=== PATIENT | female | born 1940 | race Caucasian/White ===

== ENCOUNTER 2020-05-30 08:31 | Day surgery (SDC) | payer MEDICARE, SELFPAY ==
[2020-05-23 13:45] VITALS: BMI 24.2
--- NOTE | 2020-05-28 09:57 | HO.ANESPROP2 ---
Documented by User: Merle Worley 05/28/20 10:04 HPI - Anesthesia Eval Consult details Narrative: 79yo F for EGD and Colonoscopy PMFSH Past Medical History Medical History Anemia Anxiety Asthma COPD (chronic obstructive pulmonary disease) Depression Elevated cholesterol GERD (gastroesophageal reflux disease) GI bleed Lab test negative for COVID-19 virus Osteopenia Peripheral neuropathy Surgical History Surgical History (Updated 05/23/20 @ 13:53 by Pilar Lucas) History of axillary surgery Hx of appendectomy Hx of cholecystectomy Hx of colonoscopy Hx of esophagogastroduodenoscopy Hx of foot surgery Hx of oophorectomy Hx of tonsillectomy Social History Social History Smoking Status: Current every day smoker Packs Per Day: 0.25 Cigarettes Per Day: 5.0 Years Smoked: 50 Smoked in Last 30 Days: Yes Use of substances other than those prescribed or required for medical reasons: No Advance Directives Information Provided: No Recently lost weight without trying: No Meds Allergies Allergy/AdvReac Type Severity Reaction Status Date / Time No Known Allergies Allergy Verified 05/23/20 13:53 Home Medications Medication Instructions Recorded Confirmed Type ascorbic acid (vitamin C) [Vitamin 500 mg PO DAILY 05/23/20 05/23/20 History C] atorvastatin 40 mg PO BEDTIME 05/23/20 05/23/20 History cholecalciferol (vitamin D3) 25 mcg PO DAILY 05/23/20 05/23/20 History [Vitamin D3] citalopram [Celexa] 20 mg PO DAILY 05/23/20 05/23/20 History fluticasone propion-salmeterol 1 inh INHALATION BID 05/23/20 05/30/20 History [Advair Diskus] omeprazole 20 mg PO DAILY 05/23/20 05/23/20 History tiotropium bromide [Spiriva with 1 cap INHALATION DAILY 05/23/20 05/30/20 History HandiHaler] Exam Exam Date and Time: May 28, 2020 0957 Height,Weight and Vital Signs: Height 5 ft 4 in Weight 63.957 kg Assessment and Plan Assessment Anesthesia Assessment: Chart Reviewed Documented by User: Kaiser Jacobsen 05/30/20 09:02 [facility] Past Medical History Medical History Anemia Anxiety Asthma COPD (chronic obstructive pulmonary disease) Depression Elevated cholesterol GERD (gastroesophageal reflux disease) GI bleed Lab test negative for COVID-19 virus Osteopenia Peripheral neuropathy Surgical History Surgical History (Updated 05/23/20 @ 13:53 by Pilar Lucas) History of axillary surgery Hx of appendectomy Hx of cholecystectomy Hx of colonoscopy Hx of esophagogastroduodenoscopy Hx of foot surgery Hx of oophorectomy Hx of tonsillectomy Social History Social History Smoking Status: Current every day smoker Packs Per Day: 0.25 Cigarettes Per Day: 5.0 Years Smoked: 50 Smoked in Last 30 Days: Yes Use of substances other than those prescribed or required for medical reasons: No Advance Directives Information Provided: No Recently lost weight without trying: No Meds Allergies Allergy/AdvReac Type Severity Reaction Status Date / Time No Known Allergies Allergy Verified 05/23/20 13:53 Home Medications Medication Instructions Recorded Confirmed Type ascorbic acid (vitamin C) [Vitamin 500 mg PO DAILY 05/23/20 05/23/20 History C] atorvastatin 40 mg PO BEDTIME 05/23/20 05/23/20 History cholecalciferol (vitamin D3) 25 mcg PO DAILY 05/23/20 05/23/20 History [Vitamin D3] citalopram [Celexa] 20 mg PO DAILY 05/23/20 05/23/20 History fluticasone propion-salmeterol 1 inh INHALATION BID 05/23/20 05/30/20 History [Advair Diskus] omeprazole 20 mg PO DAILY 05/23/20 05/23/20 History tiotropium bromide [Spiriva with 1 cap INHALATION DAILY 05/23/20 05/30/20 History HandiHaler] Exam Airway Mallampati Class: I TM Dist: >3cm Neck ROM: Full Partial: Upper and Lower Heart: RRR occ PVCs Assessment and Plan Assessment Anesthesia Assessment: Anesthesia Plan Discussed Final Anesthetic Review NPO: Yes ASA Class: III Anesthetic Plan Anesthetic Plan: MAC:
[2020-05-30 08:53] VITALS: BP 140/58; PULSE 80; RESP 16; TEMP 36.6; O2SAT 97
[2020-05-30] MEDS: Albuterol Sulfate (0.083%) 2.5 MG/3 ML VIAL.NEB INHALE (09:15)
--- NOTE | 2020-05-30 09:34 | MHC.SHP ---
Pre-Procedural Eval Section B Chief Complaint: Gerd, Screening Relevant Social History: Tobacco Use Present Medications: see Short Stay Collaborative assessment Medical History: Significant History (HTN, HLP, smoker,depression) History of Previous Operations: Relevant previous surgery/procedure and date(s) (appendectomy, cholecystectomy, oophorectomy) Allergies: Allergies Allergy/AdvReac Type Severity Reaction Status Date / Time No Known Allergies Allergy Verified 05/23/20 13:53 Review of Systems Sugical H&P ROS: Negative: Constitution, Cardiovascular, Respiratory, Neurological, Psychiatric, Hem-Onc, Allergic/Immunologic, Gastrointestinal, Genitourinary, Musculoskeletal, Integumentary, Endocrine and Eyes/Ears/Nose/Throat Exam Surgical H&P Exam: Normal: HEENT, Normal: Heart, Normal: Lungs, Normal: Extremities, Normal: Abdomen, Normal: Skin and Normal: Neurological Plan Diagnosis/Plan: Unchanged Patient has been examined and remains a candidate for the planned procedure
--- NOTE | 2020-05-30 09:36 | PM.OP ---
Brief Operative Note Date of procedure: 05/30/20 Pre-op diagnosis: GERD, screening Post-op diagnosis: same Procedure: Operative Information Procedure Description: EGD, Colonoscopy FLEXIBLE TRANSORAL UPPER GASTROINTESTINAL ENDOSCOPY AND COLONOSCOPY PROCEDURE NOTE UPPER ENDOSCOPY Consent: Indications for the procedure and potential complications of bleeding, perforation, reaction to medications and missed diagnosis were discussed with the patient and informed consent was obtained. Instrument: Olympus GIF H 190 J mid size upper endoscope Monitoring: Vital signs and clinical assessment, continuous EKG monitoring, Pulse oximetry, Carbon Dioxide monitoring and blood pressure monitoring were done throughout the procedure. Procedure: The patient was placed in the left lateral decubitis position and pre-procedure medications were administered and a bite block was placed. The endoscope was inserted into the mouth and advanced under direct vision to the third part of duodenum. A careful inspection was made as the upper endoscope was withdrawn including a retroflexed examination of the proximal stomach; Findings and interventions are described below. Findings: Larynx:normal Esophagus: GE junction at 37 cm, diaphragm hiatus at 37 cm, mild esophagitis noted Stomach: Normal mucosa. Biopsies were obtained. Grade 2 flap valve on retroflexed examination of the cardia. 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 Colon withdrawal time was 12 minutes. Procedure: The patient was placed in the left lateral decubitis position and pre-procedure medications were administered. After a digital rectal examination of the ano-rectum, the video colonoscope was inserted into the rectum and advanced through the colon to the cecum. The colonoscope was slowly withdrawn in a retrograde panoramic fashion and the colon mucosa was carefully examined including a retroflexed view of the rectum. Findings and interventions are described below. Procedure Difficulty: Findings: Terminal Ileum-not intubate due to looping Cecum:normal, several AVM seen, non bleeding, 8-10 mm in diameter Ascending Colon: normal Transverse Colon -normal Descending Colon:normal, 6-8 mm sessile polyp biopsy excised Sigmoid Colon: severe diverticulosis, with wide mouthed and small tics Rectum: Retroflexion with moderate sized internal hemorrhoids, grade I, 8-9 mm polyp removed with forceps, one clip applied due to persistent oozing Anorectum - normal Colon preparation: [place] Bowel Preparation Scale Right colon; 3 Transverse colon: 3 Left colon; 3 (0 = Unprepared colon segment with mucosa not seen due to solid stool that cannot be cleared. 1 = Portion of mucosa of the colon segment seen, but other areas of the colon segment not well seen due to staining, residual stool and/or opaque liquid. 2 = Minor amount of residual staining, small fragments of stool and/or opaque liquid, but mucosa of colon segment seen well. 3 = Entire mucosa of colon segment seen well with no residual staining, small fragments of stool or opaque liquid) Impression and Post Procedure Diagnosis: Endoscopy Findings: esophagitis, mild AVM Colonoscopy Findings: diverticulosis AVM polyps Plan: Await Pathology results Do not recommend further screening colonoscopy given age and co-morbidities, but if clinically indicated for other reasons then can be considered High fiber diet leaflet avoid straining at stool, epsom salts and sitz bath as needed, anusol supps or cream prn Above findings were reviewed with the patient and relevant handouts were provided if indicated. Surgeon: Ayan Liang MD Anesthesia: MAC Condition: stable Disposition: PACU
[2020-05-30 10:51] VITALS: BP 99/50; PULSE 76; RESP 12; TEMP 36.1; O2SAT 97
[2020-05-30 11:11] VITALS: BP 111/53; PULSE 69; RESP 18; O2SAT 96
--- NOTE | 2020-05-30 11:28 | HO.POSTANES ---
Post Anesthesia Evaluation Post Anesthesia Evaluation Vital Signs: Vital Signs Temp Pulse Resp BP Pulse Ox 05/30/20 11:11 69 18 111/53 L 96 05/30/20 10:51 97 F 76 12 99/50 L 97 05/30/20 08:53 98 F 80 16 140/58 H 97 Anesthesia: Monitored Mental Status: Awake Pain Control: Satisfactory Nausea/Vomiting: None Hydration: Adequate Anesthesia-Related Issues: No Anes. Related Issues
== END 2020-05-30 11:39 | disposition home or self-care (01) ==
PROVIDERS: PCP Internal Medicine Geriatric Medicine; Visit Provider Internal Medicine Gastroenterology
PROC: (CPT 45380; principal; 2020-05-30 09:50)
DX: Z12.11 Encounter for screening for malignant neoplasm of colon (principal); K63.5 Polyp of colon; K62.1 Rectal polyp; K57.30 Diverticulosis of large intestine without perforation or abscess without bleeding; K64.0 First degree hemorrhoids; K55.20 Angiodysplasia of colon without hemorrhage; K21.00 Gastro-esophageal reflux disease with esophagitis, without bleeding; K31.819 Angiodysplasia of stomach and duodenum without bleeding; K44.9 Diaphragmatic hernia without obstruction or gangrene; I10 Essential (primary) hypertension; E78.5 Hyperlipidemia, unspecified; G62.9 Polyneuropathy, unspecified; M85.80 Other specified disorders of bone density and structure, unspecified site; Z90.49 Acquired absence of other specified parts of digestive tract; F17.210 Nicotine dependence, cigarettes, uncomplicated; Z79.51 Long term (current) use of inhaled steroids; Z79.899 Other long term (current) drug therapy
CPT/HCPCS: 45380; 43239; 88305; 88342; 94640; J3010

== ENCOUNTER 2020-06-28 15:15 | Emergency (ER) | payer MEDICARE, SELFPAY ==
[2020-06-28 15:31] VITALS: BP 131/50; PULSE 69; PULSE 74; RESP 15; TEMP 36.6; O2SAT 95; O2SAT 98; BMI 24.0
--- NOTE | 2020-06-28 17:02 | ED_ITS ---
HPI - Back Pain/Injury General Chief Complaint: Back Pain/Injury Stated Complaint: L LEG PAIN, ?DVT Time Seen by Provider: 06/28/20 16:42 Source: patient Mode of arrival: ambulatory Limitations: no limitations History of Present Illness HPI Narrative: Patient comes to emergency room complaining of left-sided hip pain and back pain. Patient states it started 3 days ago, denies any trauma 3 days ago. Patient states she did have a fall approximately 1 month ago, however she was able to walk with a significant pain, this is new for her. Patient denies any dysuria, no fecal or urinary incontinence or retention. Patient states she has tried Tylenol with no relief. patient states that she is able to walk. Patient was seen by her primary care physician or in a clinic prior to arrival, she had an order for a venous ultrasound but instead she was sent to emergency room, patient has history of DVTs, patient complaining of chronic bilateral leg pain as well. Related Data Home Medications Medication Instructions Recorded Confirmed ascorbic acid (vitamin C) [Vitamin 500 mg PO DAILY 05/23/20 05/23/20 C] atorvastatin 40 mg PO BEDTIME 05/23/20 05/23/20 cholecalciferol (vitamin D3) 25 mcg PO DAILY 05/23/20 05/23/20 [Vitamin D3] citalopram [Celexa] 20 mg PO DAILY 05/23/20 05/23/20 fluticasone propion-salmeterol 1 inh INHALATION BID 05/23/20 05/30/20 [Advair Diskus] omeprazole 20 mg PO DAILY 05/23/20 05/23/20 tiotropium bromide [Spiriva with 1 cap INHALATION DAILY 05/23/20 05/30/20 HandiHaler] Previous Rx's Medication Instructions Recorded baclofen 10 mg PO BEDTIME #7 tab 06/28/20 oxycodone 5 mg PO BID PRN #10 tab 06/28/20 Allergies Allergy/AdvReac Type Severity Reaction Status Date / Time No Known Allergies Allergy Verified 05/23/20 13:53 [facility] Past Medical History Medical History Anemia Anxiety Asthma COPD (chronic obstructive pulmonary disease) Depression Elevated cholesterol GERD (gastroesophageal reflux disease) GI bleed Lab test negative for COVID-19 virus Osteopenia Peripheral neuropathy Surgical History History of axillary surgery Hx of appendectomy Hx of cholecystectomy Hx of colonoscopy Hx of esophagogastroduodenoscopy Hx of foot surgery Hx of oophorectomy Hx of tonsillectomy Social History Social History Smoking Status: Never smoker Packs Per Day: 0.25 Cigarettes Per Day: 5.0 Years Smoked: 50 Use of substances other than those prescribed or required for medical reasons: No Advance Directives: No Advance Directives Information Provided: Yes Physical Exam Vital Signs: Vital Signs: Last Vital Signs Temp 98 F 06/28/20 18:00 Pulse 69 06/28/20 18:00 Resp 15 06/28/20 18:00 BP 134/84 06/28/20 18:00 Pulse Ox 98 06/28/20 18:00 Body Mass Index 24.0 Appearance: Alert. Oriented X3. No acute distress. Eyes: Pupils equal, round and reactive to light. ENT: Pharynx normal. Neck: Normal inspection. Neck supple. No lymph nodes noted. No crepitus CVS: Normal heart rate and rhythm. Pulses normal. Normal S1 and S2 Respiratory: No respiratory distress. Breath sounds normal. No Wheezing. No rales Abdomen: Soft and nontender. No rigidity. No distention. good BS x4 Back: Negative straight leg raise test, pain to palpation in the lower back over the paraspinal muscles, pain triggered by movement, and hip. Skin: Skin warm and dry. Normal skin color. Normal skin turgor. Extremities: No lower extremity edema. No lower extremity edema. No Lacerations. No Rash Neuro: Oriented X 3. No motor deficit. No sensory deficit. Moving all extermities. No slurred speech. MDM - Back Pain/Injury MDM Narrative Medical decision making narrative: Patient's pain is likely musculoskeletal, patient does not have a physical exam that is consistent with sciatica or herniated discs, patient instructed to follow-up with her primary care physician. Imaging Data Venous duplex ultrasound bilateral: Radiologist's impression: RIGHT: There is normal venous compression and respiratory variation and augmented flow. The visualized common femoral vein, superficial femoral vein, profunda femoral vein, popliteal vein, and the trifurcation region shows no evidence of deep venous thrombosis. There is no significant popliteal fossa cyst. LEFT: There is normal venous compression and respiratory variation and augmented flow. The visualized common femoral vein, superficial femoral vein, profunda femoral vein, popliteal vein, and the trifurcation region shows no evidence of deep venous thrombosis. There is no significant popliteal fossa cyst. If the patient's symptoms persist, followup ultrasound in 5 days 7 days might be of value to exclude proximal propagation from a non-visualized calf vein. US/US venous duplex LE BI IMPRESSION: No DVT demonstrated in the either the right or left lower extremity. Hip x-ray: Radiologist's impression: There is no fracture or dislocation. No focal bone lesion or bone destruction. There is moderate degenerative joint disease of the hips bilateral. There is joint narrowing and marginal bone spurs of the acetabula and the superior lateral femoral heads of both hips. No bone erosions. No periarticular soft tissue calcification. Sacroiliac joints are normal. There is degenerative spondylosis of lower lumbar spine of disc height narrowing and vertebral endplate spurring at L4-L5 and L5-S1 XR/XR hip LT w PEL1V IMPRESSION: 1. No acute osseous abnormality. 2. 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 Discharge Plan Discharge Clinical Impression: Strain of lumbar region Qualifiers: Encounter type: initial encounter Qualified Code(s): S39.012A - Strain of muscle, fascia and tendon of lower back, initial encounter Patient Disposition: Home, Self-Care Instructions: Acute Low Back Pain (ED) Additional Instructions: Please follow-up with your primary care physician tomorrow. If you have any worsening or new symptoms, please return to the emergency room or call 911 Prescriptions: New baclofen 10 mg tablet 10 mg PO BEDTIME Qty: 7 RF: 0 oxycodone 5 mg tablet 5 mg PO BID PRN (Reason: pain) Qty: 10 RF: 0 No Action atorvastatin 40 mg Tablet 40 mg PO BEDTIME RF: 0 fluticasone propion-salmeterol [Advair Diskus] 250-50 mcg/dose Blister With Device 1 inh INHALATION BID RF: 0 citalopram [Celexa] 20 mg Tablet 20 mg PO DAILY RF: 0 ascorbic acid (vitamin C) [Vitamin C] 500 mg Tablet 500 mg PO DAILY RF: 0 Spiriva with HandiHaler 18 mcg Capsule, W/Inhalation Device 1 cap INHALATION DAILY RF: 0 cholecalciferol (vitamin D3) [Vitamin D3] 25 mcg (1,000 unit) Tablet 25 mcg PO DAILY RF: 0 omeprazole 20 mg Tablet,Delayed Release (Dr/Ec) 20 mg PO DAILY RF: 0
--- NOTE | 2020-06-28 17:15 | PC.NURSE ---
Patient currently at xray
--- NOTE | 2020-06-28 17:17 | XR_ITS ---
EXAMINATION: XR HIP, LEFT CLINICAL INFORMATION: Left hip and back pain. COMPARISON: Left hip 03/19/2017. CT abdomen pelvis 10/25/2018 TECHNIQUE: Frontal view of pelvis. Two views of the left hip. FINDINGS: There is no fracture or dislocation. No focal bone lesion or bone destruction. There is moderate degenerative joint disease of the hips bilateral. There is joint narrowing and marginal bone spurs of the acetabula and the superior lateral femoral heads of both hips. No bone erosions. No periarticular soft tissue calcification. Sacroiliac joints are normal. There is degenerative spondylosis of lower lumbar spine of disc height narrowing and vertebral endplate spurring at L4-L5 and L5-S1 XR/XR hip LT w PEL1V IMPRESSION: 1. No acute osseous abnormality. 2. 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
[2020-06-28] MEDS: oxyCODONE HCl Immed Release 5 MG TABLET PO (17:19)
--- NOTE | 2020-06-28 17:29 | US_ITS ---
EXAMINATION: US VENOUS ULTRASOUND WITH DOPPLER LOWER EXTREMITY, BILATERAL CLINICAL INFORMATION: Bilateral lower extremity edema COMPARISON: None TECHNIQUE: Ultrasound of the deep veins is performed from the hip to the calf with compression sonography and color and pulse Doppler assessment. Spectral analysis with color-flow imaging is performed. FINDINGS: RIGHT: There is normal venous compression and respiratory variation and augmented flow. The visualized common femoral vein, superficial femoral vein, profunda femoral vein, popliteal vein, and the trifurcation region shows no evidence of deep venous thrombosis. There is no significant popliteal fossa cyst. LEFT: There is normal venous compression and respiratory variation and augmented flow. The visualized common femoral vein, superficial femoral vein, profunda femoral vein, popliteal vein, and the trifurcation region shows no evidence of deep venous thrombosis. There is no significant popliteal fossa cyst. If the patient's symptoms persist, followup ultrasound in 5 days 7 days might be of value to exclude proximal propagation from a non-visualized calf vein. US/US venous duplex LE BI IMPRESSION: No DVT demonstrated in the either the right or left lower extremity.
[2020-06-28 18:00] VITALS: BP 134/84; PULSE 69; RESP 15; TEMP 36.6; O2SAT 98
[2020-06-28] MEDS: Baclofen 10 MG TABLET PO (19:48)
== END 2020-06-28 20:00 | disposition home or self-care (01) ==
PROVIDERS: Emergency Provider Emergency Medicine; PCP Internal Medicine Geriatric Medicine
DX: S39.012A Strain of muscle, fascia and tendon of lower back, initial encounter (principal); M79.605 Pain in left leg; M25.552 Pain in left hip; R60.0 Localized edema; X58.XXXA Exposure to other specified factors, initial encounter; Y93.9 Activity, unspecified; Y92.9 Unspecified place or not applicable; Y99.9 Unspecified external cause status; Z79.899 Other long term (current) drug therapy
CPT/HCPCS: 73502; 93970; 99284

== ENCOUNTER 2020-07-04 12:21 | Emergency (ER) | payer MEDICARE, SELFPAY ==
[2020-07-04 12:46] VITALS: BP 111/57; PULSE 73; RESP 20; TEMP 36.9; O2SAT 96; BMI 24.0
--- NOTE | 2020-07-04 12:49 | XR_ITS ---
EXAMINATION: XR CHEST CLINICAL INFORMATION: Covid like symptoms COMPARISON: 12/26/2019 TECHNIQUE: Frontal view of the chest was obtained. FINDINGS: The lungs are well expanded. There is no focal consolidation, edema, or effusion. No pneumothorax. The cardiomediastinal silhouette is within normal limits. No acute osseous abnormality. Right axillary surgical clips. XR/XR chest 1V IMPRESSION: Clear lungs.
--- NOTE | 2020-07-04 13:15 | ED_ITS ---
HPI - Fever General Chief Complaint: Fever Stated Complaint: covid symptoms Time Seen by Provider: 07/04/20 12:27 Source: patient Mode of arrival: ambulatory Limitations: no limitations History of Present Illness HPI Narrative: 79-year-old female with a past medical history of anemia, asthma, COPD, GERD, GI bleed, peripheral neuropathy, osteopenia, hyperlipidemia and anxiety presenting to the ED with complaints of fevers up to 101.0 that started last night, chills, intermittent headaches and intermittent productive cough. reports her son is here also in the ED with similar symptoms. Denies recent travel or any other known sick contacts. Denies any other symptoms complaints or concerns at this time. Related Data Home Medications Medication Instructions Recorded Confirmed ascorbic acid (vitamin C) [Vitamin 500 mg PO DAILY 05/23/20 05/23/20 C] atorvastatin 40 mg PO BEDTIME 05/23/20 05/23/20 cholecalciferol (vitamin D3) 25 mcg PO DAILY 05/23/20 05/23/20 [Vitamin D3] citalopram [Celexa] 20 mg PO DAILY 05/23/20 05/23/20 fluticasone propion-salmeterol 1 inh INHALATION BID 05/23/20 05/30/20 [Advair Diskus] omeprazole 20 mg PO DAILY 05/23/20 05/23/20 tiotropium bromide [Spiriva with 1 cap INHALATION DAILY 05/23/20 05/30/20 HandiHaler] Previous Rx's Medication Instructions Recorded baclofen 10 mg PO BEDTIME #7 tab 06/28/20 oxycodone 5 mg PO BID PRN #10 tab 06/28/20 Allergies Allergy/AdvReac Type Severity Reaction Status Date / Time No Known Allergies Allergy Verified 07/04/20 12:45 Review of Systems Review of Systems: Constitutional : + Fever, + Chills, No fatigue, No Malaise ENT/Mouth : No sore throat, No runny nose Eyes: No Discharge Cardiovascular : No Chest Pain, No SOB Respiratory : + Cough, + Sputum, No Wheezing, No Smoke Exposure, No Dyspnea Gastrointestinal : No Nausea, No Vomiting, No Diarrhea Genitourinary : No irregular bleeding, No Dysuria, No Urinary Frequency, No Hematuria, No Urinary Incontinence, No Urgency, No Flank Pain, Musculoskeletal : No Myalgia Skin : No rash Neuro : + Headache Yes all other systems are reviewed and are negative FOR[facility], [facility] Past Medical History Attestation statement: The following information was validated with the patient. Medical History Anemia Anxiety Asthma COPD (chronic obstructive pulmonary disease) Depression Elevated cholesterol GERD (gastroesophageal reflux disease) GI bleed Lab test negative for COVID-19 virus Osteopenia Peripheral neuropathy Surgical History History of axillary surgery Hx of appendectomy Hx of cholecystectomy Hx of colonoscopy Hx of esophagogastroduodenoscopy Hx of foot surgery Hx of oophorectomy Hx of tonsillectomy Social History Social History Smoking Status: Never smoker Packs Per Day: 0.25 Cigarettes Per Day: 5.0 Years Smoked: 50 Advance Directives: No Advance Directives Information Provided: Yes Physical Exam Vital Signs: Vital Signs: Last Vital Signs Temp 98.5 F 07/04/20 12:46 Pulse 73 07/04/20 12:46 Resp 20 07/04/20 12:46 BP 111/57 L 07/04/20 12:46 Pulse Ox 96 07/04/20 12:46 Body Mass Index 24.0 vital signs have been reviewed as normal and appeared to be correct. Blood pressure normal. Heart rate normal. Respiration rate normal. Temperature normal. Oxygen saturation normal. Appearance: Alert. Oriented X3. No acute distress. Head: Normal external exam. Eyes: PERRLA. EOMI. Conjunctiva and sclera normal. Eyelids normal. ENT: EAC normal. TM's Normal. Pharynx normal. Uvula midline. Moist mucous membranes. Neck: Normal inspection. Neck supple. FROM. No adenopathy. No meningeal signs. CVS: Normal heart rate and rhythm. Heart sound normal. No murmurs noted. Pulses normal throughout. Respiratory: No respiratory distress. Painless inspiration. Breath sounds normal. No wheezes/rales/rhonchi noted. Chest nontender. No accessory muscle usage noted or decreased air movement noted. Back: Full range of motion noted. Skin: Skin warm and dry. Normal skin color. Normal skin turgor. No rashes/lesions/lacerations noted. Extremities: No lower extremity edema. Extremities exhibit normal range of motion. Extremities nontender. Neuro: Oriented X 3. No motor deficit. No sensory deficit. Reflexes normal. Course Course Course Narrative: - 79-year-old female with a past medical history of anemia, asthma, COPD, GERD, GI bleed, peripheral neuropathy, osteopenia, hyperlipidemia and anxiety presenting to the ED with complaints of fevers up to 101.0 that started last night, chills, intermittent headaches and intermittent productive cough. reports her son is here also in the ED with similar symptoms. Denies recent travel or any other known sick contacts. Denies any other symptoms complaints or concerns at this time. - X-ray obtained of chest negative for any acute processes such as of pneumonia or any other acute processes. Patient is swabbed for COVID/RSV and flu at this time. Will DC home with antibiotics and symptomatic treatment along with instructions return if any new or worsening symptoms to follow-up with primary care provider and to self isolate for at least 10-14 days. Patient understands agrees with this plan. MDM - Fever Medical Records Attestation: I reviewed the patient's medical records. Imaging Data Chest x-ray: Attestation: I personally reviewed and interpreted this imaging study as follows: Radiologist's impression: FINDINGS: The lungs are well expanded. There is no focal consolidation, edema, or effusion. No pneumothorax. The cardiomediastinal silhouette is within normal limits. No acute osseous abnormality. Right axillary surgical clips. XR/XR chest 1V IMPRESSION: Clear lungs. Discharge Plan Discharge Clinical Impression: Acute viral syndrome Prescriptions: No Action atorvastatin 40 mg Tablet 40 mg PO BEDTIME RF: 0 fluticasone propion-salmeterol [Advair Diskus] 250-50 mcg/dose Blister With Device 1 inh INHALATION BID RF: 0 citalopram [Celexa] 20 mg Tablet 20 mg PO DAILY RF: 0 ascorbic acid (vitamin C) [Vitamin C] 500 mg Tablet 500 mg PO DAILY RF: 0 Spiriva with HandiHaler 18 mcg Capsule, W/Inhalation Device 1 cap INHALATION DAILY RF: 0 cholecalciferol (vitamin D3) [Vitamin D3] 25 mcg (1,000 unit) Tablet 25 mcg PO DAILY RF: 0 omeprazole 20 mg Tablet,Delayed Release (Dr/Ec) 20 mg PO DAILY RF: 0 baclofen 10 mg tablet 10 mg PO BEDTIME Qty: 7 RF: 0 oxycodone 5 mg tablet 5 mg PO BID PRN (Reason: pain) Qty: 10 RF: 0
[2020-07-04 13:57] LABS: Influenza A PCR NEGATIVE (Negative); Influenza B PCR NEGATIVE (Negative); Resp Syncy Virus RNA Qual PCR NEGATIVE (Negative); SARS COV2 PCR INHOUSE NEGATIVE (Negative)
== END 2020-07-04 13:38 | disposition home or self-care (01) ==
PROVIDERS: Physician Assistant Medical; Emergency Provider Emergency Medicine
DX: B34.9 Viral infection, unspecified (principal); R50.9 Fever, unspecified; R05 Cough; Z79.899 Other long term (current) drug therapy; Z20.828 Contact with and (suspected) exposure to other viral communicable diseases
CPT/HCPCS: 0241U; 71045; 99283

== ENCOUNTER → 2020-07-15 09:59 | Outpatient (BNVA) | payer MEDICARE, SELFPAY | PROVIDERS: PCP Internal Medicine Geriatric Medicine; Referring Provider Internal Medicine Geriatric Medicine; Visit Provider Nurse Practitioner | DX: Z12.11 Encounter for screening for malignant neoplasm of colon (principal); K21.9 Gastro-esophageal reflux disease without esophagitis; R10.13 Epigastric pain; K31.819 Angiodysplasia of stomach and duodenum without bleeding | CPT/HCPCS: Q3014 ==

== ENCOUNTER 2020-07-16 11:24 | Emergency (ER) | payer MEDICARE, SELFPAY ==
--- NOTE | 2020-07-16 11:45 | XR_ITS ---
EXAMINATION: XR CHEST CLINICAL INFORMATION: Cough COMPARISON: Chest radiographs 07/04/2020, 12/26/2019, 12/28/2018 TECHNIQUE: Portable upright AP view of the chest was obtained. FINDINGS: There is coarsening of the bronchovascular markings similar to prior studies. There is questionable groundglass opacity right lower zone. No confluent lobar segmental airspace consolidation and no effusion. The vascularity is normal. The heart is within normal size. The hilar and mediastinal contours are normal. No visible acute bony abnormality. XR/XR chest 1V IMPRESSION: 1. Chronic coarsening bronchovascular markings. Questionable groundglass opacities right lower zone. This could be associated with early atypical pneumonia or viral process. 2. No lobar or segmental airspace consolidation, vascular congestion, or effusion.
[2020-07-16 11:46] VITALS: BP 116/57; PULSE 81; RESP 18; TEMP 37.3; O2SAT 98; BMI 26.5
--- NOTE | 2020-07-16 11:48 | ED.URI ---
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 Mode of arrival: ambulatory Limitations: no limitations History of Present Illness HPI Narrative: 79 yo female reports 2 weeks of URI symptoms and cough, fever to 101 last night - her daughter and son are both hospitalized with severe COVID, just seen here on 07/04 as well for same presentation states she still doesnt feel well MD elicited complaint: fever, cough and nasal congestion Pertinent past history: COPD and asthma Onset (ago): week(s) (2) Consistency: constant Severity: moderate Description of mucous: clear Able to tolerate fluids by mouth: Yes Exacerbating factors: exertion Relieving factors: nothing Context: sick contacts Associated symptoms: fever, chills, myalgias, headache, cough and shortness of breath Treatments prior to arrival: acetaminophen (last night) and other (taking her albuterol ) Related Data Home Medications Medication Instructions Recorded Confirmed ascorbic acid (vitamin C) [Vitamin 500 mg PO DAILY 05/23/20 05/23/20 C] atorvastatin 40 mg PO BEDTIME 05/23/20 05/23/20 cholecalciferol (vitamin D3) 25 mcg PO DAILY 05/23/20 05/23/20 [Vitamin D3] citalopram [Celexa] 20 mg PO DAILY 05/23/20 05/23/20 fluticasone propion-salmeterol 1 inh INHALATION BID 05/23/20 05/30/20 [Advair Diskus] omeprazole 20 mg PO DAILY 05/23/20 05/23/20 tiotropium bromide [Spiriva with 1 cap INHALATION DAILY 05/23/20 05/30/20 HandiHaler] Previous Rx's Medication Instructions Recorded baclofen 10 mg PO BEDTIME #7 tab 06/28/20 oxycodone 5 mg PO BID PRN #10 tab 06/28/20 acetaminophen [Tylenol] 650 mg PO Q6H PRN #10 tab 07/04/20 albuterol sulfate 0.63 mg INHALATION QID PRN #75 ml 07/04/20 albuterol sulfate 1 inh INHALATION QID PRN #8.5 g 07/04/20 azithromycin See Rx Instructions .ROUTE 07/04/20 .COMPLEX #3 tab prednisone 40 mg PO DAILY 5 Days #10 tab 07/04/20 doxycycline hyclate 100 mg PO BID 7 Days #14 cap 07/16/20 hydrocodone-homatropine 5 ml PO Q6H PRN #60 ml 07/16/20 ondansetron 4 mg PO Q8H PRN #20 tab 07/16/20 prednisone 40 mg PO DAILY 5 Days #10 tab 07/16/20 Allergies Allergy/AdvReac Type Severity Reaction Status Date / Time No Known Allergies Allergy Verified 07/16/20 11:45 Review of Systems Review of Systems: Constitutional : pos Fever, pos Chills ENT/Mouth : No sore throat, No Rhinorrhea, No Swallowing Difficulty Eyes: No Eye Pain, No Swelling, No Redness Cardiovascular : No Chest Pain, positive SOB, No Orthopnea, positive Edema Respiratory : pos Cough, No Sputum, pos Wheezing, positive dyspnea Gastrointestinal : No Nausea, No Vomiting, No Diarrhea, No abdominal Pain, No Hematochezia, No Melena Genitourinary : No Dysuria, No Urinary Frequency, No Hematuria Musculoskeletal : No joint pain, pos Myalgias Skin : No Skin Lesions, No rash Neuro : No Weakness, No Numbness, No Dizziness, No Headache Psych : No Anxiety/Panic, No Depression Heme/Lymph: No Bruising, No Lymphadenopathy Endocrine : No Polyuria, No Polydipsia All other systems reviewed and are negative PMFSH Past Medical History Attestation statement: The following information was validated with the patient. Medical History Anemia Anxiety Asthma COPD (chronic obstructive pulmonary disease) COVID-19 Depression Elevated cholesterol GERD (gastroesophageal reflux disease) GI bleed Lab test negative for COVID-19 virus Osteopenia Peripheral neuropathy Surgical History History of axillary surgery Hx of appendectomy Hx of cholecystectomy Hx of colonoscopy Hx of esophagogastroduodenoscopy Hx of foot surgery Hx of oophorectomy Hx of tonsillectomy Social History Social History (Updated 07/15/20 @ 10:11 by BECKI Thurston) Household Members: Children Alcohol intake: current Alcohol intake frequency: does not drink Smoking Status: Light tobacco smoker Packs Per Day: 0.25 Cigarettes Per Day: 5.0 Years Smoked: 50 Advance Directives: No Advance Directives Information Provided: No Current occupational status: retired Physical Exam Vital Signs: Vital Signs: Last Vital Signs Temp 99.2 F 07/16/20 11:46 Pulse 85 07/16/20 12:10 Resp 16 07/16/20 12:10 BP 128/59 L 07/16/20 12:10 Pulse Ox 96 07/16/20 12:10 Body Mass Index 26.5 Appearance: Alert. Oriented X3. No acute distress. Eyes: Pupils equal, round and reactive to light. ENT: Pharynx normal. Neck: Normal inspection. Neck supple. CVS: Normal heart rate and rhythm. Pulses normal. Respiratory: No respiratory distress. Breath sounds rhonchi, dry persistent cough Abdomen: Soft and nontender. Skin: Skin warm and dry. Normal skin color. Normal skin turgor. Extremities: No lower extremity edema. No calf ttp Neuro: Oriented X 3. No motor deficit. No sensory deficit. Course Course Course Narrative: no hypoxia stable for DC with supportive medications walking O2 sat on arrival was 98% MDM - URI/Sore Throat MDM Narrative Medical decision making narrative: 79 yo female with multiple complaints including cough, dyspnea, fevers, 2 of her children are sick and hospitalized with severe COVID states she tested positive last week she will need steroids, CXR for pneumonia, her walking O2 sat was 98% will provide supportive medications for cough as well. Discharge Plan Discharge Clinical Impression: COVID-19 Patient Disposition: Home, Self-Care Instructions: COVID-19 (Coronavirus Disease 2019) (ED) Additional Instructions: return to ED for any worsening symptoms or concerns Prescriptions: New hydrocodone-homatropine 5-1.5 mg/5 mL (5 mL) syrup 5 ml PO Q6H PRN (Reason: cough) Qty: 60 RF: 0 prednisone 20 mg tablet 40 mg PO DAILY 5 Days Qty: 10 RF: 0 ondansetron 4 mg tablet,disintegrating 4 mg PO Q8H PRN (Reason: nausea and vomiting) Qty: 20 RF: 0 doxycycline hyclate 100 mg capsule 100 mg PO BID 7 Days Qty: 14 RF: 0 No Action atorvastatin 40 mg Tablet 40 mg PO BEDTIME RF: 0 fluticasone propion-salmeterol [Advair Diskus] 250-50 mcg/dose Blister With Device 1 inh INHALATION BID RF: 0 citalopram [Celexa] 20 mg Tablet 20 mg PO DAILY RF: 0 ascorbic acid (vitamin C) [Vitamin C] 500 mg Tablet 500 mg PO DAILY RF: 0 Spiriva with HandiHaler 18 mcg Capsule, W/Inhalation Device 1 cap INHALATION DAILY RF: 0 cholecalciferol (vitamin D3) [Vitamin D3] 25 mcg (1,000 unit) Tablet 25 mcg PO DAILY RF: 0 omeprazole 20 mg Tablet,Delayed Release (Dr/Ec) 20 mg PO DAILY RF: 0 baclofen 10 mg tablet 10 mg PO BEDTIME Qty: 7 RF: 0 oxycodone 5 mg tablet 5 mg PO BID PRN (Reason: pain) Qty: 10 RF: 0 azithromycin 500 mg tablet See Rx Instructions .ROUTE .COMPLEX Qty: 3 RF: 0 prednisone 20 mg tablet 40 mg PO DAILY 5 Days Qty: 10 RF: 0 acetaminophen [Tylenol] 325 mg tablet 650 mg PO Q6H PRN (Reason: fever or pain) Qty: 10 RF: 0 albuterol sulfate 90 mcg/actuation HFA aerosol inhaler 1 inh inhalation QID PRN (Reason: shortness of breath or wheezing) Qty: 8.5 RF: 0 albuterol sulfate 0.63 mg/3 mL solution for nebulization 0.63 mg inhalation QID PRN (Reason: shortness of breath or wheezing) Qty: 75 RF: 0 Referrals: Name,MD Thaddeus [Primary Care Provider] - 2 days (if not better) Print Language: Czech
[2020-07-16] MEDS: Albuterol Sulfate 90 MCG 8 GM INHALER 4 PUFF INHALE (11:59)
[2020-07-16 12:00] VITALS: PULSE 81; O2SAT 98
[2020-07-16] MEDS: predniSONE 20 MG TABLET 40 MG PO (12:08)
[2020-07-16] MEDS: Acetaminophen 325 MG TABLET 650 MG PO (12:08)
[2020-07-16] MEDS: HYDROcodone/Homat 5/1.5/5 ML 5 ML SYRUP PO (12:09)
[2020-07-16 12:10] VITALS: BP 128/59; PULSE 85; RESP 16; O2SAT 96
[2020-07-16 13:02] VITALS: BP 124/57; PULSE 75; RESP 16; TEMP 37.3; O2SAT 97
== END 2020-07-16 13:30 | disposition home or self-care (01) ==
PROVIDERS: Emergency Provider Emergency Medicine; PCP Internal Medicine Geriatric Medicine
DX: U07.1 COVID-19 (principal); J45.909 Unspecified asthma, uncomplicated
CPT/HCPCS: 71045; 94640; 99283; 99284

== ENCOUNTER 2020-07-29 04:39 | Emergency (ER) | payer MEDICARE, SELFPAY ==
[2020-07-29 04:48] VITALS: BP 130/50; BP 130/60; PULSE 77; PULSE 80; RESP 16; TEMP 36.9; O2SAT 99; BMI 25.9
[2020-07-29 05:41] LABS: Basophils Percent Auto 0.3 % (0-2); Eosinophils Absolute Auto 0.2 X10*3/uL (0.0-0.4); Eosinophils Percent Auto 1.6 % (0-4); Hematocrit 29.5 % (37-47); Hemoglobin 9.2 g/dl (12.0-16.0); Imm Gran Abs Auto 0.07 X10*3/uL (0.00-0.03); Imm Gran Pct Auto 0.7 % (0.0-0.4); Lymphocytes Absolute Auto 0.9 X10*3/uL (1.2-4.9); Lymphocytes Percent Auto 9.4 % (20-40); Mean Corpuscular HGB Conc 31.2 g/dl (31.0-35.0); Mean Corpuscular Hemoglobin 26.7 pg (27.0-33.0); Mean Corpuscular Volume 85.8 fL (80-98); Mean Platelet Volume 10.3 fL (9.4-12.3); Monocytes Absolute Auto 0.9 X10*3/uL (0.1-1.2); Monocytes Percent Auto 8.9 % (2-11); Neutrophils Absolute Auto 7.7 X10*3/uL (2.0-8.3); Neutrophils Percent Auto 79.1 % (45-73); Platelet Count 253 X10*3/uL (160-400); Red Blood Count 3.44 X10*6/uL (4.20-5.50); Red Cell Distribution Width 14.6 % (11.0-16.0); White Blood Count 9.7 X10*3/uL (4.8-10.8)
[2020-07-29 05:42] LABS: MANUAL DIFF FLAG NO
--- NOTE | 2020-07-29 05:46 | ED.ABDPAIN ---
HPI - Abdominal Pain General Chief Complaint: Abdominal Pain Stated Complaint: flank pain Time Seen by Provider: 07/29/20 05:13 Source: patient Mode of arrival: EMS Limitations: no limitations History of Present Illness HPI narrative: This is a 79-year-old female who states that she had right flank pain that is sharp, constant and radiates into the groin area and this started last night and has been associated with chills. She denies any associated nausea, vomiting, diarrhea, urinary pain/burning/frequency, but does state that she has had a headache. She does endorse that both her gallbladder and appendix have been removed and that she was diagnosed with COVID-19 on 07/10. Related Data Home Medications Medication Instructions Recorded Confirmed ascorbic acid (vitamin C) [Vitamin 500 mg PO DAILY 05/23/20 05/23/20 C] atorvastatin 40 mg PO BEDTIME 05/23/20 05/23/20 cholecalciferol (vitamin D3) 25 mcg PO DAILY 05/23/20 05/23/20 [Vitamin D3] citalopram [Celexa] 20 mg PO DAILY 05/23/20 05/23/20 fluticasone propion-salmeterol 1 inh INHALATION BID 05/23/20 05/30/20 [Advair Diskus] omeprazole 20 mg PO DAILY 05/23/20 05/23/20 tiotropium bromide [Spiriva with 1 cap INHALATION DAILY 05/23/20 05/30/20 HandiHaler] Previous Rx's Medication Instructions Recorded baclofen 10 mg PO BEDTIME #7 tab 06/28/20 oxycodone 5 mg PO BID PRN #10 tab 06/28/20 acetaminophen [Tylenol] 650 mg PO Q6H PRN #10 tab 07/04/20 albuterol sulfate 0.63 mg INHALATION QID PRN #75 ml 07/04/20 albuterol sulfate 1 inh INHALATION QID PRN #8.5 g 07/04/20 azithromycin See Rx Instructions .ROUTE 07/04/20 .COMPLEX #3 tab prednisone 40 mg PO DAILY 5 Days #10 tab 07/04/20 doxycycline hyclate 100 mg PO BID 7 Days #14 cap 07/16/20 hydrocodone-homatropine 5 ml PO Q6H PRN #60 ml 07/16/20 ondansetron 4 mg PO Q8H PRN #20 tab 07/16/20 prednisone 40 mg PO DAILY 5 Days #10 tab 07/16/20 Allergies Allergy/AdvReac Type Severity Reaction Status Date / Time No Known Allergies Allergy Verified 07/16/20 11:45 Review of Systems Review of Systems Pertinent positives and negatives as stated in HPI and 10 point review of systems otherwise negative. Physical Exam Vital Signs: Vital Signs: Last Vital Signs Temp 98.5 F 07/29/20 04:48 Pulse 8 L 07/29/20 07:38 Resp 16 07/29/20 04:48 BP 136/69 07/29/20 07:38 Pulse Ox 97 07/29/20 07:38 Body Mass Index 25.9 VITAL SIGNS: Reviewed. GENERAL: Well developed, well nourished, in no acute distress. HEAD: Normocephalic/atraumatic, EYES: PERRLA, EOMI intact without pain, no nystagmus/pallor/icterus noted EARS: Ext canals without abnormality, TMs non-bulging and non-erythematous NOSE: Nares patent bilateral OROPHARYNX: no oral lesions noted, posterior pharynx clear and non-erythematous without noted tonsillar enlargement/erythema/exudates NECK: Supple, no adenopathy LUNGS: Normal breath sounds. No adventitious sounds or accessory muscle use. SpO2<99> CARDIOVASCULAR: Regular rate and rhythm without noted murmurs, no JVD or lower extremity edema. ABDOMEN: Soft, mild tenderness to palpation along the right flank without rebound, non-distended with bowel sounds. No rigidity. No guarding. No palpable masses or hernias noted MUSCULOSKELETAL: No tenderness, deformities, or effusions noted on gross inspection. EXTREMITIES: No cyanosis, clubbing or edema. SKIN: Inspection of the skin reveals no rashes, ulcerations, jaundice, pallor, or petechiae. NEUROLOGIC: Alert and oriented x 4. Strength and sensation to light touch were grossly intact x 4. Course Course Course Narrative: A 79-year-old female with history and clinical presentation suggestive of possible renal colic, diverticulitis but doubt SBO, UTI, or pyelonephritis. On review of all investigations there are no acute findings significantly changed from comparison. CT scan was negative for any acute findings. Patient received combination analgesics for presumptive muscle strain/musculoskeletal pain and will be re-evaluated afterwards for symptom relief. Signed out to Dr Pineda. MDM - Abdominal Pain Lab Data Result diagrams: 07/29/20 05:35 07/29/20 05:35 Labs: Lab Results 07/29/20 07/29/20 Range/Units 05:35 05:35 WBC 9.7 (4.8-10.8) X10*3/uL RBC 3.44 L (4.20-5.50) X10*6/uL Hgb 9.2 L (12.0-16.0) g/dl Hct 29.5 L (37-47) % MCV 85.8 (80-98) fL MCH 26.7 L (27.0-33.0) pg MCHC 31.2 (31.0-35.0) g/dl RDW 14.6 (11.0-16.0) % Plt Count 253 (160-400) X10*3/uL MPV 10.3 (9.4-12.3) fL Immature Gran % (Auto) 0.7 H (0.0-0.4) % Neut % (Auto) 79.1 H (45-73) % Lymph % (Auto) 9.4 L (20-40) % [place] % (Auto) 8.9 (2-11) % Eos % (Auto) 1.6 (0-4) % Baso % (Auto) 0.3 (0-2) % Lymph # (Auto) 0.9 L (1.2-4.9) X10*3/uL [place] # (Auto) 0.9 (0.1-1.2) X10*3/uL Eos # (Auto) 0.2 (0.0-0.4) X10*3/uL Baso # (Auto) 0.0 (0.0-0.2) X10*3/uL Abs Immat Gran (auto) 0.07 H (0.00-0.03) X10*3/uL Absolute Neuts (auto) 7.7 (2.0-8.3) X10*3/uL Absolute Nucleated RBC 0.000 (0.0-0.012) X10*3/uL Nucleated RBC % (auto) 0.0 (0.0-0.2) /100WBC Sodium 140 (135-145) mmol/L Potassium 4.9 (3.3-5.1) mmol/l Chloride 104 (96-108) mmol/L Carbon Dioxide 27 (22-29) mmol/L Anion Gap 14 (12-20) BUN 16 (9-16) mg/dL Creatinine 0.84 (0.5-1.4) mg/dL Estim Creat Clear Calc 47.9 Estimated GFR > 60 Random Glucose 135 H (60-115) mg/dL Calcium 8.6 (8.4-10.2) mg/dL Total Bilirubin 0.3 (0.0-1.0) mg/dL AST 12 (5-31) U/L ALT 13 (0-31) U/L Alkaline Phosphatase 71 (39-117) U/L Total Protein 6.7 (6.5-8.0) g/dL Albumin 3.7 (3.5-5.0) g/dL Discharge Plan Discharge Clinical Impression: Muscle strain Patient Disposition: Home, Self-Care Instructions: Muscle Strain (ED), Musculoskeletal Pain (ED) Additional Instructions: 1. Tylenol 1000 mg, por v?a oral, cada 6 horas seg?n sea necesario para controlar el dolor. No exceda los 4000 mg en 24 horas. 2. Ibuprofeno 400 mg, por v?a oral con leche o alimentos, cada 6 horas seg?n sea necesario para controlar el dolor. 3. Parche de lidoca?na, est? disponible en todos los [facility] / [facility] / [facility] y debe aplicarse en el ?jp de m?ximo dolor kavitha se indica en el empaque exterior. 4. Kathleen un seguimiento con plascencia proveedor de atenci?n primaria para ai evaluaci?n y manejo adicionales llamando al consultorio esta ma?nisreen para programar ai yogesh. No dude en volver al servicio de urgencias por cualquier empeoramiento o cambio rosi de george s?ntomas. Prescriptions: No Action atorvastatin 40 mg Tablet 40 mg PO BEDTIME RF: 0 fluticasone propion-salmeterol [Advair Diskus] 250-50 mcg/dose Blister With Device 1 inh INHALATION BID RF: 0 citalopram [Celexa] 20 mg Tablet 20 mg PO DAILY RF: 0 ascorbic acid (vitamin C) [Vitamin C] 500 mg Tablet 500 mg PO DAILY RF: 0 Spiriva with HandiHaler 18 mcg Capsule, W/Inhalation Device 1 cap INHALATION DAILY RF: 0 cholecalciferol (vitamin D3) [Vitamin D3] 25 mcg (1,000 unit) Tablet 25 mcg PO DAILY RF: 0 omeprazole 20 mg Tablet,Delayed Release (Dr/Ec) 20 mg PO DAILY RF: 0 hydrocodone-homatropine 5-1.5 mg/5 mL (5 mL) syrup 5 ml PO Q6H PRN (Reason: cough) Qty: 60 RF: 0 prednisone 20 mg tablet 40 mg PO DAILY 5 Days Qty: 10 RF: 0 ondansetron 4 mg tablet,disintegrating 4 mg PO Q8H PRN (Reason: nausea and vomiting) Qty: 20 RF: 0 doxycycline hyclate 100 mg capsule 100 mg PO BID 7 Days Qty: 14 RF: 0 baclofen 10 mg tablet 10 mg PO BEDTIME Qty: 7 RF: 0 oxycodone 5 mg tablet 5 mg PO BID PRN (Reason: pain) Qty: 10 RF: 0 azithromycin 500 mg tablet See Rx Instructions .ROUTE .COMPLEX Qty: 3 RF: 0 prednisone 20 mg tablet 40 mg PO DAILY 5 Days Qty: 10 RF: 0 acetaminophen [Tylenol] 325 mg tablet 650 mg PO Q6H PRN (Reason: fever or pain) Qty: 10 RF: 0 albuterol sulfate 90 mcg/actuation HFA aerosol inhaler 1 inh inhalation QID PRN (Reason: shortness of breath or wheezing) Qty: 8.5 RF: 0 albuterol sulfate 0.63 mg/3 mL solution for nebulization 0.63 mg inhalation QID PRN (Reason: shortness of breath or wheezing) Qty: 75 RF: 0 Referrals: Rosalina,MD Thaddeus [Primary Care Provider] - 2 days (Re-evaluation and management right flank muscle strain/musculoskeletal pain.) Print Language: Lithuanian REPLACED BY [facility] Past Medical History Medical History Anemia Anxiety Asthma COPD (chronic obstructive pulmonary disease) COVID-19 Depression Elevated cholesterol GERD (gastroesophageal reflux disease) GI bleed Lab test negative for COVID-19 virus Osteopenia Peripheral neuropathy Surgical History History of axillary surgery Hx of appendectomy Hx of cholecystectomy Hx of colonoscopy Hx of esophagogastroduodenoscopy Hx of foot surgery Hx of oophorectomy Hx of tonsillectomy Social History Social History (Updated 07/15/20 @ 10:11 by BECKI Thurston) Household Members: Children Alcohol intake: current Alcohol intake frequency: does not drink Smoking Status: Light tobacco smoker Packs Per Day: 0.25 Cigarettes Per Day: 5.0 Years Smoked: 50 Advance Directives: No Current occupational status: retired
[2020-07-29 06:04] LABS: Alanine Aminotransferase 13 U/L (0-31); Albumin Level 3.7 g/dL (3.5-5.0); Alkaline Phosphatase 71 U/L (39-117); Anion Gap 14 (12-20); Aspartate Amino Transferase 12 U/L (5-31); Bilirubin Total 0.3 mg/dL (0.0-1.0); Blood Urea Nitrogen 16 mg/dL (9-16); Calcium 8.6 mg/dL (8.4-10.2); Carbon Dioxide 27 mmol/L (22-29); Chloride 104 mmol/L (96-108); Creatinine Clr Calc Pharmacy 47.9; Estimated Glomerular Filt Rate > 60; Glucose Random 135 mg/dL (60-115); Potassium 4.9 mmol/l (3.3-5.1); Sodium 140 mmol/L (135-145); Total Protein 6.7 g/dL (6.5-8.0)
--- NOTE | 2020-07-29 06:14 | CT_ITS ---
EXAMINATION: CT ABDOMEN AND PELVIS WITH CONTRAST CLINICAL INFORMATION: Right flank pain COMPARISON: 10/25/2018 TECHNIQUE: Multidetector volumetric images were obtained from the superior aspect of the liver through the pubic symphysis following administration 85 mL of Omnipaque 350 intravenous contrast. Sagittal and coronal reformatted images were obtained on the technologist's workstation. Oral contrast: No This CT examination was performed using dose optimization techniques as appropriate, variously including the following: *Automated exposure control *Adjustment of mA and/or kV according to patient size (this includes techniques or standardized protocols for targeted exams where dose is matched to indication/reason for exam; i.e. extremities or head) *Use of iterative reconstruction technique DLP: 430 mGy-cm FINDINGS: LUNG BASES: Emphysema. Bibasilar subsegmental atelectasis. LIVER, GALLBLADDER, AND BILIARY TREE: The liver is normal in size, shape, and attenuation. No focal hepatic lesion or biliary ductal dilatation is present. Cholecystectomy. PANCREAS: Unremarkable. SPLEEN: Unremarkable. ADRENAL GLANDS: Unremarkable. KIDNEYS AND URETERS: The kidneys are normal in size, shape, and attenuation. Stable bilateral renal cortical cysts, and left parapelvic cysts. No hydronephrosis, hydroureter, or calculi seen. No perinephric stranding. BLADDER: Unremarkable. GASTROINTESTINAL TRACT: Appendix not seen. There are a few scattered colonic diverticula. No evidence of diverticulitis. Otherwise, no bowel related abnormalities.. ABDOMINAL WALL: No significant hernia is appreciated. LYMPH NODES: Normal. VASCULAR: Aorta is atherosclerotic but normal caliber. Patent vascular structures. PELVIC VISCERA: Uterus and adnexa unremarkable. OSSEOUS STRUCTURES: No acute or suspicious osseous abnormalities. Degenerative changes of the lower lumbar spine and bilateral hips. CT/CT abdomen pelvis w con IMPRESSION: * No acute findings within the abdomen or pelvis to explain the patient's symptomatology. * Status post cholecystectomy. * There are a few scattered colonic diverticula without evidence of diverticulitis.
[2020-07-29] MEDS: iohexoL 350 MG/ML 100 ML INFUS..BTL 85 ML IV (06:37)
--- NOTE | 2020-07-29 07:37 | PC.NURSE ---
REPORT FROM [facility]. PT C/O ABD PAIN. AWAITING DISPO. MEDICATED PER ORDERS. VITALS UPDATED
[2020-07-29 07:38] VITALS: BP 136/69; PULSE 8; O2SAT 97
[2020-07-29] MEDS: Acetaminophen 325 MG TABLET 975 MG PO (07:39)
[2020-07-29] MEDS: Ketorolac Tromethamine 15 MG/ML VIAL IVPUSH (07:40)
[2020-07-29] MEDS: Lidocaine 4 % Patch ADH..PATCH 1 PATCH TRANSDERMA (07:40)
== END 2020-07-29 09:00 | disposition home or self-care (01) ==
PROVIDERS: Emergency Provider Student in an Organized Health Care Education/Training Program; PCP Internal Medicine Geriatric Medicine
DX: S39.011A Strain of muscle, fascia and tendon of abdomen, initial encounter (principal); X58.XXXA Exposure to other specified factors, initial encounter; Z86.19 Personal history of other infectious and parasitic diseases; Y93.9 Activity, unspecified; Y92.9 Unspecified place or not applicable; Y99.9 Unspecified external cause status
CPT/HCPCS: 36415; 74177; 80053; 85025; 96374; 99283; 99284; J1885; Q9967

== ENCOUNTER 2020-12-03 10:39 | Emergency (ER) | payer MEDICARE, SELFPAY ==
--- NOTE | ~2020-12-03 | US_ITS ---
EXAMINATION: US VENOUS ULTRASOUND WITH DOPPLER LOWER EXTREMITY, LEFT CLINICAL INFORMATION: Left calf pain COMPARISON: None TECHNIQUE: Ultrasound of the deep veins is performed from the hip to the calf with compression sonography and color and pulse Doppler assessment. Spectral analysis with color-flow imaging is performed. FINDINGS: There is normal venous compression and respiratory variation and augmented flow. The visualized common femoral vein, superficial femoral vein, profunda femoral vein, popliteal vein, and the trifurcation region shows no evidence of deep venous thrombosis. There is no significant popliteal fossa cyst. If the patient's symptoms persist, followup ultrasound in 5 days 7 days might be of value to exclude proximal propagation from a non-visualized calf vein. US/US venous duplex LE LT IMPRESSION: No DVT demonstrated in the left lower extremity.
[2020-12-03 11:07] VITALS: BP 129/57; PULSE 86; RESP 20; TEMP 36.8; O2SAT 97; BMI 24.0
--- NOTE | 2020-12-03 12:20 | ED_ITS ---
HPI - General Adult General Chief complaint: Extremity Problem <MARY Bolivar - Last Filed: 12/03/20 18:06> Stated complaint: L LEG PAIN <MARY Bolivar - Last Filed: 12/03/20 18:06> Time Seen by Provider: 12/03/20 13:33 <MARY Bolivar - Last Filed: 12/03/20 18:06> Source: patient <MARY Bolivar Last Filed: 12/03/20 18:06> Mode of arrival: ambulatory <MARY Bolivar Last Filed: 12/03/20 18:06> Limitations: no limitations <MARY Bolivar Last Filed: 12/03/20 18:06> History of Present Illness HPI narrative: Patient presents to ED for left-sided back pain radiating down left leg. Patient has known history of sciatica/arthritis. Patient denies any recent trauma to the back. Patient states no abdominal pain, fever, chills, chest pain, shortness of breath, dysuria,or hematuria. Patient also states left calf pain and history of blood clot in the leg and wanted to be evaluated for blood clot. Patient denies any urinary/bowel incontinence. Patient denies any dragging of foot on ambulation. <MARY Bolivar Last Filed: 12/03/20 18:06> Related Data Home medications: Home Medications Medication Instructions Recorded Confirmed ascorbic acid (vitamin C) [Vitamin 500 mg PO DAILY 05/23/20 05/23/20 C] atorvastatin 40 mg PO BEDTIME 05/23/20 05/23/20 cholecalciferol (vitamin D3) 25 mcg PO DAILY 05/23/20 05/23/20 [Vitamin D3] citalopram [Celexa] 20 mg PO DAILY 05/23/20 05/23/20 fluticasone propion-salmeterol 1 inh INHALATION BID 05/23/20 05/30/20 [Advair Diskus] tiotropium bromide [Spiriva with 1 cap INHALATION DAILY 05/23/20 05/30/20 HandiHaler] Previous Rx's Medication Instructions Recorded baclofen 10 mg PO BEDTIME #7 tab 06/28/20 oxycodone 5 mg PO BID PRN #10 tab 06/28/20 acetaminophen [Tylenol] 650 mg PO Q6H PRN #10 tab 07/04/20 albuterol sulfate 0.63 mg INHALATION QID PRN #75 ml 07/04/20 albuterol sulfate 1 inh INHALATION QID PRN #8.5 g 07/04/20 azithromycin See Rx Instructions .ROUTE 07/04/20 .COMPLEX #3 tab prednisone 40 mg PO DAILY 5 Days #10 tab 07/04/20 doxycycline hyclate 100 mg PO BID 7 Days #14 cap 07/16/20 hydrocodone-homatropine 5 ml PO Q6H PRN #60 ml 07/16/20 ondansetron 4 mg PO Q8H PRN #20 tab 07/16/20 prednisone 40 mg PO DAILY 5 Days #10 tab 07/16/20 omeprazole 20 mg capsule,delayed 20 mg PO DAILY #90 cap 09/20/20 release acetaminophen [Tylenol] 650 mg PO Q6H PRN 7 Days #48 cap 12/03/20 <MARY Bolivar Last Filed: 12/03/20 18:06> Allergies/adverse reactions: Allergies Allergy/AdvReac Type Severity Reaction Status Date / Time No Known Allergies Allergy Verified 07/16/20 11:45 <MARY Bolivar Last Filed: 12/03/20 18:06> Review of Systems Review of Systems: Yes all other systems are reviewed and are negative <MARY Bolivar Last Filed: 12/03/20 18:06> Constitutional: Constitutional: Reports as per HPI and Reports no additional constitutional complaints <MARY Bolivar Last Filed: 12/03/20 18:06> Eyes: Eyes: Reports as per HPI and Reports no additional eye complaints <MARY Bolivar Last Filed: 12/03/20 18:06> ENT: Reports system reviewed and no additional complaints, except as documented and Reports as per HPI <MARY Bolivar Last Filed: 12/03/20 18:06> Cardiovascular: Cardiovascular: Reports as per HPI and Reports no additional cardiovascular complaints <MARY Bolivar Last Filed: 12/03/20 18:06> Respiratory: Respiratory: Reports as per HPI and Reports no additional re spiratory complaints <MARY Bolivar Last Filed: 12/03/20 18:06> Gastrointestinal: Gastrointestinal: Reports as per HPI and Reports no additional gastrointestinal complaints <MARY Bolivar Last Filed: 12/03/20 18:06> Genitourinary: Genitourinary: Reports no additional female genitourinary complaints and Reports as per HPI <MARY Bolivar - Last Filed: 12/03/20 18:06> Musculoskeletal: Musculoskeletal: Reports no additional musculoskeletal complaints, Reports as per HPI and Reports back pain <MARY Bolivar Last Filed: 12/03/20 18:06> Comments: Back pain. Left calf pain <MARY Bolivar Last Filed: 12/03/20 18:06> Neurologic: Reports system reviewed and no additional complaints, except as documented and Reports as per HPI <MARY Bolivar Last Filed: 12/03/20 18:06> Psychiatric: Psychiatric: Reports no additional psychiatric complaints and Reports as per HPI <MARY Bolivar Last Filed: 12/03/20 18:06> [facility] Past Medical History Medical History: Medical History Anemia Anxiety Asthma COPD (chronic obstructive pulmonary disease) COVID-19 Depression Elevated cholesterol GERD (gastroesophageal reflux disease) GI bleed Lab test negative for COVID-19 virus Osteopenia Peripheral neuropathy <MARY Bolivar Last Filed: 12/03/20 18:06> Surgical History: Surgical History History of axillary surgery Hx of appendectomy Hx of cholecystectomy Hx of colonoscopy Hx of esophagogastroduodenoscopy Hx of foot surgery Hx of oophorectomy Hx of tonsillectomy <MARY Bolivar Last Filed: 12/03/20 18:06> Social History Social History: Social History (Updated 07/15/20 @ 10:11 by BECKI Thurston) Household Members: Children Alcohol intake: never Smoking Status: Light tobacco smoker Packs Per Day: 0.25 Cigarettes Per Day: 5.0 Years Smoked: 50 Smoked in Last 30 Days: No Use of substances other than those prescribed or required for medical reasons: No Advance Directives: No Advance Directives Information Provided: No Current occupational status: retired <MARY Bolivar - Last Filed: 12/03/20 18:06> Physical Exam Vital Signs: Vital Signs: Last Vital Signs Temp 98.2 F 12/03/20 11:07 Pulse 86 12/03/20 11:07 Resp 20 12/03/20 11:07 BP 129/57 L 12/03/20 11:07 Pulse Ox 97 12/03/20 11:07 Body Mass Index 24.0 <MARY Bolivar - Last Filed: 12/03/20 18:06> Vital Signs: Last Vital Signs Temp 98.2 F 12/03/20 11:07 Pulse 86 12/03/20 11:07 Resp 20 12/03/20 11:07 BP 129/57 L 12/03/20 11:07 Pulse Ox 97 12/03/20 11:07 Body Mass Index 24.0 <Dennys Lafleur MD - Last Filed: 12/11/20 17:03> Const: General: cooperative, healthy appearing, comfortable, no acute distress, well developed, alert, awake and Physically active <MARY Bolivar Last Filed: 12/03/20 18:06> Orientation/consciousness: patient oriented x3 <MARY Bolivar Last Filed: 12/03/20 18:06> HENMT: Head: Yes normal to inspection, Yes No palpable skull fracture present, Yes normocephalic, Yes atraumatic, No abrasion, No Martin's sign, No contusion, No cranial bruits, No hematoma, No laceration, No occipital foramen tenderness, No palpable skull fracture, No raccoon eyes, No scalp lesion, No scalp tenderness, No Temporal artery tenderness present and No periorbital ecchymosis <MARY Bolivar - Last Filed: 12/03/20 18:06> Eyes: General: appearance normal, both eyes and all related structures <MARY Bolivar Last Filed: 12/03/20 18:06> Neck: Neck: Yes normal visual inspection, Yes full ROM, Yes no lymphadenopathy, Yes no meningeal signs, Yes trachea midline, Yes supple and No tender <MARY oBlivar Last Filed: 12/03/20 18:06> Chest: Chest palpation & inspection: normal inspection of the chest and normal palpation of entire chest wall <Yovany Uribe PA Andrea Last Filed: 12/03/20 18:06> Resp: Effort & Inspection: normal respiratory effort and able to speak in complete sentences <Yovany Rony, PA Andrea Last Filed: 12/03/20 18:06> Auscultation: clear to auscultation bilaterally <MARY Bolivar Andrea Last Filed: 12/03/20 18:06> Cardio: Jugular venous distension: no JVD <Yovany Rony, PA Andrea Last Filed: 12/03/20 18:06> Heart sounds: S1 normal heart sound present and S2 normal heart sound present <MARY Bolivar Andrea Last Filed: 12/03/20 18:06> GI: Inspection: Yes normal to inspection and No abdominal wall ecchymosis <MARY Bolivar nAdrea Last Filed: 12/03/20 18:06> Palpation (GI): Soft to palpation, not firm, nontender, no guarding and not rigid <MARY Bolivar Last Filed: 12/03/20 18:06> : General: No CVA tenderness and Yes no CVA tenderness <Yovany Rony, PA Last Filed: 12/03/20 18:06> Back/Spine/Pelvis: Back: no CVA tenderness, No CVA tenderness and back tenderness (Left lumbar tenderness on palpation.) <MARY Bolivar Andrea Last Filed: 12/03/20 18:06> Skin: General skin exam: no rashes or lesions noted and elasticity normal <Yovany Rony, PA Last Filed: 12/03/20 18:06> Neuro: General: patient oriented x3, gait normal, no meningeal signs and CN's II-XI intact bilaterally <Yovany Rony, PA Andrea Last Filed: 12/03/20 18:06> Cranial nerves: Yes CN's II-XII intact bilaterally <Yovany Rony, PA Last Filed: 12/03/20 18:06> Extrem: Other: Left lower extremity: Negative for swelling, redness, deformity, ecchymosis, clonus. Mild left calf tenderness. Vascular/motor/neuro exam intact Right lower extremity: Normal. Motor/neuro/vascular exam intact. <MARY Bolivar Andrea Last Filed: 12/03/20 18:06> General: Yes normal to inspection and Yes full ROM <MARY Bolivar - Last Filed: 12/03/20 18:06> Psych: Appearance: grossly normal, well kempt and not disheveled <MARY Bolivar - Last Filed: 12/03/20 18:06> Course Course Course Narrative: No need for repeat back imaging. Patient has chronic back pain and did not have any recent trauma. Not suspecting cord compression. Will send patient for ultrasound of leg due to history of blood clot in leg. Patient does not have any history of IV drug use. Not suspecting epidural abscess. <MARY Cancino - Last Filed: 12/03/20 18:06> I have reviewed the chart <Dennys Lafleur MD - Last Filed: 12/11/20 17:03> Reevaluation(s) Reevaluation #1: Ultrasound negative for blood clot. Patient is safe for discharge. Diagnosis sciatica <MARY Bolivar - Last Filed: 12/03/20 18:06> Discharge Plan Discharge Clinical Impression: Chronic lumbar radiculopathy, Sciatica <MARY Bolivar - Last Filed: 12/03/20 18:06> Patient Disposition: Home, Self-Care <MARY Bolivar Last Filed: 12/03/20 18:06> Instructions: Sciatica (ED), Lumbar Radiculopathy (ED) <MARY Bolivar - Last Filed: 12/03/20 18:06> Additional Instructions: Regrese al servicio de urgencias inmediatamente si empeora el dolor de espalda, incontinencia urinaria / intestinal, incapacidad para caminar, hormigueo / entumecimiento / par?lisis de las extremidades inferiores, hinchaz?n de las extremidades inferiores, dolor en la pantorrilla, dolor en el pecho, dificultad para respirar, enrojecimiento, fiebre, escalofr?os o cualquier otro s?ntoma relacionado. <MARY Bolivar - Last Filed: 12/03/20 18:06> Prescriptions: New acetaminophen [Tylenol] 325 mg capsule 650 mg PO Q6H PRN (Reason: pain) 7 Days Qty: 48 RF: 0 No Action omeprazole 20 mg capsule,delayed release(DR/EC) 20 mg PO DAILY Qty: 90 RF: 1 atorvastatin 40 mg Tablet 40 mg PO BEDTIME RF: 0 fluticasone propion-salmeterol [Advair Diskus] 250-50 mcg/dose Blister With Device 1 inh INHALATION BID RF: 0 citalopram [Celexa] 20 mg Tablet 20 mg PO DAILY RF: 0 ascorbic acid (vitamin C) [Vitamin C] 500 mg Tablet 500 mg PO DAILY RF: 0 Spiriva with HandiHaler 18 mcg Capsule, W/Inhalation Device 1 cap INHALATION DAILY RF: 0 cholecalciferol (vitamin D3) [Vitamin D3] 25 mcg (1,000 unit) Tablet 25 mcg PO DAILY RF: 0 hydrocodone-homatropine 5-1.5 mg/5 mL (5 mL) syrup 5 ml PO Q6H PRN (Reason: cough) Qty: 60 RF: 0 prednisone 20 mg tablet 40 mg PO DAILY 5 Days Qty: 10 RF: 0 ondansetron 4 mg tablet,disintegrating 4 mg PO Q8H PRN (Reason: nausea and vomiting) Qty: 20 RF: 0 doxycycline hyclate 100 mg capsule 100 mg PO BID 7 Days Qty: 14 RF: 0 baclofen 10 mg tablet 10 mg PO BEDTIME Qty: 7 RF: 0 oxycodone 5 mg tablet 5 mg PO BID PRN (Reason: pain) Qty: 10 RF: 0 azithromycin 500 mg tablet See Rx Instructions .ROUTE .COMPLEX Qty: 3 RF: 0 prednisone 20 mg tablet 40 mg PO DAILY 5 Days Qty: 10 RF: 0 acetaminophen [Tylenol] 325 mg tablet 650 mg PO Q6H PRN (Reason: fever or pain) Qty: 10 RF: 0 albuterol sulfate 90 mcg/actuation HFA aerosol inhaler 1 inh inhalation QID PRN (Reason: shortness of breath or wheezing) Qty: 8.5 RF: 0 albuterol sulfate 0.63 mg/3 mL solution for nebulization 0.63 mg inhalation QID PRN (Reason: shortness of breath or wheezing) Qty: 75 RF: 0 <MARY Bolivar - Last Filed: 12/03/20 18:06> Referrals: Name,MD Thaddeus [Primary Care Provider] - 2 days (Sciatica. Lumbar radiculopathy. Negative for blood clot of lower extremity) <MARY Bolivar - Last Filed: 12/03/20 18:06> Interventions: ED Discharge Assessment Last Done: 12/03/20 14:18 <MARY Bolivar - Last Filed: 12/03/20 18:06> Discharge Date/Time: 12/03/20 14:19 <MARY Bolivar - Last Filed: 12/03/20 18:06> Print Language: Romanian <MARY Bolivar - Last Filed: 12/03/20 18:06>
[2020-12-03] MEDS: Ketorolac Tromethamine 30 MG/ML VIAL IM (14:06)
== END 2020-12-03 14:19 | disposition home or self-care (01) ==
PROVIDERS: Emergency Provider Emergency Medicine; PCP Internal Medicine Geriatric Medicine
DX: M54.16 Radiculopathy, lumbar region (principal); M54.42 Lumbago with sciatica, left side; M79.662 Pain in left lower leg; D64.9 Anemia, unspecified; J44.9 Chronic obstructive pulmonary disease, unspecified; K21.9 Gastro-esophageal reflux disease without esophagitis; E78.5 Hyperlipidemia, unspecified; F17.210 Nicotine dependence, cigarettes, uncomplicated; Z86.16 Personal history of COVID-19; Z79.02 Long term (current) use of antithrombotics/antiplatelets; Z79.899 Other long term (current) drug therapy; Z86.718 Personal history of other venous thrombosis and embolism
CPT/HCPCS: 93971; 96372; 99284; J1885

== ENCOUNTER 2020-12-24 14:53 | Outpatient (REF) | payer MEDICARE, SELFPAY ==
--- NOTE | ~2020-12-24 | XR_ITS ---
EXAMINATION: XR CHEST CLINICAL INFORMATION: Low back pain. Malaise. COMPARISON: Previous chest x-ray July 2020 TECHNIQUE: 2 views of the chest were obtained. FINDINGS: The cardiac and mediastinal contours are normal. The lungs are clear. There is no pleural effusion or pneumothorax. There are degenerative changes of the spine. There are surgical clips in the right axilla XR/XR chest 2V IMPRESSION: No evidence for acute disease in the chest.
== END 2020-12-24 14:54 | disposition home or self-care (01) ==
LOC: HO.XRAY 14:53
PROVIDERS: PCP Internal Medicine Geriatric Medicine; Visit Provider Internal Medicine Geriatric Medicine
DX: M54.5 Low back pain (principal); R53.81 Other malaise; R53.83 Other fatigue; F17.210 Nicotine dependence, cigarettes, uncomplicated
CPT/HCPCS: 71046

== ENCOUNTER 2021-01-15 12:35 | Outpatient (REF) | payer MEDICARE, SELFPAY ==
--- NOTE | ~2021-01-15 | CT_ITS ---
EXAMINATION: CT CHEST SCREENING CLINICAL INFORMATION: Lung cancer screening COMPARISON: Previous exam most recent October 2020 TECHNIQUE: Multidetector volumetric CT imaging of the chest is performed without contrast using low dose technique. Additional 2D coronal and sagittal reformatted images and axial 3D maximum intensity projection (MIP) images are generated on the CT workstation. This CT examination was performed using dose optimization techniques as appropriate, variously including the following: *Automated exposure control *Adjustment of mA and/or kV according to patient size (this includes techniques or standardized protocols for targeted exams where dose is matched to indication/reason for exam; i.e. extremities or head) *Use of iterative reconstruction technique DLP: 41 mGy-cm FINDINGS: LUNGS: There is mild biapical pleural parenchymal scarring. There are multiple small bilateral pulmonary nodules that are stable. Largest pulmonary nodule measures 4 mm in the left lower lobe axial image 333 series 6. No new pulmonary nodule is seen. MEDIASTINUM: The mediastinum is normal. PLEURA: There is no pleural effusion. No pleural mass or thickening. AXILLA: No lymphadenopathy. UPPER ABDOMEN: The gallbladder has been removed. OSSEOUS STRUCTURES: There are degenerative changes of the spine. CT/CT lung screening IMPRESSION: Stable small pulmonary nodules. ASSESSMENT: Lung-RADS category 2: Benign RECOMMENDATION: Annual low-dose chest CT follow-up recommended.
== END 2021-01-15 12:36 | disposition home or self-care (01) ==
LOC: HO.CT 12:35
PROVIDERS: PCP Internal Medicine Geriatric Medicine; Visit Provider Physician Assistant Medical
DX: Z12.2 Encounter for screening for malignant neoplasm of respiratory organs (principal); F17.210 Nicotine dependence, cigarettes, uncomplicated
CPT/HCPCS: 71271

== ENCOUNTER 2021-01-16 11:21 | Inpatient (IN) | payer MEDICARE, SELFPAY ==
[2021-01-16] VITALS (8 sets, daily range): BP systolic 117–131; BP diastolic 42–57; PULSE 66–75; RESP 16–18; TEMP 36.3–37.1; O2SAT 18–99; BMI 25.2
--- NOTE | ~2021-01-16 | XR_ITS ---
EXAMINATION: XR CHEST CLINICAL INFORMATION: Chest pain, dizziness. COMPARISON: 12/24/2020 chest radiographs. TECHNIQUE: 2 views of the chest were obtained. FINDINGS: The lungs are clear. The heart and mediastinal structures are unremarkable. Surgical clips overlie the right axilla. XR/XR chest 2V IMPRESSION: No acute cardiopulmonary process.
--- NOTE | 2021-01-16 11:47 | ECG_ITS ---
Test Reason : CHEST PAIN Blood Pressure : / mmHG Vent. Rate : 067 BPM Atrial Rate : 067 BPM P-R Int : 170 ms QRS Dur : 080 ms QT Int : 370 ms P-R-T Axes : 041 053 035 degrees QTc Int : 390 ms Normal sinus rhythm Normal ECG When compared to the previous EKG of No significant changes seen Referred By: Herlinda Jang Electronically Signed By:Sabino Marie
[2021-01-16 12:18] LABS: Basophils Absolute Auto 0.1 X10*3/uL (0.0-0.2); Eosinophils Absolute Auto 0.2 X10*3/uL (0.0-0.4); Eosinophils Percent Auto 2.2 % (0-4); Hematocrit 27.1 % (37-47); Hemoglobin 7.5 g/dl (12.0-16.0); Imm Gran Abs Auto 0.09 X10*3/uL (0.00-0.03); Imm Gran Pct Auto 1.2 % (0.0-0.4); Lymphocytes Absolute Auto 0.6 X10*3/uL (1.2-4.9); Lymphocytes Percent Auto 7.9 % (20-40); MANUAL DIFF FLAG SCAN; Mean Corpuscular HGB Conc 27.7 g/dl (31.0-35.0); Mean Corpuscular Hemoglobin 19.5 pg (27.0-33.0); Mean Corpuscular Volume 70.6 fL (80-98); Monocytes Absolute Auto 0.3 X10*3/uL (0.1-1.2); Monocytes Percent Auto 4.4 % (2-11); Neutrophils Absolute Auto 6.5 X10*3/uL (2.0-8.3); Neutrophils Percent Auto 83.3 % (45-73); Platelet Count 285 X10*3/uL (160-400); Red Blood Count 3.84 X10*6/uL (4.20-5.50); Red Cell Distribution Width 22.9 % (11.0-16.0); SCAN SMEAR FLAG 1; White Blood Count 7.8 X10*3/uL (4.8-10.8)
[2021-01-16 12:24] LABS: INTERNATIONAL NORM RATIO 1.1 (0.9-1.1); Prothrombin Time 12.8 SEC (10.8-13.0)
[2021-01-16 12:51] LABS: Alanine Aminotransferase 18 U/L (0-31); Albumin Level 3.9 g/dL (3.5-5.0); Alkaline Phosphatase 51 U/L (39-117); Anion Gap 11 (12-20); Aspartate Amino Transferase 15 U/L (5-31); Bilirubin Total 0.3 mg/dL (0.0-1.0); Blood Urea Nitrogen 23 mg/dL (9-16); Calcium 9.2 mg/dL (8.4-10.2); Carbon Dioxide 26 mmol/L (22-29); Chloride 106 mmol/L (96-108); Creatinine Clr Calc Pharmacy 48.3; Estimated Glomerular Filt Rate > 60; Glucose Random 124 mg/dL (60-115); Magnesium 2.1 mg/dL (1.6-2.6); Potassium 4.3 mmol/L (3.3-5.1); Sodium 139 mmol/L (135-145); Total Protein 6.4 g/dL (6.5-8.0)
[2021-01-16 13:06] LABS: SLIDE REVIEW VERIFIED
[2021-01-16 13:12] LABS: B Type Natriuretic Peptide 18 pg/mL (<100)
--- NOTE | 2021-01-16 13:48 | ED_ITS ---
HPI - Chest Pain General Chief Complaint: Chest Pain Stated Complaint: cp Time Seen by Provider: 01/16/21 11:25 Source: patient and family Mode of arrival: ambulatory Limitations: no limitations History of Present Illness HPI narrative: 79-year-old female with a past medical history of anemia currently on Ferrous Sulfate, asthma, COPD, GERD, GI bleed, peripheral neuropathy, osteopenia, hyperlipidemia and anxiety presenting to the ED with complaints of chest pain and shortness of breath with associated dizziness after she got out of the shower this morning prior to arrival. Reports her symptoms have completely resolved at this time. Denies recent head injury, headache, changes in vision, nausea/vomiting, dyspnea on exertion, orthopnea, palpitations, nausea/vomiting/diarrhea/constipation, black or bloody stools, abdominal pain, back pain, lower extremity edema or any other symptoms complaints or concerns at this time. MD complaint: chest pain Pertinent past history: asthma Onset (ago): minute(s) (Prior to arrival) Timing of current episode: now resolved Prior episodes: No Onset: during exertion (After taking a shower) Pain location: substernal Pain radiation: none Severity: mild Relieving factors: nothing Exacerbating factors: nothing Treatment prior to arrival: none Risk Factors Coronary artery disease risk factors: hyperlipidemia and hypertension Thoracic aortic dissection risk factors: none Related Data On Oral Contraceptives: No Home Medications Medication Instructions Recorded Confirmed ascorbic acid (vitamin C) [Vitamin 500 mg PO DAILY 05/23/20 05/23/20 C] atorvastatin 40 mg PO BEDTIME 05/23/20 05/23/20 cholecalciferol (vitamin D3) 25 mcg PO DAILY 05/23/20 05/23/20 [Vitamin D3] fluticasone propion-salmeterol 1 inh INHALATION BID 05/23/20 05/30/20 [Advair Diskus] citalopram 1 tab PO DAILY 01/16/21 ferrous sulfate 1 tab PO BID 01/16/21 simvastatin 40 mg PO BEDTIME 01/16/21 Previous Rx's Medication Instructions Recorded acetaminophen [Tylenol] 650 mg PO Q6H PRN #10 tab 07/04/20 albuterol sulfate 0.63 mg INHALATION QID PRN #75 ml 07/04/20 albuterol sulfate 1 inh INHALATION QID PRN #8.5 g 07/04/20 prednisone 40 mg PO DAILY 5 Days #10 tab 07/16/20 omeprazole 20 mg capsule,delayed 20 mg PO DAILY #90 cap 09/20/20 release Allergies Allergy/AdvReac Type Severity Reaction Status Date / Time No Known Allergies Allergy Verified 01/16/21 11:38 Review of Systems Review of Systems: Constitutional : No Weight loss, No Fever, No Chills, No Night Sweats, No Fatigue, No Malaise ENT/Mouth : No Hearing loss, No Ear Pain, No Nasal Congestion, No Sinus Pain, No Hoarseness, No sore throat, No Rhinorrhea, No Swallowing Difficulty Eyes: No Eye Pain, No Swelling, No Redness, No Foreign Body, No Discharge, No Vision Changes Cardiovascular : Positive resolved chest pain/shortness of breath, no Dyspnea on Exertion, No Orthopnea, No Edema, No extremity swelling, No Palpitations Respiratory : No Cough, No Sputum, No Wheezing, No Dyspnea Gastrointestinal : No Nausea, No Vomiting, No Diarrhea, No abdominal Pain, No Hematochezia, No Melena Genitourinary : No irregular bleeding, No Dysuria, No Urinary Frequency, No Hematuria, No Urinary Incontinence, No Urgency, No Flank Pain, No Urinary Flow Changes, No Hesitancy Musculoskeletal : No joint pain, No Myalgias, No Joint Swelling Skin : No Skin Lesions, No rash Neuro : Positive resolved dizziness, No Weakness, No Numbness, No Paresthesias, No Loss of Consciousness, No Headache Psych : No Anxiety/Panic, No Depression, No SI/HI/AH/VH Heme/Lymph: No Bruising, No Bleeding,No Lymphadenopathy Endocrine : No Polyuria, No Polydipsia, No Temperature Intolerance Yes all other systems are reviewed and are negative [facility] Past Medical History Attestation statement: The following information was validated with the patient. Medical History Anemia Anxiety Asthma COPD (chronic obstructive pulmonary disease) COVID-19 Depression Elevated cholesterol GERD (gastroesophageal reflux disease) GI bleed Lab test negative for COVID-19 virus Osteopenia Peripheral neuropathy Surgical History History of axillary surgery Hx of appendectomy Hx of cholecystectomy Hx of colonoscopy Hx of esophagogastroduodenoscopy Hx of foot surgery Hx of oophorectomy Hx of tonsillectomy Social History Social History Household Members: Children Alcohol intake: never Cigarette Packs Per Day: 0.25 Cigarettes Per Day: 5.0 Years Smoked: 50 Advance Directives: Yes Advance Directives Information Provided: Yes Advance Directives on File: No Current occupational status: retired Physical Exam Vital Signs: Vital Signs: Last Vital Signs Temp 98.2 F 01/16/21 12:15 Pulse 66 01/16/21 12:15 Resp 17 01/16/21 12:15 BP 127/55 L 01/16/21 12:15 Pulse Ox 97 01/16/21 12:15 Body Mass Index 25.2 vital signs have been reviewed as normal and appeared to be correct. Blood pressure hypotensive at 131/53. Heart rate normal. Respiration rate normal. Temperature normal. Oxygen saturation normal. Appearance: Alert. Oriented X3. No acute distress. Head: Normal external exam. Normocephalic. Eyes: PERRLA. EOMI. Conjunctiva and sclera normal. Eyelids normal. ENT: Pharynx normal. Uvula midline. Moist mucous membranes. No trismus noted. No drooling noted. No muffled voice noted. Neck: Normal inspection. Neck supple. FROM. No adenopathy. No meningeal signs. CVS: Normal heart rate and rhythm. Heart sound normal. No murmurs noted. Pulses normal throughout. Respiratory: No respiratory distress. Painless inspiration. Breath sounds normal. No wheezes/rales/rhonchi noted. Chest nontender. No accessory muscle usage noted or decreased air movement noted. Abdomen: Soft and nontender. Nondistended. No guarding. No rigidity. Bowel sounds normal in all 4 quadrants. No distention noted. No organomegaly noted. No visible injury noted. No rebound tenderness. Negative Rovsing sign. Negative obturator's sign. Negative psoas sign. Negative Sanchez sign. Back: No CVA tenderness. Full range of motion noted. Skin: Skin warm and dry. Normal skin color. Normal skin turgor. No rashes/lesions/lacerations noted. Extremities: Extremities exhibit normal range of motion. Extremities nontender. Neuro: Oriented X 3. No motor deficit. No sensory deficit. Reflexes normal. Normal steady gait. Course Course Course Narrative: 15:30pm - labs reviewed and patient noted to have worsening anemia last comparison is on 07/29/2020 patient reports she had blood work drawn on Wednesday and is unsure about the results today her H&H is 7.5/27.1 - BUN 23. - UA within normal limits no evidence of UTI. - stool occult positive - still awaiting troponin - EKG was normal sinus rhythm no acute ischemic changes were noted. - chest x-ray negative for any acute processes. - I tried to get the records from [facility] and they only sent me the patient's medications it was faxed twice we were requesting the labs and they have yet descended - therefore at this time patient will be given 1 pack of red blood cells she signed the consent form for the blood transfusion and patient will need to be admitted for symptomatic anemia - patient and family at bedside understand and agree with this plan Reevaluation(s) Reevaluation #1: - Dr. Beasley accepted admission at this time. Time: 16:17 MDM - Chest Pain MDM Narrative Medical decision making narrative: 11:50am - 79-year-old female with a past medical history of anemia currently on Ferrous Sulfate, asthma, COPD, GERD, GI bleed, peripheral neuropathy, osteopenia, hyper lipidemia and anxiety presenting to the ED with complaints of chest pain and shortness of breath with associated dizziness after she got out of the shower this morning prior to arrival. Reports her symptoms have completely resolved at this time. Plan: Labs, EKG, CXR then re-evaluate. Medical Records Data Attestation: I reviewed the patient's medical records. Lab Data Attestation: I reviewed the patient's lab results. Result diagrams: 01/16/21 12:06 01/16/21 12:06 Labs: Lab Results 01/16/21 01/16/21 01/16/21 Range/Units 12:06 12:06 12:06 WBC 7.8 (4.8-10.8) X10*3/uL RBC 3.84 L (4.20-5.50) X10*6/uL Hgb 7.5 L (12.0-16.0) g/dl Hct 27.1 L (37-47) % MCV 70.6 L (80-98) fL MCH 19.5 L (27.0-33.0) pg MCHC 27.7 L (31.0-35.0) g/dl RDW 22.9 H (11.0-16.0) % Plt Count 285 (160-400) X10*3/uL MPV 10.0 (9.4-12.3) fL Immature Gran % (Auto) 1.2 H (0.0-0.4) % Neut % (Auto) 83.3 H (45-73) % Lymph % (Auto) 7.9 L (20-40) % [place] % (Auto) 4.4 (2-11) % Eos % (Auto) 2.2 (0-4) % Baso % (Auto) 1.0 (0-2) % Lymph # (Auto) 0.6 L (1.2-4.9) X10*3/uL [place] # (Auto) 0.3 (0.1-1.2) X10*3/uL Eos # (Auto) 0.2 (0.0-0.4) X10*3/uL Baso # (Auto) 0.1 (0.0-0.2) X10*3/uL Abs Immat Gran (auto) 0.09 H (0.00-0.03) X10*3/uL Absolute Neuts (auto) 6.5 (2.0-8.3) X10*3/uL Absolute Nucleated RBC 0.000 (0.0-0.012) X10*3/uL Nucleated RBC % (auto) 0.0 (0.0-0.2) /100WBC Smear Tech's Comments VERIFIED PT 12.8 (10.8-13.0) SEC INR 1.1 (0.9-1.1) Sodium (135-145) mmol/L Potassium (3.3-5.1) mmol/L Chloride (96-108) mmol/L Carbon Dioxide (22-29) mmol/L Anion Gap (12-20) BUN (9-16) mg/dL Creatinine (0.5-1.4) mg/dL Estim Creat Clear Calc Estimated GFR Random Glucose (60-115) mg/dL Calcium (8.4-10.2) mg/dL Magnesium 2.1 (1.6-2.6) mg/dL Iron (30-160) mcg/dL TIBC (228-428) mcg/dL % Saturation (15-50) % Unsat Iron Binding ug/dL Total Bilirubin (0.0-1.0) mg/dL AST (5-31) U/L ALT (0-31) U/L Alkaline Phosphatase (39-117) U/L Troponin I High Sens (<3.5-17.0) ng/L B-Natriuretic Peptide (<100) pg/mL Total Protein (6.5-8.0) g/dL Albumin (3.5-5.0) g/dL Urine Color Urine Appearance Urine pH (5.0-8.0) Ur Specific [place] (1.005-1.025) Urine Protein (NEG-TRACE) MG/DL Urine Glucose (UA) (NEG) MG/DL Urine Ketones (NEG) MG/DL Urine Blood (NEG) Urine Nitrite (NEG) Ur Leukocyte Esterase (NEG) Stool Occult Blood (NEGATIVE) Crossmatch 01/16/21 01/16/21 01/16/21 Range/Units 12:06 12:06 12:06 WBC (4.8-10.8) X10*3/uL RBC (4.20-5.50) X10*6/uL Hgb (12.0-16.0) g/dl Hct (37-47) % MCV (80-98) fL MCH (27.0-33.0) pg MCHC (31.0-35.0) g/dl RDW (11.0-16.0) % Plt Count (160-400) X10*3/uL MPV (9.4-12.3) fL Immature Gran % (Auto) (0.0-0.4) % Neut % (Auto) (45-73) % Lymph % (Auto) (20-40) % [place] % (Auto) (2-11) % Eos % (Auto) (0-4) % Baso % (Auto) (0-2) % Lymph # (Auto) (1.2-4.9) X10*3/uL [place] # (Auto) (0.1-1.2) X10*3/uL Eos # (Auto) (0.0-0.4) X10*3/uL Baso # (Auto) (0.0-0.2) X10*3/uL Abs Immat Gran (auto) (0.00-0.03) X10*3/uL Absolute Neuts (auto) (2.0-8.3) X10*3/uL Absolute Nucleated RBC (0.0-0.012) X10*3/uL Nucleated RBC % (auto) (0.0-0.2) /100WBC Smear Tech's Comments PT (10.8-13.0) SEC INR (0.9-1.1) Sodium 139 (135-145) mmol/L Potassium 4.3 (3.3-5.1) mmol/L Chloride 106 (96-108) mmol/L Carbon Dioxide 26 (22-29) mmol/L Anion Gap 11 L (12-20) BUN 23 H (9-16) mg/dL Creatinine 0.84 (0.5-1.4) mg/dL Estim Creat Clear Calc 48.3 Estimated GFR > 60 Random Glucose 124 H (60-115) mg/dL Calcium 9.2 D (8.4-10.2) mg/dL Magnesium (1.6-2.6) mg/dL Iron 360 H (30-160) mcg/dL TIBC 400 (228-428) mcg/dL % Saturation 90 H (15-50) % Unsat Iron Binding 40 ug/dL Total Bilirubin 0.3 (0.0-1.0) mg/dL AST 15 (5-31) U/L ALT 18 (0-31) U/L Alkaline Phosphatase 51 D (39-117) U/L Troponin I High Sens < 3.5 (<3.5-17.0) ng/L B-Natriuretic Peptide 18 (<100) pg/mL Total Protein 6.4 L (6.5-8.0) g/dL Albumin 3.9 (3.5-5.0) g/dL Urine Color Urine Appearance Urine pH (5.0-8.0) Ur Specific [place] (1.005-1.025) Urine Protein (NEG-TRACE) MG/DL Urine Glucose (UA) (NEG) MG/DL Urine Ketones (NEG) MG/DL Urine Blood (NEG) Urine Nitrite (NEG) Ur Leukocyte Esterase (NEG) Stool Occult Blood (NEGATIVE) Crossmatch 01/16/21 01/16/21 01/16/21 Range/Units 14:29 15:16 15:16 WBC (4.8-10.8) X10*3/uL RBC (4.20-5.50) X10*6/uL Hgb (12.0-16.0) g/dl Hct (37-47) % MCV (80-98) fL MCH (27.0-33.0) pg MCHC (31.0-35.0) g/dl RDW (11.0-16.0) % Plt Count (160-400) X10*3/uL MPV (9.4-12.3) fL Immature Gran % (Auto) (0.0-0.4) % Neut % (Auto) (45-73) % Lymph % (Auto) (20-40) % [place] % (Auto) (2-11) % Eos % (Auto) (0-4) % Baso % (Auto) (0-2) % Lymph # (Auto) (1.2-4.9) X10*3/uL [place] # (Auto) (0.1-1.2) X10*3/uL Eos # (Auto) (0.0-0.4) X10*3/uL Baso # (Auto) (0.0-0.2) X10*3/uL Abs Immat Gran (auto) (0.00-0.03) X10*3/uL Absolute Neuts (auto) (2.0-8.3) X10*3/uL Absolute Nucleated RBC (0.0-0.012) X10*3/uL Nucleated RBC % (auto) (0.0-0.2) /100WBC Smear Tech's Comments PT (10.8-13.0) SEC INR (0.9-1.1) Sodium (135-145) mmol/L Potassium (3.3-5.1) mmol/L Chloride (96-108) mmol/L Carbon Dioxide (22-29) mmol/L Anion Gap (12-20) BUN (9-16) mg/dL Creatinine (0.5-1.4) mg/dL Estim Creat Clear Calc Estimated GFR Random Glucose (60-115) mg/dL Calcium (8.4-10.2) mg/dL Magnesium (1.6-2.6) mg/dL Iron (30-160) mcg/dL TIBC (228-428) mcg/dL % Saturation (15-50) % Unsat Iron Binding ug/dL Total Bilirubin (0.0-1.0) mg/dL AST (5-31) U/L ALT (0-31) U/L Alkaline Phosphatase (39-117) U/L Troponin I High Sens < 3.5 (<3.5-17.0) ng/L B-Natriuretic Peptide (<100) pg/mL Total Protein (6.5-8.0) g/dL Albumin (3.5-5.0) g/dL Urine Color YELLOW Urine Appearance CLEAR Urine pH 6.5 (5.0-8.0) Ur Specific [place] <= 1.005 (1.005-1.025) Urine Protein NEG (NEG-TRACE) MG/DL Urine Glucose (UA) NEG (NEG) MG/DL Urine Ketones NEG (NEG) MG/DL Urine Blood NEG (NEG) Urine Nitrite NEG (NEG) Ur Leukocyte Esterase NEG (NEG) Stool Occult Blood POSITIVE (NEGATIVE) Crossmatch 01/16/21 Range/Units 15:32 WBC (4.8-10.8) X10*3/uL RBC (4.20-5.50) X10*6/uL Hgb (12.0-16.0) g/dl Hct (37-47) % MCV (80-98) fL MCH (27.0-33.0) pg MCHC (31.0-35.0) g/dl RDW (11.0-16.0) % Plt Count (160-400) X10*3/uL MPV (9.4-12.3) fL Immature Gran % (Auto) (0.0-0.4) % Neut % (Auto) (45-73) % Lymph % (Auto) (20-40) % [place] % (Auto) (2-11) % Eos % (Auto) (0-4) % Baso % (Auto) (0-2) % Lymph # (Auto) (1.2-4.9) X10*3/uL [place] # (Auto) (0.1-1.2) X10*3/uL Eos # (Auto) (0.0-0.4) X10*3/uL Baso # (Auto) (0.0-0.2) X10*3/uL Abs Immat Gran (auto) (0.00-0.03) X10*3/uL Absolute Neuts (auto) (2.0-8.3) X10*3/uL Absolute Nucleated RBC (0.0-0.012) X10*3/uL Nucleated RBC % (auto) (0.0-0.2) /100WBC Smear Tech's Comments PT (10.8-13.0) SEC INR (0.9-1.1) Sodium (135-145) mmol/L Potassium (3.3-5.1) mmol/L Chloride (96-108) mmol/L Carbon Dioxide (22-29) mmol/L Anion Gap (12-20) BUN (9-16) mg/dL Creatinine (0.5-1.4) mg/dL Estim Creat Clear Calc Estimated GFR Random Glucose (60-115) mg/dL Calcium (8.4-10.2) mg/dL Magnesium (1.6-2.6) mg/dL Iron (30-160) mcg/dL TIBC (228-428) mcg/dL % Saturation (15-50) % Unsat Iron Binding ug/dL Total Bilirubin (0.0-1.0) mg/dL AST (5-31) U/L ALT (0-31) U/L Alkaline Phosphatase (39-117) U/L Troponin I High Sens (<3.5-17.0) ng/L B-Natriuretic Peptide (<100) pg/mL Total Protein (6.5-8.0) g/dL Albumin (3.5-5.0) g/dL Urine Color Urine Appearance Urine pH (5.0-8.0) Ur Specific [place] (1.005-1.025) Urine Protein (NEG-TRACE) MG/DL Urine Glucose (UA) (NEG) MG/DL Urine Ketones (NEG) MG/DL Urine Blood (NEG) Urine Nitrite (NEG) Ur Leukocyte Esterase (NEG) Stool Occult Blood (NEGATIVE) Crossmatch See Detail Imaging Data Chest x-ray: Attestation: I personally reviewed and interpreted this imaging study as follows: Radiologist's impression: FINDINGS: The lungs are clear. The heart and mediastinal structures are unremarkable. Surgical clips overlie the right axilla. XR/XR chest 2V IMPRESSION: No acute cardiopulmonary process. ECG Data ECG #1: Attestation: I personally reviewed and interpreted this ECG as follows: ECG interpretation date: 01/16/21 ECG interpretation time: 12:14 Interpretation: Normal sinus rhythm with a ventricular rate of 67 with a normal DE interval normal QRS duration normal QT/QTC interval. No acute ischemic chin none noted. Critical Care Time Critical Care Time Critical Care Time: Yes Total Critical Care Time: 60 Attestation: I personally attest to this time spent taking care of the patient Discharge Plan Discharge Clinical Impression: Occult blood positive stool Patient Disposition: Admitted As Inpatient Prescriptions: No Action omeprazole 20 mg capsule,delayed release(DR/EC) 20 mg PO DAILY Qty: 90 RF: 1 atorvastatin 40 mg Tablet 40 mg PO BEDTIME RF: 0 fluticasone propion-salmeterol [Advair Diskus] 250-50 mcg/dose Blister With Device 1 inh INHALATION BID RF: 0 ascorbic acid (vitamin C) [Vitamin C] 500 mg Tablet 500 mg PO DAILY RF: 0 cholecalciferol (vitamin D3) [Vitamin D3] 25 mcg (1,000 unit) Tablet 25 mcg PO DAILY RF: 0 prednisone 20 mg tablet 40 mg PO DAILY 5 Days Qty: 10 RF: 0 simvastatin 40 mg tablet 40 mg PO BEDTIME RF: 0 ferrous sulfate 325 mg (65 mg iron) tablet 1 tab PO BID RF: 0 citalopram 10 mg tablet 1 tab PO DAILY RF: 0 acetaminophen [Tylenol] 325 mg tablet 650 mg PO Q6H PRN (Reason: fever or pain) Qty: 10 RF: 0 albuterol sulfate 90 mcg/actuation HFA aerosol inhaler 1 inh inhalation QID PRN (Reason: shortness of breath or wheezing) Qty: 8.5 RF: 0 albuterol sulfate 0.63 mg/3 mL solution for nebulization 0.63 mg inhalation QID PRN (Reason: shortness of breath or wheezing) Qty: 75 RF: 0
[2021-01-16 14:45] LABS: Troponin-I High Sensitivity < 3.5 ng/L (<3.5-17.0)
[2021-01-16 14:45] LABS: Glucose Urine UA NEG (NEG); Leukocyte Esterase Urine NEG (NEG); Nitrite Urine NEG (NEG); PH 6.5 (5.0-8.0); Specific Gravity - Urine <= 1.005 (1.005-1.025); Urine Blood NEG (NEG); Urine Ketones NEG (NEG); Urine Protein NEG (NEG-TRACE)
[2021-01-16 14:49] LABS: Appearance Urine CLEAR; Color Urine YELLOW
[2021-01-16 15:35] LABS: OBS Int Ctl Valid YES; OBS1 POSITIVE (NEGATIVE)
[2021-01-16 15:48] LABS: Iron 360 mcg/dL (30-160); Percent Iron Saturation 90 % (15-50); Total Iron Binding Capacity 400 mcg/dL (228-428); Unsaturated Iron Binding 40 ug/dL
[2021-01-16 15:59] LABS: Troponin-I High Sensitivity < 3.5 ng/L (<3.5-17.0)
[2021-01-16] MEDS: 0.9 % Sodium Chloride 1,000 ML 999 ML IVCONT (16:28)
[2021-01-16 18:21] LABS: COVID-19 Test Negative (Negative); IDNOW Serial# 08D9AD1C
[2021-01-16] MEDS: 0.9 % Sodium Chloride Flush 3 ML SYRINGE IVFLUSH (20:27)
[2021-01-16] MEDS: Atorvastatin Calcium 20 MG TABLET PO (20:27)
[2021-01-16] MEDS: Albuterol/Iprat 2.5/0.5MG 3 ML AMPUL.NEB INHALE (20:32)
--- NOTE | 2021-01-16 21:10 | HP_ITS ---
DATE OF SERVICE: 01/16/2021 CHIEF COMPLAINT: Chest pain. HISTORY OF PRESENT ILLNESS: This is an 80-year-old female patient with past medical history significant for anemia, anxiety, asthma, COPD, depression, peripheral neuropathy, who presented to [facility] with symptoms of chest pain that started this morning after the patient came out of shower, associated with shortness of breath and dizziness. The patient's symptoms resolved prior to coming to the emergency room. The patient denied any symptoms of nausea, vomiting, hematemesis, melena, dyspnea on exertion, orthopnea, palpitation in the emergency room. Workup showed a hematocrit of 27.1, hemoglobin 7.5 with last hematocrit in July of 2020 of 29.5. The patient's MCV is low at 70.6, platelet count 285. INR of 1.1. Normal electrolytes and renal function. Blood sugar 124. Imaging studies showed a normal chest x-ray. EKG showed normal sinus rhythm, no acute ischemic changes with a troponin of less than 3.5. The patient's iron studies are within normal range with a total iron of 360, and saturation of 90%. Due to symptomatic anemia the patient is receiving 1 unit of packed RBC in the emergency room. PAST MEDICAL HISTORY: Significant for; 1. History of anxiety. 2. History of asthma. 3. History of COPD. 4. History of COVID-19. 5. History of depression. 6. History of hyperlipidemia. 7. History of GERD. 8. History of osteopenia. 9. History of peripheral neuropathy. PAST SURGICAL HISTORY: 1. Status post appendectomy. 2. Status post cholecystectomy. 3. Status post oophorectomy. 4. Tonsillectomy. 5. Status post foot surgery. 6. Status post esophagogastroduodenoscopy. SOCIAL HISTORY: The patient take care of handicapped son. Denies alcohol abuse. Smokes few cigarettes a day chronically for last 50 years. Never was a heavy smoker. Denies substance use. FAMILY HISTORY: The patient denies any family history of premature coronary artery disease. MEDICATIONS ON ADMISSION: Tylenol 650 q.6 hours as needed, albuterol inhaler q.i.d. as needed, ascorbic acid 500 daily, vitamin D3 25 mcg daily, citalopram 10 mg daily, ferrous sulfate 1 tablet daily, Advair 1 inhalation b.i.d., ipratropium/albuterol 1 inhalation q.i.d., omeprazole 20 mg daily, simvastatin 40 mg at bedtime, and vitamin B complex 1 by mouth daily. ALLERGIES: THE PATIENT HAS NO KNOWN DRUG ALLERGIES. REVIEW OF SYSTEMS: CUSTOMER SUPPORT AGENT: The patient had an episode of dizziness with episode of chest pain, now resolved. GI: She complains of abdominal bloating, heartburn, and acidity. CVS: Her chest pain has resolved. She denies any palpitations. : No urinary symptoms of urgency or frequency. SKIN: Denies any rashes. Rest of all other systems are reviewed and are negative. LABORATORY DATA: Showed a sodium 139, potassium 4.3, chloride 106, bicarb 26, BUN 23, creatinine of 0.84, blood sugar 124. Iron 360, TIBC 400. AST 15, ALT 18, total protein 6.4, albumin of 3.9, LDL cholesterol 122. Chest x-ray showed no acute abnormality. EKG no acute ischemic changes. ASSESSMENT AND PLAN: This is an 80-year-old female patient with multiple medical issues with history of prior anemia, status post upper and lower endoscopy by Dr. Liang on May 30, 2020, that showed that the patient has mild esophagitis and nonbleeding arteriovenous malformations. Pathology showed no Helicobacter organism. Colonoscopy showed diverticulosis, internal hemorrhoids and underwent polypectomy. The pathology showed no dysplasia. The patient presented to [facility] with symptoms of chest pain and diagnosed to have anemia. 1. Symptomatic acute blood loss anemia. The patient noted to have significant drop in hematocrit as compared to her last hematocrit in July of 2012. We will transfuse 1 unit of packed RBC. There was no evidence of active bleeding. Rectal examination reveals heme-positive stools. The patient denies use of NSAIDs or daily aspirin. Denies hematemesis or melena. Likely bleed due to mild esophagitis versus history of arteriovenous malformation. We will follow hematocrit q.6 hours. Treat the patient with PPI and obtain GI consultation. Avoid anticoagulation. 2. Chest pain, likely related to anemia. No evidence of acute coronary syndrome with normal EKG and troponin. 3. History of asthma/chronic obstructive pulmonary disease, currently no acute exacerbation. We will continue home inhalers. 4. History of hyperlipidemia. We will continue statins. 5. History of depression. We will continue citalopram. 6. Deep vein thrombosis prophylaxis with compression stockings. 7. Code status. The patient wishes to be a full code. MD FRANCO Forde/TAMEKA / [id number] MTDD
[2021-01-17] VITALS (10 sets, daily range): BP systolic 118–166; BP diastolic 49–76; PULSE 64–74; RESP 16–20; TEMP 36.4–37; O2SAT 97–100
[2021-01-17] MEDS: Pantoprazole Sodium 40 MG/10 ML VIAL IVPUSH (05:30)
[2021-01-17 07:13] LABS: Anion Gap 12 (12-20); Blood Urea Nitrogen 18 mg/dL (9-16); Carbon Dioxide 27 mmol/L (22-29); Chloride 110 mmol/L (96-108); Creatinine Clr Calc Pharmacy 52.7; Estimated Glomerular Filt Rate > 60; Glucose Random 85 mg/dL (60-115); Potassium 4.9 mmol/L (3.3-5.1); Sodium 144 mmol/L (135-145)
[2021-01-17 07:14] LABS: Hematocrit 30.9 % (37-47); Hemoglobin 8.7 g/dl (12.0-16.0); Mean Corpuscular HGB Conc 28.2 g/dl (31.0-35.0); Mean Corpuscular Volume 74.6 fL (80-98); Mean Platelet Volume 10.6 fL (9.4-12.3); NRBC Pct Auto 0.3 /100WBC (0.0-0.2); Platelet Count 255 X10*3/uL (160-400); Red Blood Count 4.14 X10*6/uL (4.20-5.50); Red Cell Distribution Width 23.9 % (11.0-16.0)
[2021-01-17] MEDS: Ferrous Sulfate 324 MG TABLET.DR PO (07:58)
[2021-01-17] MEDS: Cholecalciferol (Vitamin D3) 25 MCG TABLET PO (07:58)
[2021-01-17] MEDS: Escitalopram Oxalate 5 MG TABLET PO (07:58)
[2021-01-17] MEDS: 0.9 % Sodium Chloride Flush 3 ML SYRINGE IVFLUSH (07:59)
[2021-01-17] MEDS: Ascorbic Acid 500 MG TABLET PO (07:59)
[2021-01-17] MEDS: Albuterol/Iprat 2.5/0.5MG 3 ML AMPUL.NEB INHALE ×2 (08:20→12:32)
--- NOTE | 2021-01-17 10:31 | P.PNIM_ITS ---
Subjective Subjective Date of Service: 01/17/21 Interval History: Offers no acute complaints this morning, denies abdominal pain, no acute issues overnight. ROS General no headache, no dizziness at present, hx of dizziness, no fever chills. CVS no chest pain, no palpitation. Respiratory no cough, no sob. Gastrointestinal no nausea, no vomiting, no abdominal pain Physical Exam Vital Signs: Vital Signs: Last Vital Signs Temp 97.6 F 01/17/21 07:57 Pulse 64 01/17/21 08:21 Resp 20 01/17/21 07:57 BP 166/67 H 01/17/21 07:57 Pulse Ox 98 01/17/21 07:57 Body Mass Index 25.2 General resting comfortably in no acute distress. Neck supple no JVD. CVS regular rate rhythm, Respiratory lungs clear to auscultation, no respiratory distress, no wheeze, no rhonchi. Gastrointestinal abdomen soft, nontender, bowel sounds audible, no guarding , no rigidity. Extremities no edema. Neuro nonfocal , speech clear. Skin no rash Objective Data Current Medications Generic Name Dose Route Start Last Admin Trade Name Freq PRN Reason Stop Dose Admin Acetaminophen 650 mg 01/16/21 18:05 Acetaminophen 325 Mg Tablet PO Q6H PRN Pain, Mild (Pain Scale 1-3) Albuterol Sulfate 0.63 mg 01/16/21 18:05 Albuterol Sulfate (0.042%) 1.25 Mg/3 Ml Vial.Neb INHALE QID PRN shortness of breath or wheezing Albuterol Sulfate 1 puff 01/16/21 18:05 Albuterol Sulfate 90 Mcg 8 Gm Inhaler INHALE QID PRN shortness of breath or wheezing Albuterol/Ipratropium 3 ml 01/16/21 20:00 01/17/21 08:20 Albuterol/Iprat 2.5/0.5mg 3 Ml Ampul.Neb INHALE 3 ml RQID [facility] Administration Ascorbic Acid 500 mg 01/17/21 09:00 01/17/21 07:59 Ascorbic Acid 500 Mg Tablet PO 500 mg DAILY [facility] Administration Atorvastatin Calcium 20 mg 01/16/21 21:00 01/16/21 20:27 Atorvastatin Calcium 20 Mg Tablet PO 20 mg BEDTIME [facility] Administration Docusate Sodium 100 mg 01/16/21 18:05 Docusate Sodium 100 Mg Capsule PO DAILY PRN Constipation Escitalopram Oxalate 5 mg 01/17/21 09:00 01/17/21 07:58 Escitalopram Oxalate 5 Mg Tablet PO 5 mg DAILY [facility] Administration Ferrous Sulfate 324 mg 01/17/21 09:00 01/17/21 07:58 Ferrous Sulfate 324 Mg Tablet.Dr PO 324 mg DAILY [facility] Administration Fluticasone/Vilanterol 1 puff 01/17/21 08:00 01/17/21 08:24 Fluticasone/Vilanterol 100/25 Blst.W.Dev INHALE Not Given RDAILY [facility] Ondansetron HCl 4 mg 01/16/21 18:05 Ondansetron Hcl 4 Mg/2 Ml Vial IVPUSH Q8H PRN Nausea and Vomiting Pantoprazole Sodium 40 mg 01/17/21 06:30 01/17/21 05:30 Pantoprazole Sodium 40 Mg/10 Ml Vial IVPUSH 40 mg DAILY@0630 [facility] Administration Pharmacy Consult 1 each 01/16/21 15:29 Consult Rx Perform Med Rec MISCELLANE ONCE PRN Consult order Sodium Chloride 3 ml 01/17/21 00:00 01/17/21 07:59 0.9 % Sodium Chloride Flush 3 Ml Syringe IVFLUSH 3 ml QSHIFT [facility] Administration Vitamin D 25 mcg 01/17/21 09:00 01/17/21 07:58 Cholecalciferol (Vitamin D3) 25 Mcg Tablet PO 25 mcg DAILY [facility] Administration Labs CBC & Chem 7: 01/17/21 05:31 01/17/21 05:31 Assessment and Plan (1) Chest pain: Status: Acute (2) Anemia: Status: Acute (3) COPD (chronic obstructive pulmonary disease): Status: Acute (4) Duodenal arteriovenous malformation: Status: Acute (5) Occult blood positive stool: Status: Acute (6) Depression: Status: Acute (7) Elevated cholesterol: Status: Acute Assessment and Plan: 80-year-old female patient with multiple medical issues with history of prior anemia, status post upper and lower endoscopy by Dr. Liang on May 30, 2020, that showed that the patient has mild esophagitis and nonbleeding arteriovenous malformations. Pathology showed no Helicobacter organism.Colonoscopy showed diverticulosis, internal hemorrhoids and underwent polypectomy. The pathology showed no dysplasia. The patient presented to [facility] with symptoms of chest pain and diagnosed to have anemia. 1. Symptomatic acute blood loss anemia. no cp,no sob, hematocrit Improved after 1 unit of prbc from 27 to 30.9 , no evidence of active bleeding. Rectal examination reveals heme-positive stools, patient denies use of NSAIDs or daily aspirin. Denies hematemesis or melena. Likely slow bleed due to mild esophagitis versus from arteriovenous malformation,cont ppi, start clear liquid, iron studies within normal range,await GI input status post upper endoscopy and colonoscopy in May of 2020 see above. 2. Chest pain, likely related to anemia. No evidence of acute coronary syndrome with normal EKG and troponin,cp resolved. 3. History of asthma/chronic obstructive pulmonary disease, currently no acute exacerbation, will continue home inhalers. 4. History of hyperlipidemia. will continue statins. 5. History of depression. will continue citalopram. 6. Deep vein thrombosis prophylaxis with compression stockings. 7. Code status. patient wishes to be a full code.
--- NOTE | 2021-01-17 10:31 | P.CDIC_ITS ---
CDI Concurrent Query Service Date: 01/17/21 Documentation Clarification: Please clarify if you are treating a proba ble/suspected/likely or confirmed: Acute Blood Loss Anemia Other Anemia, please specify type if known Provider Response: Other Other Diagnosis: acute blood loss anemia PLEASE DO NOT DELETE/MODIFY EXISTING CONTENT Additional information is needed in order to code to the highest accuracy and appropriate Severity of Illness (SOI). Please clarify the information noted below in your progress notes and discharge summary. Risk Factors/Clinical Indicators/Treatments 80 year old female admitted with chest pain, SOB, dizziness PMH: Asthma, Anemia, GI Bleed H/H 7.5/27.1 stool occult blood + Treated with one unit RBC and PPI Per H&P, Symptomatic Anemia, Chest pain likely related to anemia Likely bleed due to mild esophagitis vs history arteriovenous malformation CDS: Mary Jane Mcadams RN Contact Number: [phone] Please Review the information above and exercise your independent professional judgment in responding to the query. If you concur, pleas document in the PROGRESS NOTES and DISCHARGE SUMMARY. If you do not agree with the query, please document in the query above. THIS QUERY IS PART OF THE PERMANENT MEDICAL RECORD
--- NOTE | 2021-01-17 11:05 | MHC.CM.PN ---
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
--- NOTE | 2021-01-17 11:38 | PM.GICN ---
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 Labs revealed HGB 7.5 g/dl with baseline usu around 10 g/dl, also microcytosis, iron sat high, ferritin 09/2020--<1 she denies rectal bleeding, no abdominal pain, no nausea, vomiting, appetite has been good. No vaginal bleeding, no nose bleeds, or hematuria. She says she has been having black stools. she got 1 unit fo blood with appropriate increase in HGB to 8.7 g/dl Last EGd/colonoscopy--05/2020-- multiple AVM seen in duodenum and cecum, with severe diverticulosis and hemorrhoids--no cancer or masses Review of Systems Review of Systems: Constitutional : No Weight loss, No Fever, No Chills ENT/Mouth : No sore throat, No Rhinorrhea Eyes: No Swelling, No Redness Cardiovascular : + Chest Pain, + SOB, No Edema Respiratory : No Cough, No Sputum, No Wheezing Gastrointestinal : see HPI Genitourinary : NO Dysuria, No Urinary Frequency, No Hematuria, No Urgency Musculoskeletal : No joint pain, No Myalgias, No Joint Swelling Skin : No Skin Lesions, No rash Neuro : No Weakness, No Numbness, No Dizziness, No Headache Psych : No Anxiety/Panic, No Depression Heme/Lymph: No Bruising, No Lymphadenopathy Endocrine : No Polyuria, No Polydipsia All other systems reviewed and are negative. [facility] Past Medical History Medical History Anemia Anxiety Asthma COPD (chronic obstructive pulmonary disease) COVID-19 Depression Elevated cholesterol GERD (gastroesophageal reflux disease) GI bleed Lab test negative for COVID-19 virus Osteopenia Peripheral neuropathy Surgical History Surgical History History of axillary surgery Hx of appendectomy Hx of cholecystectomy Hx of colonoscopy Hx of esophagogastroduodenoscopy Hx of foot surgery Hx of oophorectomy Hx of tonsillectomy Social History Social History Household Members: Family Household Members Other:: disabled son Housing: Apartment Do you presently have visiting nurse or other home services: Yes Alcohol intake: never Patient Tobacco Use Status: Current someday Tobacco user Tobacco use type: Cigarette Cigarette Packs Per Day: 0.25 Cigarettes Per Day: 5.0 Years Smoked: 50 Smoked in Last 30 Days: Yes Patient Interested in Nicotine Replacement: Yes Patient Given Instructions on How to Stop Smoking: Yes Date Education Initiated: 01/16/21 Second Hand Smoke Exposure: Yes Use of substances other than those prescribed or required for medical reasons: No Currently Displaying Signs/Symptoms of Drug Intoxication Withdrawal: No Have you been hit, kicked, punched, or otherwise hurt by someone within the past year? If so, by whom?: No Do you feel safe in your current relationship?: No Current Relationship Is there a partner from a previous relationship who is making you feel unsafe now?: No Are you made to feel afraid or neglected: No Advance Directives: Yes Advance Directives Information Provided: Yes Advance Directives on File: No Advance Directives Date on File: 01/16/21 Do you have thoughts of harming others: None Do you have a plan to hurt others: No Plan Recently lost weight without trying: No Nutrition Risks: No Nutritional Risk Current occupational status: retired Spare Change Paymentss Allergies Allergy/AdvReac Type Severity Reaction Status Date / Time No Known Allergies Allergy Verified 01/16/21 11:38 Active Medications: Current Medications Generic Name Dose Route Start Last Admin Trade Name Freq PRN Reason Stop Dose Admin Acetaminophen 650 mg 01/16/21 18:05 Acetaminophen 325 Mg Tablet PO Q6H PRN Pain, Mild (Pain Scale 1-3) Albuterol Sulfate 0.63 mg 01/16/21 18:05 Albuterol Sulfate (0.042%) 1.25 Mg/3 Ml Vial.Neb INHALE QID PRN shortness of breath or wheezing Albuterol Sulfate 1 puff 01/16/21 18:05 Albuterol Sulfate 90 Mcg 8 Gm Inhaler INHALE QID PRN shortness of breath or wheezing Albuterol/Ipratropium 3 ml 01/16/21 20:00 01/17/21 08:20 Albuterol/Iprat 2.5/0.5mg 3 Ml Ampul.Neb INHALE 3 ml RQID [facility] Administration Ascorbic Acid 500 mg 01/17/21 09:00 01/17/21 07:59 Ascorbic Acid 500 Mg Tablet PO 500 mg DAILY [facility] Administration Atorvastatin Calcium 20 mg 01/16/21 21:00 01/16/21 20:27 Atorvastatin Calcium 20 Mg Tablet PO 20 mg BEDTIME [facility] Administration Docusate Sodium 100 mg 01/16/21 18:05 Docusate Sodium 100 Mg Capsule PO DAILY PRN Constipation Escitalopram Oxalate 5 mg 01/17/21 09:00 01/17/21 07:58 Escitalopram Oxalate 5 Mg Tablet PO 5 mg DAILY [facility] Administration Ferrous Sulfate 324 mg 01/17/21 09:00 01/17/21 07:58 Ferrous Sulfate 324 Mg Tablet.Dr PO 324 mg DAILY [facility] Administration Fluticasone/Vilanterol 1 puff 01/17/21 08:00 01/17/21 08:24 Fluticasone/Vilanterol 100/25 Blst.W.Dev INHALE Not Given RDAILY [facility] Ondansetron HCl 4 mg 01/16/21 18:05 Ondansetron Hcl 4 Mg/2 Ml Vial IVPUSH Q8H PRN Nausea and Vomiting Pantoprazole Sodium 40 mg 01/17/21 06:30 01/17/21 05:30 Pantoprazole Sodium 40 Mg/10 Ml Vial IVPUSH 40 mg DAILY@0630 [facility] Administration Pharmacy Consult 1 each 01/16/21 15:29 Consult Rx Perform Med Rec MISCELLANE ONCE PRN Consult order Sodium Chloride 3 ml 01/17/21 00:00 01/17/21 07:59 0.9 % Sodium Chloride Flush 3 Ml Syringe IVFLUSH 3 ml QSHIFT [facility] Administration Vitamin D 25 mcg 01/17/21 09:00 01/17/21 07:58 Cholecalciferol (Vitamin D3) 25 Mcg Tablet PO 25 mcg DAILY [facility] Administration Home Medications Medication Instructions Recorded Confirmed Last Taken Type ascorbic acid (vitamin C) [Vitamin 500 mg PO DAILY 05/23/20 01/16/21 Unknown History C] cholecalciferol (vitamin D3) 25 mcg PO DAILY 05/23/20 01/16/21 Unknown History [Vitamin D3] fluticasone propion-salmeterol 1 inh INHALATION BID 05/23/20 01/16/21 05/30/20 07:00 History [Advair Diskus] citalopram 10 mg PO DAILY 01/16/21 01/16/21 01/15/21 History ferrous sulfate 1 tab PO DAILY 01/16/21 01/16/21 Unknown History ipratropium-albuterol 1 vial INHALATION QID 01/16/21 01/16/21 Unknown History simvastatin 40 mg PO BEDTIME 01/16/21 01/16/21 01/15/21 History vitamin B complex 1 tab PO DAILY 01/16/21 01/16/21 Unknown History Physical Exam Vital Signs: Vital Signs: Last Vital Signs Temp 97.6 F 01/17/21 07:57 Pulse 64 01/17/21 08:21 Resp 20 01/17/21 07:57 BP 166/67 H 01/17/21 07:57 Pulse Ox 98 01/17/21 07:57 Body Mass Index 25.2 EXAM: GENERAL: The patient is well developed and nontoxic. VITAL SIGNS:see workflow HEENT: Nonicteric sclerae, PERRLA, EOMI. Oropharynx clear. Moist mucous membranes. Conjunctivae appear well perfused. No thyroid mass. CHEST: Chest wall is nontender. HEART: Regular rate and rhythm --ESM 3/6 with radiation to neck LUNGS: Clear to auscultation bilaterally. ABDOMEN: Soft, positive bowel sounds, nontender, no organomegaly.no flank tenderness RECTAL: brown stool, no melena, no masses SKIN: No rash, no excessive bruising, petechiae, or purpura. NEUROLOGIC: Cranial nerves II-XII intact without motor/sensory deficit. psych--normal affect Results Labs CBC & Chem 7: 01/17/21 05:31 01/17/21 05:31 Labs: Short CBC 01/16/21 01/17/21 Range/Units 12:06 05:31 WBC 7.8 8.0 (4.8-10.8) X10*3/uL Hgb 7.5 L 8.7 L (12.0-16.0) g/dl Hct 27.1 L 30.9 L (37-47) % Plt Count 285 255 (160-400) X10*3/uL BMP 01/16/21 01/17/21 12:06 05:31 Sodium 139 144 Potassium 4.3 4.9 Chloride 106 110 H Carbon Dioxide 26 27 BUN 23 H 18 H Creatinine 0.84 0.77 Calcium 9.2 D 9.0 Liver Function 01/16/21 Range/Units 12:06 Total Bilirubin 0.3 (0.0-1.0) mg/dL AST 15 (5-31) U/L ALT 18 (0-31) U/L Alkaline Phosphatase 51 D (39-117) U/L Albumin 3.9 (3.5-5.0) g/dL Urine 01/16/21 Range/Units 14:29 Urine Color YELLOW Urine Appearance CLEAR Urine pH 6.5 (5.0-8.0) Ur Specific [place] <= 1.005 (1.005-1.025) Urine Protein NEG (NEG-TRACE) MG/DL Urine Glucose (UA) NEG (NEG) MG/DL Assessment and Plan (1) Anemia: Status: Acute (2) Duodenal arteriovenous malformation: Status: Acute 1/ Acute on chronic anemia, prob slow bleed from AVM related to aortic stenosis, she is currently stable options were discussed with the patient incl conservative management with iron replacent and periodic CBC monitoring with PRBC as needed vs repeat endoscopy and APC to lesions which may require more than one session vs using thalidomide and SE of nausea and peripheral neuropathy. Patient opted to go for conservative treatment, Would recommend checking CBC and ferritin/iron studies every few months or earlier if symptomatic and keep on low dose iron with supplementation with IV iron as needed. If patient changes mind then can go for other optiosn as discussed Procedures Date of Service Date of Service: 01/17/21
--- NOTE | 2021-01-17 14:02 | PM.DS ---
DS: Providers Provider Date of Service: 01/17/21 Date of admission: 01/16/21 17:52 Primary care physician: Thaddeus Romano MD Consults: 01/16/21 17:49 Consult to Gastroenterology Routine Consulting Provider: Ayan Liang Reason for consultation: symptomatic anemia Has provider been notified: No DS: Diagnosis Discharge Diagnosis (1) Chest pain: Status: Acute (2) Anemia: Status: Acute (3) COPD (chronic obstructive pulmonary disease): Status: Acute Problem details: uses daily inhalers (4) Duodenal arteriovenous malformation: Status: Acute Problem details: Noted on 2019 EGD, not appear to be related any pathology that is concerning (5) Occult blood positive stool: Status: Acute (6) Depression: Status: Acute (7) Elevated cholesterol: Status: Acute DS: Medications Discharge Medications Home Medications: Home Medications Medication Instructions Recorded Confirmed ascorbic acid (vitamin C) [Vitamin 500 mg PO DAILY 05/23/20 01/16/21 C] cholecalciferol (vitamin D3) 25 mcg PO DAILY 05/23/20 01/16/21 [Vitamin D3] fluticasone propion-salmeterol 1 inh INHALATION BID 05/23/20 01/16/21 [Advair Diskus] citalopram 10 mg PO DAILY 01/16/21 01/16/21 ferrous sulfate 1 tab PO DAILY 01/16/21 01/16/21 ipratropium-albuterol 1 vial INHALATION QID 01/16/21 01/16/21 simvastatin 40 mg PO BEDTIME 01/16/21 01/16/21 vitamin B complex 1 tab PO DAILY 01/16/21 01/16/21 Previous Rx's Medication Instructions Recorded acetaminophen [Tylenol] 650 mg PO Q6H PRN #10 tab 07/04/20 albuterol sulfate 0.63 mg INHALATION QID PRN #75 ml 07/04/20 albuterol sulfate 1 inh INHALATION QID PRN #8.5 g 07/04/20 omeprazole 20 mg capsule,delayed 20 mg PO DAILY #90 cap 09/20/20 release DS: Summary Hospital Course Hospital Course: History of presenting illness CHIEF COMPLAINT: Chest pain. HISTORY OF PRESENT ILLNESS: This is an 80-year-old female patient with past medical history significant for anemia, anxiety, asthma, COPD, depression, peripheral neuropathy, who presented to [facility] with symptoms of chest pain that started this morning after the patient came out of shower, associated with shortness of breath and dizziness. The patient's symptoms resolved prior to coming to the emergency room. The patient denied any symptoms of nausea, vomiting, hematemesis, melena, dyspnea on exertion, orthopnea, palpitation in the emergency room. Workup showed a hematocrit of 27.1, hemoglobin 7.5 with last hematocrit in July of 2020 of 29.5. The patient's MCV is low at 70.6, platelet count 285. INR of 1.1. Normal electrolytes and renal function. Blood sugar 124. Imaging studies showed a normal chest x-ray. EKG showed normal sinus rhythm, no acute ischemic changes with a troponin of less than 3.5. The patient's iron studies are within normal range with a total iron of 360, and saturation of 90%. Due to symptomatic anemia the patient is receiving 1 unit of packed RBC in the emergency room. PAST MEDICAL HISTORY: Significant for; 1. History of anxiety. 2. History of asthma. 3. History of COPD. 4. History of COVID-19. 5. History of depression. 6. History of hyperlipidemia. 7. History of GERD. 8. History of osteopenia. 9. History of peripheral neuropathy. PAST SURGICAL HISTORY: 1. Status post appendectomy. 2. Status post cholecystectomy. 3. Status post oophorectomy. 4. Tonsillectomy. 5. Status post foot surgery. 6. Status post esophagogastroduodenoscopy. Hospital course 80-year-old female patient with multiple medical issues with history of prior anemia, status post upper endoscopy and colonoscopy in May of 2020 that showed mild esophagitis, and nonbleeding arteriovenous malformation presented to [facility] with chest discomfort, workup revealed normal EKG and troponin chest pain resolved with no further treatment however patient was noted to be anemic with hematocrit of 27 patient received 1 unit of packed RBC hematocrit improved to 30.9 patient noted to have no hematemesis melena or dark stools although stools were heme-positive since patient is completely asymptomatic and hematocrit improved patient's ct mri technologist Dr. Almanza felt that likely anemia is from slow bleed related arteriovenous malformation, he recommend to avoid constipation take high-fiber diet continue iron supplement and check ferritin level, that has been added to labs patient iron studies are within normal range since patient is tolerating diet she is being discharged home and has been recommended to continue all home medications, discharge plan discussed with patient and son at bedside. Time Spent with Patient Time attestation: Total time spent providing and/or coordinating discharge services: Discharge coordination time: Greater than 30 minutes Quality: Stroke Does the patient have a stroke diagnosis?: No Physical Exam Vital Signs: Vital Signs: Last Vital Signs Temp 98.0 F 01/17/21 12:00 Pulse 66 01/17/21 12:28 Resp 20 01/17/21 12:00 BP 131/60 01/17/21 12:00 Pulse Ox 100 01/17/21 12:00 Body Mass Index 25.2 General resting comfortably in no acute distress. Neck supple no JVD. CVS regular rate rhythm, Respiratory lungs clear to auscultation, no respiratory distress, no wheeze, no rhonchi. Gastrointestinal abdomen soft, nontender, bowel sounds audible, no guarding , no rigidity. Extremities no edema. Neuro nonfocal , speech clear. Skin no rash DS: Data Data Completed and Pending Labs on day of discharge: Laboratory Results - last 24 hr 01/16/21 01/16/21 01/16/21 12:06 12:06 14:29 WBC RBC Hgb Hct MCV MCH MCHC RDW Plt Count MPV Absolute Nucleated RBC Nucleated RBC % (auto) Sodium Potassium Chloride Carbon Dioxide Anion Gap BUN Creatinine Estim Creat Clear Calc Estimated GFR Random Glucose Calcium Iron 360 H TIBC 400 % Saturation 90 H Unsat Iron Binding 40 Troponin I High Sens < 3.5 Urine Color YELLOW Urine Appearance CLEAR Urine pH 6.5 Ur Specific [place] <= 1.005 Urine Protein NEG Urine Glucose (UA) NEG Urine Ketones NEG Urine Blood NEG Urine Nitrite NEG Ur Leukocyte Esterase NEG Stool Occult Blood COVID-19 ([facility]) COVID-19 Clin Com Blood Type Antibody Screen Antibody Identification Crossmatch Crossmatch ([facility]) Blood Bank Comment 01/16/21 01/16/21 01/16/21 15:16 15:16 15:32 WBC RBC Hgb Hct MCV MCH MCHC RDW Plt Count MPV Absolute Nucleated RBC Nucleated RBC % (auto) Sodium Potassium Chloride Carbon Dioxide Anion Gap BUN Creatinine Estim Creat Clear Calc Estimated GFR Random Glucose Calcium Iron TIBC % Saturation Unsat Iron Binding Troponin I High Sens < 3.5 Urine Color Urine Appearance Urine pH Ur Specific [place] Urine Protein Urine Glucose (UA) Urine Ketones Urine Blood Urine Nitrite Ur Leukocyte Esterase Stool Occult Blood POSITIVE COVID-19 ([facility]) COVID-19 Clin Com Blood Type A Negative Antibody Screen POSITIVE Antibody Identification Anti-D Crossmatch See Detail Crossmatch ([facility]) See Detail Blood Bank Comment Technical 01/16/21 01/17/21 01/17/21 17:57 05:31 05:31 WBC 8.0 RBC 4.14 L Hgb 8.7 L Hct 30.9 L MCV 74.6 L MCH 21.0 L MCHC 28.2 L RDW 23.9 H Plt Count 255 MPV 10.6 Absolute Nucleated RBC 0.020 H Nucleated RBC % (auto) 0.3 H Sodium 144 Potassium 4.9 Chloride 110 H Carbon Dioxide 27 Anion Gap 12 BUN 18 H Creatinine 0.77 Estim Creat Clear Calc 52.7 Estimated GFR > 60 Random Glucose 85 Calcium 9.0 Iron TIBC % Saturation Unsat Iron Binding Troponin I High Sens Urine Color Urine Appearance Urine pH Ur Specific [place] Urine Protein Urine Glucose (UA) Urine Ketones Urine Blood Urine Nitrite Ur Leukocyte Esterase Stool Occult Blood COVID-19 ([facility]) Negative COVID-19 Clin Com See Note Blood Type Antibody Screen Antibody Identification Crossmatch Crossmatch ([facility]) Blood Bank Comment Discharge Plan Discharge Patient Disposition: Home, Self-Care Discharge Diagnosis: Chest pain Acute blood loss anemia Referrals: Name,MD Thaddeus [Primary Care Provider] - 1 Week Discharge Medications: Continued omeprazole 20 mg capsule,delayed release(DR/EC) 20 mg PO DAILY Qty: 90 RF: 1 fluticasone propion-salmeterol [Advair Diskus] 250-50 mcg/dose Blister With Device 1 inh INHALATION BID RF: 0 ascorbic acid (vitamin C) [Vitamin C] 500 mg Tablet 500 mg PO DAILY RF: 0 cholecalciferol (vitamin D3) [Vitamin D3] 25 mcg (1,000 unit) Tablet 25 mcg PO DAILY RF: 0 simvastatin 40 mg tablet 40 mg PO BEDTIME RF: 0 ferrous sulfate 325 mg (65 mg iron) tablet 1 tab PO DAILY RF: 0 citalopram 10 mg tablet 10 mg PO DAILY RF: 0 ipratropium-albuterol 0.5 mg-3 mg(2.5 mg base)/3 mL solution for nebulization 1 vial inhalation QID RF: 0 vitamin B complex Tablet 1 tab PO DAILY RF: 0 acetaminophen [Tylenol] 325 mg tablet 650 mg PO Q6H PRN (Reason: fever or pain) Qty: 10 RF: 0 albuterol sulfate 90 mcg/actuation HFA aerosol inhaler 1 inh inhalation QID PRN (Reason: shortness of breath or wheezing) Qty: 8.5 RF: 0 albuterol sulfate 0.63 mg/3 mL solution for nebulization 0.63 mg inhalation QID PRN (Reason: shortness of breath or wheezing) Qty: 75 RF: 0 Discharge Orders: Discharge Order (Routine); Ordered 01/17/21 Ordered By: Prashant Mendoza Diet: low fat, low cholesterol Activity on Discharge: As tolerated Stand Alone Forms: Patient Portal Discharge page Care Plan Goals: Chest pain resolved was noncardiac related to anemia, avoid aspirin , Motrin and all NSAIDs Return to check with recurrent chest pain or shortness of breath your received 1 unit of packed RBC and your hematocrit improved Health Concerns: Anemia likely due to blood loss from AVM continue outpatient follow-up with Gastroenterology Plan of Treatment: Follow-up with primary care physician and Gastroenterology Assessment: As above
[2021-01-17 15:39] LABS: Ferritin 83 ng/mL (10-250)
== END 2021-01-17 15:38 | disposition home or self-care (01) | DRG 378 ==
LOC: HO.ED 16:17 → HO.IMC 18:00
PROVIDERS: Physician Assistant Medical; Admitting Provider Physician Assistant Medical; Emergency Provider Emergency Medicine; PCP Internal Medicine Geriatric Medicine; Visit Provider Hospitalist
DX: K55.21 Angiodysplasia of colon with hemorrhage (principal); D62 Acute posthemorrhagic anemia; K21.9 Gastro-esophageal reflux disease without esophagitis; E78.5 Hyperlipidemia, unspecified; J44.9 Chronic obstructive pulmonary disease, unspecified; F32.9 Major depressive disorder, single episode, unspecified; E78.00 Pure hypercholesterolemia, unspecified; F17.210 Nicotine dependence, cigarettes, uncomplicated; Z20.822 Contact with and (suspected) exposure to COVID-19; Z71.6 Tobacco abuse counseling; Z79.51 Long term (current) use of inhaled steroids; Z79.899 Other long term (current) drug therapy
CPT/HCPCS: 36415; 71046; 80048; 80053; 81003; 82272; 82728; 83540; 83735; 83880; 84484; 85025; 85027; 85610; 86850; 86870; 86885; 86900; 86901; 86902; 86905; 86920; 86922; 87635; 93005; 94640; 96360; 99219; 99285; 99291; P9016

== ENCOUNTER → 2021-03-18 13:49 | Outpatient (BNV) | payer MEDICARE, SELFPAY | PROVIDERS: PCP Internal Medicine Geriatric Medicine; Referring Provider Internal Medicine Geriatric Medicine; Visit Provider Internal Medicine Medical Oncology | DX: N18.30 Chronic kidney disease, stage 3 unspecified (principal); D63.1 Anemia in chronic kidney disease | CPT/HCPCS: 99203; 99212; 99213; 99214 ==

== ENCOUNTER 2021-03-20 16:03 | Outpatient (REF) | payer MEDICARE, SELFPAY ==
--- NOTE | ~2021-03-20 | US_ITS ---
EXAMINATION: US VENOUS ULTRASOUND WITH DOPPLER LOWER EXTREMITY, LEFT CLINICAL INFORMATION: Pain COMPARISON: None TECHNIQUE: Ultrasound of the deep veins is performed from the hip to the calf with compression sonography and color and pulse Doppler assessment. Spectral analysis with color-flow imaging is performed. FINDINGS: There is normal venous compression and respiratory variation and augmented flow. The visualized common femoral vein, superficial femoral vein, profunda femoral vein, popliteal vein, and the trifurcation region shows no evidence of deep venous thrombosis. There is no popliteal fossa cyst. US/US venous duplex LE LT IMPRESSION: No DVT demonstrated in the left lower extremity.
== END 2021-03-20 16:04 | disposition home or self-care (01) ==
LOC: HO.US 16:03
PROVIDERS: PCP Internal Medicine Geriatric Medicine; Visit Provider Family Medicine
DX: M79.662 Pain in left lower leg (principal)
CPT/HCPCS: 93971

== ENCOUNTER 2021-04-09 13:04 | Outpatient (REF) | payer MEDICARE, SELFPAY ==
--- NOTE | ~2021-04-09 | XR_ITS ---
EXAMINATION: CERVICAL SPINE, LUMBAR SPINE AND RIGHT WRIST. CLINICAL INFORMATION: Neck pain, back pain and right wrist pain. COMPARISON: None TECHNIQUE: Lumbar spine 3 views. Right wrist 4 views and cervical spine 5 views. FINDINGS: CERVICAL SPINE: There is mild straightening of cervical lordosis. The vertebral heights and alignment is normal. There is loss of C5-C6 and C6-C7 disc heights with posterior spondylosis. No visible acute fracture or dislocation seen. There is mild narrowing of right C4-C5 and C5-C6 neural foramina from uncovertebral hypertrophic changes. No lytic or sclerotic process seen. The paravertebral soft tissues are normal. RIGHT WRIST: There is mild reduction in the radioulnar carpal joint space with moderate soft tissue swelling. There is a negative ulnar variance. There is no scaphoid fracture on the scaphoid view. LUMBAR SPINE: There is normal lumbar lordosis. The vertebral heights and alignment is normal. There is loss of disc height L5-S1, L4-L5, L3-L4 and L2-L3 disc levels. There is mild spondylosis mid lumbar spine. There is minimal levoscoliosis of lumbar spine. No lytic or sclerotic process seen. The paravertebral soft tissues are normal. XR/XR lumbar spine 2-3V IMPRESSION: Mild levoscoliosis with degenerative disc changes L2-L3, L3-L4 disc levels with moderate bilateral spondylosis. No visible acute fracture or lytic process seen. Degenerative disc changes C4-C5, C5-C6 disc levels with mild narrowing of right C4-C5 and C5-C6 neural foramina from uncovertebral hypertrophic changes.
--- NOTE | ~2021-04-09 | XR_ITS ---
EXAMINATION: CERVICAL SPINE, LUMBAR SPINE AND RIGHT WRIST. CLINICAL INFORMATION: Neck pain, back pain and right wrist pain. COMPARISON: None TECHNIQUE: Lumbar spine 3 views. Right wrist 4 views and cervical spine 5 views. FINDINGS: CERVICAL SPINE: There is mild straightening of cervical lordosis. The vertebral heights and alignment is normal. There is loss of C5-C6 and C6-C7 disc heights with posterior spondylosis. No visible acute fracture or dislocation seen. There is mild narrowing of right C4-C5 and C5-C6 neural foramina from uncovertebral hypertrophic changes. No lytic or sclerotic process seen. The paravertebral soft tissues are normal. RIGHT WRIST: There is mild reduction in the radioulnar carpal joint space with moderate soft tissue swelling. There is a negative ulnar variance. There is no scaphoid fracture on the scaphoid view. LUMBAR SPINE: There is normal lumbar lordosis. The vertebral heights and alignment is normal. There is loss of disc height L5-S1, L4-L5, L3-L4 and L2-L3 disc levels. There is mild spondylosis mid lumbar spine. There is minimal levoscoliosis of lumbar spine. No lytic or sclerotic process seen. The paravertebral soft tissues are normal. XR/XR cervical spine min 6V IMPRESSION: Mild levoscoliosis with degenerative disc changes L2-L3, L3-L4 disc levels with moderate bilateral spondylosis. No visible acute fracture or lytic process seen. Degenerative disc changes C4-C5, C5-C6 disc levels with mild narrowing of right C4-C5 and C5-C6 neural foramina from uncovertebral hypertrophic changes.
--- NOTE | ~2021-04-09 | XR_ITS ---
EXAMINATION: CERVICAL SPINE, LUMBAR SPINE AND RIGHT WRIST. CLINICAL INFORMATION: Neck pain, back pain and right wrist pain. COMPARISON: None TECHNIQUE: Lumbar spine 3 views. Right wrist 4 views and cervical spine 5 views. FINDINGS: CERVICAL SPINE: There is mild straightening of cervical lordosis. The vertebral heights and alignment is normal. There is loss of C5-C6 and C6-C7 disc heights with posterior spondylosis. No visible acute fracture or dislocation seen. There is mild narrowing of right C4-C5 and C5-C6 neural foramina from uncovertebral hypertrophic changes. No lytic or sclerotic process seen. The paravertebral soft tissues are normal. RIGHT WRIST: There is mild reduction in the radioulnar carpal joint space with moderate soft tissue swelling. There is a negative ulnar variance. There is no scaphoid fracture on the scaphoid view. LUMBAR SPINE: There is normal lumbar lordosis. The vertebral heights and alignment is normal. There is loss of disc height L5-S1, L4-L5, L3-L4 and L2-L3 disc levels. There is mild spondylosis mid lumbar spine. There is minimal levoscoliosis of lumbar spine. No lytic or sclerotic process seen. The paravertebral soft tissues are normal. XR/XR wrist RT min 3V IMPRESSION: Mild levoscoliosis with degenerative disc changes L2-L3, L3-L4 disc levels with moderate bilateral spondylosis. No visible acute fracture or lytic process seen. Degenerative disc changes C4-C5, C5-C6 disc levels with mild narrowing of right C4-C5 and C5-C6 neural foramina from uncovertebral hypertrophic changes.
== END 2021-04-09 13:05 | disposition home or self-care (01) ==
LOC: HO.XRAY 13:04
PROVIDERS: PCP Internal Medicine Geriatric Medicine; Visit Provider Internal Medicine Geriatric Medicine
DX: M25.531 Pain in right wrist (principal); M79.2 Neuralgia and neuritis, unspecified
CPT/HCPCS: 72052; 72100; 73110

== ENCOUNTER 2021-05-03 15:15 | Emergency (ER) | payer MEDICARE, SELFPAY ==
--- NOTE | ~2021-05-03 | CT_ITS ---
EXAMINATION: CT ABDOMEN AND PELVIS WITH CONTRAST CLINICAL INFORMATION: Right lower quadrant tenderness. Right costovertebral angle tenderness COMPARISON: Portions of a previous CT 07/29/20 TECHNIQUE: Multidetector volumetric images were obtained from the superior aspect of the liver through the pubic symphysis following administration 85 mL of Omnipaque 350 intravenous contrast. Sagittal and coronal reformatted images were obtained on the technologist's workstation. Oral contrast: No This CT examination was performed using dose optimization techniques as appropriate, variously including the following: *Automated exposure control *Adjustment of mA and/or kV according to patient size (this includes techniques or standardized protocols for targeted exams where dose is matched to indication/reason for exam; i.e. 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 Gas and fecal residue throughout the colon to the level of the rectum. No small bowel dilation. Degenerative change in the spine. Reticular opacities in the visualized lower lungs. LUNG BASES: The lung bases are abnormal. There are areas of air trapping. There may be some small airways disease. The pulmonary vessels are not optimally evaluated. There are a few nonspecific somewhat linear and wedge-shaped lung base opacities. LIVER, GALLBLADDER, AND BILIARY TREE: No suspicious abnormality. There are surgical clips in the expected region of the gallbladder. PANCREAS: Within normal limits SPLEEN: No suspicious abnormality. ADRENAL GLANDS: Within normal limits KIDNEYS AND URETERS: There are round low attenuating structures in the central aspect the left kidney. These are unchanged. I suspect parapelvic cysts. There are some cortical cysts. No suspicious mass. The nephrograms are symmetric. BLADDER: Within normal limits. GASTROINTESTINAL TRACT: The colon is tortuous. Gas and fecal residue throughout the colon. No localized pericolonic fat stranding. No CT evidence of acute appendicitis. No small bowel dilation. No suspicious abnormality in the stomach. ABDOMINAL WALL: No significant hernia is appreciated. LYMPH NODES: There are no measurably enlarged abdominal or pelvic lymph nodes. There is no free intra-peritoneal fluid. VASCULAR: There is atherosclerotic calcification. There is some narrowing in the right external iliac artery. There is no abdominal aortic aneurysm. The portal vein enhances. PELVIC VISCERA: No suspicious abnormality of the uterus or adnexa. OSSEOUS STRUCTURES: No suspicious focal lesion. Degenerative changes in the spine and hips. CT/CT abdomen pelvis w con IMPRESSION: No etiology for right lower quadrant tenderness. No evidence of urinary obstruction. No CT evidence of acute appendicitis. Lung base disease likely small airways disease with some nonspecific lung base opacities
--- NOTE | ~2021-05-03 | XR_ITS ---
EXAMINATION: XR CHEST CLINICAL INFORMATION: Cough chest x-ray COMPARISON: January 16, 2021 TECHNIQUE: Frontal portable view of the chest was obtained. 5:11 PM FINDINGS: Lungs are clear. No pulmonary vascular congestion. There is no pleural effusion. The heart size is normal. The cardiac and mediastinal contours are normal. There are calcifications of the thoracic aorta. There are multilevel degenerative changes of dorsal spine. There are surgical clips in the right axilla. XR/XR chest 1V IMPRESSION: No acute abnormality of the chest.
[2021-05-03 15:25] VITALS: PULSE 81; RESP 18; TEMP 36.4; O2SAT 98; BMI 24.7
[2021-05-03 16:07] VITALS: BP 107/46; PULSE 76; RESP 18; TEMP 36.9; O2SAT 96
--- NOTE | 2021-05-03 16:52 | ED.GENADULT ---
HPI - General Adult General Chief complaint: Back Pain/Injury <MARY Waggoner Last Filed: 05/03/21 19:36> Stated complaint: Multiple complaints <MARY Waggoner Last Filed: 05/03/21 19:36> Time Seen by Provider: 05/03/21 15:40 <MARY Waggoner Last Filed: 05/03/21 19:36> Source: patient <MARY Waggoner Last Filed: 05/03/21 19:36> Mode of arrival: ambulatory <MARY Waggoner Last Filed: 05/03/21 19:36> Limitations: language barrier <MARY Waggoner Last Filed: 05/03/21 19:36> History of Present Illness HPI narrative: 8-year-old female presents for right-sided low back pain that radiates around into her right groin and goes down into her right leg. Patient states she is tender in her right lower abdomen. The pain is stabbing in nature and is a 5/10 worse with movement. She has had this pain for the last 3-4 days. She has no trauma, no fever chills, no abdominal pain, no nausea or vomiting, no chest pain, no shortness of breath, no dysuria, no hematuria. No incontinence of bowel or bladder, no saddle paresthesias or leg weakness. Patient has been seen here 3 times in the recent past for chronic left-sided back pain with lumbar strain and left-sided sciatica. She also endorses a dry cough that she has had for days. Patient is a smoker. <MARY Waggoner Last Filed: 05/03/21 19:36> Related Data Home medications: Home Medications Medication Instructions Recorded Confirmed ascorbic acid (vitamin C) 500 mg 500 mg PO DAILY 05/23/20 03/18/21 tablet (Vitamin C) cholecalciferol (vitamin D3) 25 25 mcg PO DAILY 05/23/20 03/18/21 mcg (1,000 unit) tablet (Vitamin D3) fluticasone 250 mcg-salmeterol 50 1 inh INHALATION BID 05/23/20 03/18/21 mcg/dose blistr powdr for inhalation (Advair Diskus) citalopram 10 mg tablet 10 mg PO DAILY 01/16/21 03/18/21 ferrous sulfate 325 mg (65 mg 1 tab PO DAILY 01/16/21 03/18/21 iron) tablet ipratropium 0.5 mg-albuterol 3 mg 1 vial INHALATION QID 01/16/21 03/18/21 (2.5 mg base)/3 mL nebulization soln simvastatin 40 mg tablet 40 mg PO BEDTIME 01/16/21 03/18/21 vitamin B complex 1 tab PO DAILY 01/16/21 03/18/21 Previous Rx's Medication Instructions Recorded acetaminophen 325 mg tablet 650 mg PO Q6H PRN #10 tab 07/04/20 (Tylenol) albuterol sulfate 0.63 mg/3 mL 0.63 mg INHALATION QID PRN #75 ml 07/04/20 solution for nebulization albuterol sulfate 90 mcg/actuation 1 inh INHALATION QID PRN #8.5 g 07/04/20 aerosol inhaler omeprazole 20 mg capsule,delayed 20 mg PO DAILY #90 cap 09/20/20 release prednisone 20 mg tablet 60 mg PO DAILY 5 Days #15 tab 05/03/21 <MARY Waggoner Last Filed: 05/03/21 19:36> Allergies/adverse reactions: Allergies Allergy/AdvReac Type Severity Reaction Status Date / Time No Known Allergies Allergy Verified 01/16/21 11:38 <MARY Waggoner Last Filed: 05/03/21 19:36> Review of Systems Constitutional: Constitutional: Reports body ache(s), Denies chills, Denies fatigue, Denies fever(s), Denies headache(s), Denies malaise and Denies weakness <MARY Waggoner Last Filed: 05/03/21 19:36> Eyes: Eyes: Denies diplopia <MARY Waggoner Last Filed: 05/03/21 19:36> ENT: Denies vertigo, Denies dizziness, Denies otalgia, Denies headache(s), Denies neck pain, Denies post nasal drip and Denies sore throat <MARY Waggoner Last Filed: 05/03/21 19:36> Cardiovascular: Cardiovascular: Denies chest pain, Denies syncope, Denies leg edema, Denies lightheadedness, Denies Loss of Consciousness, Denies palpitations and Denies dyspnea <MARY Waggoner Last Filed: 05/03/21 19:36> Respiratory: Respiratory: Denies chest congestion, Reports cough, Denies hemoptysis, Denies excessive phlegm production, Denies pain on inspiration, Denies pain with cough and Denies dyspnea <MARY Waggoner Last Filed: 05/03/21 19:36> Gastrointestinal: Gastrointestinal: Reports abdominal pain, Denies hematochezia, Denies change in stool character, Denies coffee ground emesis, Denies constipation, Denies fecal incontinence, Denies diarrhea, Denies nausea and Denies vomiting <MARY Waggoner Last Filed: 05/03/21 19:36> Genitourinary: Genitourinary: Denies dysuria, Denies pelvic pain, Denies urinary incontinence and Denies urinary urgency <MARY Waggoner Last Filed: 05/03/21 19:36> Musculoskeletal: Musculoskeletal: Reports back pain and Denies neck pain <MARY Waggoner Last Filed: 05/03/21 19:36> Integumentary/Breasts: Skin/Breast: Denies erythema and Denies rash <MARY Waggoner Last Filed: 05/03/21 19:36> Neurologic: Denies confusion, Denies vertigo, Denies dizziness, Denies syncope, Denies headache(s) and Denies weakness <MARY Waggoner Last Filed: 05/03/21 19:36> Psychiatric: Psychiatric: Denies anxiety, Denies confusion and Denies depression <AMRY Waggoner Last Filed: 05/03/21 19:36> Endocrine: Endocrine: Denies fatigue and Denies palpitations <MARY Waggoner Last Filed: 05/03/21 19:36> PMF Past Medical History Medical History: Medical History Anemia Anxiety Asthma COPD (chronic obstructive pulmonary disease) COVID-19 Depression Duodenal arteriovenous malformation Elevated cholesterol GERD (gastroesophageal reflux disease) GI bleed Lab test negative for COVID-19 virus Osteopenia Peripheral neuropathy <MARY Waggoner Last Filed: 05/03/21 19:36> Surgical History: Surgical History History of axillary surgery Hx of appendectomy Hx of cholecystectomy Hx of colonoscopy Hx of esophagogastroduodenoscopy Hx of foot surgery Hx of oophorectomy Hx of tonsillectomy <MARY Waggoner - Last Filed: 05/03/21 19:36> Family History Family History: Family History Father Stroke Asthma Mother Stroke Heart attack Asthma Sister DVT (deep venous thrombosis) Asthma Brother COPD (chronic obstructive pulmonary disease) <MARY Waggoner - Last Filed: 05/03/21 19:36> Social History Social History: Social History Household Members: Family Household Members Other:: disabled son Housing: Apartment Do you presently have visiting nurse or other home services: Yes Alcohol intake: never Patient Tobacco Use Status: Current someday Tobacco user Tobacco use type: Cigarette Cigarette Packs Per Day: 0.25 Years Smoked: 50 Second Hand Smoke Exposure: Yes Advance Directives: No Advance Directives Information Provided: No Advance Directives Date on File: 01/16/21 Current occupational status: retired <MARY Waggoner - Last Filed: 05/03/21 19:36> Physical Exam Vital Signs: Vital Signs: Last Vital Signs Temp 97.5 F 05/03/21 18:05 Pulse 73 05/03/21 18:05 Resp 18 05/03/21 18:05 BP 135/48 L 05/03/21 18:05 Pulse Ox 98 05/03/21 18:05 Body Mass Index 24.7 <MARY Waggoner - Last Filed: 05/03/21 19:36> Vital Signs: Last Vital Signs Temp 97.5 F 05/03/21 18:05 Pulse 73 05/03/21 18:05 Resp 18 05/03/21 18:05 BP 135/48 L 05/03/21 18:05 Pulse Ox 98 05/03/21 18:05 Body Mass Index 24.7 <Jono Negrete MD - Last Filed: 05/04/21 01:58> Const: General: no acute distress, alert, awake and ill appearing chronically; No confusion <MARY Waggoner - Last Filed: 05/03/21 19:36> Nutritional Appearance: malnourished <Imelda Amato [facility] Last Filed: 05/03/21 19:36> Orientation/consciousness: patient oriented x3 and No confusion <Imelda Amato [facility] Last Filed: 05/03/21 19:36> Limitations: no limitations <Imelda Amato [facility] Last Filed: 05/03/21 19:36> HENMT: Head: Yes normal to inspection, Yes normocephalic and Yes atraumatic <Imelda Amato [facility] Last Filed: 05/03/21 19:36> Ears: hearing grossly normal bilaterally, external ears normal, TM's normal bilaterally and EAC's normal <Imelda Amato [facility] Last Filed: 05/03/21 19:36> General nose exam: Normal external nose present <Imelda Amato [facility] Last Filed: 05/03/21 19:36> Face and sinus: Yes normal facial exam and Yes sinuses nontender <Imelda Amato [facility] Last Filed: 05/03/21 19:36> Mouth: Normal oral and palatal mucosa present <Imelda Amato [facility] Last Filed: 05/03/21 19:36> Throat: Yes posterior oropharynx normal <Imelda Amato [facility] Last Filed: 05/03/21 19:36> Eyes: Conjunctivae: conjunctivae normal <Imelda Amato [facility] Last Filed: 05/03/21 19:36> Pupils: Equal, round and reactive pupils present <Imelda Amato [facility] Last Filed: 05/03/21 19:36> EOM: EOMs intact bilaterally <Imelda Amato [facility] Last Filed: 05/03/21 19:36> Neck: Neck: Yes full ROM, Yes no lymphadenopathy and Yes supple <Imelda Amato [facility] Last Filed: 05/03/21 19:36> Resp: Effort & Inspection: normal respiratory effort and able to speak in complete sentences <Imelda Amato [facility] Last Filed: 05/03/21 19:36> Auscultation: clear to auscultation bilaterally, no crackles, no rales, no rhonchi and no wheezes <Imelda Amato [facility] - Last Filed: 05/03/21 19:36> Cardio: Rate: regular rate <Imelda Amato [facility] Last Filed: 05/03/21 19:36> Rhythm: regular rhythm <Imelda Amato [facility] Last Filed: 05/03/21 19:36> Heart sounds: S1 normal heart sound present and S2 normal heart sound present <Imelda Amato [facility] Last Filed: 05/03/21 19:36> GI: Inspection: Yes normal to inspection <Imelda Amato [facility] Last Filed: 05/03/21 19:36> Palpation (GI): Soft to palpation, Tenderness to palpation present (GI) in the RLQ, Guarding due to palpation present (GI) in the RLQ and not rigid <Imelda Amato [facility] Last Filed: 05/03/21 19:36> Percussion: Yes normal to percussion <Imelda Amato [facility] Last Filed: 05/03/21 19:36> Auscultation: normal bowel sounds <Imelda Amato [facility] Last Filed: 05/03/21 19:36> : General: Yes CVA tenderness on the right <Imelda Amato [facility] Last Filed: 05/03/21 19:36> Back/Spine/Pelvis: Back: CVA tenderness <Imelda Amato [facility] Last Filed: 05/03/21 19:36> Cervical Spine: cervical ROM normal and No Cervical spine tenderness <Imelda Amato [facility] Last Filed: 05/03/21 19:36> Thoracic/Lumbar Spine: thoraco-lumbar ROM limited with forward flexion, with lateral flexion to the right, with lateral flexion to the left, with rotation to the right and with rotation to the left, No thoraco-lumbar spasm, No thoracic spinal tenderness and No lumbar spinal tenderness <Imelda Amato [facility] Last Filed: 05/03/21 19:36> Sacroiliac joints: on the right tender to palpation <Imelda Amato [facility] Last Filed: 05/03/21 19:36> Skin: General skin exam: no rashes or lesions noted <Imelda Amato [facility] Last Filed: 05/03/21 19:36> Neuro: General: patient oriented x3 and No confusion <MARY Waggoner - Last Filed: 05/03/21 19:36> Cranial nerves: Yes Equal, round and reactive pupils present <MARY Waggoner Last Filed: 05/03/21 19:36> Extrem: General: Yes normal to inspection and Yes capillary refill normal <MARY Waggoner Last Filed: 05/03/21 19:36> Psych: Appearance: grossly normal <MARY Waggoner Last Filed: 05/03/21 19:36> Affect: normal affect <MARY Waggoner Last Filed: 05/03/21 19:36> Attitude: cooperative <MARY Waggoner Last Filed: 05/03/21 19:36> Thought process: Normal thought process present <MARY Waggoner Last Filed: 05/03/21 19:36> Course Course Course Narrative: 80-year-old female with a history of low back pain presents for right-sided low back pain radiating into her right groin knee down her right leg. On exam, patient has right CVA tenderness, has right lower quadrant tenderness, and has intact lower extremity sensation, motor strength, pulses, and deep tendon reflexes. Patient is able to get up and walk, although she has a ataxic gait. Patient's lungs clear to auscultation bilaterally, but complaining of a cough for ?days and days and ?. Will get CT lumbar spine abdomen pelvis, get urine, chest x-ray, COVID, basic labs. Gave Tylenol and ibuprofen. <MARY Waggoner Last Filed: 05/03/21 19:36> Reevaluation(s) Reevaluation #1: Labs in urine within normal limits, chest x-ray is negative, COVID negative, CT shows nothing acute in the abdomen, degenerative changes of the spine. I will send her home on prednisone, Tylenol, follow up with her PCP. <MARY Waggoner Last Filed: 05/03/21 19:36> Medical Decision Making Lab Data Result diagrams: : 05/03/21 17:01 05/03/21 17:01 <MARY Waggoner Last Filed: 05/03/21 19:36> Labs: Lab Results 09/18/21 09/18/21 09/18/21 Range/Units 17:01 17:01 17:01 WBC 5.3 (4.8-10.8) X10*3/uL RBC 3.52 L (4.20-5.50) X10*6/uL Hgb 10.3 L (12.0-16.0) g/dl Hct 32.0 L (37-47) % MCV 90.9 (80-98) fL MCH 29.3 (27.0-33.0) pg MCHC 32.2 (31.0-35.0) g/dl RDW 13.4 (11.0-16.0) % Plt Count 222 (160-400) X10*3/uL MPV 10.7 (9.4-12.3) fL Immature Gran % (Auto) 0.2 (0.0-0.4) % Neut % (Auto) 62.5 (45-73) % Lymph % (Auto) 22.5 (20-40) % [place] % (Auto) 8.8 (2-11) % Eos % (Auto) 5.1 H (0-4) % Baso % (Auto) 0.9 (0-2) % Lymph # (Auto) 1.2 (1.2-4.9) X10*3/uL [place] # (Auto) 0.5 (0.1-1.2) X10*3/uL Eos # (Auto) 0.3 (0.0-0.4) X10*3/uL Baso # (Auto) 0.1 (0.0-0.2) X10*3/uL Abs Immat Gran (auto) 0.01 (0.00-0.03) X10*3/uL Absolute Neuts (auto) 3.3 (2.0-8.3) X10*3/uL Absolute Nucleated RBC 0.000 (0.0-0.012) X10*3/uL Nucleated RBC % (auto) 0.0 (0.0-0.2) /100WBC Sodium 144 (135-145) mmol/L Potassium 4.5 (3.3-5.1) mmol/L Chloride 108 (96-108) mmol/L Carbon Dioxide 29 (22-29) mmol/L Anion Gap 12 (12-20) BUN 22 H (9-16) mg/dL Creatinine 1.00 (0.5-1.4) mg/dL Estim Creat Clear Calc 40.2 Estimated GFR 53 Random Glucose 123 H (60-115) mg/dL Calcium 9.2 D (8.4-10.2) mg/dL Total Bilirubin < 0.2 (0.0-1.0) mg/dL AST 16 (5-31) U/L ALT 16 (0-31) U/L Alkaline Phosphatase 54 (39-117) U/L Total Protein 6.3 L (6.5-8.0) g/dL Albumin 3.9 (3.5-5.0) g/dL Urine Color Urine Appearance Urine pH (5.0-8.0) Ur Specific [place] (1.005-1.025) Urine Protein (NEG-TRACE) MG/DL Urine Glucose (UA) (NEG) MG/DL Urine Ketones (NEG) MG/DL Urine Blood (NEG) Urine Nitrite (NEG) Ur Leukocyte Esterase (NEG) COVID-19 (SABAS) Negative (Negative) COVID-19 Clin Com See Note 05/03/21 Range/Units 18:09 WBC (4.8-10.8) X10*3/uL RBC (4.20-5.50) X10*6/uL Hgb (12.0-16.0) g/dl Hct (37-47) % MCV (80-98) fL MCH (27.0-33.0) pg MCHC (31.0-35.0) g/dl RDW (11.0-16.0) % Plt Count (160-400) X10*3/uL MPV (9.4-12.3) fL Immature Gran % (Auto) (0.0-0.4) % Neut % (Auto) (45-73) % Lymph % (Auto) (20-40) % [place] % (Auto) (2-11) % Eos % (Auto) (0-4) % Baso % (Auto) (0-2) % Lymph # (Auto) (1.2-4.9) X10*3/uL [place] # (Auto) (0.1-1.2) X10*3/uL Eos # (Auto) (0.0-0.4) X10*3/uL Baso # (Auto) (0.0-0.2) X10*3/uL Abs Immat Gran (auto) (0.00-0.03) X10*3/uL Absolute Neuts (auto) (2.0-8.3) X10*3/uL Absolute Nucleated RBC (0.0-0.012) X10*3/uL Nucleated RBC % (auto) (0.0-0.2) /100WBC Sodium (135-145) mmol/L Potassium (3.3-5.1) mmol/L Chloride (96-108) mmol/L Carbon Dioxide (22-29) mmol/L Anion Gap (12-20) BUN (9-16) mg/dL Creatinine (0.5-1.4) mg/dL Estim Creat Clear Calc Estimated GFR Random Glucose (60-115) mg/dL Calcium (8.4-10.2) mg/dL Total Bilirubin (0.0-1.0) mg/dL AST (5-31) U/L ALT (0-31) U/L Alkaline Phosphatase (39-117) U/L Total Protein (6.5-8.0) g/dL Albumin (3.5-5.0) g/dL Urine Color YELLOW Urine Appearance CLEAR Urine pH 7.0 (5.0-8.0) Ur Specific [place] 1.015 (1.005-1.025) Urine Protein NEG (NEG-TRACE) MG/DL Urine Glucose (UA) NEG (NEG) MG/DL Urine Ketones 5 (NEG) MG/DL Urine Blood NEG (NEG) Urine Nitrite NEG (NEG) Ur Leukocyte Esterase NEG (NEG) COVID-19 (SABAS) (Negative) COVID-19 Clin Com <MARY Waggoner - Last Filed: 05/03/21 19:36> Lab Results 05/03/21 05/03/21 05/03/21 Range/Units 17:01 17:01 17:01 WBC 5.3 (4.8-10.8) X10*3/uL RBC 3.52 L (4.20-5.50) X10*6/uL Hgb 10.3 L (12.0-16.0) g/dl Hct 32.0 L (37-47) % MCV 90.9 (80-98) fL MCH 29.3 (27.0-33.0) pg MCHC 32.2 (31.0-35.0) g/dl RDW 13.4 (11.0-16.0) % Plt Count 222 (160-400) X10*3/uL MPV 10.7 (9.4-12.3) fL Immature Gran % (Auto) 0.2 (0.0-0.4) % Neut % (Auto) 62.5 (45-73) % Lymph % (Auto) 22.5 (20-40) % [place] % (Auto) 8.8 (2-11) % Eos % (Auto) 5.1 H (0-4) % Baso % (Auto) 0.9 (0-2) % Lymph # (Auto) 1.2 (1.2-4.9) X10*3/uL [place] # (Auto) 0.5 (0.1-1.2) X10*3/uL Eos # (Auto) 0.3 (0.0-0.4) X10*3/uL Baso # (Auto) 0.1 (0.0-0.2) X10*3/uL Abs Immat Gran (auto) 0.01 (0.00-0.03) X10*3/uL Absolute Neuts (auto) 3.3 (2.0-8.3) X10*3/uL Absolute Nucleated RBC 0.000 (0.0-0.012) X10*3/uL Nucleated RBC % (auto) 0.0 (0.0-0.2) /100WBC Sodium 144 (135-145) mmol/L Potassium 4.5 (3.3-5.1) mmol/L Chloride 108 (96-108) mmol/L Carbon Dioxide 29 (22-29) mmol/L Anion Gap 12 (12-20) BUN 22 H (9-16) mg/dL Creatinine 1.00 (0.5-1.4) mg/dL Estim Creat Clear Calc 40.2 Estimated GFR 53 Random Glucose 123 H (60-115) mg/dL Calcium 9.2 D (8.4-10.2) mg/dL Total Bilirubin < 0.2 (0.0-1.0) mg/dL AST 16 (5-31) U/L ALT 16 (0-31) U/L Alkaline Phosphatase 54 (39-117) U/L Total Protein 6.3 L (6.5-8.0) g/dL Albumin 3.9 (3.5-5.0) g/dL Urine Color Urine Appearance Urine pH (5.0-8.0) Ur Specific [place] (1.005-1.025) Urine Protein (NEG-TRACE) MG/DL Urine Glucose (UA) (NEG) MG/DL Urine Ketones (NEG) MG/DL Urine Blood (NEG) Urine Nitrite (NEG) Ur Leukocyte Esterase (NEG) COVID-19 (SABAS) Negative (Negative) COVID-19 Clin Com See Note 05/03/21 Range/Units 18:09 WBC (4.8-10.8) X10*3/uL RBC (4.20-5.50) X10*6/uL Hgb (12.0-16.0) g/dl Hct (37-47) % MCV (80-98) fL MCH (27.0-33.0) pg MCHC (31.0-35.0) g/dl RDW (11.0-16.0) % Plt Count (160-400) X10*3/uL MPV (9.4-12.3) fL Immature Gran % (Auto) (0.0-0.4) % Neut % (Auto) (45-73) % Lymph % (Auto) (20-40) % [place] % (Auto) (2-11) % Eos % (Auto) (0-4) % Baso % (Auto) (0-2) % Lymph # (Auto) (1.2-4.9) X10*3/uL [place] # (Auto) (0.1-1.2) X10*3/uL Eos # (Auto) (0.0-0.4) X10*3/uL Baso # (Auto) (0.0-0.2) X10*3/uL Abs Immat Gran (auto) (0.00-0.03) X10*3/uL Absolute Neuts (auto) (2.0-8.3) X10*3/uL Absolute Nucleated RBC (0.0-0.012) X10*3/uL Nucleated RBC % (auto) (0.0-0.2) /100WBC Sodium (135-145) mmol/L Potassium (3.3-5.1) mmol/L Chloride (96-108) mmol/L Carbon Dioxide (22-29) mmol/L Anion Gap (12-20) BUN (9-16) mg/dL Creatinine (0.5-1.4) mg/dL Estim Creat Clear Calc Estimated GFR Random Glucose (60-115) mg/dL Calcium (8.4-10.2) mg/dL Total Bilirubin (0.0-1.0) mg/dL AST (5-31) U/L ALT (0-31) U/L Alkaline Phosphatase (39-117) U/L Total Protein (6.5-8.0) g/dL Albumin (3.5-5.0) g/dL Urine Color YELLOW Urine Appearance CLEAR Urine pH 7.0 (5.0-8.0) Ur Specific [place] 1.015 (1.005-1.025) Urine Protein NEG (NEG-TRACE) MG/DL Urine Glucose (UA) NEG (NEG) MG/DL Urine Ketones 5 (NEG) MG/DL Urine Blood NEG (NEG) Urine Nitrite NEG (NEG) Ur Leukocyte Esterase NEG (NEG) COVID-19 (SABAS) (Negative) COVID-19 Clin Com <Jono Negrete MD - Last Filed: 05/04/21 01:58> Discharge Plan Discharge Clinical Impression: Sciatica, Acute lumbar radiculopathy <MARY Waggoner - Last Filed: 05/03/21 19:36> Patient Disposition: Home, Self-Care <MARY Waggoner - Last Filed: 05/03/21 19:36> Instructions: Sciatica (ED), Lower Back Exercises (ED) <MARY Waggoner - Last Filed: 05/03/21 19:36> Additional Instructions: Please call your primary care provider on Wednesday for follow-up appointment. All of your x-rays and CT scans were negative today. You have arthritis in your spine, but you have no acute disease in your abdomen or spine. All of her labs were normal today. We will start you on prednisone and have you take Tylenol. As he start to feel better, please stretch. Your primary care provider may refer you to physical therapy, I think this could be very helpful for you. If you have worsening pain, nausea vomiting, chest pain, shortness of breath, please return to emergency room Llame a blackman proveedor de atenci?n primaria el lunes para programar ai yogesh de seguimiento. Todas george radiograf?as y tomograf?as computarizadas fueron negativas hoy. Tiene artritis en la [place], sally no tiene ninguna enfermedad aguda en el abdomen o la [place]. Todos george laboratorios yosvany normales hoy. Comenzaremos con prednisona y tomaremos Tylenol. Cuando comience a sentirse mejor, est?rese. Blackman proveedor de atenci?n primaria puede derivarlo a fisioterapia, creo que esto podr?a ser muy ?til para usted. Si tiene un dolor que empeora, n?useas, v?mitos, dolor en el pecho, dificultad para respirar, regrese a la adolfo de emergencias <MARY Waggoner - Last Filed: 05/03/21 19:36> Prescriptions: New prednisone 20 mg tablet 60 mg PO DAILY 5 Days Qty: 15 RF: 0 No Action omeprazole 20 mg capsule,delayed release(DR/EC) 20 mg PO DAILY Qty: 90 RF: 1 fluticasone propion-salmeterol [Advair Diskus] 250-50 mcg/dose Blister With Device 1 inh INHALATION BID RF: 0 ascorbic acid (vitamin C) [Vitamin C] 500 mg Tablet 500 mg PO DAILY RF: 0 cholecalciferol (vitamin D3) [Vitamin D3] 25 mcg (1,000 unit) Tablet 25 mcg PO DAILY RF: 0 simvastatin 40 mg tablet 40 mg PO BEDTIME RF: 0 ferrous sulfate 325 mg (65 mg iron) tablet 1 tab PO DAILY RF: 0 citalopram 10 mg tablet 10 mg PO DAILY RF: 0 ipratropium-albuterol 0.5 mg-3 mg(2.5 mg base)/3 mL solution for nebulization 1 vial inhalation QID RF: 0 vitamin B complex Tablet 1 tab PO DAILY RF: 0 acetaminophen [Tylenol] 325 mg tablet 650 mg PO Q6H PRN (Reason: fever or pain) Qty: 10 RF: 0 albuterol sulfate 90 mcg/actuation HFA aerosol inhaler 1 inh inhalation QID PRN (Reason: shortness of breath or wheezing) Qty: 8.5 RF: 0 albuterol sulfate 0.63 mg/3 mL solution for nebulization 0.63 mg inhalation QID PRN (Reason: shortness of breath or wheezing) Qty: 75 RF: 0 <MARY Waggoner - Last Filed: 05/03/21 19:36> Interventions: ED Discharge Assessment Last Done: 05/03/21 19:39 <MARY Waggoner - Last Filed: 05/03/21 19:36> Discharge Date/Time: 05/03/21 19:39 <MARY Waggoner - Last Filed: 05/03/21 19:36> Print Language: Somali <MARY Waggoner - Last Filed: 05/03/21 19:36>
[2021-05-03 16:56] VITALS: BP 102/41; PULSE 65; RESP 18; TEMP 36.6; O2SAT 98
[2021-05-03] MEDS: 0.9 % Sodium Chloride 1,000 ML 999 ML IV (17:02)
[2021-05-03] MEDS: Acetaminophen 325 MG TABLET 650 MG PO (17:07)
[2021-05-03] MEDS: Albuterol Sulfate 90 MCG 8 GM INHALER 2 PUFF INHALE (17:07)
[2021-05-03 17:14] LABS: MANUAL DIFF FLAG NO
[2021-05-03 17:16] LABS: Basophils Absolute Auto 0.1 X10*3/uL (0.0-0.2); Basophils Percent Auto 0.9 % (0-2); Eosinophils Absolute Auto 0.3 X10*3/uL (0.0-0.4); Eosinophils Percent Auto 5.1 % (0-4); Hemoglobin 10.3 g/dl (12.0-16.0); Imm Gran Abs Auto 0.01 X10*3/uL (0.00-0.03); Imm Gran Pct Auto 0.2 % (0.0-0.4); Lymphocytes Absolute Auto 1.2 X10*3/uL (1.2-4.9); Lymphocytes Percent Auto 22.5 % (20-40); Mean Corpuscular HGB Conc 32.2 g/dl (31.0-35.0); Mean Corpuscular Hemoglobin 29.3 pg (27.0-33.0); Mean Corpuscular Volume 90.9 fL (80-98); Mean Platelet Volume 10.7 fL (9.4-12.3); Monocytes Absolute Auto 0.5 X10*3/uL (0.1-1.2); Monocytes Percent Auto 8.8 % (2-11); Neutrophils Absolute Auto 3.3 X10*3/uL (2.0-8.3); Neutrophils Percent Auto 62.5 % (45-73); Platelet Count 222 X10*3/uL (160-400); Red Blood Count 3.52 X10*6/uL (4.20-5.50); Red Cell Distribution Width 13.4 % (11.0-16.0); White Blood Count 5.3 X10*3/uL (4.8-10.8)
[2021-05-03 17:30] LABS: COVID-19 Test Negative (Negative); IDNOW Serial# 9DD0AD1C
[2021-05-03 17:36] LABS: Alanine Aminotransferase 16 U/L (0-31); Albumin Level 3.9 g/dL (3.5-5.0); Alkaline Phosphatase 54 U/L (39-117); Anion Gap 12 (12-20); Aspartate Amino Transferase 16 U/L (5-31); Bilirubin Total < 0.2 mg/dL (0.0-1.0); Blood Urea Nitrogen 22 mg/dL (9-16); Calcium 9.2 mg/dL (8.4-10.2); Carbon Dioxide 29 mmol/L (22-29); Chloride 108 mmol/L (96-108); Creatinine Clr Calc Pharmacy 40.2; Estimated Glomerular Filt Rate 53; Glucose Random 123 mg/dL (60-115); Potassium 4.5 mmol/L (3.3-5.1); Sodium 144 mmol/L (135-145); Total Protein 6.3 g/dL (6.5-8.0)
[2021-05-03] MEDS: iohexoL 350 MG/ML 100 ML INFUS..BTL 85 ML IV (17:48)
--- NOTE | 2021-05-03 17:54 | PC.NURSE ---
patient c/o R.side back pain. labs drawn and sent. IV placed and flushed. Meds given per MAR. Awaiting for urine sample from patient. Resting safely.
[2021-05-03 18:05] VITALS: BP 135/48; PULSE 73; RESP 18; TEMP 36.4; O2SAT 98
[2021-05-03 18:19] LABS: Appearance Urine CLEAR; Color Urine YELLOW; Glucose Urine UA NEG (NEG); Leukocyte Esterase Urine NEG (NEG); Nitrite Urine NEG (NEG); Specific Gravity - Urine 1.015 (1.005-1.025); Urine Blood NEG (NEG); Urine Ketones 5 MG/DL (NEG); Urine Protein NEG (NEG-TRACE)
== END 2021-05-03 19:39 | disposition home or self-care (01) ==
PROVIDERS: Physician Assistant; Emergency Provider Emergency Medicine; PCP Internal Medicine Geriatric Medicine
DX: M54.41 Lumbago with sciatica, right side (principal); R10.30 Lower abdominal pain, unspecified; Z79.899 Other long term (current) drug therapy; F17.210 Nicotine dependence, cigarettes, uncomplicated; Z71.6 Tobacco abuse counseling; Z20.822 Contact with and (suspected) exposure to COVID-19
CPT/HCPCS: 36415; 71045; 74177; 80053; 81003; 85025; 87635; 96360; 99284; Q9967

== ENCOUNTER → 2021-05-06 14:08 | Outpatient (BNVA) | payer MEDICARE, SELFPAY | PROVIDERS: PCP Internal Medicine Geriatric Medicine; Visit Provider Internal Medicine Pulmonary Disease | DX: J44.9 Chronic obstructive pulmonary disease, unspecified (principal); R05 Cough; F17.210 Nicotine dependence, cigarettes, uncomplicated | CPT/HCPCS: 99202 ==

== ENCOUNTER 2021-05-23 09:37 | Outpatient (REF) | payer MEDICARE, SELFPAY ==
--- NOTE | 2021-05-23 17:23 | PFT_ITS ---
INDICATION: COPD. SPIROMETRY: The FEV1 to FVC of 85% with an FEV1 of 1.52 L, which is 76% predicted, and an FVC of 1.79 L, which is 69% predicted. No significant response to bronchodilators noted. Maximum voluntary ventilation 57% predicted. LUNG VOLUMES: Total lung capacity 72% predicted with a residual volume of 63% predicted. DIFFUSION CAPACITY: DLCO 52% predicted. COMPARISONS: None available. INTERPRETATION: No obstructive ventilatory defect. No significant response to bronchodilators noted. There is a moderate decrease in the maximum voluntary ventilation secondary to likely deconditioning, although neuromuscular conditions cannot be ruled out. The patient does have a mild restrictive ventilatory defect. Again, interstitial lung conditions and neuromuscular conditions need to be considered. In addition to that, the patient does have a moderate to severe diffusion impairment. Clinical correlation warranted. MD ELIZABETH Gil/TAMEKA / [id number]
== END 2021-05-23 09:38 | disposition home or self-care (01) ==
LOC: HO.RESP 09:37
PROVIDERS: PCP Internal Medicine Geriatric Medicine; Visit Provider Internal Medicine Pulmonary Disease
DX: J44.9 Chronic obstructive pulmonary disease, unspecified (principal); F17.210 Nicotine dependence, cigarettes, uncomplicated; Z79.899 Other long term (current) drug therapy
CPT/HCPCS: 94060; 94727; 94729; 99212

== ENCOUNTER → 2021-05-29 08:28 | Outpatient (BNVA) | payer MEDICARE, SELFPAY | PROVIDERS: PCP Internal Medicine Geriatric Medicine; Referring Provider Family Medicine; Visit Provider Nurse Practitioner ==

== ENCOUNTER → 2021-06-23 13:48 | Outpatient (BNVA) | payer MEDICARE, SELFPAY | PROVIDERS: PCP Internal Medicine Geriatric Medicine; Visit Provider Internal Medicine Pulmonary Disease | DX: J44.9 Chronic obstructive pulmonary disease, unspecified (principal); R05.9 Cough, unspecified | CPT/HCPCS: 99212 ==

== ENCOUNTER 2021-07-03 10:00 | Outpatient (RCR) | payer MEDICARE, SELFPAY | END 2021-08-12 14:21 | disposition home or self-care (01) | LOC: HO.PT 10:00 | PROVIDERS: PCP Internal Medicine Geriatric Medicine; Visit Provider Internal Medicine Geriatric Medicine | DX: M54.2 Cervicalgia (principal) | CPT/HCPCS: 97035; 97110; 97140; 97162 ==

== ENCOUNTER → 2021-10-31 11:35 | Outpatient (BNVA) | payer MEDICARE, SELFPAY | PROVIDERS: PCP Internal Medicine Geriatric Medicine; Visit Provider Internal Medicine Pulmonary Disease | DX: J44.9 Chronic obstructive pulmonary disease, unspecified (principal); R05.9 Cough, unspecified | CPT/HCPCS: 99212 ==

== ENCOUNTER 2021-11-05 10:07 | Outpatient (REF) | payer MEDICARE, MEDICAID, SELFPAY ==
--- NOTE | ~2021-11-05 | XR_ITS ---
EXAMINATION: XR LUMBOSACRAL SPINE CLINICAL INFORMATION: Low back pain and sciatica bilateral COMPARISON: Previous x-ray most recent March 2021 TECHNIQUE: Three views of the lumbosacral spine. FINDINGS: There is curvature of the mid lumbar spine to the left. There is mild anterior subluxation of L4 with respect L5 and L3. Bone alignment is otherwise normal. No fracture or dislocation is seen. There is multilevel degenerative disc disease. There is lower lumbar spine facet arthritis. There is evidence of atherosclerotic disease. XR/XR lumbar spine 2-3V IMPRESSION: Scoliosis and degenerative changes.
== END 2021-11-05 10:08 | disposition home or self-care (01) ==
LOC: HO.XRAY 10:07
PROVIDERS: PCP Internal Medicine Geriatric Medicine; Visit Provider Internal Medicine Geriatric Medicine
DX: M54.41 Lumbago with sciatica, right side (principal); M54.42 Lumbago with sciatica, left side
CPT/HCPCS: 72100

== ENCOUNTER → 2021-11-06 09:55 | Outpatient (BNVA) | payer MEDICARE, MEDICAID, SELFPAY | PROVIDERS: PCP Internal Medicine Geriatric Medicine; Visit Provider Nurse Practitioner Family | DX: M25.561 Pain in right knee (principal); M25.562 Pain in left knee; M47.812 Spondylosis without myelopathy or radiculopathy, cervical region; M47.816 Spondylosis without myelopathy or radiculopathy, lumbar region; M54.16 Radiculopathy, lumbar region | CPT/HCPCS: 99202 ==

== ENCOUNTER → 2021-11-13 14:55 | Outpatient (BNVA) | payer MEDICARE, MEDICAID, SELFPAY | PROVIDERS: PCP Internal Medicine Geriatric Medicine; Referring Provider Internal Medicine Geriatric Medicine; Visit Provider Surgery | DX: R22.31 Localized swelling, mass and lump, right upper limb (principal) | CPT/HCPCS: 99202 ==

== ENCOUNTER 2021-12-18 11:50 | Outpatient (REF) | payer OTHER, MEDICAID, SELFPAY ==
--- NOTE | ~2021-12-18 | US_ITS ---
EXAMINATION: US VENOUS ULTRASOUND WITH DOPPLER LOWER EXTREMITY, LEFT CLINICAL INFORMATION: Pain and swelling COMPARISON: Previous exam most recent March 2021 TECHNIQUE: Ultrasound of the deep veins is performed from the hip to the calf with compression sonography and color and pulse Doppler assessment. Spectral analysis with color-flow imaging is performed. FINDINGS: There is normal venous compression and respiratory variation and augmented flow. The visualized common femoral vein, superficial femoral vein, profunda femoral vein, popliteal vein, and the trifurcation region shows no evidence of deep venous thrombosis. There is no significant popliteal fossa cyst. US/US venous duplex LE LT IMPRESSION: No DVT demonstrated in the left lower extremity.
== END 2021-12-18 11:51 | disposition home or self-care (01) ==
LOC: HO.US 11:50
PROVIDERS: PCP Internal Medicine Geriatric Medicine; Visit Provider Internal Medicine Medical Oncology
DX: I82.402 Acute embolism and thrombosis of unspecified deep veins of left lower extremity (principal)
CPT/HCPCS: 93971

== ENCOUNTER 2021-12-26 17:08 | Emergency (ER) | payer OTHER, MEDICAID, SELFPAY ==
--- NOTE | ~2021-12-26 | XR_ITS ---
EXAMINATION: XR CHEST CLINICAL INFORMATION: Cough, fever. COMPARISON: 05/03/2021 chest radiograph. TECHNIQUE: 2 views of the chest were obtained. FINDINGS: No significant abnormality is noted involving the heart, lungs, mediastinum, bony thorax or soft tissues. XR/XR chest 2V IMPRESSION: No acute cardiopulmonary process.
[2021-12-26 17:16] VITALS: BP 168/82; PULSE 92; RESP 20; TEMP 36.9; O2SAT 98; BMI 24.7
[2021-12-26 20:10] LABS: Influenza A Positive (Negative); Influenza B2 Negative (Negative)
[2021-12-26 20:11] LABS: COVID-19 Test Negative (Negative); IDNOW Serial# 16C4AD1C
[2021-12-26 22:00] VITALS: BP 147/47; PULSE 84; RESP 16; TEMP 37.4; O2SAT 98
[2021-12-26 23:58] VITALS: BP 135/53; PULSE 83; RESP 14; TEMP 37.4; O2SAT 95
--- NOTE | 2021-12-27 00:48 | ED_ITS ---
HPI - URI/Sore Throat General Chief Complaint: Fever Stated Complaint: fever/congestion Time Seen by Provider: 12/27/21 00:40 Source: patient Mode of arrival: ambulatory History of Present Illness HPI Narrative: 81-year-old female who is an everyday smoker and reports asthma comes in with cough, fever, shortness of breath as well as headache and body aches for the past 2 days. On further questioning patient states that she has had the symptoms since Wednesday. She is here with her son. Related Data Home Medications Medication Instructions Recorded Confirmed ascorbic acid (vitamin C) 500 mg 500 mg PO DAILY 05/23/20 12/18/21 tablet (Vitamin C) cholecalciferol (vitamin D3) 25 25 mcg PO DAILY 05/23/20 12/18/21 mcg (1,000 unit) tablet (Vitamin D3) citalopram 10 mg tablet 10 mg PO DAILY 01/16/21 12/18/21 ferrous sulfate 325 mg (65 mg 1 tab PO DAILY 01/16/21 12/18/21 iron) tablet ipratropium 0.5 mg-albuterol 3 mg 1 vial INHALATION QID 01/16/21 12/18/21 (2.5 mg base)/3 mL nebulization soln simvastatin 40 mg tablet 40 mg PO BEDTIME 01/16/21 12/18/21 vitamin B complex 1 tab PO DAILY 01/16/21 12/18/21 tramadol 50 mg tablet 50 mg PO Q12H PRN 11/06/21 12/18/21 Previous Rx's Medication Instructions Recorded acetaminophen 325 mg tablet 650 mg PO Q6H PRN #10 tab 07/04/20 (Tylenol) albuterol sulfate 0.63 mg/3 mL 0.63 mg (3 mL) INHALATION QID PRN 07/04/20 solution for nebulization #75 ml omeprazole 20 mg capsule,delayed 20 mg PO DAILY #90 cap 09/20/20 release fluticasone fur. 200 mcg-umeclid 1 inh INHALATION DAILY 30 Days #1 05/23/21 62.5 mcg-vilant 25 mcg ea inhalat.powder (Trelegy Ellipta) lidocaine 5 % topical patch 2 patch TOPICAL DAILY 15 Days #30 11/06/21 ea prednisone 50 mg tablet 50 mg PO DAILY 4 Days #4 tab 12/27/21 Allergies Allergy/AdvReac Type Severity Reaction Status Date / Time No Known Allergies Allergy Verified 12/18/21 10:55 Review of Systems Review of Systems: Pertinent positives and negatives as stated in HPI 10 point review of systems is otherwise negative. [facility] Past Medical History Source: nursing notes reviewed Medical History Anemia Anxiety Asthma COPD (chronic obstructive pulmonary disease) COVID-19 Depression Duodenal arteriovenous malformation Elevated cholesterol GERD (gastroesophageal reflux disease) GI bleed Lab test negative for COVID-19 virus Mass of right axilla Osteopenia Peripheral neuropathy Surgical History History of axillary surgery Hx of appendectomy Hx of cholecystectomy Hx of colonoscopy Hx of esophagogastroduodenoscopy Hx of foot surgery Hx of oophorectomy Hx of tonsillectomy Family History Family History Father Stroke Asthma Mother Heart attack Stroke Asthma Sister DVT (deep venous thrombosis) Asthma Brother COPD (chronic obstructive pulmonary disease) Son Cancer Social History Social History Household Members: Children Household Members Other:: disabled son Housing: Apartment Are you a primary lawn caretaker to a significant other at home: No Do you presently have visiting nurse or other home services: Yes Alcohol intake: never Patient Tobacco Use Status: Current someday Tobacco user Tobacco use type: Cigarette Cigarette Packs Per Day: 0.25 Years Smoked: 50 Second Hand Smoke Exposure: Yes Advance Directives: Yes Advance Directives on File: Yes Advance Directives Date on File: 01/16/21 service: No Current occupational status: retired Physical Exam Vital Signs: Vital Signs: Last Vital Signs Temp 99.4 F 12/26/21 23:58 Pulse 83 12/26/21 23:58 Resp 14 12/26/21 23:58 BP 135/53 L 12/26/21 23:58 Pulse Ox 95 12/26/21 23:58 BMI result Body Mass Index 24.7 VITAL SIGNS: Reviewed. GENERAL: Well developed, well nourished, in no acute distress. HEAD: Normocephalic/atraumatic EYES: PERRLA, EOMI EARS: Ext canals without abnormality, TMs non-bulging and non-erythematous NOSE: Nares patent bilateral OROPHARYNX: no oral lesions noted, posterior pharynx clear LUNGS: Normal breath sounds. No adventitious sounds or accessory muscle use. SpO2<95> CARDIOVASCULAR: Regular rate and rhythm without noted murmurs ABDOMEN: Soft, non-tender, non-distended with bowel sounds. MUSCULOSKELETAL: No tenderness, deformities, or effusions noted on gross inspection. EXTREMITIES: No cyanosis, clubbing or edema. SKIN: Inspection of the skin reveals no rashes NEUROLOGIC: Alert and oriented x 4. Strength and sensation to light touch were grossly intact x 4. Course Course Course Narrative: 81-year-old female with history and clinical presentation consistent with influenza a after review of investigations with some mild increase in cough and secretions. Patient was provided with combination analgesics, is outside the window for Tamiflu and she was also provided with albuterol as well as initial steroids. She is otherwise stable for discharge to home. MDM - URI/Sore Throat Lab Data Labs: Lab Results 12/26/21 12/26/21 Range/Units 19:33 19:33 COVID-19 (SABAS) Negative (Negative) COVID-19 Clin Com See Note Influenza Type A (ELIOT) Positive A (Negative) Influenza Type B (ELIOT) Negative (Negative) Influenza A & B Note See Note Discharge Plan Discharge Clinical Impression: Viral syndrome, Asthma, Influenza A Patient Disposition: Home, Self-Care Instructions: Asthma (ED), Influenza (ED), Viral Syndrome (ED) Additional Instructions: 1. Reanudar todos los medicamentos caseros. 2. Complete el curso corto de esteroides que le stewart proporcionado. 3. Kathleen un seguimiento con el proveedor de atenci?n primaria el por la ma?nisreen a vivian?s de telemedicina. Le stewart diagnosticado influenza a. Regrese a la adolfo de emergencias si los s?ntomas empeoran. Prescriptions: New prednisone 50 mg tablet 50 mg PO DAILY 4 Days Qty: 4 0RF No Action omeprazole 20 mg capsule,delayed release(DR/EC) 20 mg PO DAILY Qty: 90 1RF ascorbic acid (vitamin C) [Vitamin C] 500 mg Tablet 500 mg PO DAILY 0RF cholecalciferol (vitamin D3) [Vitamin D3] 25 mcg (1,000 unit) Tablet 25 mcg PO DAILY 0RF simvastatin 40 mg tablet 40 mg PO BEDTIME 0RF ferrous sulfate 325 mg (65 mg iron) tablet 1 tab PO DAILY 0RF citalopram 10 mg tablet 10 mg PO DAILY 0RF ipratropium-albuterol 0.5 mg-3 mg(2.5 mg base)/3 mL solution for nebulization 1 vial inhalation QID 0RF vitamin B complex Tablet 1 tab PO DAILY 0RF acetaminophen [Tylenol] 325 mg tablet 650 mg PO Q6H PRN (Reason: fever or pain) Qty: 10 0RF albuterol sulfate 0.63 mg/3 mL solution for nebulization 0.63 mg inhalation QID PRN (Reason: shortness of breath or wheezing) Qty: 75 0RF Trelegy Ellipta 200-62.5-25 mcg blister with device 1 inh inhalation DAILY 30 Days Qty: 1 6RF tramadol 50 mg tablet 50 mg PO Q12H PRN (Reason: Pain) 0RF lidocaine 5 % adhesive patch,medicated 2 patch topical DAILY 15 Days Qty: 30 0RF Rx Instructions: apply to affected areas up to 12 hours per day Referrals: Name,MD Thaddeus [Primary Care Provider] - Print Language: Mongolian
[2021-12-27] MEDS: Albuterol Sulfate 90 MCG 8 GM INHALER 4 PUFF INHALE (01:27)
[2021-12-27] MEDS: predniSONE 10 MG TABLET 50 MG PO (01:51)
[2021-12-27] MEDS: Acetaminophen 325 MG TABLET 975 MG PO (01:51)
[2021-12-27] MEDS: Ibuprofen 400 MG TABLET PO (01:52)
== END 2021-12-27 02:11 | disposition home or self-care (01) ==
PROVIDERS: Emergency Medicine; Emergency Provider Student in an Organized Health Care Education/Training Program; PCP Internal Medicine Geriatric Medicine
DX: J10.1 Influenza due to other identified influenza virus with other respiratory manifestations (principal); B34.9 Viral infection, unspecified; J45.909 Unspecified asthma, uncomplicated; F17.210 Nicotine dependence, cigarettes, uncomplicated; Z20.822 Contact with and (suspected) exposure to COVID-19
CPT/HCPCS: 71046; 87502; 87635; 99283; 99284

== ENCOUNTER 2022-02-19 15:47 | Outpatient (REF) | payer OTHER, MEDICAID, SELFPAY ==
--- NOTE | ~2022-02-19 | US_ITS ---
EXAMINATION: US VENOUS ULTRASOUND WITH DOPPLER LOWER EXTREMITY, LEFT CLINICAL INFORMATION: Pain left lower leg. COMPARISON: None TECHNIQUE: Ultrasound of the deep veins is performed from the hip to the calf with compression sonography and color and pulse Doppler assessment. Spectral analysis with color-flow imaging is performed. FINDINGS: There is normal venous compression and respiratory variation and augmented flow. The visualized common femoral vein, superficial femoral vein, profunda femoral vein, popliteal vein, and the trifurcation region shows no evidence of deep venous thrombosis. There is no significant popliteal fossa cyst. If the patient's symptoms persist, followup ultrasound in 5 days 7 days might be of value to exclude proximal propagation from a non-visualized calf vein. US/US venous duplex LE LT IMPRESSION: No DVT demonstrated in the left lower extremity.
== END 2022-02-19 15:48 | disposition home or self-care (01) ==
LOC: HO.US 15:47
PROVIDERS: PCP Internal Medicine Geriatric Medicine; Visit Provider Emergency Medicine
DX: M79.662 Pain in left lower leg (principal)
CPT/HCPCS: 93971

== ENCOUNTER 2022-04-28 11:43 | Emergency (ER) | payer OTHER, MEDICAID, SELFPAY ==
[2022-04-28 13:54] VITALS: BP 140/54; PULSE 69; RESP 18; TEMP 37.2; O2SAT 98; BMI 24.7
[2022-04-28 14:06] LABS: MANUAL DIFF FLAG NO
[2022-04-28 14:17] LABS: Basophils Absolute Auto 0.1 X10*3/uL (0.0-0.2); Basophils Percent Auto 1.2 % (0-2); Eosinophils Absolute Auto 0.3 X10*3/uL (0.0-0.4); Eosinophils Percent Auto 4.2 % (0-4); Hemoglobin 11.4 g/dl (12.0-16.0); Imm Gran Abs Auto 0.02 X10*3/uL (0.00-0.03); Imm Gran Pct Auto 0.3 % (0.0-0.4); Lymphocytes Absolute Auto 1.2 X10*3/uL (1.2-4.9); Lymphocytes Percent Auto 20.9 % (20-40); Mean Corpuscular HGB Conc 31.7 g/dl (31.0-35.0); Mean Corpuscular Hemoglobin 28.6 pg (27.0-33.0); Mean Corpuscular Volume 90.5 fL (80.0-98.0); Mean Platelet Volume 10.7 fL (9.4-12.3); Monocytes Absolute Auto 0.5 X10*3/uL (0.1-1.2); Monocytes Percent Auto 8.4 % (2-11); Neutrophils Absolute Auto 3.8 x10*3/uL (2.0-8.3); Platelet Count 267 X10*3/uL (160-400); Red Blood Count 3.98 X10*6/uL (4.20-5.50); Red Cell Distribution Width 13.7 % (11.0-16.0); White Blood Count 5.9 X10*3/uL (4.8-10.8)
[2022-04-28 14:21] LABS: Anion Gap 12 (12-20); Blood Urea Nitrogen 15 mg/dL (9-16); Calcium 9.7 mg/dL (8.4-10.2); Carbon Dioxide 28 mmol/L (22-29); Chloride 108 mmol/L (96-108); Creatinine Clr Calc Pharmacy 50.1; Estimated Glomerular Filt Rate > 60; Glucose Random 109 mg/dL (60-115); Potassium 5.7 mmol/L (3.3-5.1); Sodium 142 mmol/L (135-145)
== END 2022-04-28 20:01 | disposition left against medical advice (07) ==
PROVIDERS: Emergency Provider Emergency Medicine; PCP Internal Medicine Geriatric Medicine
DX: M54.42 Lumbago with sciatica, left side (principal); M54.41 Lumbago with sciatica, right side; R51.9 Headache, unspecified; M47.26 Other spondylosis with radiculopathy, lumbar region
CPT/HCPCS: 36415; 80048; 85025; 99281; 99283

== ENCOUNTER → 2022-04-29 11:15 | Outpatient (BNVA) | payer OTHER, SELFPAY | PROVIDERS: PCP Internal Medicine Geriatric Medicine; Visit Provider Internal Medicine Pulmonary Disease | DX: J44.9 Chronic obstructive pulmonary disease, unspecified (principal); R06.09 Other forms of dyspnea; Z79.899 Other long term (current) drug therapy | CPT/HCPCS: 99212 ==

== ENCOUNTER → 2022-05-28 09:42 | Outpatient (REF) | payer OTHER, SELFPAY ==
--- NOTE | 2022-05-28 09:45 | CA_ITS ---
Transthoracic Echocardiogram Patient (Last, First, Middle): Rukhsana Joseph, Gender: Female Date of : 1940 Age: 81 Procedure Date: 05/28/2022 Procedure Type: Transthoracic Echocardiogram Location: OP Height: 160.02 cm Weight: 61.24 kg BSA: 1.64 m2 Heart Rate: bpm BP: 130 / 82 mmHg Slip Presser: TO Referring MD: Agustín Westbrook MD Symptoms: R06.09 - Other forms of dyspnea Study Quality: Fair ECG Rhythm: Sinus Conclusions: - The left ventricular systolic function is normal. The calculated ejection fraction is 59% by biplane method. - No obvious valvular pathology seen on this study. Findings Left Ventricle Normal left ventricular cavity size. The left ventricular systolic function is normal. The calculated ejection fraction is 59% by biplane method. There is no evidence of regional wall motion abnormalities. Diastolic function is normal for age. There is mild septal and mild basal asymmetric hypertrophy. Right Ventricle Normal right ventricular cavity size and systolic function. Atria Both atria are normal in size. Aortic Valve There is a normal trileaflet aortic valve. There is mild calcification of the aortic valve. There is no aortic valve stenosis. There is no aortic valve regurgitation. Mitral Valve The mitral valve appears normal. There is no mitral valve regurgitation. There is no mitral valve stenosis. Pulmonic Valve The pulmonic valve is likely normal. Tricuspid Valve Normal tricuspid valve structure. There is mild tricuspid valve regurgitation. There is no evidence of pulmonary hypertension. Great Vessels The aortic annulus, sinuses of valsalva, and asc aorta are normal in size. Venous The inferior vena cava is normal in size and collapses greater than 50% with inspiration. Pericardium/Pleural There is no evidence of pericardial effusion. Prior Study Comparison No prior study available for comparison. Recommendations, Care & Conclusions No obvious valvular pathology seen on this study. Measurements 2D Linear Measurements IVSd: 0.93 0.6-0.9/0.6-1.0 cm LVIDd: 4.17 3.9-5.3/4.2-5.9 cm LVIDd Index: 2.54 2.4-3.2/2.2-3.1 cm/m2 LVIDs: 2.70 2.0-3.6 cm LVPWd: 0.79 0.7-1.1 cm LA Diam: 3.10 2.7-3.8/3.0-4.0 cm LAIDs Index: 1.89 1.5-2.3 cm/m2 LV Mass: 136.23 67-162/88-224 g LV Mass Index: 83.07 43-95/49-115 g/m2 LVOT Diam: 2.00 3.0+(-)1.3 cm 2D Systolic Function EF 4C: 60.60 >55% EF 2C: 60.40 >55% EF BiP: 59.40 >55% Mitral Valve MV Pk E: 0.69 MV PK A: 0.72 MV Decel Time: 244.00 E/A: 1.00 E'Lateral: 7.51 E'Medial: 7.18 E/E' Med: 9.60 E/E' Lat: 9.10 PHT: 71.00 MVA PHT: 3.10 Decel Ventura: 2.82 Aortic Valve AoV Pk Jorge: 1.56 AoV Mn Jorge: 1.02 AoV VTI: 0.32 AoV Pk Grad: 10.00 Aov Mn Grad: 5.00 STANLEY Cont.VTI: 2.12 LVOT LVOT Pk Jorge: 1.07 LVOT Mn Jorge: 0.67 LVOT VTI: 0.22 LVOT Pk Grad: 5.00 LVOT Mn Grad: 2.00 LVOT Diam: 2.00 LVOT Area: 3.14 Diastolic Function MV Pk E: 0.69 MV Pk A: 0.72 E/A: 1.00 E'Medial: 7.18 E/E' Med: 9.60 E' Laterial: 7.51 E/E' Lat: 9.10 Right Ventricle TAPSE (mm): 20.40 TVS' Jorge: 12.50 Tricuspid Valve TR Pk Jorge: 2.66 TR Pk Grad: 28.00 RA Press: 3.00 RVSP: 31.00 Great Vessels Aorta Sinus of Valsalva: 2.78 2.0-3.[address] Ridge: 1.97 1.7-3.4 cm Ao Asc: 2.90 2.1-3.4 cm Updated in Other Vendor System with Status of Final Iggy Lugo MD electronically signed on 05/29/2022 1:16:16 PM with status of Final
== END ==
LOC: HO.CARD 09:42
PROVIDERS: Visit Provider Internal Medicine Pulmonary Disease
DX: R06.09 Other forms of dyspnea (principal)
CPT/HCPCS: 93306

== ENCOUNTER 2022-06-09 15:53 | Outpatient (REF) | payer OTHER, SELFPAY ==
--- NOTE | ~2022-06-09 | XR_ITS ---
EXAMINATION: XR knee RT 3V, XR knee LT 3V CLINICAL INFORMATION: Reason for Exam M25.561 - Pain in right knee COMPARISON: None available at the time of this dictation. TECHNIQUE: frontal, lateral, tunnel and patella sunrise views FINDINGS: BONES: No fracture or dislocation is present. JOINTS: Narrowing of joint spaces and developed osteophytes from the edges of articular surfaces suggest degenerative osteoarthritis. SOFT TISSUE: Mild vascular calcifications. XR/XR knee LT 3V IMPRESSION: [id number] bilateral tricompartment degenerative osteoarthritis. No joint effusions.
--- NOTE | ~2022-06-09 | XR_ITS ---
EXAMINATION: XR knee RT 3V, XR knee LT 3V CLINICAL INFORMATION: Reason for Exam M25.561 - Pain in right knee COMPARISON: None available at the time of this dictation. TECHNIQUE: frontal, lateral, tunnel and patella sunrise views FINDINGS: BONES: No fracture or dislocation is present. JOINTS: Narrowing of joint spaces and developed osteophytes from the edges of articular surfaces suggest degenerative osteoarthritis. SOFT TISSUE: Mild vascular calcifications. XR/XR knee RT 3V IMPRESSION: [id number] bilateral tricompartment degenerative osteoarthritis. No joint effusions.
== END 2022-06-09 15:54 | disposition home or self-care (01) ==
LOC: HO.US 15:53
PROVIDERS: PCP Internal Medicine Geriatric Medicine; Visit Provider Emergency Medicine
DX: M25.562 Pain in left knee (principal); M25.561 Pain in right knee
CPT/HCPCS: 73562

== ENCOUNTER → 2022-06-24 13:08 | Outpatient (BNVA) | payer OTHER, SELFPAY | PROVIDERS: PCP Internal Medicine Geriatric Medicine; Visit Provider Internal Medicine Pulmonary Disease | DX: J45.909 Unspecified asthma, uncomplicated (principal); R05.9 Cough, unspecified | CPT/HCPCS: 99212 ==

== ENCOUNTER 2022-07-30 12:46 | Outpatient (REF) | payer OTHER, SELFPAY ==
--- NOTE | ~2022-07-30 | XR_ITS ---
EXAMINATION: LEFT KNEE AND RIGHT HIP. CLINICAL INFORMATION: Left knee pain COMPARISON: None TECHNIQUE: 4 views left knee and 3 views right hip FINDINGS: Left knee: The tricompartment joint space is preserved. No visible acute fracture, dislocation or subluxation seen. No joint effusion or loose bodies. The soft tissues are normal. AP pelvis and right hip: There is mild loss of bilateral hip joint space without bony erosive changes or spurring. There is no acute fracture or dislocation in either hip joints on the pelvis.. The SI joints are symmetrical and normal. The soft tissues are normal. XR/XR hip RT w PEL1V IMPRESSION: Unremarkable left knee exam. Mild degenerative changes bilateral hip joints. No visible acute fracture or dislocation seen.
--- NOTE | ~2022-07-30 | XR_ITS ---
EXAMINATION: LEFT KNEE AND RIGHT HIP. CLINICAL INFORMATION: Left knee pain COMPARISON: None TECHNIQUE: 4 views left knee and 3 views right hip FINDINGS: Left knee: The tricompartment joint space is preserved. No visible acute fracture, dislocation or subluxation seen. No joint effusion or loose bodies. The soft tissues are normal. AP pelvis and right hip: There is mild loss of bilateral hip joint space without bony erosive changes or spurring. There is no acute fracture or dislocation in either hip joints on the pelvis.. The SI joints are symmetrical and normal. The soft tissues are normal. XR/XR knee LT 4V IMPRESSION: Unremarkable left knee exam. Mild degenerative changes bilateral hip joints. No visible acute fracture or dislocation seen.
== END 2022-07-30 12:47 | disposition home or self-care (01) ==
LOC: HO.XRAY 12:46
PROVIDERS: PCP Internal Medicine Geriatric Medicine; Visit Provider Nurse Practitioner Women's Health
DX: M16.11 Unilateral primary osteoarthritis, right hip (principal); M25.562 Pain in left knee
CPT/HCPCS: 73502; 73564

== ENCOUNTER → 2022-10-20 13:11 | Outpatient (BNVA) | payer OTHER, SELFPAY | PROVIDERS: PCP Internal Medicine Geriatric Medicine; Visit Provider Internal Medicine Pulmonary Disease | DX: J44.9 Chronic obstructive pulmonary disease, unspecified (principal) | CPT/HCPCS: 99212 ==

== ENCOUNTER 2023-04-21 10:34 | Outpatient (REF) | payer OTHER, SELFPAY ==
[2023-04-21 11:45] LABS: MANUAL DIFF FLAG NO
[2023-04-21 11:54] LABS: Basophils Absolute Auto 0.1 X10*3/uL (0.0-0.2); Basophils Percent Auto 1.1 % (0-2); Eosinophils Absolute Auto 0.3 X10*3/uL (0.0-0.4); Eosinophils Percent Auto 4.7 % (0-4); Hematocrit 37.5 % (37.0-47.0); Hemoglobin 11.9 g/dl (12.0-16.0); Imm Gran Abs Auto 0.04 X10*3/uL (0.00-0.03); Imm Gran Pct Auto 0.7 % (0.0-0.4); Lymphocytes Absolute Auto 1.1 X10*3/uL (1.2-4.9); Lymphocytes Percent Auto 18.5 % (20-40); Mean Corpuscular HGB Conc 31.7 g/dl (31.0-35.0); Mean Corpuscular Hemoglobin 28.7 pg (27.0-33.0); Mean Corpuscular Volume 90.4 fL (80.0-98.0); Mean Platelet Volume 11.1 fL (9.4-12.3); Monocytes Absolute Auto 0.4 X10*3/uL (0.1-1.2); Monocytes Percent Auto 6.7 % (2-11); Neutrophils Absolute Auto 4.2 x10*3/uL (2.0-8.3); Neutrophils Percent Auto 68.3 % (45-73); Platelet Count 291 X10*3/uL (160-400); Red Blood Count 4.15 X10*6/uL (4.20-5.50); Red Cell Distribution Width 14.6 % (11.0-16.0); White Blood Count 6.1 X10*3/uL (4.8-10.8)
[2023-04-21 12:46] LABS: Alanine Aminotransferase 21 U/L (0-31); Albumin Level 4.3 g/dL (3.5-5.0); Alkaline Phosphatase 66 U/L (39-117); Anion Gap 11 (12-20); Aspartate Amino Transferase 21 U/L (5-31); Bilirubin Total 0.2 mg/dL (0.0-1.0); Blood Urea Nitrogen 19 mg/dL (9-16); Calcium 10.2 mg/dL (8.4-10.2); Carbon Dioxide 28 mmol/L (22-29); Chloride 107 mmol/L (96-108); Estimated Glomerular Filt Rate > 60; Glucose Random 179 mg/dL (60-115); Iron 32 mcg/dL (30-160); Percent Iron Saturation 10 % (15-50); Potassium 4.8 mmol/L (3.3-5.1); Sodium 141 mmol/L (135-145); Total Iron Binding Capacity 316 mcg/dL (228-428); Total Protein 7.7 g/dL (6.5-8.0); Unsaturated Iron Binding 284 ug/dL
[2023-04-21 12:52] LABS: Ferritin 25 ng/mL (10-250)
== END 2023-04-21 10:35 | disposition home or self-care (01) ==
LOC: HO.HHCL 10:34
PROVIDERS: PCP Internal Medicine Geriatric Medicine; Referring Provider Internal Medicine Geriatric Medicine; Visit Provider Internal Medicine Medical Oncology
DX: D50.9 Iron deficiency anemia, unspecified (principal); J44.9 Chronic obstructive pulmonary disease, unspecified; M54.50 Low back pain, unspecified; G89.29 Other chronic pain
CPT/HCPCS: 36415; 80053; 82728; 83540; 85025

== ENCOUNTER 2023-04-29 14:12 | Outpatient (AMB) | payer OTHER, SELFPAY ==
[2023-04-29 14:13] VITALS: BP 136/67; PULSE 90; O2SAT 96; BMI 24.4
--- NOTE | 2023-04-29 14:13 | MHC.OFFVIS ---
Intake Vital Signs 04/29/23 14:13 Height 5 ft 3 in Weight 137 lb 12.623 oz BMI 24.4 BP 136/67 Blood Pressure Location Lt brachial Position Sitting Pulse 90 Pulse Source Doppler Pulse Oximetry (%) 96 Oxygen Delivery Method Room Air Intake Visit Reasons: copd Allergies No Known Allergies Allergy (Verified 04/29/23 14:17) HPI copd HPI Details 82-year-old lady, active 40+ pack-year smoker, followed for underlying moderate COPD and chronic cough.? She continues to use Trelegy and albuterol MDI/nebs with good baseline control of her underlying symptoms.? Today patient complains of mild acute exacerbation symptomatic with wheezing and cough. [facility] Medical History Anemia Anxiety Asthma COPD (chronic obstructive pulmonary disease) COVID-19 Depression Duodenal arteriovenous malformation Elevated cholesterol GERD (gastroesophageal reflux disease) GI bleed Lab test negative for COVID-19 virus Mass of right axilla Osteopenia Peripheral neuropathy Surgical History History of axillary surgery Hx of appendectomy Hx of cholecystectomy Hx of colonoscopy Hx of esophagogastroduodenoscopy Hx of foot surgery Hx of oophorectomy Hx of tonsillectomy Family History Father Stroke Asthma Mother Heart attack Stroke Asthma Sister DVT (deep venous thrombosis) Asthma Brother COPD (chronic obstructive pulmonary disease) Son Cancer Social History (Updated 04/29/23 @ 14:18 by Patricia Figueroa Marta) Household Members: Children Household Members Other:: disabled son Housing: Apartment Are you a primary physician assistant primary care to a significant other at home: No Do you presently have visiting nurse or other home services: Yes (every 6 months) Alcohol intake: never Patient Tobacco Use Status: Current someday Tobacco user Tobacco use type: Cigarette Cigarettes Per Day: 4 Years Smoked: 50 Second Hand Smoke Exposure: Yes Advance Directives Date on File: 01/16/21 service: No Current occupational status: retired Review of Systems Const Denies daytime sleepiness, Denies excessive sweating, Denies fatigue, Denies fever(s), Denies lethargy, Denies malaise, Denies night sweats, Denies snoring and Denies weight loss Eyes Denies blurry vision and Denies itchy eyes ENT Denies nasal congestion, Denies post nasal drip, Denies sinus pain, Denies sinus pressure and Denies other ( Thrush) Card Denies chest pain, Denies pedal edema, Denies dyspnea, Denies orthopnea and Denies paroxysmal nocturnal dyspnea Resp Reports cough, Denies hemoptysis, Denies excessive phlegm production, Denies dyspnea, Denies snoring and Reports wheezing GI Denies abdominal pain and Denies heartburn Musc Denies myalgias, Denies arthralgias and Denies joint swelling Skin/Breast Denies rash Neuro Denies memory loss and Denies seizure-like activity Psych Denies abnormal sleep pattern, Denies anxiety and Denies memory loss Endo Denies excessive sweating, Denies fatigue and Denies heat intolerance Marino/Lymph Denies easy bruising Aller/Immun Denies itchy eyes, Denies seasonal rhinorrhea and Reports wheezing Physical Exam Vital Signs: Last Vital Signs Pulse 90 04/29/23 14:13 BP 136/67 04/29/23 14:13 Pulse Ox 96 04/29/23 14:13 Oxygen Delivery Method Room Air 04/29/23 14:13 BMI result Body Mass Index 24.4 Const General: no acute distress and alert Nutritional Appearance: not obese Orientation/consciousness: Other orientation findings ( oriented) HEENT Head: Yes atraumatic Eyes General: appearance normal, both eyes and all related structures Sclerae: sclerae normal EOM: EOMs intact bilaterally Neck Neck: Yes supple Lymphatic: no lymphadenopathy noted Resp Effort & Inspection: normal respiratory effort and no use of accessory muscles Auscultation: wheezes expiratory wheezes (Mild end-expiratory) Cardio Rate: regular rate Rhythm: regular rhythm Heart sounds: no gallops, no murmurs and no rubs Skin General skin exam: other ( warm) Extrem General: No clubbing, No cyanosis and No edema Assessment & Plan Assessment & Plan (1) COPD (chronic obstructive pulmonary disease): Code(s): J44.9 - Chronic obstructive pulmonary disease, unspecified Plan: Baseline controlled on the regimen of trilogy, duo nebs, and albuterol MDI. Continue current regimen. Now with bronchitic exacerbation, will treat with a course of prednisone and azithromycin. Coding Level of Care Code Est Pt Level 3 (88394) Diagnoses COPD (chronic obstructive pulmonary disease) J44.9
== END 2023-04-29 14:24 | disposition home or self-care (01) ==
PROVIDERS: PCP Internal Medicine Geriatric Medicine; Visit Provider Internal Medicine Pulmonary Disease
DX: J44.9 Chronic obstructive pulmonary disease, unspecified (principal)
CPT/HCPCS: 99213

== ENCOUNTER → 2023-04-29 14:12 | Outpatient (BNVA) | payer OTHER, SELFPAY | PROVIDERS: PCP Internal Medicine Geriatric Medicine; Visit Provider Internal Medicine Pulmonary Disease | DX: J44.1 Chronic obstructive pulmonary disease with (acute) exacerbation (principal); F17.210 Nicotine dependence, cigarettes, uncomplicated; Z79.899 Other long term (current) drug therapy | CPT/HCPCS: 99212 ==

== ENCOUNTER 2023-06-07 11:59 | Outpatient (REF) | payer OTHER, SELFPAY ==
--- NOTE | ~2023-06-07 | XR_ITS ---
EXAMINATION: XR CHEST CLINICAL INFORMATION: Cough COMPARISON: 12/26/2021 TECHNIQUE: 2 views of the chest were obtained. FINDINGS: Lungs are well expanded. No acute findings compared to 12/26/2021. No evidence of pulmonary consolidation, pleural effusion or pneumothorax. Cardiac silhouette has normal size and contour. There is atherosclerotic calcification of the aorta. Surgical clips are seen in the right axillary region and right upper abdomen. There is multilevel osteophyte formation of the degenerated thoracolumbar spine. XR/XR chest 2V IMPRESSION: No evidence of pneumonia. No acute cardiopulmonary findings compared to 12/26/2021.
[2023-06-07 13:37] LABS: MANUAL DIFF FLAG NO
[2023-06-07 13:44] LABS: Basophils Absolute Auto 0.1 X10*3/uL (0.0-0.2); Basophils Percent Auto 1.1 % (0-2); Eosinophils Absolute Auto 0.2 X10*3/uL (0.0-0.4); Hematocrit 36.6 % (37.0-47.0); Hemoglobin 11.7 g/dl (12.0-16.0); Imm Gran Abs Auto 0.03 X10*3/uL (0.00-0.03); Imm Gran Pct Auto 0.4 % (0.0-0.4); Lymphocytes Absolute Auto 0.6 X10*3/uL (1.2-4.9); Lymphocytes Percent Auto 9.1 % (20-40); Mean Corpuscular Hemoglobin 28.5 pg (27.0-33.0); Mean Corpuscular Volume 89.3 fL (80.0-98.0); Mean Platelet Volume 11.1 fL (9.4-12.3); Monocytes Absolute Auto 0.7 X10*3/uL (0.1-1.2); Monocytes Percent Auto 9.7 % (2-11); Neutrophils Absolute Auto 5.4 x10*3/uL (2.0-8.3); Neutrophils Percent Auto 76.7 % (45-73); Platelet Count 254 X10*3/uL (160-400); Red Cell Distribution Width 14.7 % (11.0-16.0)
[2023-06-07 14:15] LABS: Anion Gap 14 (12-20); Blood Urea Nitrogen 17 mg/dL (9-16); Calcium 10.2 mg/dL (8.4-10.2); Carbon Dioxide 25 mmol/L (22-29); Chloride 105 mmol/L (96-108); Estimated Glomerular Filt Rate > 60; Glucose Random 105 mg/dL (60-115); Potassium 4.7 mmol/L (3.3-5.1); Sodium 139 mmol/L (135-145)
== END 2023-06-07 12:00 | disposition home or self-care (01) ==
LOC: HO.HHCL 11:59
PROVIDERS: Visit Provider Internal Medicine Geriatric Medicine
DX: R05.1 Acute cough (principal); J44.1 Chronic obstructive pulmonary disease with (acute) exacerbation
CPT/HCPCS: 36415; 71046; 80048; 85025

== ENCOUNTER 2023-10-29 18:04 | Emergency (ER) | payer OTHER, SELFPAY ==
--- NOTE | ~2023-10-29 | CT_ITS ---
EXAMINATION: CT LUMBAR SPINE WITHOUT CONTRAST CLINICAL INFORMATION: Pain, difficulty walking. COMPARISON: CT abdomen/pelvis 05/03/2021. TECHNIQUE: Contiguous axial imaging of the lumbar spine without IV contrast. Sagittal and coronal reformats were obtained. This CT examination was performed using dose optimization techniques as appropriate, variously including the following: *Automated exposure control *Adjustment of mA and/or kV according to patient size (this includes techniques or standardized protocols for targeted exams where dose is matched to indication/reason for exam; i.e. extremities or head) *Use of iterative reconstruction technique DLP; 387 mGy-cm FINDINGS: Unchanged grade 1 retrolisthesis of L1 on L2, L2 on L3 and L3 on L4. Stable grade 1 anterolisthesis of L4 on L5. No evidence of acute compression deformity or traumatic subluxation. Again noted severe intervertebral disc height loss with associated vacuum disc phenomena at L3-L4 and moderate intervertebral disc height loss at L2-L3. Additional vacuum disc phenomena is seen at L4-L5 and L5-S1. Moderate to severe facet arthropathy throughout the lumbar spine more pronounced in the lower lumbar spine leading to various degrees of neural foraminal encroachment and central canal stenosis that are progressed compared to 2020. Evaluation of the central spinal canal is limited in the absence of IV contrast. Similarly, evaluation of the nerve roots is limited by CT. Stable left greater than right sclerosis of the inferior SI joints with associated subchondral cystic changes. In the soft tissues windows, there is no significant paraspinal hematoma or soft tissue stranding. Redemonstration of simple appearing left greater than right peripelvic cysts. A too small to characterize homogeneously hyperattenuating observation in the lateral right mid kidney (4:201), statistically is most likely to represent a proteinaceous/hemorrhagic cyst. Colonic diverticulosis without significant pericolonic inflammatory changes in the included portions of the bowel. Prominent urinary bladder distention. Moderate atherosclerotic disease. Normal caliber abdominal aorta. CT/CT lumbar spine wo IV con IMPRESSION: 1. No evidence of acute fracture or traumatic subluxation. 2. Multilevel lumbar spondylosis and facet arthropathy leading to various degrees of neural foraminal encroachment and central canal stenosis that are progressed compared to 2020. Evaluation of the central spinal canal and nerve roots is limited by noncontrast CT If indicated, consider further evaluation with an MR of the lumbar spine. 3. Colonic diverticulosis without significant pericolonic inflammatory changes in the included portions of the bowel. 4. Prominent urinary bladder distention, recommend correlation with outlet obstruction.
--- NOTE | ~2023-10-29 | XR_ITS ---
EXAMINATION: XR LUMBOSACRAL SPINE CLINICAL INFORMATION: Low back pain COMPARISON: Previous x-ray October 2021 TECHNIQUE: Three views of the lumbosacral spine. FINDINGS: There is curvature of the lumbar spine to the left. There is anterolisthesis of L2 respect to L1 and L3 with respect to L2. Bone alignment is otherwise normal. No fracture or dislocation there is multilevel degenerative disc disease. There is lower lumbar spine arthritis. There is atherosclerotic disease. XR/XR lumbar spine 2-3V IMPRESSION: Scoliosis and degenerative changes.
--- NOTE | 2023-10-29 19:25 | ED_ITS ---
HPI - Back Pain/Injury General Chief Complaint: Extremity Problem Stated Complaint: Back pain Time Seen by Provider: 10/29/23 22:12 Source: patient and family Mode of arrival: wheelchair Limitations: no limitations History of Present Illness HPI Narrative: 83-year-old female with a history of COPD, asthma, GERD, anxiety presents to the ER with complaints of bilateral lower back pain with radiation to both legs for the last 2 weeks with no known injury or trauma. She denies any numbness or tingling in her legs. No numbness in her groin. No bowel or bladder incontinence. No fevers or chills. Taking Tylenol and using Flexeril at home with continued symptoms. Difficulty with ambulation due to pain Related Data Home Medications Medication Instructions Recorded Confirmed ascorbic acid (vitamin C) 500 mg 500 mg PO DAILY 05/23/20 09/07/23 tablet (Vitamin C) cholecalciferol (vitamin D3) 25 25 mcg PO DAILY 05/23/20 09/07/23 mcg (1,000 unit) tablet (Vitamin D3) citalopram 10 mg tablet 10 mg PO DAILY 01/16/21 09/07/23 ipratropium 0.5 mg-albuterol 3 mg 1 vial inhalation QID 01/16/21 09/07/23 (2.5 mg base)/3 mL nebulization soln simvastatin 40 mg tablet 40 mg PO BEDTIME 01/16/21 09/07/23 alendronate 70 mg tablet 70 mg PO QWEEK 10/20/22 09/07/23 fluticasone fur. 200 mcg-umeclid 1 puff inhalation DAILY 10/20/22 09/07/23 62.5 mcg-vilant 25 mcg inhalat.powder (Trelegy Ellipta) gabapentin 100 mg capsule 1 cap PO BEDTIME 10/20/22 09/07/23 Previous Rx's Medication Instructions Recorded acetaminophen 325 mg tablet 650 mg (2 x 325 mg) PO Q6H PRN 07/04/20 (Tylenol) fever or pain #10 tabs albuterol sulfate 0.63 mg/3 mL 0.63 mg (3 mL) inhalation QID PRN 07/04/20 solution for nebulization shortness of breath or wheezing #75 mL omeprazole 20 mg capsule,delayed 20 mg PO DAILY #90 caps 09/20/20 release lidocaine 5 % topical patch 2 patch topical DAILY pain 15 days 11/06/21 #30 ea azithromycin 250 mg tablet See Rx Instructions PO .COMPLEX #6 04/29/23 tabs prednisone 20 mg tablet 40 mg (2 x 20 mg) PO DAILY 5 days 04/29/23 #10 tabs naproxen 500 mg tablet 500 mg PO BID PRN pain #10 tabs 10/30/23 Allergies Allergy/AdvReac Type Severity Reaction Status Date / Time No Known Allergies Allergy Verified 09/07/23 10:19 Review of Systems Review of Systems: Yes all other systems are reviewed and are negative Constitutional: Constitutional: Reports no additional constitutional complaints, Denies body ache(s), Denies chills, Denies fever(s), Denies headache(s) and Denies weakness Eyes: Eyes: Reports no additional eye complaints and Denies change in vision ENT: Reports system reviewed and no additional complaints, except as documented, Denies dizziness, Denies headache(s), Denies nasal congestion, Denies nasal discharge and Denies neck pain Cardiovascular: Cardiovascular: Reports no additional cardiovascular complaints, Denies chest pain, Denies leg edema and Denies dyspnea Respiratory: Respiratory: Reports no additional respiratory complaints, Denies cough and Denies dyspnea Gastrointestinal: Gastrointestinal: Reports no additional gastrointestinal complaints, Denies abdominal pain, Denies diarrhea, Denies nausea and Denies vomiting Genitourinary: Genitourinary: Reports no additional female genitourinary complaints and Denies urinary incontinence Musculoskeletal: Musculoskeletal: Reports no additional musculoskeletal complaints, Reports back pain, Denies arthralgias, Denies joint swelling, Denies neck pain, Denies numbness, Reports radiating pain into limb and Denies tingling Integumentary/Breasts: Skin/Breast: Reports system reviewed and no additional complaints, except as docu and Denies rash Neurologic: Reports system reviewed and no additional complaints, except as documented, Denies Abnormal speech present, Denies dizziness, Denies headache(s), Denies numbness, Denies tingling and Denies weakness PMFSH Past Medical History Attestation statement: The following information was validated with the patient. Source: old records reviewed Medical History Mass of right axilla COVID-19 Duodenal arteriovenous malformation Osteopenia Anemia GI bleed GERD (gastroesophageal reflux disease) Peripheral neuropathy Anxiety Depression COPD (chronic obstructive pulmonary disease) Asthma Elevated cholesterol Lab test negative for COVID-19 virus Surgical History History of axillary surgery Hx of oophorectomy Hx of colonoscopy Hx of esophagogastroduodenoscopy Hx of foot surgery Hx of cholecystectomy Hx of tonsillectomy Hx of appendectomy Family History Family History Father Stroke Asthma Mother Heart attack Stroke Asthma Sister DVT (deep venous thrombosis) Asthma Brother COPD (chronic obstructive pulmonary disease) Son Cancer Social History Social History Household Members: Children Household Members Other:: disabled son Housing: Apartment Are you a primary respiratory care technician to a significant other at home: No Do you presently have visiting nurse or other home services: Yes (every 6 months) Alcohol intake: never Patient Tobacco Use Status: Current someday Tobacco user Tobacco use type: Cigarette Cigarettes Per Day: 4 Years Smoked: 50 Second Hand Smoke Exposure: Yes Advance Directives: Yes Advance Directives on File: Yes Advance Directives Date on File: 01/16/21 service: No Current occupational status: retired Physical Exam Vital Signs: Vital Signs: Last Vital Signs Temp 98 F 10/29/23 22:13 Pulse 70 10/29/23 22:13 Resp 18 10/29/23 22:13 BP 133/66 10/29/23 22:13 Pulse Ox 97 10/29/23 22:13 O2 Del Method Room Air 10/29/23 22:13 BMI result Body Mass Index 25.3 Const: General: cooperative, healthy appearing, comfortable and no acute distress Orientation/consciousness: patient oriented x3 Limitations: no limitations HEENT: Head: Yes normal to inspection Ears: hearing grossly normal bilaterally General nose exam: Normal external nose present Face and sinus: Yes normal facial exam Mouth: Normal oral and palatal mucosa present Throat: Yes posterior oropharynx normal Eyes: General: appearance normal, both eyes and all related structures Pupils: Equal, round and reactive pupils present Neck: Neck: Yes normal visual inspection Chest: Chest palpation & inspection: normal inspection of the chest Resp: Effort & Inspection: normal respiratory effort Auscultation: clear to auscultation bilaterally Cardio: Rate: regular rate Rhythm: regular rhythm Peripheral pulses: Peripheral pulses 2+ throughout GI: Inspection: Yes normal to inspection Palpation (GI): Soft to palpation and nontender Auscultation: normal bowel sounds Back/Spine/Pelvis: Other: There is tenderness to the lumbar mid spine with no step-offs deformities Pain is worsened with bilateral straight leg raise Pain is worsened with flexion and extension lumbar spine Thoracic/Lumbar Spine: thoracic and lumbar spine normal to inspection Skin: General skin exam: no rashes or lesions noted Neuro: General: patient oriented x3, moves all extremities, no focal motor deficits and normal sensation to monofilament Cranial nerves: Yes Equal, round and reactive pupils present Cognition (Neuro): normal cognition Speech: No Abnormal speech present Motor exam (neuro): 5/5 motor strength present throughout Deep tendon reflexes (DTR's): Right patellar reflex intensity grade: 2+ and Left patellar reflex intensity grade: 2+ Extrem: General: Yes normal to inspection Course Course Course Narrative: This is an RME: Additional HPI, ROS, PE not included below will be deferred to primary provider. Patient is an 83-year-old emergency department 2 weeks ago was experiencing right lower back pain radiating down the leg which she has experienced in the past. Today she developed pain to the left groin radiating to her leg. She is unable to walk due to her degree of pain. Has baseline urinary incontinence, denies bowel dysfunction. Denies dysuria. Plan: UA, XR Reevaluation(s) Reevaluation #1: CT shows IMPRESSION: 1. No evidence of acute fracture or traumatic subluxation. 2. Multilevel lumbar spondylosis and facet arthropathy leading to various degrees of neural foraminal encroachment and central canal stenosis that are progressed compared to 2020. Evaluation of the central spinal canal and nerve roots is limited by noncontrast CT If indicated, consider further evaluation with an MR of the lumbar spine. 3. Colonic diverticulosis without significant pericolonic inflammatory changes in the included portions of the bowel. 4. Prominent urinary bladder distention, recommend correlation with outlet obstruction. Patient up and ambulatory. No focal neurological deficits or red flag symptoms. Patient went to the bathroom and voided. Postvoid residual less than 50 cc. Low suspicion for retention Will discharge home with NSAID and recommendations to follow-up with her primary out care. She has follow-up on 11/02 with her PCP Medications Administered Discontinued Medications Generic Name Dose Route Start Last Admin Trade Name Ana PRN Reason Stop Dose Admin Diazepam 2 mg 10/29/23 22:43 10/29/23 23:26 Diazepam 2 Mg Tablet PO 10/29/23 22:44 Not Given ONCE ONE Ketorolac Tromethamine 30 mg 10/29/23 22:43 10/29/23 23:22 Ketorolac Tromethamine 30 Mg/Ml Vial IM 10/29/23 22:44 30 mg ONCE ONE Administration Medical Decision Making Medical Decision Making [facility] Narrative: 83-year-old female with a history of COPD, asthma, GERD, anxiety presents to the ER with complaints of bilateral lower back pain with radiation to both legs for the last 2 weeks with no known injury or trauma. She denies any numbness or tingling in her legs. No numbness in her groin. No bowel or bladder incontinence. No fevers or chills. Taking Tylenol and using Flexeril at home with continued symptoms. Difficulty with ambulation due to pain There is tenderness to the lumbar mid spine with no step-offs deformities Pain is worsened with bilateral straight leg raise Pain is worsened with flexion and extension lumbar spine Reviewed x-rays and urine from triage. X-ray shows degenerative changes. UA is negative for infection. Will check CT lumbar spine Will provide analgesia and reassess Differential Diagnosis Differential Diagnoses: The differential diagnosis associated with the presentation includes Low suspicion for epidural abscess, cord compression, cauda equina Consider compression fracture, muscle spasm Admission/Observation Consideration of admission/observation: Escalation of care including admission/observation considered Low suspicion for epidural abscess, cord compression, cauda equina requiring urgent MRI, NSY consultation and or tertiary care center Lab Data [facility] Lab Attestation statement: I reviewed the patient's lab results. Labs: Lab Results 10/29/23 Range/Units 19:48 Urine Color Yellow Urine Appearance Clear Urine pH 6.5 (5.0-9.0) Ur Specific [place] 1.020 (1.005-1.025) Urine Protein Negative (Neg-Trace) mg/dL Urine Glucose (UA) Negative (Negative) mg/dL Urine Ketones Negative (Negative) mg/dL Urine Blood Negative (Negative) Urine Nitrite Negative (Negative) Ur Leukocyte Esterase Trace H (Negative) Urine RBC 0-2 (0-2) /HPF Urine WBC 0-5 (0-5) /HPF Ur Squamous Epith Cells 0-2 (0-2) /HPF Urine Bacteria None Seen (None Seen) Hyaline Casts 0-2 (0-2) /LPF Independent Interpretation I performed an independent interpretation of an: Plain X-Ray and CT Scan Interpretation: I independently viewed the x-ray and the CT scan and agree with the radiologist's report Radiology Impression Discussion of test interpretation with radiology: I have reviewed the radiologist's reading. Radiologist Impression: [address] [address] [address] Scan Report Signed Patient: Rukhsana Joseph MR#: [id number] : 1940 Acct:[id number] Age/Sex: 83 / F ADM Date: 10/29/23 Loc: HO.ED Attending Dr: Ordering Physician: Eliazbeth Wyatt NP Date of Service: 10/29/23 Procedure(s): CT lumbar spine wo IV con Accession Number(s): [id number] cc: Name,Thaddeus DIETRICH; Elizabeth Wyatt NP~ EXAMINATION: CT LUMBAR SPINE WITHOUT CONTRAST CLINICAL INFORMATION: Pain, difficulty walking. COMPARISON: CT abdomen/pelvis 05/03/2021. TECHNIQUE: Contiguous axial imaging of the lumbar spine without IV contrast. Sagittal and coronal reformats were obtained. This CT examination was performed using dose optimization techniques as appropriate, variously including the following: *Automated exposure control *Adjustment of mA and/or kV according to patient size (this includes techniques or standardized protocols for targeted exams where dose is matched to indication/reason for exam; i.e. extremities or head) *Use of iterative reconstruction technique DLP; 387 mGy-cm FINDINGS: Unchanged grade 1 retrolisthesis of L1 on L2, L2 on L3 and L3 on L4. Stable grade 1 anterolisthesis of L4 on L5. No evidence of acute compression deformity or traumatic subluxation. Again noted severe intervertebral disc height loss with associated vacuum disc phenomena at L3-L4 and moderate intervertebral disc height loss at L2-L3. Additional vacuum disc phenomena is seen at L4-L5 and L5-S1. Moderate to severe facet arthropathy throughout the lumbar spine more pronounced in the lower lumbar spine leading to various degrees of neural foraminal encroachment and central canal stenosis that are progressed compared to 2020. Evaluation of the central spinal canal is limited in the absence of IV contrast. Similarly, evaluation of the nerve roots is limited by CT. Stable left greater than right sclerosis of the inferior SI joints with associated subchondral cystic changes. In the soft tissues windows, there is no significant paraspinal hematoma or soft tissue stranding. Redemonstration of simple appearing left greater than right peripelvic cysts. A too small to characterize homogeneously hyperattenuating observation in the lateral right mid kidney (4:201), statistically is most likely to represent a proteinaceous/hemorrhagic cyst. Colonic diverticulosis without significant pericolonic inflammatory changes in the included portions of the bowel. Prominent urinary bladder distention. Moderate atherosclerotic disease. Normal caliber abdominal aorta. CT/CT lumbar spine wo IV con IMPRESSION: 1. No evidence of acute fracture or traumatic subluxation. 2. Multilevel lumbar spondylosis and facet arthropathy leading to various degrees of neural foraminal encroachment and central canal stenosis that are progressed compared to 2020. Evaluation of the central spinal canal and nerve roots is limited by noncontrast CT If indicated, consider further evaluation with an MR of the lumbar spine. 3. Colonic diverticulosis without significant pericolonic inflammatory changes in the included portions of the bowel. 4. Prominent urinary bladder distention, recommend correlation with outlet obstruction. [place] [id number] XRay Report Signed Patient: Rukhsana Joseph MR#: [id number] : 1940 Acct:[id number] Age/Sex: 83 / F ADM Date: 10/29/23 Loc: HO.ED Attending Dr: Ordering Physician: Yoli Ivy CNP Date of Service: 10/29/23 Procedure(s): XR lumbar spine 2-3V Accession Number(s): [id number] cc: Yoli Ivy CNP; Name,Thaddeus DIETRICH~ EXAMINATION: XR LUMBOSACRAL SPINE CLINICAL INFORMATION: Low back pain COMPARISON: Previous x-ray October 2021 TECHNIQUE: Three views of the lumbosacral spine. FINDINGS: There is curvature of the lumbar spine to the left. There is anterolisthesis of L2 respect to L1 and L3 with respect to L2. Bone alignment is otherwise normal. No fracture or dislocation there is multilevel degenerative disc disease. There is lower lumbar spine arthritis. There is atherosclerotic disease. XR/XR lumbar spine 2-3V IMPRESSION: Scoliosis and degenerative changes. Independent Historian Clinical information obtained from an independent historian. History obtained from or confirmed by: Friend Tests considered The following testing was considered but not selected: Low suspicion for epidural abscess, cord compression, cauda equina requiring urgent MRI, Prescription Management I considered prescription management with: Pain Medication Discharge Plan Discharge Clinical Impression: Back pain Patient Disposition: Home, Self-Care Instructions: Back Pain (ED) Additional Instructions: Heat or ice Gentle stretching No heavy lifting or bending Follow-up with your primary care doctor as scheduled Prescriptions: New naproxen 500 mg tablet 500 mg PO BID PRN (Reason: pain) Qty: 10 0RF No Action omeprazole 20 mg capsule,delayed release(DR/EC) 20 mg PO DAILY Qty: 90 1RF ascorbic acid (vitamin C) [Vitamin C] 500 mg Tablet 500 mg PO DAILY cholecalciferol (vitamin D3) [Vitamin D3] 25 mcg (1,000 unit) Tablet 25 mcg PO DAILY simvastatin 40 mg tablet 40 mg PO BEDTIME citalopram 10 mg tablet 10 mg PO DAILY ipratropium-albuterol 0.5 mg-3 mg(2.5 mg base)/3 mL solution for nebulization 1 vial inhalation QID acetaminophen [Tylenol] 325 mg tablet 650 mg PO Q6H PRN (Reason: fever or pain) Qty: 10 0RF albuterol sulfate 0.63 mg/3 mL solution for nebulization 0.63 mg inhalation QID PRN (Reason: shortness of breath or wheezing) Qty: 75 0RF alendronate 70 mg tablet 70 mg PO QWEEK gabapentin 100 mg capsule 1 cap PO BEDTIME Trelegy Ellipta 200-62.5-25 mcg blister with device 1 puff inhalation DAILY lidocaine 5 % adhesive patch,medicated 2 patch topical DAILY 15 Days Qty: 30 0RF Rx Instructions: apply to affected areas up to 12 hours per day prednisone 20 mg tablet 40 mg PO DAILY 5 Days Qty: 10 0RF azithromycin 250 mg tablet See Rx Instructions PO .COMPLEX Qty: 6 0RF Rx Instructions: For 250 mg dose pack: take 500 mg today (day 1), then 250 mg for 4 days (days 2-5) PO Referrals: Name,MD Thaddeus [Primary Care Provider] - 10 days Interventions: ED Discharge Assessment Last Done: 10/30/23 00:47
[2023-10-29 19:29] VITALS: BP 128/49; PULSE 89; RESP 18; TEMP 36.3; O2SAT 96; BMI 25.3
[2023-10-29 20:10] LABS: Appearance Urine Clear; Color Urine Yellow; Glucose Urine UA Negative (Negative); Leukocyte Esterase Urine Trace (Negative); Nitrite Urine Negative (Negative); PH 6.5 (5.0-9.0); UMIC TRIGGER UACC YES; Urine Blood Negative (Negative); Urine Ketones Negative (Negative); Urine Protein Negative (Neg-Trace)
[2023-10-29 20:28] LABS: Bacteria Urine None Seen (None Seen); Hyaline Casts Urine 0-2 /LPF (0-2); RBC Urine 0-2 /HPF (0-2); Squamous Epithelial Cell Urine 0-2 /HPF (0-2); WBC Urine 0-5 /HPF (0-5)
[2023-10-29 22:13] VITALS: BP 133/66; PULSE 70; RESP 18; TEMP 36.6; O2SAT 97
[2023-10-29] MEDS: Ketorolac Tromethamine 30 MG/ML VIAL IM (23:22)
--- NOTE | 2023-10-30 00:23 | PC.NURSE ---
Pt ambulatory with steady gait. Post void bladder scan done. 53cc of urine in bladder. pt reports improved gait and pain after Toradol injection.
[2023-10-30 00:47] VITALS: BP 148/64; PULSE 69; RESP 12; TEMP 36.4; O2SAT 98
== END 2023-10-30 00:50 | disposition home or self-care (01) ==
PROVIDERS: Nurse Practitioner Family; Emergency Provider Internal Medicine; PCP Internal Medicine Geriatric Medicine
DX: M54.50 Low back pain, unspecified (principal); J44.9 Chronic obstructive pulmonary disease, unspecified
CPT/HCPCS: 51798; 72100; 72132; 81001; 96372; 99284; J1885

== ENCOUNTER 2023-12-06 05:09 | Inpatient (IN) | payer OTHER, SELFPAY ==
[2023-12-06] VITALS (11 sets, daily range): BP systolic 117–165; BP diastolic 60–83; PULSE 78–108; RESP 12–19; TEMP 36.4–36.9; O2SAT 92–100; BMI 22.7
--- NOTE | ~2023-12-06 | XR_ITS ---
EXAMINATION: XR CHEST CLINICAL INFORMATION: Fall COMPARISON: Chest radiograph 06/07/2023 TECHNIQUE: Frontal view of the chest was obtained. FINDINGS: Degenerative changes are present in the spine. No bony fractures are seen. Surgical clips are seen in the right axilla/chest wall. Heart size normal. No infiltrates, pleural effusions or lung masses. No pneumothorax. XR/XR chest 1V IMPRESSION: No acute intrathoracic disease.
--- NOTE | ~2023-12-06 | FL_ITS ---
INDICATION: Intraoperative fluoroscopy. FLUOROSCOPY: Fluoroscopy Time: 0.4 minutes Dose/air kerma: 7.75 mGy Images saved: 5 FINDINGS: Multiple intraoperative fluoroscopic images are submitted during placement of a left trochanteric femoral nail with single distal interlocking screw. Correlation with operative report. Evaluation is limited secondary to fluoroscopic technique. IMPRESSION: Intra-operative fluoroscopic imaging provided by radiology during placement of a left trochanteric femoral nail with single distal interlocking screw. Please refer to operative note for further information.
--- NOTE | ~2023-12-06 | CT_ITS ---
EXAMINATION: NONCONTRAST HEAD CT NONCONTRAST CERVICAL SPINE CT INDICATION INFORMATION: Fall, pain COMPARISON: 03/19/2017 TECHNIQUE: Separate noncontrast CT examinations of the head and cervical spine were performed. Coronal head CT images and coronal and sagittal cervical spine images were created at the technologist workstation. DLP: 998 mGy-cm DOSE LOWERING TECHNIQUES: This CT examination was performed using dose optimization techniques as appropriate, variously including the following: - Automated exposure control - Adjustment of mA and/or kV according to patient size (this includes techniques or standardized protocols for targeted exams were dose is matched to indication/reason for exam; i.e. extremities or head) - Use of iterative reconstruction technique FINDINGS: Head: There is no evidence of acute intracranial hemorrhage or territorial infarction. No abnormal mass-effect or midline shift is seen. Christiansen to white matter differentiation is well preserved. No extra-axial fluid collections are identified. The ventricles are normal in size. There is mild periventricular white matter hypoattenuation consistent with chronic small vessel ischemic disease. Mild volume loss is noted. The osseous structures and soft tissues are normal. A retention cyst in the left maxillary sinus. The mastoid air cells are well-aerated. Cervical spine: There is anatomic alignment of the vertebral bodies and posterior elements. Vertebral body heights are maintained. There is degenerative change at the atlantodens articulation. Bilateral facet arthropathy, right-sided greater than left. There is disc space narrowing and endplate osteophyte formation of the lower cervical spine. No evidence of acute fracture. No prevertebral soft tissue swelling. Visualized portions of the lung apices demonstrate emphysema/scarring and chronic appearing mild subpleural opacities. Subcentimeter left thyroid nodule noted. Based on the recommendations of the ACR Incidental Thyroid Findings Committee (JACR 2015 Sep; 12(2):143-50), no imaging followup is recommended for incidental thyroid nodules with largest axial dimension less than 1.5 cm in patients greater than 35 years of age in the absence of high risk imaging features, symptomatic thyroid disease, or increased risk for thyroid cancer. CT/CT cervical spine wo IV con IMPRESSION: HEAD: No acute intracranial findings. CERVICAL SPINE: No acute findings identified. Degenerative changes as noted above.
--- NOTE | ~2023-12-06 | XR_ITS ---
EXAMINATION: XR HIP, LEFT CLINICAL INFORMATION: Pain COMPARISON: 07/30/2022 TECHNIQUE: Two views of the left hip. AP pelvis. FINDINGS: There is curvilinear lucency along the intertrochanteric region of the left femoral neck, most consistent with a slightly displaced fracture. Alignment across the hips is anatomic, with moderate to severe degenerative change and acetabular spurring bilaterally. Sacroiliac joints and pubic symphysis appear intact, with additional degenerative change noted. XR/XR hip LT w PEL1V IMPRESSION: Slightly displaced intertrochanteric fracture of the left femur.
--- NOTE | 2023-12-06 07:12 | ECG_ITS ---
Test Reason : fall Blood Pressure : / mmHG Vent. Rate : 081 BPM Atrial Rate : 081 BPM P-R Int : 156 ms QRS Dur : 076 ms QT Int : 374 ms P-R-T Axes : 000 117 138 degrees QTc Int : 434 ms Normal sinus rhythm Lateral infarct , age undetermined Abnormal ECG When compared with ECG of 16-JAN-2021 12:14, QRS axis Shifted right Lateral infarct is now Present T wave inversion now evident in Lateral leads Referred By: Nancy Pineda Electronically Signed By:CHERI SANDHU MD
--- NOTE | 2023-12-06 07:13 | ED.FALL ---
HPI - Fall General Chief Complaint: Fall Stated Complaint: FALL Time Seen by Provider: 12/06/23 07:02 Source: patient, EMS, old records reviewed and counter intelligence agent Mode of arrival: EMS Limitations: no limitations History of Present Illness HPI Narrative: 83 yo female with PMH of COPD, anxiety, asthma, GERD, neuropathy not on blood thinners here with c/o getting up out of bed and losing her balance falling onto L hip - not on ground long called for help. No headstrike or LOC. Pain located in L hip. Leg is rotated MD complaint: fall Onset (ago): hour(s) (4am today) Fall from: standing Fall witnessed: no Place fall occurred: home Loss of consciousness: none Prolonged down time: no Symptoms prior to fall: none Context: tripped/slipped Location of injury: pelvis (L hip) Severity: severe Quality: throbbing Associated symptoms (after fall): unable to walk Related Data Home Medications ?Medication ?Instructions ?Recorded ?Confirmed ascorbic acid (vitamin C) 500 mg 500 mg PO DAILY 05/23/20 09/07/23 tablet (Vitamin C) cholecalciferol (vitamin D3) 25 25 mcg PO DAILY 05/23/20 09/07/23 mcg (1,000 unit) tablet (Vitamin D3) citalopram 10 mg tablet 10 mg PO DAILY 01/16/21 09/07/23 ipratropium 0.5 mg-albuterol 3 mg 1 vial inhalation QID 01/16/21 09/07/23 (2.5 mg base)/3 mL nebulization soln simvastatin 40 mg tablet 40 mg PO BEDTIME 01/16/21 09/07/23 alendronate 70 mg tablet 70 mg PO QWEEK 10/20/22 09/07/23 fluticasone fur. 200 mcg-umeclid 1 puff inhalation DAILY 10/20/22 09/07/23 62.5 mcg-vilant 25 mcg inhalat.powder (Trelegy Ellipta) gabapentin 100 mg capsule 1 cap PO BEDTIME 10/20/22 09/07/23 Previous Rx's ?Medication ?Instructions ?Recorded acetaminophen 325 mg tablet 650 mg (2 x 325 mg) PO Q6H PRN 07/04/20 (Tylenol) fever or pain #10 tabs albuterol sulfate 0.63 mg/3 mL 0.63 mg (3 mL) inhalation QID PRN 07/04/20 solution for nebulization shortness of breath or wheezing #75 mL omeprazole 20 mg capsule,delayed 20 mg PO DAILY #90 caps 09/20/20 release lidocaine 5 % topical patch 2 patch topical DAILY pain 15 days 11/06/21 #30 ea azithromycin 250 mg tablet See Rx Instructions PO .COMPLEX #6 04/29/23 tabs prednisone 20 mg tablet 40 mg (2 x 20 mg) PO DAILY 5 days 04/29/23 #10 tabs naproxen 500 mg tablet 500 mg PO BID PRN pain #10 tabs 10/30/23 Allergies Allergy/AdvReac Type Severity Reaction Status Date / Time No Known Allergies Allergy Verified 12/06/23 05:19 Review of Systems Review of Systems: Constitutional : No Fever, No Chills ENT/Mouth : No Ear Pain, No Hoarseness, No sore throat Eyes: No Eye Pain, No Swelling, No Redness, No Foreign Body Cardiovascular : No Chest Pain, No SOB Respiratory : No Cough, No Dyspnea Gastrointestinal : No Nausea, No Vomiting, No Diarrhea, No abdominal Pain Genitourinary : No Dysuria, No Hematuria Musculoskeletal : positive joint pain, No Myalgias, No Joint Swelling Skin : No Skin lacerations, No rash Neuro : No Weakness, No Numbness, No Loss of Consciousness, No Dizziness, No Headache All other systems reviewed and are negative PMFSH Past Medical History Attestation statement: The following information was validated with the patient. Source: old records reviewed Medical History Mass of right axilla COVID-19 Duodenal arteriovenous malformation Osteopenia Anemia GI bleed GERD (gastroesophageal reflux disease) Peripheral neuropathy Anxiety Depression COPD (chronic obstructive pulmonary disease) Asthma Elevated cholesterol Lab test negative for COVID-19 virus Surgical History History of axillary surgery Hx of oophorectomy Hx of colonoscopy Hx of esophagogastroduodenoscopy Hx of foot surgery Hx of cholecystectomy Hx of tonsillectomy Hx of appendectomy Family History Family History Father Stroke Asthma Mother Heart attack Stroke Asthma Sister DVT (deep venous thrombosis) Asthma Brother COPD (chronic obstructive pulmonary disease) Son Cancer Social History Social History Household Members: Children Household Members Other:: disabled son Housing: Apartment Are you a primary respiratory care practitioner to a significant other at home: No Do you presently have visiting nurse or other home services: Yes (every 6 months) Alcohol intake: never Patient Tobacco Use Status: Current someday Tobacco user Tobacco use type: Cigarette Years Smoked: 50 Second Hand Smoke Exposure: Yes Advance Directives: Yes Advance Directives on File: Yes Advance Directives Date on File: 01/16/21 service: No Current occupational status: retired Physical Exam Vital Signs: Vital Signs: Last Vital Signs Temp 98.3 F 12/06/23 07:49 Pulse 78 12/06/23 07:49 Resp 16 12/06/23 07:49 BP 137/68 12/06/23 07:49 Pulse Ox 98 12/06/23 07:49 O2 Del Method Room Air 12/06/23 07:49 BMI result Body Mass Index 22.7 Appearance: Alert. Oriented X3. No acute distress. Eyes: Pupils equal, round and reactive to light. ENT: Pharynx normal. atraumatic Neck: Normal inspection. Neck supple. collar removed CVS: Normal heart rate and rhythm. Pulses normal. Respiratory: No respiratory distress. Breath sounds normal. Abdomen: Soft and nontender. Skin: Skin warm and dry. Normal skin color. Normal skin turgor. Extremities:L leg rotated distal NV intact - ttp along L hip Neuro: Oriented X 3. No motor deficit. No sensory deficit. Medications Administered Discontinued Medications Generic Name Dose Route Start Last Admin Trade Name Ana PRN Reason Stop Dose Admin Hydromorphone HCl 0.5 mg 12/06/23 07:41 12/06/23 07:50 Hydromorphone Hcl 0.5 Mg/0.5 Ml Syringe IVPUSH 12/06/23 07:42 0.5 mg ONCE ONE Administration Protocol Morphine Sulfate 2 mg 12/06/23 07:11 12/06/23 07:32 Morphine Sulfate 2 Mg/Ml Cartridge IVPUSH 12/06/23 07:12 2 mg ONCE ONE Administration Protocol Ondansetron HCl 4 mg 12/06/23 07:41 12/06/23 07:50 Ondansetron Hcl 4 Mg/2 Ml Vial IVPUSH 12/06/23 07:42 4 mg ONCE ONE Administration Medical Decision Making Medical Decision Making [facility] Narrative: 83 yo female with PMH of COPD, anxiety, asthma, GERD, neuropathy not on blood thinners here s/p mech fall with L hip injury no head or neck strike at this time will need CT head/cspine, labs, CXR, L hip xray suspect fracture she is NV intact, IV morphine for pain ordered Differential Diagnosis Differential Diagnoses: The differential diagnosis associated with the presentation includes fracture, contusion Admission/Observation Consideration of admission/observation: Escalation of care including admission/observation considered admit given hip fracture Consult Healthcare Provider Management of the patient was discussed with: Hospitalist (will admit) and Warp Preparer (jeffrey Link ) Lab Data [facility] Lab Attestation statement: I reviewed the patient's lab results. 12/06/23 07:58 12/06/23 07:58 Labs: Lab Results 12/06/23 Range/Units 07:58 WBC 8.8 (4.8-10.8) X10*3/uL RBC 3.63 L (4.20-5.50) X10*6/uL Hgb 10.0 L (12.0-16.0) g/dl Hct 31.1 L (37.0-47.0) % MCV 85.7 (80.0-98.0) fL MCH 27.5 (27.0-33.0) pg MCHC 32.2 (31.0-35.0) g/dl RDW 15.9 (11.0-16.0) % Plt Count 316 (160-400) X10*3/uL MPV 9.9 (9.4-12.3) fL Immature Gran % (Auto) 0.7 H (0.0-0.4) % Neut % (Auto) 83.4 H (45-73) % Lymph % (Auto) 7.8 L (20-40) % [place] % (Auto) 6.4 (2-11) % Eos % (Auto) 1.4 (0-4) % Baso % (Auto) 0.3 (0-2) % Lymph # (Auto) 0.7 L (1.2-4.9) X10*3/uL [place] # (Auto) 0.6 (0.1-1.2) X10*3/uL Eos # (Auto) 0.1 (0.0-0.4) X10*3/uL Baso # (Auto) 0.0 (0.0-0.2) X10*3/uL Abs Immat Gran (auto) 0.06 H (0.00-0.03) X10*3/uL Absolute Neuts (auto) 7.3 (2.0-8.3) x10*3/uL Absolute Nucleated RBC 0.000 (0.0-0.012) X10*3/uL Nucleated RBC % (auto) 0.0 (0.0-0.2) /100WBC PT 12.7 (11.1-13.3) SEC INR 1.0 (0.9-1.1) Independent Interpretation I performed an independent interpretation of an: EKG, Plain X-Ray (L intertrochanteric hip) and CT Scan (no trauma) Interpretation: Rate: 93 Rhythm: NSR [place]: normal Normal P waves. Normal ROVERTO. Normal QRS complex. ST T wave : inverted t wave III, no MARKO qTC: 420 prior studies: no acute ischemia The study has been interpreted contemporaneously by me. . Radiology Impression Discussion of test interpretation with radiology: I have reviewed the radiologist's reading. Independent Historian Clinical information obtained from an independent historian. History obtained from or confirmed by: EMS and Other (daughter) External Record Review External record reviewed: Inpatient record Critical Care Time Critical Care Time Critical Care Time: Yes Total Critical Care Time: 40 Attestation: repeat IV morphine with improvement in pain, admission, consult I attest to this time spent taking care of the patient Discharge Plan Discharge Clinical Impression: Intertrochanteric fracture Qualifiers: Encounter type: initial encounter Fracture type: closed Fracture alignment: displaced Laterality: left Qualified Code(s): S72.142A - Displaced intertrochanteric fracture of left femur, initial encounter for closed fracture Patient Disposition: Admitted As Inpatient Print Language: Qatari
[2023-12-06] MEDS: Morphine Sulfate 2 MG/ML CARTRIDGE IVPUSH (07:32)
[2023-12-06] MEDS: ondansetron HCL 4 MG/2 ML VIAL IVPUSH (07:50)
[2023-12-06] MEDS: HYDROmorphone HCl 0.5 MG/0.5 ML SYRINGE IVPUSH ×2 (07:50→09:40)
[2023-12-06 08:06] LABS: MANUAL DIFF FLAG NO
[2023-12-06 08:12] LABS: Basophils Percent Auto 0.3 % (0-2); Eosinophils Absolute Auto 0.1 X10*3/uL (0.0-0.4); Eosinophils Percent Auto 1.4 % (0-4); Hematocrit 31.1 % (37.0-47.0); Imm Gran Abs Auto 0.06 X10*3/uL (0.00-0.03); Imm Gran Pct Auto 0.7 % (0.0-0.4); Lymphocytes Absolute Auto 0.7 X10*3/uL (1.2-4.9); Lymphocytes Percent Auto 7.8 % (20-40); Mean Corpuscular HGB Conc 32.2 g/dl (31.0-35.0); Mean Corpuscular Hemoglobin 27.5 pg (27.0-33.0); Mean Corpuscular Volume 85.7 fL (80.0-98.0); Mean Platelet Volume 9.9 fL (9.4-12.3); Monocytes Absolute Auto 0.6 X10*3/uL (0.1-1.2); Monocytes Percent Auto 6.4 % (2-11); Neutrophils Absolute Auto 7.3 x10*3/uL (2.0-8.3); Neutrophils Percent Auto 83.4 % (45-73); Platelet Count 316 X10*3/uL (160-400); Red Blood Count 3.63 X10*6/uL (4.20-5.50); Red Cell Distribution Width 15.9 % (11.0-16.0); White Blood Count 8.8 X10*3/uL (4.8-10.8)
[2023-12-06 08:15] LABS: Prothrombin Time 12.7 SEC (11.1-13.3)
[2023-12-06 08:25] LABS: Alanine Aminotransferase 18 U/L (0-31); Albumin Level 3.8 g/dL (3.5-5.0); Alkaline Phosphatase 66 U/L (39-117); Anion Gap 10 (12-20); Aspartate Amino Transferase 18 U/L (5-31); Bilirubin Direct < 0.2 mg/dL (0.0-0.5); Bilirubin Total 0.2 mg/dL (0.0-1.0); Blood Urea Nitrogen 15 mg/dL (9-16); Calcium 9.3 mg/dL (8.4-10.2); Carbon Dioxide 25 mmol/L (22-29); Chloride 109 mmol/L (96-108); Creatinine Clr Calc Pharmacy 55.3; Estimated Glomerular Filt Rate > 60; Glucose Random 146 mg/dL (60-115); Magnesium 1.9 mg/dL (1.6-2.6); Potassium 3.9 mmol/L (3.3-5.1); Sodium 140 mmol/L (135-145); Total Protein 6.8 g/dL (6.5-8.0)
[2023-12-06 08:39] LABS: Appearance Urine Clear; Color Urine Yellow; Glucose Urine UA Negative (Negative); Leukocyte Esterase Urine Negative (Negative); Nitrite Urine Negative (Negative); Specific Gravity - Urine <= 1.005 (1.005-1.025); Urine Blood Negative (Negative); Urine Ketones Negative (Negative); Urine Protein Negative (Neg-Trace)
--- NOTE | 2023-12-06 08:40 | PM.CNOR ---
History of Present Illness HPI Consult date: 12/06/23 Chief complaint: FALL Narrative: Ms. Carol Farah is an 83 yo female with PMH of COPD, anxiety, asthma, GERD, neuropathy not on blood thinners who presented to the ED after attempting to get out of bed and losing her balance falling onto L hip - not on ground long called for help. No headstrike or LOC. Lives at home with her handicap . Does not use any assistive devices to ambulate. Was ambuilatory before the fall. Review of Systems Review of Systems: Yes all other systems are reviewed and are negative [facility] Past Medical History Medical History Mass of right axilla COVID-19 Duodenal arteriovenous malformation Osteopenia Anemia GI bleed GERD (gastroesophageal reflux disease) Peripheral neuropathy Anxiety Depression COPD (chronic obstructive pulmonary disease) Asthma Elevated cholesterol Lab test negative for COVID-19 virus Family History Family History Father Stroke Asthma Mother Heart attack Stroke Asthma Sister DVT (deep venous thrombosis) Asthma Brother COPD (chronic obstructive pulmonary disease) Son Cancer Surgical History Surgical History History of axillary surgery Hx of oophorectomy Hx of colonoscopy Hx of esophagogastroduodenoscopy Hx of foot surgery Hx of cholecystectomy Hx of tonsillectomy Hx of appendectomy Social History Social History Household Members: Children Household Members Other:: disabled son Housing: Apartment Are you a primary career placement specialist to a significant other at home: No Do you presently have visiting nurse or other home services: Yes (every 6 months) Alcohol intake: never Patient Tobacco Use Status: Current someday Tobacco user Tobacco use type: Cigarette Years Smoked: 50 Second Hand Smoke Exposure: Yes Advance Directives: Yes Advance Directives on File: Yes Advance Directives Date on File: 01/16/21 service: No Current occupational status: retired Meds Allergies Allergy/AdvReac Type Severity Reaction Status Date / Time No Known Allergies Allergy Verified 12/06/23 05:19 Active Medications: Current Medications Cefazolin Sodium/Dextrose (Ancef) 2 gm in 50 mls @ 100 mls/hr IV PREOP ONE Stop: 04/22/24 08:58 Home Medications ?Medication ?Instructions ?Recorded ?Confirmed ?Last Taken ?Type ascorbic acid (vitamin C) 500 mg 500 mg PO DAILY 05/23/20 09/07/23 Unknown History tablet (Vitamin C) cholecalciferol (vitamin D3) 25 25 mcg PO DAILY 05/23/20 09/07/23 Unknown History mcg (1,000 unit) tablet (Vitamin D3) citalopram 10 mg tablet 10 mg PO DAILY 01/16/21 09/07/23 01/15/21 History ipratropium 0.5 mg-albuterol 3 mg 1 vial inhalation QID 01/16/21 09/07/23 Unknown History (2.5 mg base)/3 mL nebulization soln simvastatin 40 mg tablet 40 mg PO BEDTIME 01/16/21 09/07/23 01/15/21 History alendronate 70 mg tablet 70 mg PO QWEEK 10/20/22 09/07/23 Unknown History fluticasone fur. 200 mcg-umeclid 1 puff inhalation DAILY 10/20/22 09/07/23 Unknown History 62.5 mcg-vilant 25 mcg inhalat.powder (Trelegy Ellipta) gabapentin 100 mg capsule 1 cap PO BEDTIME 10/20/22 09/07/23 Unknown History Physical Exam Vital Signs: Vital Signs: Last Vital Signs Temp 98.3 F 12/06/23 07:49 Pulse 78 12/06/23 07:49 Resp 16 12/06/23 07:49 BP 137/68 12/06/23 07:49 Pulse Ox 98 12/06/23 07:49 O2 Del Method Room Air 12/06/23 07:49 BMI result Body Mass Index 22.7 Extrem: Other: Left lower extremity is shortened and externally rotated. Pain with log roll. Able to dorsi/plantar flex. NVI. Results Labs 12/06/23 07:58 12/06/23 07:58 Labs: Abnormal lab results 12/06/23 Range/Units 07:58 RBC 3.63 L (4.20-5.50) X10*6/uL Hgb 10.0 L (12.0-16.0) g/dl Hct 31.1 L (37.0-47.0) % Immature Gran % (Auto) 0.7 H (0.0-0.4) % Neut % (Auto) 83.4 H (45-73) % Lymph % (Auto) 7.8 L (20-40) % Lymph # (Auto) 0.7 L (1.2-4.9) X10*3/uL Abs Immat Gran (auto) 0.06 H (0.00-0.03) X10*3/uL Chloride 109 H (96-108) mmol/L Anion Gap 10 L (12-20) Random Glucose 146 H (60-115) mg/dL H & H 12/06/23 Range/Units 07:58 Hgb 10.0 L (12.0-16.0) g/dl Hct 31.1 L (37.0-47.0) % Coagulation 12/06/23 Range/Units 07:58 INR 1.0 (0.9-1.1) All other labs normal. Assessment and Plan (1) Intertrochanteric fracture: Qualifiers: Encounter type: initial encounter Fracture alignment: displaced Fracture type: closed Laterality: left Qualified Code(s): S72.142A - Displaced intertrochanteric fracture of left femur, initial encounter for closed fracture Status: Acute I discussed the case with Dr. Serrano and explained the extent of the injury to the patient and options available which include surgical intervention. I explained the procedure in detail along with the length of recovery and rehab course. I explained the risk, benefits and alternatives. Risk including, but not limited to infection, blood clots, bleeding, non union or malunion and nerve/tissue damage to surrounding areas. I answered all their questions and with their understanding they have consented to move forward with Operative Fixation of the left hip. The patient will be T&S, med clearance to be obtained by medicine and NPO after midnight. Patient signs her own consents Please call Amanda, daughter after surgery at [phone] Procedures Date of Service Date of Service: 12/06/23
[2023-12-06 08:47] LABS: Bacteria Urine None Seen (None Seen); Hyaline Casts Urine 0-2 /LPF (0-2); RBC Urine 0-2 /HPF (0-2); Squamous Epithelial Cell Urine 0-2 /HPF (0-2); WBC Urine 0-5 /HPF (0-5)
[2023-12-06 08:48] LABS: Influenza A PCR NEGATIVE (Negative); Influenza B PCR NEGATIVE (Negative); Resp Syncy Virus RNA Qual PCR NEGATIVE (Negative); SARS COV2 PCR INHOUSE NEGATIVE (Negative)
--- NOTE | 2023-12-06 09:00 | PC.NURSE ---
PT SEEN BY ADRIEN WALSH). PT/FAMILY AWARE OF PLAN OF CARE. WILL CONTINUE TO MONITOR.
--- NOTE | 2023-12-06 09:22 | P.HPHOSP_ITS ---
History of Present Illness Date of Service: 12/06/23 Attending physician on admission: Darío Lee Chief Complaint: fall 83-year-old female with history of asthma/COPD overlap, anxiety, GERD, osteopenia who was not on any blood thinners presented to the ED earlier today after sustaining a mechanical fall. She was attempting to get out of bed and lost her balance falling onto the left hip. She was able to call for help. Denies any head strike or loss of consciousness. She does live at home with her handicapped and does not use any assistive devices to ambulate and was ambulatory prior to the fall. Since arrival to the ED, vital signs stable. Hematology except for a mild, stable normocytic anemia with H/H 10.0/31.1%. Renal function electrolyte levels normal. Urinalysis unremarkable. Negative for influenza, RSV, COVID-19. Head CT negative for any acute intracranial abnormalities. Cervical spine CT negative for any acute osseous abnormalities. X-ray of the left hip/pelvis showed slightly displaced intertrochanteric fracture of the left femur. In the ED, has been given 2 mg morphine, 0.5 mg Dilaudid, and Zofran. She will be admitted for further management of mildly displaced intertrochanteric fracture of left femur. Review of Systems 2 Review of Systems: General: No fevers, malaise, unintentional weight loss HEENT: No blurred vision, diplopia. No sore throat, nasal congestion, rhinorrhea, sinus pain, ear pain Cardiovascular: No chest pain, palpitations, or leg edema Respiratory: No shortness of breath, wheezing, cough GI: No abdominal pain, nausea, vomiting, diarrhea, constipation, melena, hematochezia : No dysuria, hematuria, increased urinary frequency, decreased urinary output MSK: No myalgia, back pain. +left hip pain Neuro: No headaches, weakness, paresthesias Skin: No rashes or lesions PMFSH Medical History Mass of right axilla COVID-19 Duodenal arteriovenous malformation Osteopenia Anemia GI bleed GERD (gastroesophageal reflux disease) Peripheral neuropathy Anxiety Depression COPD (chronic obstructive pulmonary disease) Asthma Elevated cholesterol Lab test negative for COVID-19 virus Family History Father Stroke Asthma Mother Heart attack Stroke Asthma Sister DVT (deep venous thrombosis) Asthma Brother COPD (chronic obstructive pulmonary disease) Son Cancer Surgical History History of axillary surgery Hx of oophorectomy Hx of colonoscopy Hx of esophagogastroduodenoscopy Hx of foot surgery Hx of cholecystectomy Hx of tonsillectomy Hx of appendectomy Social History Household Members: Children Household Members Other:: son Housing: Apartment Are you a primary career services officer to a significant other at home: No Do you presently have visiting nurse or other home services: No Alcohol intake: never Patient Tobacco Use Status: Current everyday Tobacco user Tobacco use type: Cigarette Cigarettes Per Day: 10 Years Smoked: 50 Smoked in Last 30 Days: Yes Patient Interested in Nicotine Replacement: No Second Hand Smoke Exposure: Yes Use of substances other than those prescribed or required for medical reasons: No Currently Displaying Signs/Symptoms of Drug Intoxication Withdrawal: No Have you been hit, kicked, punched, or otherwise hurt by someone within the past year? If so, by whom?: No Do you feel safe in your current relationship?: No Current Relationship Is there a partner from a previous relationship who is making you feel unsafe now?: No Are you made to feel afraid or neglected: No Advance Directives: Yes Advance Directives on File: Yes Advance Directives Date on File: 01/16/21 Do you have a plan to hurt others: No Plan Patient : No : No Poor oral hygiene: No service: No Current occupational status: retired [employer] Allergies Allergy/AdvReac Type Severity Reaction Status Date / Time No Known Allergies Allergy Verified 12/06/23 05:19 Active Medications: Current Medications Oxycodone HCl (Oxycodone Hcl Immed Release 5 Mg Tablet) 5 mg PO Q4H PRN PRN Reason: Pain, Moderate(Pain Scale 4-6) Home Medications ?Medication ?Instructions ?Recorded ?Confirmed ?Last Taken ?Type ascorbic acid (vitamin C) 500 mg 500 mg PO DAILY 05/23/20 12/06/23 Unknown History tablet (Vitamin C) citalopram 10 mg tablet 10 mg PO DAILY 01/16/21 12/06/23 01/15/21 History ipratropium 0.5 mg-albuterol 3 mg 1 vial inhalation QID PRN 01/16/21 12/06/23 Unknown History (2.5 mg base)/3 mL nebulization Shortness Of Breath Or Wheezing soln fluticasone fur. 200 mcg-umeclid 1 puff inhalation DAILY 10/20/22 12/06/23 Unknown History 62.5 mcg-vilant 25 mcg inhalat.powder (Trelegy Ellipta) cyclobenzaprine 10 mg tablet 10 mg PO TID 12/06/23 12/06/23 Unknown History ferrous sulfate 325 mg (65 mg 325 mg PO BID 12/06/23 12/06/23 Unknown History iron) tablet gabapentin 300 mg capsule 300 mg PO BEDTIME 12/06/23 12/06/23 Unknown History Physical Exam 2 Vital Signs and Narrative: Vital Signs: Last Vital Signs Temp 98.3 F 12/06/23 07:49 Pulse 78 12/06/23 07:49 Resp 16 12/06/23 07:49 BP 137/68 12/06/23 07:49 Pulse Ox 98 12/06/23 07:49 O2 Del Method Room Air 12/06/23 07:49 BMI result Body Mass Index 22.7 Constitutional - Awake and Alert, No apparent distress Eyes - PERRLA, EOMI Cardiovascular - S1S2, RRR, No edema Respiratory - Normal lung expansion, Normal respiratory effort, No respiratory distress, CTA bilaterally Gastrointestinal - NT / ND; +BS; No rebound or guarding Extremities - no calf tenderness bilaterally, no swelling Musculoskeletal - LLE externally rotated Skin - Warm/Dry Neurological - Alert & oriented x3 Psychological - Appropriate affect Results Labs 12/07/23 05:53 12/07/23 05:53 Labs: Laboratory Results - last 24 hr 12/06/23 12/06/23 07:58 08:24 MCV 85.7 MCH 27.5 MCHC 32.2 RDW 15.9 Plt Count 316 MPV 9.9 Immature Gran % (Auto) 0.7 H Neut % (Auto) 83.4 H Lymph % (Auto) 7.8 L [place] % (Auto) 6.4 Eos % (Auto) 1.4 Baso % (Auto) 0.3 Lymph # (Auto) 0.7 L [place] # (Auto) 0.6 Eos # (Auto) 0.1 Baso # (Auto) 0.0 Abs Immat Gran (auto) 0.06 H Absolute Neuts (auto) 7.3 Absolute Nucleated RBC 0.000 Nucleated RBC % (auto) 0.0 PT 12.7 INR 1.0 Anion Gap 10 L Estim Creat Clear Calc 55.3 Estimated GFR > 60 Random Glucose 146 H Calcium 9.3 Magnesium 1.9 Total Bilirubin 0.2 Direct Bilirubin < 0.2 AST 18 ALT 18 Alkaline Phosphatase 66 Total Protein 6.8 Albumin 3.8 Urine Color Yellow Urine Appearance Clear Urine pH 7.0 Ur Specific [place] <= 1.005 Urine Protein Negative Urine Glucose (UA) Negative Urine Ketones Negative Urine Blood Negative Urine Nitrite Negative Ur Leukocyte Esterase Negative Urine RBC 0-2 Urine WBC 0-5 Ur Squamous Epith Cells 0-2 Urine Bacteria None Seen Hyaline Casts 0-2 Influenza Type A (PCR) NEGATIVE Influenza Type B (PCR) NEGATIVE RSV RNA Qual (PCR) NEGATIVE SARS-CoV-2 RNA (RT-PCR) NEGATIVE Blood Type A Negative Antibody Screen POSITIVE Imaging Radiologist's Impressions: Impressions Cervical Spine CT 12/06/23 05:35 IMPRESSION: HEAD: No acute intracranial findings. CERVICAL SPINE: No acute findings identified. Degenerative changes as noted above. Head CT 12/06/23 05:35 IMPRESSION: HEAD: No acute intracranial findings. CERVICAL SPINE: No acute findings identified. Degenerative changes as noted above. Hip/Pelvis X-Ray 12/06/23 05:41 IMPRESSION: Slightly displaced intertrochanteric fracture of the left femur. Assessment and Plan (1) Intertrochanteric fracture: Qualifiers: Encounter type: initial encounter Fracture alignment: displaced F racture type: closed Laterality: left Qualified Code(s): S72.142A - Displaced intertrochanteric fracture of left femur, initial encounter for closed fracture Status: Acute Plan 83-year-old female with history of asthma/COPD overlap, anxiety, GERD, osteopenia who was not on any blood thinners admitted for further management of displaced intertrochanteric fracture left femur #displaced intertrochanteric fracture left femur -plan per ortho surgery -Class I risk on revised cardiac index -npo after midnight #Asthma/COPD overlap -no acute exacerbation -continue maintenance inhalers, albuterol prn #unspecified neuropathy -continue gabapentin #GERD -ppi #Mood disorder -continue citalopram #cigarette smoker -cessation advised -patch for nrt dvt prophylaxis- scps full code Pt requires inpt stay at least 2 midnights for management of left trochanteric fracture requiring surgical repair Quality Stroke Does the patient have a stroke diagnosis?: No VTE Prior VTE?: No VTE Risk Level:: Medical - moderate - high VTE Device Contraindication: N/A - Device Ordered VTE Drug Contraindication: Treatment Not Indicated
--- NOTE | 2023-12-06 09:42 | PC.NURSE ---
HOSP PA--Peter CROSS) AT BEDSIDE PT/FAMILY AWARE OF PLAN OF CARE FOR ADMISSION TO HOSP.
[2023-12-06] MEDS: Nicotine 14 MG PATCH.TD24 TRANSDERMA (11:28)
[2023-12-06] MEDS: HYDROmorphone HCl 1 MG/ML SYRINGE 0.5 MG IVPUSH (13:46)
--- NOTE | 2023-12-06 13:52 | PC.NURSE ---
PT'S SON IS AT BEDSIDE, DAUGHTER WENT HOME TO GET FOOD THAT THE PT PREFER (SOUP).
--- NOTE | 2023-12-06 14:12 | PHA.MEDREC ---
Pharmacy Consult ? Medication Reconciliation Pharmacy has completed the medication reconciliation. Patient confirmed medications based on claim and medical records. Corine Monae, LisaD
[2023-12-06] MEDS: Cyclobenzaprine HCl 10 MG TABLET PO (16:02)
[2023-12-06] MEDS: Acetaminophen 325 MG TABLET 650 MG PO (16:03)
[2023-12-06] MEDS: oxyCODONE HCl Immed Release 5 MG TABLET PO ×2 (17:46→21:52)
[2023-12-06] MEDS: Gabapentin 300 MG CAPSULE PO (19:03)
[2023-12-06] MEDS: Ferrous Sulfate 324 MG TABLET.DR PO (19:04)
[2023-12-07] VITALS (12 sets, daily range): BP systolic 129–153; BP diastolic 58–93; PULSE 93–100; RESP 13–18; TEMP 36.1–37.2; O2SAT 91–100
[2023-12-07] MEDS: HYDROmorphone HCl 1 MG/ML SYRINGE 0.25 MG IVPUSH ×2 (03:49→09:10)
[2023-12-07 06:59] LABS: MANUAL DIFF FLAG NO
[2023-12-07 07:18] LABS: Basophils Absolute Auto 0.1 X10*3/uL (0.0-0.2); Basophils Percent Auto 0.8 % (0-2); Eosinophils Absolute Auto 0.2 X10*3/uL (0.0-0.4); Eosinophils Percent Auto 3.2 % (0-4); Hematocrit 32.2 % (37.0-47.0); Hemoglobin 9.9 g/dl (12.0-16.0); Imm Gran Abs Auto 0.02 X10*3/uL (0.00-0.03); Imm Gran Pct Auto 0.3 % (0.0-0.4); Lymphocytes Absolute Auto 0.8 X10*3/uL (1.2-4.9); Lymphocytes Percent Auto 13.8 % (20-40); Mean Corpuscular HGB Conc 30.7 g/dl (31.0-35.0); Mean Corpuscular Hemoglobin 27.1 pg (27.0-33.0); Mean Corpuscular Volume 88.2 fL (80.0-98.0); Mean Platelet Volume 10.6 fL (9.4-12.3); Monocytes Absolute Auto 0.6 X10*3/uL (0.1-1.2); Monocytes Percent Auto 9.6 % (2-11); Neutrophils Absolute Auto 4.3 x10*3/uL (2.0-8.3); Neutrophils Percent Auto 72.3 % (45-73); Platelet Count 270 X10*3/uL (160-400); Red Blood Count 3.65 X10*6/uL (4.20-5.50); Red Cell Distribution Width 15.8 % (11.0-16.0); White Blood Count 5.9 X10*3/uL (4.8-10.8)
[2023-12-07] MEDS: Fluticasone/Umeclidinium/Vilanterol 200/62.5/25 BLST.W.DEV 1 PUFF INHALE (07:52)
[2023-12-07 08:07] LABS: Anion Gap 13 (12-20); Blood Urea Nitrogen 12 mg/dL (9-16); Calcium 9.5 mg/dL (8.4-10.2); Carbon Dioxide 29 mmol/L (22-29); Chloride 103 mmol/L (96-108); Creatinine Clr Calc Pharmacy 51.2; Estimated Glomerular Filt Rate > 60; Glucose Random 129 mg/dL (60-115); Potassium 4.7 mmol/L (3.3-5.1); Sodium 140 mmol/L (135-145)
[2023-12-07] MEDS: Nicotine 14 MG PATCH.TD24 TRANSDERMA (09:15)
[2023-12-07] MEDS: Lidocaine 4 % Patch ADH..PATCH 2 PATCH TRANSDERMA (09:15)
[2023-12-07] MEDS: 0.9 % Sodium Chloride Flush 3 ML SYRINGE IVFLUSH ×3 (09:16→21:02)
--- NOTE | 2023-12-07 09:51 | ECG_ITS ---
Test Reason : falls Blood Pressure : / mmHG Vent. Rate : 095 BPM Atrial Rate : 095 BPM P-R Int : 154 ms QRS Dur : 070 ms QT Int : 328 ms P-R-T Axes : 057 069 041 degrees QTc Int : 412 ms Normal sinus rhythm Normal ECG When compared with ECG of 06-DEC-2023 08:05, No significant change was found Referred By: Nancy Pineda Electronically Signed By:
--- NOTE | 2023-12-07 10:24 | HO.PM.IMPN ---
Subjective Subjective Date of Service: 12/07/23 Interval History: seen and evaluated this morning reporting significant pain denies any fever or chills no other events Review of Systems Review of Systems: Yes all other systems are reviewed and are negative Physical Exam Vital Signs: Vital Signs: Last Vital Signs Temp 97.0 F 12/07/23 07:15 Pulse 97 12/07/23 07:55 Resp 16 12/07/23 07:55 BP 132/60 12/07/23 07:15 Pulse Ox 100 12/07/23 07:15 O2 Del Method Room Air 12/07/23 07:15 O2 Flow Rate 2 12/07/23 03:48 BMI result Body Mass Index 22.7 Const: Other: Constitutional : Awake, interactive, not in distress Neck : Normal inspection, Supple Cardiovascular : RRR, no JVP, no lower extremity edema Respiratory : good bilateral air entry, no crackles, wheezes or rhonchi Gastrointestinal: soft, lax, Normal bowel sounds, Non tender Skin : Warm, Dry Extremities: LLE shorter and externally rotated Neurological : Alert & oriented x3, No focal deficit Objective Data Active Medications Acetaminophen (Acetaminophen 325 Mg Tablet) 650 mg PO Q6H PRN PRN Reason: Pain, Mild (Pain Scale 1-3) Last Admin: 12/06/23 16:03 Dose: 650 mg Documented By: JEVON Albuterol Sulfate (Albuterol Sulfate (0.042%) 1.25 Mg/3 Ml Vial.Neb) 0.63 mg INHALE QID PRN PRN Reason: shortness of breath or wheezing Albuterol/Ipratropium (Albuterol/Iprat 2.5/0.5mg 3 Ml Ampul.Neb) 3 ml INHALE QID PRN PRN Reason: Shortness Of Breath Or Wheezing Ascorbic Acid (Ascorbic Acid 500 Mg Tablet) 500 mg PO DAILY [facility] Last Admin: 12/07/23 09:24 Dose: Not Given Documented By: TRAN Non-Admin Reason: NPO Cyclobenzaprine HCl (Cyclobenzaprine Hcl 10 Mg Tablet) 10 mg PO TID PRN PRN Reason: muscle spasm Escitalopram Oxalate (Escitalopram Oxalate 5 Mg Tablet) 5 mg PO DAILY [facility] Last Admin: 12/07/23 09:24 Dose: Not Given Documented By: TRAN Non-Admin Reason: NPO Ferrous Sulfate (Ferrous Sulfate 324 Mg Tablet.) 324 mg PO BID [facility] Last Admin: 12/07/23 09:24 Dose: Not Given Documented By: TRAN Non-Admin Reason: NPO Fluticasone/Umeclidinium/Vilanterol (Fluticasone/Umeclidinium/Vilanterol 200/62.5/25 Blst.W.Dev) 1 puff INHALE RDAILY [facility] Last Admin: 12/07/23 07:52 Dose: 1 puff Documented By: MAGDA Gabapentin (Gabapentin 300 Mg Capsule) 300 mg PO BEDTIME [facility] Last Admin: 12/06/23 19:03 Dose: 300 mg Documented By: DIMITRIS Hydromorphone HCl (Hydromorphone Hcl 1 Mg/Ml Syringe) 0.25 mg IVPUSH Q4H PRN; Protocol PRN Reason: Pain, Severe (Pain Scale 7-10) Last Admin: 12/07/23 09:10 Dose: 0.25 mg Documented By: TRAN Lidocaine (Lidocaine 4 % Patch Adh..Patch) 2 patch TRANSDERMA DAILY [facility] Last Admin: 12/07/23 09:15 Dose: 2 patch Documented By: TRAN Nicotine (Nicotine 14 Mg Patch.Td24) 14 mg TRANSDERMA DAILY [facility] Last Admin: 12/07/23 09:15 Dose: 14 mg Documented By: TRAN Omeprazole (Omeprazole 20 Mg Capsule.) 20 mg PO DAILY@0630 [facility] Last Admin: 12/07/23 05:38 Dose: Not Given Documented By: DEEDEE Non-Admin Reason: NPO, OR this AM 12/06 Ondansetron HCl (Ondansetron Hcl 4 Mg/2 Ml Vial) 4 mg IVPUSH Q8H PRN PRN Reason: Nausea and Vomiting Oxycodone HCl (Oxycodone Hcl Immed Release 5 Mg Tablet) 5 mg PO Q4H PRN PRN Reason: Pain, Moderate(Pain Scale 4-6) Last Admin: 12/06/23 21:52 Dose: 5 mg Documented By: DIMITRIS Senna (Sennosides 8.6 Mg Tablet) 17.2 mg PO BEDTIME PRN PRN Reason: Constipation Sodium Chloride (0.9 % Sodium Chloride Flush 3 Ml Syringe) 3 ml IVFLUSH QSHIFT [facility] Last Admin: 12/07/23 09:16 Dose: 3 ml Documented By: TRAN Labs 12/07/23 05:53 12/07/23 05:53 Labs: Laboratory Results - last 24 hr 12/06/23 12/06/23 12/07/23 07:58 07:58 05:53 MCV 88.2 MCH 27.1 MCHC 30.7 L RDW 15.8 Plt Count 270 MPV 10.6 Immature Gran % (Auto) 0.3 Neut % (Auto) 72.3 Lymph % (Auto) 13.8 L [place] % (Auto) 9.6 Eos % (Auto) 3.2 Baso % (Auto) 0.8 Lymph # (Auto) 0.8 L [place] # (Auto) 0.6 Eos # (Auto) 0.2 Baso # (Auto) 0.1 Abs Immat Gran (auto) 0.02 Absolute Neuts (auto) 4.3 Absolute Nucleated RBC 0.000 Nucleated RBC % (auto) 0.0 Anion Gap 13 Estim Creat Clear Calc 51.2 Estimated GFR > 60 Random Glucose 129 H Calcium 9.5 Blood Type A Negative Antibody Screen POSITIVE Antibody Identification Anti-C Anti-D Crossmatch (AHG) See Detail Assessment and Plan (1) Intertrochanteric fracture: Status: Acute (2) COPD (chronic obstructive pulmonary disease): Status: Acute Plan 83-year-old female with history of asthma/COPD overlap, anxiety, GERD, osteopenia who was not on any blood thinners admitted for further management of displaced intertrochanteric fracture left femur #displaced intertrochanteric fracture left femur plan for internal fixation by ortho surgery Dilaudid for pain #Asthma/COPD overlap no acute exacerbation continue maintenance inhalers, albuterol prn #unspecified neuropathy continue gabapentin #GERD ppi #Mood disorder continue citalopram #cigarette smoker cessation advised patch for nrt dvt prophylaxis- scds full code Pt requires inpt stay overnight for management of left trochanteric fracture requiring surgical repair Quality Stroke Does the patient have a stroke diagnosis?: No VTE Prior VTE?: No VTE Risk Level:: Medical - moderate - high VTE Device Contraindication: N/A - Device Ordered VTE Drug Contraindication: Treatment Not Indicated
--- NOTE | 2023-12-07 10:53 | MHC.CM.PN ---
pt lives with son they have patient safety manager services 14 hrs a week dc plan str
[2023-12-07] MEDS: HYDROmorphone HCl 0.5 MG/0.5 ML SYRINGE IVPUSH (11:24)
[2023-12-07] MEDS: HYDROmorphone HCl 1 MG/ML SYRINGE 0.5 MG IVPUSH (15:32)
--- NOTE | 2023-12-07 16:04 | MHC.SHP ---
Pre-Procedural Eval Section A - 24 Hr Update-Section A only Date of Service: 12/07/23 The patient is an INPATIENT: Yes Changes since office visit: No Cold of Flu in the past 2 weeks, No New Medical Problems, No Changes in Medication and No Patient answered all questions The patient has been examined within 24 hours of the surgical procedure. The History & Physical has been completed within 30 days and I have reviewed it.: Yes Section B - Complete if H&P > 30 days Chief Complaint: left intertrochanteric fracture Allergies: Allergies Allergy/AdvReac Type Severity Reaction Status Date / Time No Known Allergies Allergy Verified 12/06/23 05:19 Plan I have reviewed the history and physical and performed a pertinent physical examination on my patient. No changes have occurred unless specified. Time Spent With Patient Time: Total time managing care of this patient today ____ minutes.
--- NOTE | 2023-12-07 16:16 | PC.NURSE ---
Patient arrived to preop with one PRN angio, #20 right AC. Area red and leaky when flushed. Area discontinued, tolerated well.
--- NOTE | 2023-12-07 16:20 | HO.ANESPROP2 ---
[facility] Active Problems Active Problems: All Active Problems Intertrochanteric fracture (Acute) Dyspnea on exertion (Acute) Lumbar radiculitis (Acute) Lumbar spondylosis (Acute) Cervical spondylosis (Acute) Knee pain, bilateral (Acute) Chronic cough (Acute) Microcytic hypochromic anemia (Acute) Occult blood positive stool (Acute) COVID-19 (Acute) Colon cancer screening (Acute) Epigastric pain (Acute) Mass of right axilla (Acute) COPD (chronic obstructive pulmonary disease) (Acute) Anxiety (Acute) Asthma (Acute) GERD (gastroesophageal reflux disease) (Acute) GI bleed (Acute) Osteopenia (Acute) Peripheral neuropathy (Acute) Past Medical History Medical History Mass of right axilla COVID-19 Duodenal arteriovenous malformation Osteopenia Anemia GI bleed GERD (gastroesophageal reflux disease) Peripheral neuropathy Anxiety Depression COPD (chronic obstructive pulmonary disease) Asthma Elevated cholesterol Lab test negative for COVID-19 virus Family History Family History Father Stroke Asthma Mother Heart attack Stroke Asthma Sister DVT (deep venous thrombosis) Asthma Brother COPD (chronic obstructive pulmonary disease) Son Cancer Family history of problems with anesthesia: No Surgical History Surgical History History of tubal ligation History of axillary surgery Hx of oophorectomy Hx of colonoscopy Hx of esophagogastroduodenoscopy Hx of foot surgery Hx of cholecystectomy Hx of tonsillectomy Hx of appendectomy Social History Social History Household Members: Children Household Members Other:: son Housing: Apartment Are you a primary chronic care nurse to a significant other at home: No Do you presently have visiting nurse or other home services: No Alcohol intake: never Patient Tobacco Use Status: Current everyday Tobacco user Tobacco use type: Cigarette Cigarettes Per Day: 10 Years Smoked: 50 Smoked in Last 30 Days: Yes Patient Interested in Nicotine Replacement: No Second Hand Smoke Exposure: Yes Use of substances other than those prescribed or required for medical reasons: No Currently Displaying Signs/Symptoms of Drug Intoxication Withdrawal: No Have you been hit, kicked, punched, or otherwise hurt by someone within the past year? If so, by whom?: No Do you feel safe in your current relationship?: No Current Relationship Is there a partner from a previous relationship who is making you feel unsafe now?: No Are you made to feel afraid or neglected: No Advance Directives: Yes Advance Directives on File: Yes Advance Directives Date on File: 01/16/21 Do you have a plan to hurt others: No Plan Patient : No : No Poor oral hygiene: No service: No Current occupational status: retired [employer] Allergies Allergy/AdvReac Type Severity Reaction Status Date / Time No Known Allergies Allergy Verified 12/07/23 16:20 Active Medications: Current Medications Acetaminophen (Acetaminophen 325 Mg Tablet) 650 mg PO Q6H PRN PRN Reason: Pain, Mild (Pain Scale 1-3) Last Admin: 12/06/23 16:03 Dose: 650 mg Albuterol Sulfate (Albuterol Sulfate (0.042%) 1.25 Mg/3 Ml Vial.Neb) 0.63 mg INHALE QID PRN PRN Reason: shortness of breath or wheezing Albuterol/Ipratropium (Albuterol/Iprat 2.5/0.5mg 3 Ml Ampul.Neb) 3 ml INHALE QID PRN PRN Reason: Shortness Of Breath Or Wheezing Ascorbic Acid (Ascorbic Acid 500 Mg Tablet) 500 mg PO DAILY COUNTS INCLUDE 234 BEDS AT THE [facility] Last Admin: 12/07/23 09:24 Dose: Not Given Cyclobenzaprine HCl (Cyclobenzaprine Hcl 10 Mg Tablet) 10 mg PO TID PRN PRN Reason: muscle spasm Escitalopram Oxalate (Escitalopram Oxalate 5 Mg Tablet) 5 mg PO DAILY COUNTS INCLUDE 234 BEDS AT THE [facility] Last Admin: 12/07/23 09:24 Dose: Not Given Ferrous Sulfate (Ferrous Sulfate 324 Mg Tablet.) 324 mg PO BID COUNTS INCLUDE 234 BEDS AT THE [facility] Last Admin: 12/07/23 09:24 Dose: Not Given Fluticasone/Umeclidinium/Vilanterol (Fluticasone/Umeclidinium/Vilanterol 200/62.5/25 Blst.W.Dev) 1 puff INHALE RDAILY COUNTS INCLUDE 234 BEDS AT THE [facility] Last Admin: 12/07/23 07:52 Dose: 1 puff Gabapentin (Gabapentin 300 Mg Capsule) 300 mg PO BEDTIME COUNTS INCLUDE 234 BEDS AT THE [facility] Last Admin: 12/06/23 19:03 Dose: 300 mg Hydromorphone HCl (Hydromorphone Hcl 1 Mg/Ml Syringe) 0.5 mg IVPUSH Q3H PRN; Protocol PRN Reason: Pain, Severe (Pain Scale 7-10) Last Admin: 12/07/23 15:32 Dose: 0.5 mg Lidocaine (Lidocaine 4 % Patch Adh..Patch) 2 patch TRANSDERMA DAILY COUNTS INCLUDE 234 BEDS AT THE [facility] Last Admin: 12/07/23 09:15 Dose: 2 patch Nicotine (Nicotine 14 Mg Patch.Td24) 14 mg TRANSDERMA DAILY COUNTS INCLUDE 234 BEDS AT THE [facility] Last Admin: 12/07/23 09:15 Dose: 14 mg Omeprazole (Omeprazole 20 Mg Capsule.Dr) 20 mg PO DAILY@0630 COUNTS INCLUDE 234 BEDS AT THE [facility] Last Admin: 12/07/23 05:38 Dose: Not Given Ondansetron HCl (Ondansetron Hcl 4 Mg/2 Ml Vial) 4 mg IVPUSH Q8H PRN PRN Reason: Nausea and Vomiting Oxycodone HCl (Oxycodone Hcl Immed Release 5 Mg Tablet) 5 mg PO Q4H PRN PRN Reason: Pain, Moderate(Pain Scale 4-6) Last Admin: 12/06/23 21:52 Dose: 5 mg Senna (Sennosides 8.6 Mg Tablet) 17.2 mg PO BEDTIME PRN PRN Reason: Constipation Sodium Chloride (0.9 % Sodium Chloride Flush 3 Ml Syringe) 3 ml IVFLUSH QSHIFT COUNTS INCLUDE 234 BEDS AT THE [facility] Last Admin: 12/07/23 15:33 Dose: 3 ml Home Medications ?Medication ?Instructions ?Recorded ?Confirmed ?Last Taken ?Type ascorbic acid (vitamin C) 500 mg 500 mg PO DAILY 05/23/20 12/06/23 Unknown History tablet (Vitamin C) citalopram 10 mg tablet 10 mg PO DAILY 01/16/21 12/06/23 01/15/21 History ipratropium 0.5 mg-albuterol 3 mg 1 vial inhalation QID PRN 01/16/21 12/06/23 Unknown History (2.5 mg base)/3 mL nebulization Shortness Of Breath Or Wheezing soln fluticasone fur. 200 mcg-umeclid 1 puff inhalation DAILY 10/20/22 12/06/23 Unknown History 62.5 mcg-vilant 25 mcg inhalat.powder (Trelegy Ellipta) cyclobenzaprine 10 mg tablet 10 mg PO TID 12/06/23 12/06/23 Unknown History ferrous sulfate 325 mg (65 mg 325 mg PO BID 12/06/23 12/06/23 Unknown History iron) tablet gabapentin 300 mg capsule 300 mg PO BEDTIME 12/06/23 12/06/23 Unknown History Exam Height,Weight and Vital Signs: Height 5 ft 7 in Weight 65.7 kg Last Vital Signs Temp 98.0 F 12/07/23 15:16 Pulse 99 12/07/23 15:16 Resp 18 12/07/23 15:16 BP 142/93 H 12/07/23 15:16 Pulse Ox 95 12/07/23 15:16 O2 Del Method Room Air 12/07/23 15:16 O2 Flow Rate 2 12/07/23 03:48 Pertinent Lab Results Pertinent Lab Results: Laboratory Tests 12/06/23 12/06/23 12/06/23 07:58 07:58 08:24 WBC 8.8 RBC 3.63 L Hgb 10.0 L Hct 31.1 L MCV 85.7 MCH 27.5 MCHC 32.2 RDW 15.9 Plt Count 316 MPV 9.9 Immature Gran % (Auto) 0.7 H Neut % (Auto) 83.4 H Lymph % (Auto) 7.8 L [place] % (Auto) 6.4 Eos % (Auto) 1.4 Baso % (Auto) 0.3 Lymph # (Auto) 0.7 L [place] # (Auto) 0.6 Eos # (Auto) 0.1 Baso # (Auto) 0.0 Abs Immat Gran (auto) 0.06 H Absolute Neuts (auto) 7.3 Absolute Nucleated RBC 0.000 Nucleated RBC % (auto) 0.0 PT 12.7 INR 1.0 Sodium 140 Potassium 3.9 Chloride 109 H Carbon Dioxide 25 Anion Gap 10 L BUN 15 Creatinine 0.75 Estim Creat Clear Calc 55.3 Estimated GFR > 60 Random Glucose 146 H Calcium 9.3 Magnesium 1.9 Total Bilirubin 0.2 Direct Bilirubin < 0.2 AST 18 ALT 18 Alkaline Phosphatase 66 Total Protein 6.8 Albumin 3.8 Urine Color Yellow Urine Appearance Clear Urine pH 7.0 Ur Specific [place] <= 1.005 Urine Protein Negative Urine Glucose (UA) Negative Urine Ketones Negative Urine Blood Negative Urine Nitrite Negative Ur Leukocyte Esterase Negative Urine RBC 0-2 Urine WBC 0-5 Ur Squamous Epith Cells 0-2 Urine Bacteria None Seen Hyaline Casts 0-2 Influenza Type A (PCR) NEGATIVE Influenza Type B (PCR) NEGATIVE RSV RNA Qual (PCR) NEGATIVE SARS-CoV-2 RNA (RT-PCR) NEGATIVE Blood Type A Negative Antibody Screen POSITIVE Antibody Identification Anti-C Anti-D Crossmatch (AHG) See Detail 12/07/23 05:53 WBC 5.9 RBC 3.65 L Hgb 9.9 L Hct 32.2 L MCV 88.2 MCH 27.1 MCHC 30.7 L RDW 15.8 Plt Count 270 MPV 10.6 Immature Gran % (Auto) 0.3 Neut % (Auto) 72.3 Lymph % (Auto) 13.8 L [place] % (Auto) 9.6 Eos % (Auto) 3.2 Baso % (Auto) 0.8 Lymph # (Auto) 0.8 L [place] # (Auto) 0.6 Eos # (Auto) 0.2 Baso # (Auto) 0.1 Abs Immat Gran (auto) 0.02 Absolute Neuts (auto) 4.3 Absolute Nucleated RBC 0.000 Nucleated RBC % (auto) 0.0 PT INR Sodium 140 Potassium 4.7 D Chloride 103 Carbon Dioxide 29 Anion Gap 13 BUN 12 Creatinine 0.81 Estim Creat Clear Calc 51.2 Estimated GFR > 60 Random Glucose 129 H Calcium 9.5 Magnesium Total Bilirubin Direct Bilirubin AST ALT Alkaline Phosphatase Total Protein Albumin Urine Color Urine Appearance Urine pH Ur Specific [place] Urine Protein Urine Glucose (UA) Urine Ketones Urine Blood Urine Nitrite Ur Leukocyte Esterase Urine RBC Urine WBC Ur Squamous Epith Cells Urine Bacteria Hyaline Casts Influenza Type A (PCR) Influenza Type B (PCR) RSV RNA Qual (PCR) SARS-CoV-2 RNA (RT-PCR) Blood Type Antibody Screen Antibody Identification Crossmatch (AHG) Airway Mallampati Class: II TM Dist: >3cm Neck ROM: Full Heart: RRR Lungs: CTA Assessment and Plan Assessment Anesthesia Assessment: Anesthesia Plan Discussed and Smoking Cess. Discussed Final Anesthetic Review Family History of Problems with Anesthesia: No ASA Class: III and Emergency Final Preanesthetic Review: Meds/Allgs Chart Reviewed, Consent Obtained/Reviewed and Anes Risks/Benef Reviewed Patient Risk: Intermediate Procedure Risk: High Anesthetic Plan Anesthetic Plan: GA Disposition: Standard PACU
--- NOTE | 2023-12-07 17:34 | PC.NURSE ---
This nurse reported off to Jean Herr.
--- NOTE | 2023-12-07 18:28 | MHC.SHP ---
Pre-Procedural Eval Section A - 24 Hr Update-Section A only Date of Service: 12/07/23 The patient is an INPATIENT: Yes Changes since office visit: Yes Cold of Flu in the past 2 weeks, Yes New Medical Problems, Yes Changes in Medication and Yes Patient answered all questions The patient has been examined within 24 hours of the surgical procedure. The History & Physical has been completed within 30 days and I have reviewed it.: Yes Section B - Complete if H&P > 30 days Chief Complaint: left intertrochanteric fracture Allergies: Allergies Allergy/AdvReac Type Severity Reaction Status Date / Time No Known Allergies Allergy Verified 12/07/23 16:20 Plan I have reviewed the history and physical and performed a pertinent physical examination on my patient. No changes have occurred unless specified. Time Spent With Patient Time: Total time managing care of this patient today ____ minutes.
--- NOTE | 2023-12-07 20:05 | P.BOP_ITS ---
Brief Operative Note Date of Service: 12/07/23 Pre-op diagnosis: Left hip IT fracture Post-op diagnosis: same Procedure: Left hip IMN Implants: Combined Locks 180 x11 130 deg with 95 mm lag screw and 32.5 distal interlock Surgeon: Onel Serrano MD Anesthesia: GLMA and local Was an Solar Panel Technician used for this Procedure?: No Estimated blood loss (mL): 100 IV fluids (mL): 750 Pathology: none sent Condition: stable Disposition: PACU
[2023-12-07] MEDS: Gabapentin 300 MG CAPSULE PO (21:02)
[2023-12-07] MEDS: Ferrous Sulfate 324 MG TABLET.DR PO (21:02)
[2023-12-08] VITALS (7 sets, daily range): BP systolic 118–123; BP diastolic 57–69; PULSE 82–116; RESP 14–16; TEMP 36.4–37.2; O2SAT 93–97
[2023-12-08] MEDS: Omeprazole 20 MG CAPSULE.DR PO (05:42)
[2023-12-08 06:28] LABS: Hematocrit 30.1 % (37.0-47.0); Hemoglobin 9.5 g/dl (12.0-16.0); Mean Corpuscular HGB Conc 31.6 g/dl (31.0-35.0); Mean Corpuscular Hemoglobin 27.2 pg (27.0-33.0); Mean Corpuscular Volume 86.2 fL (80.0-98.0); Mean Platelet Volume 10.3 fL (9.4-12.3); Platelet Count 245 X10*3/uL (160-400); Red Blood Count 3.49 X10*6/uL (4.20-5.50); Red Cell Distribution Width 15.3 % (11.0-16.0)
[2023-12-08 06:52] LABS: Anion Gap 13 (12-20); Blood Urea Nitrogen 13 mg/dL (9-16); Calcium 9.1 mg/dL (8.4-10.2); Carbon Dioxide 27 mmol/L (22-29); Chloride 103 mmol/L (96-108); Creatinine Clr Calc Pharmacy 53.1; Estimated Glomerular Filt Rate > 60; Glucose Random 167 mg/dL (60-115); Potassium 4.9 mmol/L (3.3-5.1); Sodium 138 mmol/L (135-145)
[2023-12-08] MEDS: HYDROmorphone HCl 1 MG/ML SYRINGE 0.5 MG IVPUSH ×2 (08:22→13:07)
[2023-12-08] MEDS: Ferrous Sulfate 324 MG TABLET.DR PO ×2 (08:22→20:58)
[2023-12-08] MEDS: Ascorbic Acid 500 MG TABLET PO (08:22)
[2023-12-08] MEDS: Escitalopram Oxalate 5 MG TABLET PO (08:23)
[2023-12-08] MEDS: Lidocaine 4 % Patch ADH..PATCH 2 PATCH TRANSDERMA (08:23)
[2023-12-08] MEDS: Nicotine 14 MG PATCH.TD24 TRANSDERMA (08:23)
[2023-12-08] MEDS: 0.9 % Sodium Chloride Flush 3 ML SYRINGE IVFLUSH ×3 (08:36→20:57)
[2023-12-08] MEDS: Fluticasone/Umeclidinium/Vilanterol 200/62.5/25 BLST.W.DEV 1 PUFF INHALE (08:48)
--- NOTE | 2023-12-08 12:22 | HO.POSTANES ---
Post Anesthesia Evaluation Post Anesthesia Evaluation Date of Service: 12/07/23 Vital Signs: Vital Signs Temp Pulse Resp BP Pulse Ox O2 Del Method O2 Flow Rate 12/08/23 08:48 84 14 12/08/23 08:23 84 123/69 97 12/08/23 07:52 98.1 F 84 14 123/69 97 Room Air 12/08/23 03:55 98.2 F 82 16 122/58 L 96 Nasal Cannula 2 Anesthesia: General Mental Status: Awake Pain Control: Satisfactory Nausea/Vomiting: None Hydration: Adequate Anesthesia-Related Issues: No Anes. Related Issues
--- NOTE | 2023-12-08 13:32 | HO.PM.IMPN ---
Subjective Subjective Date of Service: 12/08/23 Interval History: seen and evaluated this morning Pain better controlled, sitting in recliner denies any fever or chills no other events Review of Systems Review of Systems: Yes all other systems are reviewed and are negative Physical Exam Vital Signs: Vital Signs: Last Vital Signs Temp 98.1 F 12/08/23 07:52 Pulse 84 12/08/23 08:48 Resp 14 12/08/23 08:48 BP 123/69 12/08/23 08:23 Pulse Ox 97 12/08/23 08:23 O2 Del Method Room Air 12/08/23 07:52 O2 Flow Rate 2 12/08/23 03:55 BMI result Body Mass Index 22.7 Const: Other: Constitutional : Awake, interactive, not in distress Neck : Normal inspection, Supple Cardiovascular : RRR, no JVP, no lower extremity edema Respiratory : good bilateral air entry, no crackles, wheezes or rhonchi Gastrointestinal: soft, lax, Normal bowel sounds, Non tender Skin : Warm, Dry Extremities: LLE wound covered with dressing Neurological : Alert & oriented x3, No focal deficit Objective Data Active Medications Acetaminophen (Acetaminophen 325 Mg Tablet) 650 mg PO Q6H PRN PRN Reason: Pain, Mild (Pain Scale 1-3) Last Admin: 12/06/23 16:03 Dose: 650 mg Documented By: JEVON Albuterol Sulfate (Albuterol Sulfate (0.042%) 1.25 Mg/3 Ml Vial.Neb) 0.63 mg INHALE QID PRN PRN Reason: shortness of breath or wheezing Albuterol/Ipratropium (Albuterol/Iprat 2.5/0.5mg 3 Ml Ampul.Neb) 3 ml INHALE QID PRN PRN Reason: Shortness Of Breath Or Wheezing Ascorbic Acid (Ascorbic Acid 500 Mg Tablet) 500 mg PO DAILY [facility] Last Admin: 12/08/23 08:22 Dose: 500 mg Documented By: TRAN Cyclobenzaprine HCl (Cyclobenzaprine Hcl 10 Mg Tablet) 10 mg PO TID PRN PRN Reason: muscle spasm Enoxaparin Sodium (Enoxaparin Sodium 40 Mg/0.4 Ml Syringe) 40 mg SUBCUT Q24H [facility] Escitalopram Oxalate (Escitalopram Oxalate 5 Mg Tablet) 5 mg PO DAILY [facility] Last Admin: 12/08/23 08:23 Dose: 5 mg Documented By: TRAN Ferrous Sulfate (Ferrous Sulfate 324 Mg Tablet.) 324 mg PO BID [facility] Last Admin: 12/08/23 08:22 Dose: 324 mg Documented By: TRAN Fluticasone/Umeclidinium/Vilanterol (Fluticasone/Umeclidinium/Vilanterol 200/62.5/25 Blst.W.Dev) 1 puff INHALE RDAILY [facility] Last Admin: 12/08/23 08:48 Dose: 1 puff Documented By: HELLEN Gabapentin (Gabapentin 300 Mg Capsule) 300 mg PO BEDTIME [facility] Last Admin: 12/07/23 21:02 Dose: 300 mg Documented By: SKYLA Hydromorphone HCl (Hydromorphone Hcl 1 Mg/Ml Syringe) 0.5 mg IVPUSH Q3H PRN; Protocol PRN Reason: Pain, Severe (Pain Scale 7-10) Last Admin: 12/08/23 13:07 Dose: 0.5 mg Documented By: TRAN Lidocaine (Lidocaine 4 % Patch Adh..Patch) 2 patch TRANSDERMA DAILY [facility] Last Admin: 12/08/23 08:23 Dose: 2 patch Documented By: TRAN Nicotine (Nicotine 14 Mg Patch.Td24) 14 mg TRANSDERMA DAILY [facility] Last Admin: 12/08/23 08:23 Dose: 14 mg Documented By: TRAN Omeprazole (Omeprazole 20 Mg Capsule.) 20 mg PO DAILY@0630 [facility] Last Admin: 12/08/23 05:42 Dose: 20 mg Documented By: SKYLA Ondansetron HCl (Ondansetron Hcl 4 Mg/2 Ml Vial) 4 mg IVPUSH Q8H PRN PRN Reason: Nausea and Vomiting Oxycodone HCl (Oxycodone Hcl Immed Release 5 Mg Tablet) 5 mg PO Q4H PRN PRN Reason: Pain, Moderate(Pain Scale 4-6) Last Admin: 12/06/23 21:52 Dose: 5 mg Documented By: DIMITRIS Senna (Sennosides 8.6 Mg Tablet) 17.2 mg PO BEDTIME PRN PRN Reason: Constipation Sodium Chloride (0.9 % Sodium Chloride Flush 3 Ml Syringe) 3 ml IVFLUSH QSHIFT [facility] Last Admin: 12/08/23 08:36 Dose: 3 ml Documented By: TRAN Labs 12/08/23 05:27 12/08/23 05:27 Labs: Laboratory Results - last 24 hr 12/08/23 05:27 MCV 86.2 MCH 27.2 MCHC 31.6 RDW 15.3 Plt Count 245 MPV 10.3 Absolute Nucleated RBC 0.000 Nucleated RBC % (auto) 0.0 Anion Gap 13 Estim Creat Clear Calc 53.1 Estimated GFR > 60 Random Glucose 167 H Calcium 9.1 Assessment and Plan (1) Intertrochanteric fracture: Status: Acute Plan 83-year-old female with history of asthma/COPD overlap, anxiety, GERD, osteopenia who was not on any blood thinners admitted for further management of displaced intertrochanteric fracture left femur #displaced intertrochanteric fracture left femur POD 1 Dilaudid for pain DC Pat PT therapy Orthopedic team following #Asthma/COPD overlap no acute exacerbation continue maintenance inhalers, albuterol prn #unspecified neuropathy continue gabapentin #GERD ppi #Mood disorder continue citalopram #cigarette smoker cessation advised patch for nrt dvt prophylaxis- scds full code Pt requires inpt stay overnight for management of left trochanteric fracture post op care pending safe discharge plan Quality Stroke Does the patient have a stroke diagnosis?: No VTE Prior VTE?: No VTE Risk Level:: Medical - moderate - high VTE Device Contraindication: N/A - Device Ordered VTE Drug Contraindication: Treatment Not Indicated
--- NOTE | 2023-12-08 14:26 | PM.PNORT ---
Subjective Subjective Date of Service: 12/08/23 Interval history: POD1 s/p left hip IM Nail Patient is resting in the recliner comfortably No overnight events Pain is managed No additional complaints Physical Exam Vital Signs: Vital Signs: Last Vital Signs Temp 98.1 F 12/08/23 07:52 Pulse 84 12/08/23 14:17 Resp 14 12/08/23 08:48 BP 123/69 12/08/23 08:23 Pulse Ox 97 12/08/23 08:23 O2 Del Method Room Air 12/08/23 07:52 O2 Flow Rate 2 12/08/23 03:55 BMI result Body Mass Index 22.7 Const: General: cooperative, healthy appearing and no acute distress Resp: Effort & Inspection: normal respiratory effort and able to speak in complete sentences Cardio: Rate: regular rate Peripheral pulses: Peripheral pulses 2+ throughout GI: Palpation (GI): Soft to palpation Skin: Lesions: no lesions Rashes: no rashes Extrem: Other: left hip dressing is c/d/i. Able to dorsi/plantar flex. Calf is supple and nontender. Sensation intact. Pedal pulse intact. Procedures Date of Service Date of Service: 12/08/23 Progress Note: A&P Assessment and plan (1) Intertrochanteric fracture: Status: Acute Assessment and Plan: Continue pain mgmnt Begin Lovenox for dvt ppx begin PT/OT for left hip IM Nail Dispo planning-Pending PT eval, pain mgmnt, rehab placement Time Spent With Patient Time: Total time managing care of this patient today ____ minutes. Quality Stroke Does the patient have a stroke diagnosis?: No VTE Prior VTE?: No VTE Risk Level:: Medical - moderate - high VTE Device Contraindication: N/A - Device Ordered VTE Drug Contraindication: Treatment Not Indicated
[2023-12-08] MEDS: Enoxaparin Sodium 40 MG/0.4 ML SYRINGE SUBCUT (17:51)
[2023-12-08] MEDS: Acetaminophen 325 MG TABLET 650 MG PO (17:55)
[2023-12-08] MEDS: Gabapentin 300 MG CAPSULE PO (20:58)
--- NOTE | 2023-12-08 22:33 | PC.NURSE ---
pt had a indwelling catheter removed 1300 by previous nurse, bladder scan at 2115 748 mL. pt used bedside commode voided 500 mL, rechecked bladder 183 mL retained. pt had a pain but seems tolerated well after meds 12/23. will cont. monitor
[2023-12-09] VITALS (7 sets, daily range): BP systolic 125–137; BP diastolic 57–63; PULSE 86–102; RESP 16; TEMP 36.7–37.9; O2SAT 92–100
[2023-12-09] MEDS: Omeprazole 20 MG CAPSULE.DR PO (06:07)
[2023-12-09] MEDS: Nicotine 14 MG PATCH.TD24 TRANSDERMA (08:11)
[2023-12-09] MEDS: Escitalopram Oxalate 5 MG TABLET PO (08:12)
[2023-12-09] MEDS: HYDROmorphone HCl 1 MG/ML SYRINGE 0.5 MG IVPUSH ×2 (08:12→15:15)
[2023-12-09] MEDS: 0.9 % Sodium Chloride Flush 3 ML SYRINGE IVFLUSH ×3 (08:12→22:16)
[2023-12-09] MEDS: Lidocaine 4 % Patch ADH..PATCH 2 PATCH TRANSDERMA (08:12)
[2023-12-09] MEDS: Ascorbic Acid 500 MG TABLET PO (08:12)
[2023-12-09] MEDS: Ferrous Sulfate 324 MG TABLET.DR PO ×2 (08:12→20:55)
[2023-12-09] MEDS: Fluticasone/Umeclidinium/Vilanterol 200/62.5/25 BLST.W.DEV 1 PUFF INHALE (08:42)
--- NOTE | 2023-12-09 10:34 | MHC.CM.PN ---
PT MEDICALLY CLEARED FOR DC TO [facility], CM DISCUSSED W/PT & FAMILY AT BEDSIDE, PT'S SON REPORTS PREFERRED SNF IS [facility], CM HAS SENT CLINICALS AND REQUEST THEY GO FOR AUTH, ANTIC PT WILL DC LATER TODAY VIA [facility] FOR TRANSPORT.
[2023-12-09] MEDS: oxyCODONE HCl Immed Release 5 MG TABLET PO ×2 (10:47→19:56)
--- NOTE | 2023-12-09 11:51 | MHC.CM.PN ---
CM MET W/PT VIA [facility] TO COMPLETE A HCP, PT NAMED JONATHAN PATTERSON LAKSHMI [phone] HER [facility] AND DTR AILEEN MARTINS [phone] HER ALTERNATE, COPY UPLOADED TO [facility], PLACED IN CHART AND SENT TO [facility].
--- NOTE | 2023-12-09 14:37 | HO.PM.IMPN ---
Subjective Subjective Date of Service: 12/09/23 Interval History: This history was taken in English from the patient. Postop pain controlled No chest pain or dyspnea Review of Systems Review of Systems: Yes all other systems are reviewed and are negative Physical Exam Vital Signs: Vital Signs: Last Vital Signs Temp 98.2 F 12/09/23 07:28 Pulse 86 12/09/23 08:48 Resp 16 12/09/23 08:43 BP 125/57 L 12/09/23 07:28 Pulse Ox 96 12/09/23 07:28 O2 Del Method Nasal Cannula 12/09/23 07:28 O2 Flow Rate 2.0 12/09/23 07:28 BMI result Body Mass Index 22.7 Gen: in no acute distress HEENT: sclera anicteric, moist mucus membranes Neck: supple Lungs: clear to auscultation bilaterally Heart: regular rate and rhythm, no murmurs Abd: soft, non-tender, non-distended Ext: no edema, L hip with dry dressing Skin: warm/well-perfused Neuro: alert and oriented x3, no focal findings Psych: appropriate affect Objective Data Active Medications Acetaminophen (Acetaminophen 325 Mg Tablet) 650 mg PO Q6H PRN PRN Reason: Pain, Mild (Pain Scale 1-3) Last Admin: 12/08/23 17:55 Dose: 650 mg Documented By: TRAN Albuterol Sulfate (Albuterol Sulfate (0.042%) 1.25 Mg/3 Ml Vial.Neb) 0.63 mg INHALE QID PRN PRN Reason: shortness of breath or wheezing Albuterol/Ipratropium (Albuterol/Iprat 2.5/0.5mg 3 Ml Ampul.Neb) 3 ml INHALE QID PRN PRN Reason: Shortness Of Breath Or Wheezing Ascorbic Acid (Ascorbic Acid 500 Mg Tablet) 500 mg PO DAILY [facility] Last Admin: 12/09/23 08:12 Dose: 500 mg Documented By: KAYLA Cyclobenzaprine HCl (Cyclobenzaprine Hcl 10 Mg Tablet) 10 mg PO TID PRN PRN Reason: muscle spasm Enoxaparin Sodium (Enoxaparin Sodium 40 Mg/0.4 Ml Syringe) 40 mg SUBCUT Q24H [facility] Last Admin: 12/08/23 17:51 Dose: 40 mg Documented By: TRAN Escitalopram Oxalate (Escitalopram Oxalate 5 Mg Tablet) 5 mg PO DAILY [facility] Last Admin: 12/09/23 08:12 Dose: 5 mg Documented By: KAYLA Ferrous Sulfate (Ferrous Sulfate 324 Mg Tablet.) 324 mg PO BID [facility] Last Admin: 12/09/23 08:12 Dose: 324 mg Documented By: KAYLA Fluticasone/Umeclidinium/Vilanterol (Fluticasone/Umeclidinium/Vilanterol 200/62.5/25 Blst.W.Dev) 1 puff INHALE RDAILY [facility] Last Admin: 12/09/23 08:42 Dose: 1 puff Documented By: GARRICK Gabapentin (Gabapentin 300 Mg Capsule) 300 mg PO BEDTIME [facility] Last Admin: 12/08/23 20:58 Dose: 300 mg Documented By: GURU Hydromorphone HCl (Hydromorphone Hcl 1 Mg/Ml Syringe) 0.5 mg IVPUSH Q3H PRN; Protocol PRN Reason: Pain, Severe (Pain Scale 7-10) Last Admin: 12/09/23 08:12 Dose: 0.5 mg Documented By: KAYLA Lidocaine (Lidocaine 4 % Patch Adh..Patch) 2 patch TRANSDERMA DAILY [facility] Last Admin: 12/09/23 08:12 Dose: 2 patch Documented By: KAYLA Nicotine (Nicotine 14 Mg Patch.Td24) 14 mg TRANSDERMA DAILY [facility] Last Admin: 12/09/23 08:11 Dose: 14 mg Documented By: KAYLA Omeprazole (Omeprazole 20 Mg Capsule.) 20 mg PO DAILY@0630 [facility] Last Admin: 12/09/23 06:07 Dose: 20 mg Documented By: GURU Ondansetron HCl (Ondansetron Hcl 4 Mg/2 Ml Vial) 4 mg IVPUSH Q8H PRN PRN Reason: Nausea and Vomiting Oxycodone HCl (Oxycodone Hcl Immed Release 5 Mg Tablet) 5 mg PO Q4H PRN PRN Reason: Pain, Moderate(Pain Scale 4-6) Last Admin: 12/09/23 10:47 Dose: 5 mg Documented By: KAYLA Senna (Sennosides 8.6 Mg Tablet) 17.2 mg PO BEDTIME PRN PRN Reason: Constipation Sodium Chloride (0.9 % Sodium Chloride Flush 3 Ml Syringe) 3 ml IVFLUSH QSHIFT [facility] Last Admin: 12/09/23 08:12 Dose: 3 ml Documented By: KAYLA Labs 12/08/23 05:27 12/08/23 05:27 Assessment and Plan (1) Intertrochanteric fracture: Status: Acute Plan d4 83yo F with asthma/COPD overlap, anxiety, GERD, osteopenia admitted for displaced intertronchanteric L femur fx femur fx - POD2 L IM nail - PT/STR - LMWH x30d postop asthma/COPD overlap without acute exac - continue maintenance inhalers, prn albuterol neuropathy - gabapentin GERD - PPI mood disorder - escitalopram tobacco abuse - NRT VTE ppx - LMWH dispo - STR In my clinical judgment, the patient requires continued inpatient hospitalization for the following reasons: postop care, placement in STR Total time managing care of this patient today: 35 minutes. Quality Stroke Does the patient have a stroke diagnosis?: No VTE Prior VTE?: No VTE Risk Level:: Medical - moderate - high VTE Device Contraindication: N/A - Device Ordered VTE Drug Contraindication: Treatment Not Indicated
[2023-12-09] MEDS: Enoxaparin Sodium 40 MG/0.4 ML SYRINGE SUBCUT (17:08)
[2023-12-09] MEDS: Acetaminophen 325 MG TABLET 650 MG PO (19:55)
[2023-12-09] MEDS: Gabapentin 300 MG CAPSULE PO (20:55)
[2023-12-09] MEDS: Cyclobenzaprine HCl 10 MG TABLET PO (23:59)
[2023-12-10 00:09] VITALS: TEMP 37.4
[2023-12-10 03:22] VITALS: BP 129/59; PULSE 93; RESP 16; TEMP 36.2; O2SAT 92
[2023-12-10] MEDS: Omeprazole 20 MG CAPSULE.DR PO (06:05)
[2023-12-10] MEDS: Lidocaine 4 % Patch ADH..PATCH 2 PATCH TRANSDERMA (07:15)
[2023-12-10] MEDS: Nicotine 14 MG PATCH.TD24 TRANSDERMA (07:15)
[2023-12-10] MEDS: Ascorbic Acid 500 MG TABLET PO (07:16)
[2023-12-10] MEDS: Escitalopram Oxalate 5 MG TABLET PO (07:16)
[2023-12-10] MEDS: Ferrous Sulfate 324 MG TABLET.DR PO (07:16)
[2023-12-10 07:18] VITALS: BP 132/72; PULSE 99; RESP 18; TEMP 36.8; O2SAT 94
[2023-12-10] MEDS: 0.9 % Sodium Chloride Flush 3 ML SYRINGE IVFLUSH ×2 (07:23→16:57)
[2023-12-10] MEDS: oxyCODONE HCl Immed Release 5 MG TABLET PO (07:23)
[2023-12-10] MEDS: Fluticasone/Umeclidinium/Vilanterol 200/62.5/25 BLST.W.DEV 1 PUFF INHALE (07:41)
[2023-12-10 07:42] VITALS: PULSE 99; RESP 18; O2SAT 98
[2023-12-10 09:42] VITALS: BP 132/72; PULSE 99; O2SAT 94
[2023-12-10] MEDS: polyethylene glycoL 3350 17 GM POWD.PACK PO (10:11)
[2023-12-10] MEDS: Sennosides/Docusate Sodium TABLET 2 TAB PO (10:11)
--- NOTE | 2023-12-10 14:04 | HO.PM.IMPN ---
Subjective Subjective Date of Service: 12/10/23 Interval History: This history was taken in Pashto from the patient. Pain controlled. No dyspnea. Eating well. Constipated. Review of Systems Review of Systems: Yes all other systems are reviewed and are negative Physical Exam Vital Signs: Vital Signs: Last Vital Signs Temp 98.3 F 12/10/23 07:18 Pulse 99 12/10/23 09:42 Resp 18 12/10/23 07:42 BP 132/72 12/10/23 09:42 Pulse Ox 94 12/10/23 09:42 O2 Del Method Room Air 12/10/23 07:18 O2 Flow Rate 2 12/09/23 19:23 BMI result Body Mass Index 22.7 Gen: in no acute distress HEENT: sclera anicteric, moist mucus membranes Neck: supple Lungs: clear to auscultation bilaterally Heart: regular rate and rhythm, no murmurs Abd: soft, non-tender, non-distended Ext: no edema, L hip with dry dressing Skin: warm/well-perfused Neuro: alert and oriented x3, no focal findings Psych: appropriate affect Objective Data Active Medications Acetaminophen (Acetaminophen 325 Mg Tablet) 650 mg PO Q6H PRN PRN Reason: Pain, Mild (Pain Scale 1-3) Last Admin: 12/09/23 19:55 Dose: 650 mg Documented By: GURU Albuterol Sulfate (Albuterol Sulfate (0.042%) 1.25 Mg/3 Ml Vial.Neb) 0.63 mg INHALE QID PRN PRN Reason: shortness of breath or wheezing Albuterol/Ipratropium (Albuterol/Iprat 2.5/0.5mg 3 Ml Ampul.Neb) 3 ml INHALE QID PRN PRN Reason: Shortness Of Breath Or Wheezing Ascorbic Acid (Ascorbic Acid 500 Mg Tablet) 500 mg PO DAILY [facility] Last Admin: 12/10/23 07:16 Dose: 500 mg Documented By: DIMITRIS Cyclobenzaprine HCl (Cyclobenzaprine Hcl 10 Mg Tablet) 10 mg PO TID PRN PRN Reason: muscle spasm Last Admin: 12/09/23 23:59 Dose: 10 mg Documented By: GURU Enoxaparin Sodium (Enoxaparin Sodium 40 Mg/0.4 Ml Syringe) 40 mg SUBCUT Q24H [facility] Last Admin: 12/09/23 17:08 Dose: 40 mg Documented By: KAYLA Escitalopram Oxalate (Escitalopram Oxalate 5 Mg Tablet) 5 mg PO DAILY [facility] Last Admin: 12/10/23 07:16 Dose: 5 mg Documented By: DIMITRIS Ferrous Sulfate (Ferrous Sulfate 324 Mg Tablet.) 324 mg PO BID [facility] Last Admin: 12/10/23 07:16 Dose: 324 mg Documented By: DIMITRIS Fluticasone/Umeclidinium/Vilanterol (Fluticasone/Umeclidinium/Vilanterol 200/62.5/25 Blst.W.Dev) 1 puff INHALE RDAILY [facility] Last Admin: 12/10/23 07:41 Dose: 1 puff Documented By: HONORIO Gabapentin (Gabapentin 300 Mg Capsule) 300 mg PO BEDTIME [facility] Last Admin: 12/09/23 20:55 Dose: 300 mg Documented By: GURU Hydromorphone HCl (Hydromorphone Hcl 1 Mg/Ml Syringe) 0.5 mg IVPUSH Q3H PRN; Protocol PRN Reason: Pain, Severe (Pain Scale 7-10) Last Admin: 12/09/23 15:15 Dose: 0.5 mg Documented By: KAYLA Lidocaine (Lidocaine 4 % Patch Adh..Patch) 2 patch TRANSDERMA DAILY [facility] Last Admin: 12/10/23 07:15 Dose: 2 patch Documented By: DIMITRIS Nicotine (Nicotine 14 Mg Patch.Td24) 14 mg TRANSDERMA DAILY [facility] Last Admin: 12/10/23 07:15 Dose: 14 mg Documented By: DIMITRIS Omeprazole (Omeprazole 20 Mg Capsule.) 20 mg PO DAILY@0630 [facility] Last Admin: 12/10/23 06:05 Dose: 20 mg Documented By: GURU Ondansetron HCl (Ondansetron Hcl 4 Mg/2 Ml Vial) 4 mg IVPUSH Q8H PRN PRN Reason: Nausea and Vomiting Oxycodone HCl (Oxycodone Hcl Immed Release 5 Mg Tablet) 5 mg PO Q4H PRN PRN Reason: Pain, Moderate(Pain Scale 4-6) Last Admin: 12/10/23 07:23 Dose: 5 mg Documented By: DIMITRIS Polyethylene Glycol (Polyethylene Glycol 3350 17 Gm Powd.Pack) 17 gm PO DAILY [facility] Last Admin: 12/10/23 10:11 Dose: 17 gm Documented By: KAYLA Senna (Sennosides 8.6 Mg Tablet) 17.2 mg PO BEDTIME PRN PRN Reason: Constipation Senna/Docusate Sodium (Sennosides/Docusate Sodium Tablet) 2 tab PO BID [facility] Last Admin: 12/10/23 10:11 Dose: 2 tab Documented By: KAYLA Sodium Chloride (0.9 % Sodium Chloride Flush 3 Ml Syringe) 3 ml IVFLUSH QSHIFT [facility] Last Admin: 12/10/23 07:23 Dose: 3 ml Documented By: VENLA Labs 12/08/23 05:27 12/08/23 05:27 Assessment and Plan (1) Intertrochanteric fracture: Status: Acute Plan d5 83yo F with asthma/COPD overlap, anxiety, GERD, osteopenia admitted for displaced intertronchanteric L femur fx femur fx - POD3 L IM nail - PT/STR - LMWH x30d postop constipation - bowel regimen asthma/COPD overlap without acute exac - continue maintenance inhalers, prn albuterol neuropathy - gabapentin GERD - PPI mood disorder - escitalopram tobacco abuse - NRT VTE ppx - LMWH dispo - STR In my clinical judgment, the patient requires continued inpatient hospitalization for the following reasons: postop care, placement in STR Total time managing care of this patient today: 35 minutes. Quality Stroke Does the patient have a stroke diagnosis?: No VTE Prior VTE?: No VTE Risk Level:: Medical - moderate - high VTE Device Contraindication: N/A - Device Ordered VTE Drug Contraindication: Treatment Not Indicated
[2023-12-10] MEDS: Acetaminophen 325 MG TABLET 650 MG PO (14:34)
[2023-12-10 15:29] VITALS: BP 136/62; PULSE 104; RESP 18; TEMP 36.5; O2SAT 96
--- NOTE | 2023-12-10 15:40 | MHC.CM.PN ---
Patient medically cleared for dc to STR at [facility]. Insurance auth obtained. BLS scheduled for 1800. , RN, patient and family aware. IMM delivered.
--- NOTE | 2023-12-10 16:13 | PM.DS ---
DS: Providers Provider Date of Service: 12/10/23 Date of admission: 12/06/23 09:56 Date of discharge: 12/10/23 Primary care physician: Thaddeus Romano MD DS: Diagnosis Discharge Diagnosis (1) Intertrochanteric fracture: Status: Acute DS: Summary Hospital Course Hospital Course: From the history and physical by the admitting hospitalist, MARY Casiano, 12/06/23: 83-year-old female with history of asthma/COPD overlap, anxiety, GERD, osteopenia who was not on any blood thinners presented to the ED earlier today after sustaining a mechanical fall. She was attempting to get out of bed and lost her balance falling onto the left hip. She was able to call for help. Denies any head strike or loss of consciousness. She does live at home with her handicapped and does not use any assistive devices to ambulate and was ambulatory prior to the fall. Since arrival to the ED, vital signs stable. Hematology except for a mild, stable normocytic anemia with H/H 10.0/31.1%. Renal function electrolyte levels normal. Urinalysis unremarkable. Negative for influenza, RSV, COVID-19. Head CT negative for any acute intracranial abnormalities. Cervical spine CT negative for any acute osseous abnormalities. X-ray of the left hip/pelvis showed slightly displaced intertrochanteric fracture of the left femur. In the ED, has been given 2 mg morphine, 0.5 mg Dilaudid, and Zofran. She will be admitted for further management of mildly displaced intertrochanteric fracture of left femur. 83yo F with asthma/COPD overlap, anxiety, GERD, and osteopenia who was admitted for a displaced intertronchanteric L femur fx. Orthopedics was consulted and she underwent IM nailing of the L femur on 12/07/23. She did well postoperatively and was started on Lovenox for DVT prophylaxis, which she will continue for 30 days postoperatively. She was transferred to short-term rehabilitation. Time Attestation Discharge Coordination Time (in mins): 35 Quality: Safe Use of Opioids Does Pt have an Active Cancer Diagnosis on the Problem List?: No Quality: Stroke Does the patient have a stroke diagnosis?: No Physical Exam Vital Signs: Vital Signs: Last Vital Signs Temp 97.7 F 12/10/23 15:29 Pulse 104 H 12/10/23 15:29 Resp 18 12/10/23 15:29 BP 136/62 12/10/23 15:29 Pulse Ox 96 12/10/23 15:29 O2 Del Method Room Air 12/10/23 15:29 O2 Flow Rate 2 12/09/23 19:23 BMI result Body Mass Index 22.7 Gen: in no acute distress HEENT: sclera anicteric, moist mucus membranes Neck: supple Lungs: clear to auscultation bilaterally Heart: regular rate and rhythm, no murmurs Abd: soft, non-tender, non-distended Ext: no edema, L hip with dry dressing Skin: warm/well-perfused Neuro: alert and oriented x3, no focal findings Psych: appropriate affect DS: Data Data Completed and Pending Completed studies during hospitalization [Text1]: Laboratory Results WBC 6.0 X10*3/uL (4.8-10.8) 12/08/23 05:27 RBC 3.49 X10*6/uL (4.20-5.50) L 12/08/23 05:27 Hgb 9.5 g/dl (12.0-16.0) L 12/08/23 05:27 Hct 30.1 % (37.0-47.0) L 12/08/23 05:27 MCV 86.2 fL (80.0-98.0) 12/08/23 05:27 MCH 27.2 pg (27.0-33.0) 12/08/23 05:27 MCHC 31.6 g/dl (31.0-35.0) 12/08/23 05:27 RDW 15.3 % (11.0-16.0) 12/08/23 05:27 Plt Count 245 X10*3/uL (160-400) 12/08/23 05:27 MPV 10.3 fL (9.4-12.3) 12/08/23 05:27 Immature Gran % (Auto) 0.3 % (0.0-0.4) 12/07/23 05:53 Neut % (Auto) 72.3 % (45-73) 12/07/23 05:53 Lymph % (Auto) 13.8 % (20-40) L 12/07/23 05:53 [place] % (Auto) 9.6 % (2-11) 12/07/23 05:53 Eos % (Auto) 3.2 % (0-4) 12/07/23 05:53 Baso % (Auto) 0.8 % (0-2) 12/07/23 05:53 Lymph # (Auto) 0.8 X10*3/uL (1.2-4.9) L 12/07/23 05:53 [place] # (Auto) 0.6 X10*3/uL (0.1-1.2) 12/07/23 05:53 Eos # (Auto) 0.2 X10*3/uL (0.0-0.4) 12/07/23 05:53 Baso # (Auto) 0.1 X10*3/uL (0.0-0.2) 12/07/23 05:53 Abs Immat Gran (auto) 0.02 X10*3/uL (0.00-0.03) 12/07/23 05:53 Absolute Neuts (auto) 4.3 x10*3/uL (2.0-8.3) 12/07/23 05:53 Absolute Nucleated RBC 0.000 X10*3/uL (0.0-0.012) 12/08/23 05:27 Nucleated RBC % (auto) 0.0 /100WBC (0.0-0.2) 12/08/23 05:27 PT 12.7 SEC (11.1-13.3) 12/06/23 07:58 INR 1.0 (0.9-1.1) 12/06/23 07:58 Sodium 138 mmol/L (135-145) 12/08/23 05:27 Potassium 4.9 mmol/L (3.3-5.1) 12/08/23 05:27 Chloride 103 mmol/L (96-108) 12/08/23 05:27 Carbon Dioxide 27 mmol/L (22-29) 12/08/23 05:27 Anion Gap 13 (12-20) 12/08/23 05:27 BUN 13 mg/dL (9-16) 12/08/23 05:27 Creatinine 0.78 mg/dL (0.5-1.4) 12/08/23 05:27 Estim Creat Clear Calc 53.1 12/08/23 05:27 Estimated GFR > 60 12/08/23 05:27 Random Glucose 167 mg/dL (60-115) H 12/08/23 05:27 Calcium 9.1 mg/dL (8.4-10.2) 12/08/23 05:27 Magnesium 1.9 mg/dL (1.6-2.6) 12/06/23 07:58 Total Bilirubin 0.2 mg/dL (0.0-1.0) 12/06/23 07:58 Direct Bilirubin < 0.2 mg/dL (0.0-0.5) 12/06/23 07:58 AST 18 U/L (5-31) 12/06/23 07:58 ALT 18 U/L (0-31) 12/06/23 07:58 Alkaline Phosphatase 66 U/L (39-117) 12/06/23 07:58 Total Protein 6.8 g/dL (6.5-8.0) 12/06/23 07:58 Albumin 3.8 g/dL (3.5-5.0) 12/06/23 07:58 Urine Color Yellow 12/06/23 08:24 Urine Appearance Clear 12/06/23 08:24 Urine pH 7.0 (5.0-9.0) 12/06/23 08:24 Ur Specific [place] <= 1.005 (1.005-1.025) 12/06/23 08:24 Urine Protein Negative mg/dL (Neg-Trace) 12/06/23 08:24 Urine Glucose (UA) Negative mg/dL (Negative) 12/06/23 08:24 Urine Ketones Negative mg/dL (Negative) 12/06/23 08:24 Urine Blood Negative (Negative) 12/06/23 08:24 Urine Nitrite Negative (Negative) 12/06/23 08:24 Ur Leukocyte Esterase Negative (Negative) 12/06/23 08:24 Urine RBC 0-2 /HPF (0-2) 12/06/23 08:24 Urine WBC 0-5 /HPF (0-5) 12/06/23 08:24 Ur Squamous Epith Cells 0-2 /HPF (0-2) 12/06/23 08:24 Urine Bacteria None Seen (None Seen) 12/06/23 08:24 Hyaline Casts 0-2 /LPF (0-2) 12/06/23 08:24 Influenza Type A (PCR) NEGATIVE (Negative) 12/06/23 07:58 Influenza Type B (PCR) NEGATIVE (Negative) 12/06/23 07:58 RSV RNA Qual (PCR) NEGATIVE (Negative) 12/06/23 07:58 SARS-CoV-2 RNA (RT-PCR) NEGATIVE (Negative) 12/06/23 07:58 Blood Type A Negative 12/06/23 07:58 Antibody Screen POSITIVE 12/06/23 07:58 Antibody Identification Anti-C Anti-D 12/06/23 07:58 Antibody Identification Anti-C Anti-D 12/06/23 07:58 Crossmatch (AHG) See Detail 12/06/23 07:[address] 12/06/23 05:35 IMPRESSION: HEAD: No acute intracranial findings. CERVICAL SPINE: No acute findings identified. Degenerative changes as noted above. Head CT 12/06/23 05:35 IMPRESSION: HEAD: No acute intracranial findings. CERVICAL SPINE: No acute findings identified. Degenerative changes as noted above. Hip/Pelvis X-Ray 12/06/23 05:41 IMPRESSION: Slightly displaced intertrochanteric fracture of the left femur. Chest X-Ray 12/06/23 08:19 IMPRESSION: No acute intrathoracic disease. Discharge Plan Discharge Anticipated Discharge Date/Time: 12/10/23 18:07 Patient Disposition: er SNF Discharge Diagnosis: femur fracture Referrals: ALIYAH MULLIGAN [Other] - 1 Day (SHORT TERM REHAB) Milton Link PA-C [Physician Customer Account Executive] - 2 Weeks (12/23/23 11:30 [facility] Milton Link PA-C) Name,MD Thaddeus [Primary Care Provider] - 1 Week Discharge Medications: New nicotine 14 mg/24 hr Patch 24 Hour 14 mg transdermal DAILY Qty: 1 0RF polyethylene glycol 3350 17 gram Powder In Packet 17 g PO DAILY Qty: 1 0RF sennosides-docusate sodium [Senna Plus] 8.6-50 mg Tablet 2 tab PO BID Qty: 1 0RF oxycodone 5 mg Tablet 5 mg PO Q4H PRN (Reason: Pain, Moderate(Pain Scale 4-6)) Qty: 12 0RF Rx Instructions: Partial Fill upon patient request. enoxaparin 40 mg/0.4 mL Syringe 40 mg subcut Q24H Qty: 1 0RF Continued omeprazole 20 mg capsule,delayed release(DR/EC) 20 mg PO DAILY Qty: 90 1RF ascorbic acid (vitamin C) [Vitamin C] 500 mg Tablet 500 mg PO DAILY citalopram 10 mg tablet 10 mg PO DAILY ipratropium-albuterol 0.5 mg-3 mg(2.5 mg base)/3 mL solution for nebulization 1 vial inhalation QID PRN (Reason: Shortness Of Breath Or Wheezing) acetaminophen [Tylenol] 325 mg tablet 650 mg PO Q6H PRN (Reason: fever or pain) Qty: 10 0RF albuterol sulfate 0.63 mg/3 mL solution for nebulization 0.63 mg inhalation QID PRN (Reason: shortness of breath or wheezing) Qty: 75 0RF Trelegy Ellipta 200-62.5-25 mcg blister with device 1 puff inhalation DAILY cyclobenzaprine 10 mg tablet 10 mg PO TID ferrous sulfate 325 mg (65 mg iron) tablet 325 mg PO BID gabapentin 300 mg capsule 300 mg PO BEDTIME lidocaine 5 % adhesive patch,medicated 2 patch topical DAILY 15 Days Qty: 30 0RF Rx Instructions: apply to affected areas up to 12 hours per day Discharge Orders: Discharge Order (Routine); Ordered 12/10/23 Ordered By: Bell Cameron Diet: Advance to usual diet Activity on Discharge: As tolerated Stand Alone Forms: Patient Portal Discharge page Print Language: Icelandic Care Plan Goals: recovery from fracture Health Concerns: femur fracture Plan of Treatment: Gait training, strengthening, ADLs Continue lovenox for dvt ppx x4 weeks Keep dressing clean,dry and intact-no showering or tub baths Follow up with Orthopedics in 2 weeks Assessment: See Discharge Summary.
[2023-12-10] MEDS: Enoxaparin Sodium 40 MG/0.4 ML SYRINGE SUBCUT (16:57)
--- NOTE | 2023-12-13 09:03 | W.PM.OPN ---
Operative Note Operative Note Date of Service: 12/07/23 Narrative: Date of Service: 12/07/23 Pre-op diagnosis: Left hip IT fracture Post-op diagnosis: same Procedure: Left hip IMN Implants: Renault 180 x11 130 deg with 95 mm lag screw and 32.5 distal interlock Surgeon: Onel Serrano MD Anesthesia: GLMA and local Was an Lockstitch Front Edge Tape Sewer used for this Procedure?: No Estimated blood loss (mL): 100 IV fluids (mL): 750 Pathology: none sent Condition: stable Disposition: PACU Procedure in detail: Patient was brought to the operating room and prepped and draped in standard sterile fashion. Time-out was called to identify proper site procedure proper surgeon and IV antibiotics per weight were administered. She was positioned on the fracture table and a traction and slight internal rotation were performed and biplanar fluoroscopy confirmed initial fracture reduction. I then made a stab incision proximal to the greater trochanter in using a guidewire made a entry point just lateral to the tip of the greater trochanter and placed a guidewire into the femoral metadiaphysis. I then over-reamed with 15 mm Reamer placed my ball-tip guidewire down distally in the femur. I selected an 11 x 180 nail and reamed up to a 13. I then inserted the nail. I then turned my attention to the hip screw where I used a guidewire and a tip apex distance of less than 1.5 measured a 95mm hip screw. I then pre drilled and placed a hip screw using biplanar fluoroscopy. Once I was satisfied with a tip-apex distance of less than 2 cm, I turned my attention to the distal aspect of the nail. Using the dynamic guide I placed 1 static distal interlocking screw in standard AO technique. I then removed all I then placed my set screw proximally and removed all extraneous instrumentation. Final biplanar radiographs were taken. I was satisfied with the position of the hardware and the fracture reduction. I think copiously irrigated closed with absorbable sutures tiffany and injected 30 mL of into the area of the incisions. Traction was let down patient was placed in sterile dressing awakened from anesthesia brought to recovery room stable condition there were no known complications.
== END 2023-12-10 18:16 | disposition skilled nursing facility (03) | DRG 482 ==
LOC: HO.ED 07:43 → HO.EDOVER 10:00 → HO.S3 17:21
PROVIDERS: Orthopaedic Surgery; Student in an Organized Health Care Education/Training Program; Admitting Provider Physician Assistant; Emergency Provider Emergency Medicine; PCP Internal Medicine Geriatric Medicine; Visit Provider Family Medicine
DX: S72.142A Displaced intertrochanteric fracture of left femur, initial encounter for closed fracture (principal); W19.XXXA Unspecified fall, initial encounter; F17.210 Nicotine dependence, cigarettes, uncomplicated; J44.9 Chronic obstructive pulmonary disease, unspecified; F41.9 Anxiety disorder, unspecified; F39 Unspecified mood [affective] disorder; K21.9 Gastro-esophageal reflux disease without esophagitis; G62.9 Polyneuropathy, unspecified; Z71.6 Tobacco abuse counseling; Z20.822 Contact with and (suspected) exposure to COVID-19; Z79.899 Other long term (current) drug therapy
CPT/HCPCS: 0241U; 36415; 70450; 71045; 72125; 73502; 80048; 80076; 81001; 83735; 85025; 85027; 85610; 86850; 86870; 86885; 86900; 86901; 86902; 86920; 86922; 93005; 94640; 97116; 97162; 97166; 97530; 97535; 99285; C1713; C1758; J0131; J0690; J1100; J1170; J1650; J2270; J2405; J2704; J2795; J3010

== ENCOUNTER → 2023-12-06 06:04 | Outpatient (BNV) | payer OTHER, SELFPAY | PROVIDERS: Emergency Provider Emergency Medicine; PCP Internal Medicine Geriatric Medicine; Visit Provider Physician Assistant | DX: S72.142A Displaced intertrochanteric fracture of left femur, initial encounter for closed fracture (principal) | CPT/HCPCS: 27245; 99024; 99284 ==

== ENCOUNTER → 2023-12-06 07:12 | Outpatient (BNV) | payer OTHER, SELFPAY | PROVIDERS: Admitting Provider Physician Assistant; Emergency Provider Emergency Medicine; PCP Internal Medicine Geriatric Medicine; Visit Provider Internal Medicine Cardiovascular Disease | DX: S72.142A Displaced intertrochanteric fracture of left femur, initial encounter for closed fracture (principal); W19.XXXA Unspecified fall, initial encounter | CPT/HCPCS: 93010 ==

== ENCOUNTER → 2023-12-06 09:56 | Outpatient (BNV) | payer OTHER, SELFPAY | PROVIDERS: Admitting Provider Physician Assistant; Emergency Provider Emergency Medicine; PCP Internal Medicine Geriatric Medicine; Visit Provider Physician Assistant | DX: S72.142A Displaced intertrochanteric fracture of left femur, initial encounter for closed fracture (principal) | CPT/HCPCS: 99223; 99232; 99239 ==

== ENCOUNTER 2023-12-23 08:54 | Outpatient (REF) | payer OTHER, SELFPAY ==
--- NOTE | ~2023-12-23 | XR_ITS ---
EXAMINATION: XR FEMUR, LEFT CLINICAL INFORMATION: Pain in leg, unspecified. COMPARISON: 12/08/2023. TECHNIQUE: 5 views of the left femur including AP and cross-table lateral views. FINDINGS: Advanced degenerative changes in the left hip redemonstrated. Redemonstration of an intertrochanteric femoral nail with interlocking screw fixation device transfixing previously identified slightly displaced fracture of the left femoral neck. Fracture line is conspicuous with mild bridging callus formation. Expected postsurgical changes with lateral skin tiffany. Degenerative changes on limited views of the knee. XR/XR femur LT 2V IMPRESSION: Redemonstration of left femoral neck fracture status post ORIF. Hardware appears intact.
== END 2023-12-23 08:55 | disposition home or self-care (01) ==
LOC: HO.HOSX 08:54
PROVIDERS: Visit Provider Physician Assistant
DX: S72.142D Displaced intertrochanteric fracture of left femur, subsequent encounter for closed fracture with routine healing (principal)
CPT/HCPCS: 73552; 99212

== ENCOUNTER 2023-12-23 10:31 | Outpatient (AMB) | payer OTHER, SELFPAY ==
--- NOTE | 2023-12-23 10:50 | A.OFFVIS_ITS ---
Intake Visit Reasons: PO-left hip IMN 12/07/23 NE Intake Note: Rukhsana an 83 year old female who presents today for a post operative visit s/p left hip IMN 12/07/23 NE. Patient reports she is doing well, states her pain is improving little by little. Allergies No Known Allergies Allergy (Verified 12/23/23 11:08) HPI HPI PO-left hip IMN 12/07/23 NE: Details: 83-year-old female who returns to the office today with an project management professor for post- op IMN, 12/07/[address] Serrano. She states she has gradual improvement in her symptoms and is doing well overall. She is working on physical therapy as instructed. She has no concerns today. [facility] Medical History Mass of right axilla COVID-19 Duodenal arteriovenous malformation Osteopenia Anemia GI bleed GERD (gastroesophageal reflux disease) Peripheral neuropathy Anxiety Depression COPD (chronic obstructive pulmonary disease) Asthma Elevated cholesterol Lab test negative for COVID-19 virus Surgical History History of tubal ligation History of axillary surgery Hx of oophorectomy Hx of colonoscopy Hx of esophagogastroduodenoscopy Hx of foot surgery Hx of cholecystectomy Hx of tonsillectomy Hx of appendectomy Family History Father Stroke Asthma Mother Heart attack Stroke Asthma Sister DVT (deep venous thrombosis) Asthma Brother COPD (chronic obstructive pulmonary disease) Son Cancer Social History Household Members: Children Household Members Other:: son Housing: Apartment Are you a primary health care marketing manager to a significant other at home: No Do you presently have visiting nurse or other home services: No Alcohol intake: never Patient Tobacco Use Status: Current everyday Tobacco user Tobacco use type: Cigarette Cigarettes Per Day: 5 Years Smoked: 60 Second Hand Smoke Exposure: Yes Advance Directives Date on File: 01/16/21 service: No Current occupational status: retired Review of Systems Const All systems reviewed & are unremarkable except as noted in HPI and below Physical Exam Extrem Other: Left hip: Incision clean, dry and intact. No erythema or drainage. She does have discomfort with hip flexion. No pain with ROM of hip. Results Reviewed Results Reviewed: Xrays were obtained in the office today and personally reviewed by me of the left hip show intact IMN with stable fracture pattern Assessment & Plan Assessment & Plan (1) Intertrochanteric fracture: Code(s): S72.143A - Displaced intertrochanteric fracture of unspecified femur, initial encounter for closed fracture Category: Medical Qualifiers: Encounter type: initial encounter Fracture alignment: displaced Fracture type: closed Laterality: left Qualified Code(s): S72.142A - Displaced intertrochanteric fracture of left femur, initial encounter for closed fracture Plan Center removed today, steri strips applied. She will continue working on physical therapy to improve her strength and gait mechanics. I would anticipate she discharges with home VNA soon. I would like to see her back in 4 weeks with new x-rays, sooner if needed. Orders: Orders XR femur LT 2V Today M79.606 - Pain in leg, unspecified Patient Instructions: Scribed for Milton Link PA-C, by Ross Kate medical secretary, on 12/23/2023 at 11:30 AM EST. I, Milton Link PA-C, have personally reviewed and agree with the information entered by the scribe. Coding Level of Care Code Global (06875) Diagnoses Intertrochanteric fracture S72.142A Encounter type: initial encounter Fracture alignment: displaced Fracture type: closed Laterality: left
== END 2023-12-23 11:47 | disposition home or self-care (01) ==
PROVIDERS: PCP Internal Medicine Geriatric Medicine; Visit Provider Physician Assistant
DX: S72.142A Displaced intertrochanteric fracture of left femur, initial encounter for closed fracture (principal)
CPT/HCPCS: 99024

== ENCOUNTER 2024-01-20 06:02 | Outpatient (REF) | payer OTHER, SELFPAY ==
--- NOTE | ~2024-01-20 | XR_ITS ---
EXAMINATION: XR FEMUR, LEFT CLINICAL INFORMATION: Pain in leg, unspecified. Hip pain. COMPARISON: 12/23/2023, 12/06/2023. TECHNIQUE: 2 AP and 2 crosstable lateral views of the left femur. Limited visualization on crosstable lateral views. FINDINGS: Redemonstration of surgical hardware with left trochanteric femoral nail with single distal interlocking screw transfixing previously identified slightly displaced fracture of the left femoral neck. Fracture line is less conspicuous with evidence of interval bridging callus formation. Hardware appears intact and the bones are diffusely demineralized. Degenerative changes in the left sacroiliac joint. Degenerative changes in the left hip with joint space narrowing and hypertrophic change. Mild degenerative changes on images of the left knee. XR/XR femur LT 2V IMPRESSION: Redemonstration of surgical hardware with left trochanteric femoral nail with single distal interlocking screw. Fracture line is less conspicuous with evidence of interval bridging callus formation. Hardware appears intact.
== END 2024-01-20 06:03 | disposition home or self-care (01) ==
LOC: HO.HOSX 06:02
PROVIDERS: Visit Provider Physician Assistant
DX: S72.142D Displaced intertrochanteric fracture of left femur, subsequent encounter for closed fracture with routine healing (principal)
CPT/HCPCS: 73552; 99212

== ENCOUNTER 2024-01-20 10:36 | Outpatient (AMB) | payer OTHER, SELFPAY ==
--- NOTE | 2024-01-20 10:52 | MHC.OFFVIS ---
Intake Visit Reasons: PO-left hip IMN 12/07/23 NE Intake Note: Rukhsana an 83 year old female who presents today in a wheel chair with her son and granddaughter for a post operative visit s/p left hip IMN 12/07/23 NE. Xrays updated. Patient reports her pain fluctuates in intensity. She continues to attend PT. Allergies lidocaine Allergy (Severe, Verified 01/20/24 11:35) Hives HPI HPI PO-left hip IMN 12/07/23 NE: Details: 83-year-old female who returns to the office today with her granddaughter for post-op left hip IMN, 12/07/[address] Serrano. She states she has pain that fluctuates in intensity. She continues to attend physical therapy as instructed. She is doing well otherwise and has no concerns today. [facility] Medical History Mass of right axilla COVID-19 Duodenal arteriovenous malformation Osteopenia Anemia GI bleed GERD (gastroesophageal reflux disease) Peripheral neuropathy Anxiety Depression COPD (chronic obstructive pulmonary disease) Asthma Elevated cholesterol Lab test negative for COVID-19 virus Surgical History History of tubal ligation History of axillary surgery Hx of oophorectomy Hx of colonoscopy Hx of esophagogastroduodenoscopy Hx of foot surgery Hx of cholecystectomy Hx of tonsillectomy Hx of appendectomy Family History Father Stroke Asthma Mother Heart attack Stroke Asthma Sister DVT (deep venous thrombosis) Asthma Brother COPD (chronic obstructive pulmonary disease) Son Cancer Social History Household Members: Children Household Members Other:: son Housing: Apartment Are you a primary customer care assistant to a significant other at home: No Do you presently have visiting nurse or other home services: No Alcohol intake: never Patient Tobacco Use Status: Current everyday Tobacco user Tobacco use type: Cigarette Cigarettes Per Day: 5 Years Smoked: 60 Second Hand Smoke Exposure: Yes Advance Directives Date on File: 01/16/21 service: No Current occupational status: retired Review of Systems Const All systems reviewed & are unremarkable except as noted in HPI and below Physical Exam Extrem Other: Left hip: Incision clean, dry and intact. No erythema or drainage. She does have discomfort with hip flexion. No pain with ROM of hip. Results Reviewed Results Reviewed: Xrays were obtained in the office today and personally reviewed by me of the left hip show intact IMN with stable fracture pattern Assessment & Plan Assessment & Plan (1) Intertrochanteric fracture: Code(s): S72.143A - Displaced intertrochanteric fracture of unspecified femur, initial encounter for closed fracture Category: Medical Qualifiers: Encounter type: initial encounter Fracture alignment: displaced Fracture type: closed Laterality: left Qualified Code(s): S72.142A - Displaced intertrochanteric fracture of left femur, initial encounter for closed fracture Plan She will continue with physical therapy to work on strengthening and gait training. She will increase activities as tolerated and see back 6 weeks with x-rays, sooner if needed. Orders: Orders XR femur LT 2V Today M79.606 - Pain in leg, unspecified PT Evaluation and Treatment Today S72.142A - Displaced intertrochanteric fracture of left femur, initial encounter for closed fracture Patient Instructions: Scribed for Milton Link PA-C, by Ross Kate medical payment poster, on 01/20/2024 at 11:00 AM EST.? I, Milton Link PA-C, have personally reviewed and agree with the information entered by the scribe. Coding Level of Care Code Global (24379) Diagnoses Intertrochanteric fracture S72.142A Encounter type: initial encounter Fracture alignment: displaced Fracture type: closed Laterality: left
== END 2024-01-20 11:43 | disposition home or self-care (01) ==
PROVIDERS: PCP Internal Medicine Geriatric Medicine; Visit Provider Physician Assistant
DX: S72.142A Displaced intertrochanteric fracture of left femur, initial encounter for closed fracture (principal)
CPT/HCPCS: 99024

== ENCOUNTER 2024-02-10 14:04 | Outpatient (AMB) | payer OTHER, SELFPAY ==
[2024-02-10 14:11] VITALS: BP 122/62; PULSE 105; O2SAT 98; BMI 24.4
--- NOTE | 2024-02-10 14:11 | A.OFFVIS_ITS ---
Vital Signs 02/10/24 14:11 Height 5 ft 3.5 in Weight 139 lb 15.896 oz BMI 24.4 BP 122/62 Blood Pressure Location Rt brachial Position Sitting Pulse 105 H Pulse Source Doppler Pulse Oximetry (%) 98 Oxygen Delivery Method Room Air Intake Visit Reasons: COPD Allergies lidocaine Allergy (Severe, Verified 02/10/24 14:13) Hives HPI HPI COPD: Details: 83-year-old lady, active 40+ pack-year smoker, followed for underlying moderate COPD and chronic cough.? She continues to use Trelegy and albuterol MDI/nebs with good baseline control of her underlying symptoms.? Today patient complains of significant underlying GERD related cough. [facility] Medical History Mass of right axilla COVID-19 Duodenal arteriovenous malformation Osteopenia Anemia GI bleed GERD (gastroesophageal reflux disease) Peripheral neuropathy Anxiety Depression COPD (chronic obstructive pulmonary disease) Asthma Elevated cholesterol Lab test negative for COVID-19 virus Surgical History History of tubal ligation History of axillary surgery Hx of oophorectomy Hx of colonoscopy Hx of esophagogastroduodenoscopy Hx of foot surgery Hx of cholecystectomy Hx of tonsillectomy Hx of appendectomy Family History Father Stroke Asthma Mother Heart attack Stroke Asthma Sister DVT (deep venous thrombosis) Asthma Brother COPD (chronic obstructive pulmonary disease) Son Cancer Social History (Updated 02/10/24 @ 14:14 by BECKI Iniguez) Household Members: Children Household Members Other:: son Housing: Apartment Are you a primary manager primary care to a significant other at home: No Do you presently have visiting nurse or other home services: No Alcohol intake: never Patient Tobacco Use Status: Current everyday Tobacco user Tobacco use type: Cigarette Cigarettes Per Day: 2 Years Smoked: 60 Second Hand Smoke Exposure: Yes Advance Directives Date on File: 01/16/21 service: No Current occupational status: retired Review of Systems Const Denies daytime sleepiness, Denies excessive sweating, Denies fatigue, Denies fever(s), Denies lethargy, Denies malaise, Denies night sweats, Denies snoring and Denies weight loss Eyes Denies blurry vision and Denies itchy eyes ENT Denies nasal congestion, Denies post nasal drip, Denies sinus pain, Denies sinus pressure and Denies other ( Thrush) Card Denies chest pain, Denies pedal edema, Denies dyspnea, Denies orthopnea and Denies paroxysmal nocturnal dyspnea Resp Reports cough, Denies hemoptysis, Denies excessive phlegm production, Denies dyspnea, Denies snoring and Denies wheezing GI Denies abdominal pain and Denies heartburn Musc Denies myalgias, Denies arthralgias and Denies joint swelling Skin/Breast Denies rash Neuro Denies memory loss and Denies seizure-like activity Psych Denies abnormal sleep pattern, Denies anxiety and Denies memory loss Endo Denies excessive sweating, Denies fatigue and Denies heat intolerance Marino/Lymph Denies easy bruising Aller/Immun Denies itchy eyes, Denies seasonal rhinorrhea and Denies wheezing Physical Exam Vital Signs: Last Vital Signs Pulse 105 H 02/10/24 14:11 BP 122/62 02/10/24 14:11 Pulse Ox 98 02/10/24 14:11 Oxygen Delivery Method Room Air 02/10/24 14:11 BMI result Body Mass Index 24.4 Const General: no acute distress and alert Nutritional Appearance: not obese Orientation/consciousness: Other orientation findings ( oriented) HEENT Head: Yes atraumatic Eyes General: appearance normal, both eyes and all related structures Sclerae: sclerae normal EOM: EOMs intact bilaterally Neck Neck: Yes supple Lymphatic: no lymphadenopathy noted Resp Effort & Inspection: normal respiratory effort and no use of accessory muscles Auscultation: clear to auscultation bilaterally Cardio Rate: regular rate Rhythm: regular rhythm Heart sounds: no gallops, no murmurs and no rubs Skin General skin exam: other ( warm) Extrem General: No clubbing, No cyanosis and No edema Assessment & Plan Assessment & Plan (1) COPD (chronic obstructive pulmonary disease): Code(s): J44.9 - Chronic obstructive pulmonary disease, unspecified Category: Medical Plan: Well controlled on Trelegy, DuoNebs, and albuterol MDI. Continue current regimen. (2) GERD (gastroesophageal reflux disease): Code(s): K21.9 - Gastro-esophageal reflux disease without esophagitis Category: Medical Plan: Will increase PPI to 40 mg of omeprazole b.i.d.. Medications: New omeprazole 40 mg PO BID 60 caps 3RF Discontinued omeprazole Discontinued Reason: Doctor's Order 20 mg PO DAILY 90 caps 1RF Coding Level of Care Code Est Pt Level 4 (44628) Diagnoses COPD (chronic obstructive pulmonary disease) J44.9 GERD (gastroesophageal reflux disease) K21.9
== END 2024-02-10 14:36 | disposition home or self-care (01) ==
LOC: HO.HPS 14:04
PROVIDERS: PCP Internal Medicine Geriatric Medicine; Visit Provider Internal Medicine Pulmonary Disease
DX: J44.9 Chronic obstructive pulmonary disease, unspecified (principal); K21.9 Gastro-esophageal reflux disease without esophagitis
CPT/HCPCS: 99214

== ENCOUNTER → 2024-02-10 14:04 | Outpatient (BNVA) | payer OTHER, SELFPAY | PROVIDERS: PCP Internal Medicine Geriatric Medicine; Visit Provider Internal Medicine Pulmonary Disease | DX: J44.9 Chronic obstructive pulmonary disease, unspecified (principal); K21.9 Gastro-esophageal reflux disease without esophagitis | CPT/HCPCS: 99212 ==

== ENCOUNTER 2024-03-02 11:41 | Outpatient (REF) | payer OTHER, SELFPAY ==
--- NOTE | ~2024-03-02 | XR_ITS ---
EXAMINATION: XR FEMUR, LEFT CLINICAL INFORMATION: Leg pain. COMPARISON: Previous x-ray including 01/20/2024. TECHNIQUE: AP and lateral views of the left femur were obtained. FINDINGS: Postsurgical changes with intramedullary nail and screw transfixing a proximal femoral intertrochanteric fracture. Stable position and alignment of the fracture. No hardware fracture. Decreased conspicuity of the fracture plane suggestive of healing. Moderate left hip arthritis. No new acute fractures seen. Mild symphysis pubis degeneration. XR/XR femur LT 2V IMPRESSION: Status post surgical fixation of a proximal femoral trochanteric fracture, with healing changes. Moderate left hip arthritis. Study is assigned for dictation on March 24, 2024
== END 2024-03-02 11:42 | disposition home or self-care (01) ==
LOC: HO.HOSX 11:41
PROVIDERS: Visit Provider Physician Assistant
DX: S72.142D Displaced intertrochanteric fracture of left femur, subsequent encounter for closed fracture with routine healing (principal)
CPT/HCPCS: 73552; 99212

== ENCOUNTER 2024-03-02 12:03 | Outpatient (AMB) | payer OTHER, SELFPAY ==
--- NOTE | 2024-03-02 12:36 | MHC.OFFVIS ---
Vital Signs 03/02/24 12:41 Height 5 ft 3.5 in Weight 139 lb BMI 24.2 Intake Visit Reasons: PO-left hip IMN 12/07/23 NE Intake Note: Rukhsana an 83 year old female who presents today for a post operative visit s/p left hip IMN on 12/07/23 NE. Patient reports having pain in her hip with movement. She mentions having lower back pain. Allergies lidocaine Allergy (Severe, Verified 03/02/24 12:41) Hives Medication List - Last Reconciled 03/02/24 by MARY Mcgill-Peter acetaminophen (Tylenol) 650 mg (2 x 325 mg) PO Q6H PRN albuterol sulfate 0.63 mg (3 mL) inhalation QID PRN ascorbic acid (vitamin C) (Vitamin C) 500 mg PO DAILY azithromycin For 250 mg dose pack: take 500 mg today (day 1), then 250 mg for 4 days (days 2-5) PO citalopram 10 mg PO DAILY cyclobenzaprine 10 mg PO TID enoxaparin 40 mg (0.4 mL) subcut Q24H 3 weeks ferrous sulfate 325 mg PO BID [id number]-nofnifwku-cnvfjslx 200-62.5-25 mcg (Trelegy Ellipta) 1 puff inhalation DAILY gabapentin 300 mg PO BEDTIME ipratropium-albuterol 0.5 mg-3 mg(2.5 mg base)/3 mL 1 vial inhalation QID PRN omeprazole 40 mg PO BID polyethylene glycol 3350 17 grams PO DAILY sennosides-docusate sodium 8.6-50 mg (Senna Plus) 2 tabs PO BID HPI HPI PO-left hip IMN 12/07/23 NE: Details: 83-year-old female who returns to the office today for post-op left hip IMN, 12/07/[address] Serrano. She states she has pain in her hip with movement. She also reports lower back pain. She is doing well otherwise and has no concerns today. [facility] Medical History Mass of right axilla COVID-19 Duodenal arteriovenous malformation Osteopenia Anemia GI bleed GERD (gastroesophageal reflux disease) Peripheral neuropathy Anxiety Depression COPD (chronic obstructive pulmonary disease) Asthma Elevated cholesterol Lab test negative for COVID-19 virus Surgical History History of tubal ligation History of axillary surgery Hx of oophorectomy Hx of colonoscopy Hx of esophagogastroduodenoscopy Hx of foot surgery Hx of cholecystectomy Hx of tonsillectomy Hx of appendectomy Family History Father Stroke Asthma Mother Heart attack Stroke Asthma Sister DVT (deep venous thrombosis) Asthma Brother COPD (chronic obstructive pulmonary disease) Son Cancer Social History Household Members: Children Household Members Other:: son Housing: Apartment Are you a primary personal care service provider to a significant other at home: No Do you presently have visiting nurse or other home services: No Alcohol intake: never Patient Tobacco Use Status: Current everyday Tobacco user Tobacco use type: Cigarette Cigarettes Per Day: 2 Years Smoked: 60 Second Hand Smoke Exposure: Yes Use of substances other than those prescribed or required for medical reasons: No Have you been hit, kicked, punched, or otherwise hurt by someone within the past year? If so, by whom?: No Advance Directives Date on File: 01/16/21 Do you have thoughts of harming others: None Do you have a plan to hurt others: No Plan Do you have the means to hurt others: No Recently lost weight without trying: Unsure Eating poorly because of decreased appetite: No Patient : No service: No Current occupational status: retired Review of Systems Const All systems reviewed & are unremarkable except as noted in HPI and below Physical Exam Vital Signs: BMI result Body Mass Index 24.2 Extrem Other: Left hip: Incision clean, dry and intact. No erythema or drainage. She does have discomfort with hip flexion. No pain with ROM of hip. Results Reviewed Results Reviewed: Xrays were obtained in the office today and personally reviewed by me of the left hip show intact IMN with stable fracture pattern Assessment & Plan Assessment & Plan (1) Intertrochanteric fracture: Code(s): S72.143A - Displaced intertrochanteric fracture of unspecified femur, initial encounter for closed fracture Category: Medical Qualifiers: Encounter type: initial encounter Fracture alignment: displaced Fracture type: closed Laterality: left Qualified Code(s): S72.142A - Displaced intertrochanteric fracture of left femur, initial encounter for closed fracture Plan She will continue with physical therapy to work on strengthening exercises. Prior to leaving the patient was being wheeled out of her roller walker by her grand-daughter when the wheel got caught on the threshold of the floor as she was exiting the room and fell on the ground. No head strike, no loss of consciousness. She did have some discomfort on the left buttock region and left shoulder. On palpation she had no increased pain, no bony abnormalities. She will continue to monitor her symptoms. She will contact us otherwise as needed. Orders: Orders XR femur LT 2V Today M79.606 - Pain in leg, unspecified Patient Instructions: Scribed for Milton Link PA-C, by Ross Kate medical interpreter, on 03/02/2024 at 12:30 PM EST.? I, Milton Link PA-C, have personally reviewed and agree with the information entered by the scribe. Coding Level of Care Code Global (07079) Diagnoses Intertrochanteric fracture S72.142A Encounter type: initial encounter Fracture alignment: displaced Fracture type: closed Laterality: left
[2024-03-02 12:41] VITALS: BMI 24.2
== END 2024-03-02 13:43 | disposition home or self-care (01) ==
PROVIDERS: PCP Internal Medicine Geriatric Medicine; Visit Provider Physician Assistant
DX: S72.142A Displaced intertrochanteric fracture of left femur, initial encounter for closed fracture (principal)
CPT/HCPCS: 99024

== ENCOUNTER 2024-03-15 11:00 | Outpatient (RCR) | payer OTHER, SELFPAY ==
--- NOTE | 2024-02-03 12:02 | MHC.PT.EP ---
[facility] [place] [facility] [place] [facility] [place] Office [address] [phone] F: [phone] F: [phone] F: [phone] F: [phone] Physical Therapy Plan of Care Date of Evaluation: 02/03/24 Date of Surgery: 12/07/23 Diagnosis: Displaced intertrochanteric fracture of left femur, initial encounter for closed fracture Assessment: 83 y/o female s/p L hip ORIF with IMN on 12/07/23. Currently she is walking with rolling walker and reports difficulty with standing, walking, dressing, bathing I. Previously she did not walk with any assistive device and was I with bathing and dressing. Examination shows decreased L hip ROM and strength, decreased L hip flexor length, and impaired gait pattern. Recommend PT 2x/week for 6 weeks to address impairments, implement HEP, and optimize functional mobility Frequency and Duration: The patient will be seen 2x/week for 6 weeks Short Term Goals: 3 weeks I with HEP Pt will improve L hip flexion ROM to 100* to faciliate sit to stands Pt will be able to roll in bed with proper mechanics Prison Goals: 6 weeks I with HEP and self management of sx Pt will be able to ambulate > 15 minutes with LRAD and pain < 3/10 Pt will be able to stand without assistive device at counter > 10 minutes Pt will improve L hip strenght to 4-/5 throughotu Treatment Plan: Modalities to reduce pain, spasms and effusion. Manual therapy to restore motion and function. Therapeutic exercise to improve strength and flexibility. Neuromuscular re-education for posture and balance. Therapeutic activities to return to functional activities of daily living. Electronically signed by: Imelda Bonilla PT Please sign and return to therapist. Thank you for your referral.
--- NOTE | 2024-03-15 12:40 | MHC.PT.DC ---
[facility] [place] [facility] [place] [facility] [place] [facility] [address]imi [address] [facility] [phone] F: [phone] F: [phone] F: [phone] F: [phone] Physical Therapy Discharge Report Diagnosis: Displaced intertrochanteric fracture of left femur, initial encounter for closed fracture Date of Surgery: 12/07/23 Date of Evaluation: 02/03/24 Date of Discharge: 03/15/24 Treatments to Date: 11 Cancellations to Date: 0 No Shows to Date: 0 Discharge Status: Improved Function Independent with HEP Discharge Summary: Reviewed HEP and pt reports ready for d/c. States functional mobility is easier now. At this time, d/c to I HEP. Electronically signed by: Imelda Bonilla PT Please sign and return to therapist. Thank you for your referral.
== END 2024-03-15 12:40 | disposition home or self-care (01) ==
LOC: HO.PT 11:00
PROVIDERS: PCP Internal Medicine Geriatric Medicine; Visit Provider Physician Assistant
DX: S72.142D Displaced intertrochanteric fracture of left femur, subsequent encounter for closed fracture with routine healing (principal)
CPT/HCPCS: 97110; 97162

== ENCOUNTER 2024-05-11 10:51 | Inpatient (IN) | payer OTHER, SELFPAY ==
[2024-05-11] VITALS (7 sets, daily range): BP systolic 113–135; BP diastolic 50–65; PULSE 67–113; RESP 16–20; TEMP 36.1–36.9; O2SAT 95–100; BMI 24.3
--- NOTE | ~2024-05-11 | MR_ITS ---
MRI OF THE BRAIN WITHOUT IV CONTRAST INDICATION: Question CVA. COMPARISON: CT head and CTA head and neck May 11, 2024. TECHNIQUE: Multiplanar multisequence MR imaging of the brain was obtained without IV contrast. FINDINGS:. Multiple small acute infarcts within the left precentral gyrus including within the hand region. There are also a few punctate acute infarcts within the parietal lobes bilaterally. There is no mass effect and there is no hemorrhagic transformation. There is global cerebral volume loss and there is moderate chronic microangiopathy. There is no hydrocephalus, extra-axial surface collection, or herniation. The major flow voids at the skull base are preserved. There is no intracranial hemorrhage on the gradient recalled echo acquisition. The midline structures are normal. Arachnoid granulation within the left transverse sinus. The cerebellar tonsils are normally positioned. The cerebellum and brainstem are normal. The craniocervical junction is normal. Osseous marrow signal intensity is homogenous. The visualized soft tissues are unremarkable. There is a retention cyst within the left maxillary sinus. Mild mucosal thickening within the ethmoid air cells bilaterally. The mastoid air cells are clear. MR/MR head/brain wo con IMPRESSION: - Multiple small acute infarcts within the left precentral gyrus including within the hand region in the left MCA territory. There are also a few punctate acute infarcts within the parietal lobes bilaterally. There is no mass effect and there is no hemorrhagic transformation. - There is global cerebral volume loss and there is moderate chronic microangiopathy. Electronically signed by: Ilia Stoner MD 05/11/2024 04:48 PM EDT
--- NOTE | ~2024-05-11 | CT_ITS ---
EXAMINATION: CT ABDOMEN AND PELVIS WITHOUT CONTRAST CLINICAL INFORMATION: Abdominal pain and vomiting COMPARISON: None available. TECHNIQUE: Multidetector volumetric imaging was performed from the superior aspect of the liver through the pubic symphysis. Sagittal and coronal reformatted images were obtained on the technologist's workstation. This CT examination was performed using dose optimization techniques as appropriate, variously including the following: *Automated exposure control *Adjustment of mA and/or kV according to patient size (this includes techniques or standardized protocols for targeted exams where dose is matched to indication/reason for exam; i.e. extremities or head) *Use of iterative reconstruction technique DLP: 289 mGy-cm FINDINGS: LUNG BASES: There is left basilar and lingular atelectasis/scarring. Heart size is normal. LIVER, GALLBLADDER, AND BILIARY TREE: The liver is normal in size, shape, and attenuation. No focal hepatic lesion or biliary ductal dilatation is present. The gallbladder has been surgically removed. PANCREAS: Unremarkable. SPLEEN: Unremarkable. ADRENAL GLANDS: Unremarkable. KIDNEYS AND URETERS: The kidneys are normal in size, shape, and attenuation. No hydronephrosis, hydroureter, or calculi seen. No perinephric stranding. BLADDER: Unremarkable. GASTROINTESTINAL TRACT: There is scattered stool, diverticuli and gas seen throughout the colon without distention. There is diffuse mural thickening involving distal descending and sigmoid colon with pericolonic fat stranding suggestive of colitis likely inflammatory or infectious etiology. The small bowel loops are normal caliber. Appendix is not visualized. No free air or free fluid seen. ABDOMINAL WALL: No significant hernia is appreciated. LYMPH NODES: Normal. VASCULAR: Unremarkable. PELVIC VISCERA: The uterus is anteverted and appears unremarkable. No free fluid seen. No abnormal pelvic lymph nodes. OSSEOUS STRUCTURES: Mild degenerative disc changes L1-2, L2-3, L3-4 and L5-S1 disc levels. There is a left hip gamma nail and proximal femoral syl. CT/CT abdomen pelvis wo IV con IMPRESSION: 1. Diffuse mural thickening involving distal descending and sigmoid colon with pericolonic fat stranding suggestive of colitis likely inflammatory or infectious etiology. No proximal bowel obstruction 2. Scattered colonic diverticulosis.. 3. No radiopaque urolith or hydroureteronephrosis. Fleischner guidelines were followed. Electronically signed by: Tad Rahman MD 05/12/2024 07:18 PM EDT RP
--- NOTE | ~2024-05-11 | CT_ITS ---
EXAMINATION: CT ANGIOGRAM NECK WITH CONTRAST CT ANGIOGRAM BRAIN WITH CONTRAST CLINICAL INFORMATION: Right facial droop and right arm weakness. COMPARISON: Head CT performed earlier the same day and head CT December 06, 2023. TECHNIQUE: Test bolus sequences followed by intravenous administration 70 mL of Omnipaque 350. Helical imaging was performed in the axial plane from the thoracic inlet to the skull vertex. Delayed postcontrast imaging of the head was also performed. The data was processed at the echocardiography radiology technologist workstation for generation of MIP sequences. Angled MIPs and volume rendered reformatted images were also generated at an offline 3D workstation under concurrent supervision. Stenoses are assessed in accordance with NASCET criteria unless otherwise indicated. This CT examination was performed using dose optimization techniques as appropriate, variously including the following: *Automated exposure control *Adjustment of mA and/or kV according to patient size (this includes techniques or standardized protocols for targeted exams where dose is matched to indication/reason for exam; i.e. extremities or head) *Use of iterative reconstruction technique FINDINGS: BRAIN: [There is no intracranial hemorrhage, hydrocephalus, extra-axial surface collection, midline shift, or other herniation pattern. Christiansen to white matter differentiation is diffusely maintained without evidence of an evolved acute territorial infarct. The basilar cisterns are preserved. No significant soft tissue abnormality. No acute osseous abnormality. There is a 2.9 cm retention cyst within the left maxillary sinus. CERVICAL SOFT TISSUES AND LUNG APICES: Imaged upper lungs are clear. There is advanced cervical spondylosis. NECK CTA: [There is a classic 3 vessel configuration of the aortic arch. Proximal arch vessels are non-stenotic. The vertebral arteries are codominant. No significant ostial stenosis is visualized on either side. Both vertebral arteries are widely patent throughout their extracranial cervical course. Mild atherosclerotic calcification involving the carotid bifurcations bilaterally without significant stenosis involving the proximal internal carotid arteries on either side. BRAIN CTA: [There is normal opacification of major intracranial arteries. No focal flow-limiting stenosis nor discrete proximal large artery occlusion. No aneurysm. Timing of the contrast bolus allows assessment of the major dural venous sinuses, which all opacify normally] CT/CT angio head neck stroke IMPRESSION: * No acute territorial infarction or intracranial hemorrhage. Chronic microangiopathy which limits assessment for small white matter infarcts. Chronic lacunar infarcts in the deep christiansen nuclei bilaterally. * No acute arterial occlusions and no significant arterial stenoses within the head or neck. * Advanced cervical spondylosis. Findings discussed with Dr. Jiménez at 12:25 PM and May 11, 2024. Electronically signed by: Ilia Stoner MD 05/11/2024 12:26 PM EDT
--- NOTE | ~2024-05-11 | CT_ITS ---
EXAMINATION: CT HEAD WITHOUT CONTRAST CLINICAL INFORMATION: Follow-up on stroke COMPARISON: MRI brain on 05/11/[address] head on 05/11/2024 TECHNIQUE: Contiguous axial imaging was performed from the skull base to vertex without intravenous administration of contrast. This CT examination was performed using dose optimization techniques as appropriate, variously including the following: *Automated exposure control *Adjustment of mA and/or kV according to patient size (this includes techniques or standardized protocols for targeted exams where dose is matched to indication/reason for exam; i.e. extremities or head) *Use of iterative reconstruction technique DLP: 740 mGy-cm FINDINGS: Ill-defined hypodensity involving the left precentral gyrus compatible with known acute infarct. No acute intracranial hemorrhage. Patchy hypodensity involving the periventricular and deep white matter compatible with small vessel ischemic disease. No midline shift or hydrocephalus. No acute extra-axial fluid collections. The osseous structures are unremarkable. No orbital pathology. Mucous retention cyst versus polyp in the left maxillary sinus. The mastoid air cells are clear. CT/CT head/brain wo IV con IMPRESSION: Ill-defined hypodensity involving the left precentral gyrus corresponding with known acute infarct. No acute intracranial hemorrhage. Electronically signed by: Theresa Michael MD 05/12/2024 07:13 PM EDT
--- NOTE | ~2024-05-11 | CT_ITS ---
EXAMINATION: CT HEAD WITHOUT CONTRAST (STROKE PROTOCOL) CLINICAL INFORMATION: Stroke protocol. Right-sided facial numbness and facial droop COMPARISON: December 06, 2023 TECHNIQUE: Contiguous axial imaging was performed from the skull base to vertex without intravenous administration of contrast. This CT examination was performed using dose optimization techniques as appropriate, variously including the following: *Automated exposure control *Adjustment of mA and/or kV according to patient size (this includes techniques or standardized protocols for targeted exams where dose is matched to indication/reason for exam; i.e. extremities or head) *Use of iterative reconstruction technique DLP: 998 mGy-cm FINDINGS: There is no evidence of acute intracranial hemorrhage, territorial infarction, no abnormal mass effect or midline shift.] Matter differentiation preserved. Ventricles and sulci are appropriate for age. There is no hydrocephalus CT/CT head for stroke IMPRESSION: No evidence of acute stroke. This critical result was discussed with Dr. Sr at 1202 hours on 05/11/2024. It was ascertained that the content and urgency of the report was understood at the time of direct communication. Electronically signed by: Cristy rS MD 05/11/2024 12:18 PM EDT
--- NOTE | 2024-05-11 11:07 | ECG_ITS ---
Test Reason : STROKE Blood Pressure : / mmHG Vent. Rate : 097 BPM Atrial Rate : 097 BPM P-R Int : 158 ms QRS Dur : 072 ms QT Int : 330 ms P-R-T Axes : 046 057 022 degrees QTc Int : 419 ms Normal sinus rhythm Normal ECG When compared with ECG of 06-DEC-2023 08:05, No significant change was found Referred By: Yovany Uribe Electronically Signed By:XU MEEHAN
--- NOTE | 2024-05-11 11:09 | ED_ITS ---
HPI - General Adult General Chief complaint: Stroke Stated complaint: R arm pain, jaw pain Time Seen by Provider: 05/11/24 11:17 Source: patient and family Mode of arrival: wheelchair Limitations: language barrier History of Present Illness ED Provider: Dr. Burak Sr HPI narrative: 83 year old female PMH: COPD, anxiety, asthma, GERD, neuropathy who presents to the ER via triage for difficulty eating breakfast this morning noticed a right facial weakness patient is brought here and sent immediately for CT scan. I did see the patient immediately after CT scan Related Data Home Medications ?Medication ?Instructions ?Recorded ?Confirmed ascorbic acid (vitamin C) 500 mg 500 mg PO DAILY 05/23/20 05/11/24 tablet (Vitamin C) citalopram 10 mg tablet 10 mg PO DAILY 01/16/21 05/11/24 ipratropium 0.5 mg-albuterol 3 mg 1 vial inhalation QID PRN 01/16/21 05/11/24 (2.5 mg base)/3 mL nebulization Shortness Of Breath Or Wheezing soln fluticasone fur. 200 mcg-umeclid 1 puff inhalation DAILY 10/20/22 05/11/24 62.5 mcg-vilant 25 mcg inhalat.powder (Trelegy Ellipta) cyclobenzaprine 10 mg tablet 10 mg PO TID 12/06/23 05/11/24 ferrous sulfate 325 mg (65 mg 325 mg PO BID 12/06/23 05/11/24 iron) tablet gabapentin 300 mg capsule 300 mg PO BEDTIME 12/06/23 05/11/24 albuterol sulfate 2.5 mg/3 mL 3 mg inhalation Q6H PRN Wheezing 05/11/24 05/11/24 (0.083 %) solution for nebulization albuterol sulfate 90 mcg/actuation 2 puff inhalation Q4-6H PRN 05/11/24 05/11/24 aerosol inhaler Shortness Of Breath Or Wheezing alendronate 70 mg tablet 70 mg PO QWEEK 05/11/24 05/11/24 calcium carbonate 500 mg PO BID 05/11/24 05/11/24 cholecalciferol (vitamin D3) 50 50 mcg PO DAILY 05/11/24 05/11/24 mcg (2,000 unit) tablet (Vitamin D3) lisinopril 10 mg tablet 10 mg PO DAILY 05/11/24 05/11/24 tramadol 50 mg tablet 25 mg PO DAILY PRN severe pain 05/11/24 05/11/24 Previous Rx's ?Medication ?Instructions ?Recorded acetaminophen 325 mg tablet 650 mg (2 x 325 mg) PO Q6H PRN 07/04/20 (Tylenol) fever or pain #10 tabs polyethylene glycol 3350 17 gram 17 g PO DAILY #1 ea 12/10/23 oral powder packet sennosides 8.6 mg-docusate sodium 2 tab PO BID #1 tab 12/10/23 50 mg tablet (Senna Plus) omeprazole 40 mg capsule,delayed 40 mg PO BID #60 caps 03/20/24 release Allergies Allergy/AdvReac Type Severity Reaction Status Date / Time lidocaine Allergy Severe Hives Verified 05/11/24 11:08 [facility] Past Medical History Medical History History of DVT (deep vein thrombosis) Mass of right axilla COVID-19 Duodenal arteriovenous malformation Osteopenia Anemia GI bleed GERD (gastroesophageal reflux disease) Peripheral neuropathy Anxiety Depression COPD (chronic obstructive pulmonary disease) Asthma Elevated cholesterol Lab test negative for COVID-19 virus Surgical History History of tubal ligation History of axillary surgery Hx of oophorectomy Hx of colonoscopy Hx of esophagogastroduodenoscopy Hx of foot surgery Hx of cholecystectomy Hx of tonsillectomy Hx of appendectomy Family History Family History Father Stroke Asthma Mother Heart attack Stroke Asthma Sister DVT (deep venous thrombosis) Asthma Brother COPD (chronic obstructive pulmonary disease) Son Cancer Social History Social History Household Members: Children Household Members Other:: son Housing: Apartment Are you a primary career placement services counselor to a significant other at home: No Do you presently have visiting nurse or other home services: Yes (home cofounder) Alcohol intake: never Patient Tobacco Use Status: Current everyday Tobacco user Tobacco use type: Cigarette Cigarettes Per Day: 2 Years Smoked: 60 Second Hand Smoke Exposure: Yes Advance Directives Date on File: 06/03/21 service: No Current occupational status: retired Physical Exam ED Vital Signs: Vital Signs - 24 hr 05/11/24 10:54 05/11/24 11:47 05/11/24 13:12 Temperature 97.0 F 98.2 F Pulse Rate 113 H 99 85 Respiratory Rate 18 16 16 Blood Pressure 113/62 121/50 L 130/65 Pulse Oximetry 96 95 97 Oxygen Delivery Method Room Air Room Air Room Air BMI result Body Mass Index 24.3 NIH Stroke Scale Internal: Initial- Upon Arrival Level of Consciousness: Alert Level of Consciousness Questions: Answers both questions correctly Level of Consciousness Commands: Performs both tasks correctly Best Gaze: Normal Visual: No visual loss Facial Palsy: Minor paralyis (Right) Motor Arm (Right): Drift (Right) Motor Arm (Left): No drift Motor Leg (Right): No drift Motor Leg (Left): No drift Limb Ataxia: Absent Sensory: Mild to moderate sensory loss (Right arm) Best Language: No aphasia Dysarthia: Normal Extinction and Inattention: No abnormality Score: 3 Course Course Course Narrative: RME: DOne by MARY Bertrand. 83-year-old female presents to ED for right facial numbness and right arm numbness. Daughter states patient has right facial droop. Patient states she woke up with symptoms. Patient's last well yesterday. Patient states difficulty holding objects with right arm. On exam positive for right facial droop and significant right arm weakness compared to left. Mild right pronator drift. Symptoms may have started while patient was asleep. Patient history of high blood pressure and severe anemia. CT stroke labs ordered. NIH 3 Reevaluation(s) Reevaluation #1: CT head non contrast is negative. Reevaluation #2: 1224 CTA negative for ELVO I will treat with aspirin at this time. Medications Administered Generic Name Dose Route Start Last Admin Trade Name Freq PRN Reason Stop Dose Admin Acetaminophen 650 mg 05/11/24 14:02 05/11/24 19:51 Acetaminophen 325 Mg Tablet PO 650 mg Q6H PRN Administration Pain, Mild (Pain Scale 1-3), fever or headache Albuterol/Ipratropium 3 ml 05/11/24 15:42 05/11/24 20:04 Albuterol/Iprat 2.5/0.5mg 3 Ml Ampul.Neb INHALE 3 ml QID PRN Administration Shortness Of Breath Or Wheezing Ascorbic Acid 500 mg 05/12/24 09:00 05/12/24 09:32 Ascorbic Acid 500 Mg Tablet PO 500 mg DAILY LINETTE Administration Aspirin 81 mg 05/12/24 09:00 05/12/24 09:32 Aspirin Enteric Coated 81 Mg Tablet. PO 81 mg DAILY LINETTE Administration Atorvastatin Calcium 40 mg 05/11/24 14:25 05/11/24 14:51 Atorvastatin Calcium 40 Mg Tablet PO 40 mg BEDTIME LINETTE Administration Cyclobenzaprine HCl 10 mg 05/11/24 21:00 05/12/24 09:31 Cyclobenzaprine Hcl 10 Mg Tablet PO 10 mg TID LINETTE Administration Enoxaparin Sodium 30 mg 05/11/24 14:15 05/11/24 14:51 Enoxaparin Sodium 30 Mg/0.3 Ml Syringe SUBCUT 30 mg Q24H LINETTE Administration Escitalopram Oxalate 5 mg 05/12/24 09:00 05/12/24 09:32 Escitalopram Oxalate 5 Mg Tablet PO 5 mg DAILY LINETTE Administration Ferrous Sulfate 324 mg 05/11/24 21:00 05/12/24 09:31 Ferrous Sulfate 324 Mg Tablet. PO 324 mg BID LINETTE Administration Fluticasone/Umeclidinium/Vilanterol 1 puff 05/12/24 08:00 05/12/24 08:34 Fluticasone/Umeclidinium/Vilanterol 200/62.5/25 Blst.W.Dev INHALE 1 puff RDAILY LINETTE Administration Gabapentin 300 mg 05/11/24 21:00 05/11/24 19:51 Gabapentin 300 Mg Capsule PO 300 mg BEDTIME LINETTE Administration Lactated Ringer's 1,000 mls @ 80 mls/hr 05/11/24 15:30 05/12/24 06:11 Lr IVCONT 80 mls/hr .[id number] LINETTE Administration Insulin Human Lispro 0 unit 05/11/24 16:30 05/12/24 09:04 Insulin Lispro 100 Unit/Ml 3 Ml Vial SUBCUT Not Given QIDACHS [facility] Protocol Nicotine 14 mg 05/11/24 14:15 05/12/24 09:33 Nicotine 14 Mg Patch.Td24 TRANSDERMA Not Given DAILY [facility] Omeprazole 40 mg 05/11/24 16:30 05/12/24 06:11 Omeprazole 40 Mg Capsule. PO 40 mg BID@0630,1630 LINETTE Administration Polyethylene Glycol 17 gm 05/12/24 09:00 05/12/24 09:33 Polyethylene Glycol 3350 17 Gm Powd.Pack PO 17 gm DAILY LINETET Administration Senna/Docusate Sodium 2 tab 05/11/24 21:00 05/12/24 09:32 Sennosides/Docusate Sodium Tablet PO 2 tab BID LINETTE Administration Sodium Chloride 3 ml 05/11/24 16:00 05/12/24 09:33 0.9 % Sodium Chloride Flush 3 Ml Syringe IVFLUSH 3 ml QSHIFT LINETTE Administration Vitamin D 50 mcg 05/12/24 09:00 05/12/24 09:32 Cholecalciferol (Vitamin D3) 25 Mcg Tablet PO 50 mcg DAILY LINETTE Administration Discontinued Medications Generic Name Dose Route Start Last Admin Trade Name Freq PRN Reason Stop Dose Admin Aspirin 325 mg 05/11/24 12:25 05/11/24 13:12 Aspirin 325 Mg Tablet PO 05/11/24 12:26 325 mg ONCE ONE Administration Iohexol 70 ml 05/11/24 11:37 05/11/24 11:37 Iohexol 350 Mg/Ml 75 Ml Infus..Btl IV 05/11/24 11:38 70 ml ONCE ONE Administration Medical Decision Making Medical Decision Making [facility] Narrative: I will check labs send for CTA and get aspirin after the CTA Differential Diagnosis Differential Diagnoses: The differential diagnosis associated with the presentation includes CVA, TIA right arm weakness, dizziness electrolyte abnormality Admission/Observation Consideration of admission/observation: Escalation of care including admission/observation considered Patient will be admitted to the hospitalist service Consult Healthcare Provider Management of the patient was discussed with: Hospitalist and After School Tutor I did speak with the radiologist as well as our hospitalist about admission CT scans Lab Data [facility] Lab Attestation statement: I reviewed the patient's lab results. 05/11/24 11:24 05/11/24 11:24 Labs: Lab Results 05/11/24 05/11/24 Range/Units 11:19 11:24 WBC 6.6 (4.8-10.8) X10*3/uL RBC 3.91 L D (4.20-5.50) X10*6/uL Hgb 11.6 L D (12.0-16.0) g/dl Hct 37.3 D (37.0-47.0) % MCV 95.4 (80.0-98.0) fL MCH 29.7 (27.0-33.0) pg MCHC 31.1 (31.0-35.0) g/dl RDW 15.9 (11.0-16.0) % Plt Count 316 (160-400) X10*3/uL MPV 10.3 (9.4-12.3) fL Immature Gran % (Auto) 1.7 H (0.0-0.4) % Neut % (Auto) 72.8 (45-73) % Lymph % (Auto) 12.9 L (20-40) % [place] % (Auto) 7.1 (2-11) % Eos % (Auto) 4.4 H (0-4) % Baso % (Auto) 1.1 (0-2) % Lymph # (Auto) 0.9 L (1.2-4.9) X10*3/uL [place] # (Auto) 0.5 (0.1-1.2) X10*3/uL Eos # (Auto) 0.3 (0.0-0.4) X10*3/uL Baso # (Auto) 0.1 (0.0-0.2) X10*3/uL Abs Immat Gran (auto) 0.11 H (0.00-0.03) X10*3/uL Absolute Neuts (auto) 4.8 (2.0-8.3) x10*3/uL Absolute Nucleated RBC 0.000 (0.0-0.012) X10*3/uL Nucleated RBC % (auto) 0.0 (0.0-0.2) /100WBC PT 11.0 (10.9-12.4) SEC Whole Blood PT 11.9 (11.1-13.5) sec INR 0.9 (0.9-1.1) Whole Blood INR 1.0 (0.9-1.1) APTT 20.5 L (26.0-36.8) SEC Sodium 138 (135-145) mmol/L Potassium 4.2 (3.3-5.1) mmol/L Chloride 105 (96-108) mmol/L Carbon Dioxide 22 (22-29) mmol/L Anion Gap 15 (12-20) BUN 24 H (9-16) mg/dL Creatinine 1.25 (0.5-1.4) mg/dL Estim Creat Clear Calc 28.1 Estimated GFR 41 POC Glucose 187 H (60-115) mg/dL Random Glucose 213 H (60-115) mg/dL Estimat Average Glucose 105 mg/dL Hemoglobin A1c % 5.3 (<6.0) % Calcium 10.2 (8.4-10.2) mg/dL Total Bilirubin 0.3 (0.0-1.0) mg/dL AST 19 (5-31) U/L ALT 17 (0-31) U/L Alkaline Phosphatase 68 (39-117) U/L Troponin I High Sens < 2.7 (<3.5-17.0) ng/L Total Protein 7.6 (6.5-8.0) g/dL Albumin 4.2 (3.5-5.0) g/dL Independent Interpretation I performed an independent interpretation of an: EKG, Rhythm Strip, Plain X-Ray and CT Scan External Record Review External record reviewed: Inpatient record, Office record, Outpatient record, Prior outpatient labs and Prior outpatient radiology Critical Care Time Critical Care Time Critical Care Time: Yes Total Critical Care Time: 45 Attestation: Patient came up with a wake up from sleep stroke was not a candidate for TNK on arrival patient does have obvious deficit to the right arm as well as the right side of the face patient is sent for CT and reassessed multiple times labs CTA discussion with radiologist x2 were all normal patient will be admitted to the hospitalist service. Discharge Plan Discharge Clinical Impression: Right arm weakness, Facial droop Patient Disposition: Admitted As Inpatient Interventions: Admission Worksheet (ED) Last Done: 05/11/24 15:37 Discharge Date/Time: 05/11/24 16:49
[2024-05-11 11:25] LABS: Prothrombin Time Whole Bld POC 11.9 sec (11.1-13.5)
[2024-05-11 11:27] LABS: Glucose, Whole Blood 187 mg/dL (60-115)
[2024-05-11 11:29] LABS: MANUAL DIFF FLAG NO
[2024-05-11 11:31] LABS: Basophils Absolute Auto 0.1 X10*3/uL (0.0-0.2); Basophils Percent Auto 1.1 % (0-2); Eosinophils Absolute Auto 0.3 X10*3/uL (0.0-0.4); Eosinophils Percent Auto 4.4 % (0-4); Hematocrit 37.3 % (37.0-47.0); Hemoglobin 11.6 g/dl (12.0-16.0); Imm Gran Abs Auto 0.11 X10*3/uL (0.00-0.03); Imm Gran Pct Auto 1.7 % (0.0-0.4); Lymphocytes Absolute Auto 0.9 X10*3/uL (1.2-4.9); Lymphocytes Percent Auto 12.9 % (20-40); Mean Corpuscular HGB Conc 31.1 g/dl (31.0-35.0); Mean Corpuscular Hemoglobin 29.7 pg (27.0-33.0); Mean Corpuscular Volume 95.4 fL (80.0-98.0); Mean Platelet Volume 10.3 fL (9.4-12.3); Monocytes Absolute Auto 0.5 X10*3/uL (0.1-1.2); Monocytes Percent Auto 7.1 % (2-11); Neutrophils Absolute Auto 4.8 x10*3/uL (2.0-8.3); Neutrophils Percent Auto 72.8 % (45-73); Platelet Count 316 X10*3/uL (160-400); Red Blood Count 3.91 X10*6/uL (4.20-5.50); Red Cell Distribution Width 15.9 % (11.0-16.0); White Blood Count 6.6 X10*3/uL (4.8-10.8)
--- NOTE | 2024-05-11 11:31 | PC.NURSE ---
patient arrives via external triage with cc of right sided weakness and mild facial droop since this morning, patient states she woke up and was unable to feel her right arm and noticed it was weaker than usual. patient also noted to have slight facial droop on left side. no slurred speech appreciated by this RN, patient assessed by MD and brought to CT scan immediately. patient PERRLA, answering questions appropriately, denies any falls or recent sick contacts, able to stand and pivot onto CT scan table. 20g PIV placed in left forearm and blood work drawn and sent to lab.
[2024-05-11] MEDS: iohexoL 350 MG/ML 75 ML INFUS..BTL 70 ML IV (11:37)
[2024-05-11 11:45] LABS: Alanine Aminotransferase 17 U/L (0-31); Albumin Level 4.2 g/dL (3.5-5.0); Alkaline Phosphatase 68 U/L (39-117); Anion Gap 15 (12-20); Aspartate Amino Transferase 19 U/L (5-31); Bilirubin Total 0.3 mg/dL (0.0-1.0); Blood Urea Nitrogen 24 mg/dL (9-16); Calcium 10.2 mg/dL (8.4-10.2); Carbon Dioxide 22 mmol/L (22-29); Chloride 105 mmol/L (96-108); Creatinine Clr Calc Pharmacy 28.1; Estimated Glomerular Filt Rate 41; Glucose Random 213 mg/dL (60-115); Potassium 4.2 mmol/L (3.3-5.1); Sodium 138 mmol/L (135-145); Total Protein 7.6 g/dL (6.5-8.0)
[2024-05-11 11:51] LABS: INTERNATIONAL NORM RATIO 0.9 (0.9-1.1)
[2024-05-11 11:56] LABS: Partial Thromboplastin Time 20.5 SEC (26.0-36.8)
[2024-05-11 12:01] LABS: Troponin-I High Sensitivity < 2.7 ng/L (<3.5-17.0)
--- NOTE | 2024-05-11 12:02 | PC.NURSE ---
NIHSS score of 6, partial weakness, numbness to right upper extremety, small drift noted to right lower extremity. patient with decreased sensation to right side
--- NOTE | 2024-05-11 13:10 | MHC.STROKE ---
Met with patient in bed 16 upon her return from CT scan Pt awake, alert and oriented and able to speak to the events that brought her to the ED Pt reports feeling tired and generally weak yesterday. Went to bed at approximately 9pm. Pt denies any facial droop or significant right sided weakness prior to going to bed. Patient reporting that she woke with the right sided facial droop and weakness today. Pt is also c/o pain to the right arm. LKWT approximately 9pm last evening. Stroke/TIA education reviewed with patient and her daughter. Stroke pamphlet provided. All questions answered. Will continue to assist as needed.
[2024-05-11] MEDS: Aspirin 325 MG TABLET PO (13:12)
--- NOTE | 2024-05-11 14:25 | PM.IMHP ---
History of Present Illness Date of Service: 05/11/24 <Tsering Sánchez PA-C - Last Filed: 05/11/24 15:17> Attending physician on admission: Nick Beasley <JUNITO Willis Last Filed: 05/11/24 15:17> Chief Complaint: right sided weakness ?CVA <JUNITO Willis Last Filed: 05/11/24 15:17> 83 yo [place] speaking f with a pmhx of HTN, COPD/asthma, HLD, GERD, neuropathy, chronic anemia ?secondary to CKD, anxiety who presented to the ED with R UE and R facial weakness beginning this AM. RUE weakness prior to facial drooping, noticed when she went to eat breakfast. Daughter notes change in speech today. tension headache since yesterday that persists. chronic dizziness, no change from baseline. no visual changes. no LE weakness, deficits or left sided deficits. denies nausea, vomiting, abd pain, SOB or chest pain. chronic urinary incontinence, no change from baseline. <Tsering Sánchez PA-C - Last Filed: 05/11/24 15:17> 83 yo [place] speaking f with a pmhx of HTN, COPD/asthma, HLD, GERD, neuropathy, chronic anemia ?secondary to CKD, anxiety who presented to the ED with R UE and R facial weakness beginning this AM. RUE weakness prior to facial drooping, noticed when she went to eat breakfast. Daughter notes change in speech today. tension headache since yesterday that persists. chronic dizziness, no change from baseline. no visual changes. no LE weakness, deficits or left sided deficits. denies nausea, vomiting, abd pain, SOB or chest pain. chronic urinary incontinence, no change from baseline. <Nick Beasley MD - Last Filed: 05/11/24 15:13> Review of Systems Constitutional: Constitutional: Denies chills, Denies fever(s) and Reports headache(s) <JUNITO Willis Last Filed: 05/11/24 15:17> Eyes: Eyes: Denies no additional eye complaints, Denies blurry vision, Denies diplopia and Denies loss of vision <JUNITO Willis Last Filed: 05/11/24 15:17> Comments: wears glasses <Tsering Sánchez PA-C - Last Filed: 05/11/24 15:17> ENT: Denies dizziness and Reports headache(s) <Tsering Sánchez PA-C - Last Filed: 05/11/24 15:17> Cardiovascular: Cardiovascular: Denies chest pain and Denies dyspnea <Tsering Sánchez PA-C - Last Filed: 05/11/24 15:17> Respiratory: Respiratory: Denies cough and Denies dyspnea <Tsering Sánchez PA-C - Last Filed: 05/11/24 15:17> Gastrointestinal: Gastrointestinal: Reports constipation (chronic constipation), Denies diarrhea, Denies nausea and Denies vomiting <JUNITO Willis Last Filed: 05/11/24 15:17> Genitourinary: Comments: chronic urinary incontinence <JUNITO Willis Last Filed: 05/11/24 15:17> Musculoskeletal: Musculoskeletal: Reports arthralgias (left hip - pt reporrts pelvic fx, scheduled for surgery) and Reports muscle weakness (RUE) <Tsering Sánchez PA-C - Last Filed: 05/11/24 15:17> Integumentary/Breasts: Skin/Breast: Denies rash <JUNITO Willis Last Filed: 05/11/24 15:17> Neurologic: Reports as per HPI, Denies behavioral changes, Denies confusion, Denies dizziness, Reports headache(s) and Denies loss of vision <Tsering Sánchez PA-C - Last Filed: 05/11/24 15:17> Psychiatric: Psychiatric: Denies behavioral changes and Denies confusion <Tsering Sánchez PA-C - Last Filed: 05/11/24 15:17> [facility] Medical History: Medical History (Updated 05/11/24 @ 14:54 by Tsering Sánchez PA-C) History of DVT (deep vein thrombosis) Mass of right axilla COVID-19 Duodenal arteriovenous malformation Osteopenia Anemia GI bleed GERD (gastroesophageal reflux disease) Peripheral neuropathy Anxiety Depression COPD (chronic obstructive pulmonary disease) Asthma Elevated cholesterol Lab test negative for COVID-19 virus <Tsering Sánchez PA-C - Last Filed: 05/11/24 15:17> Family History: Family History Father Stroke Asthma Mother Heart attack Stroke Asthma Sister DVT (deep venous thrombosis) Asthma Brother COPD (chronic obstructive pulmonary disease) Son Cancer <Tsering Sánchez PA-C - Last Filed: 05/11/24 15:17> Surgical History: Surgical History History of tubal ligation History of axillary surgery Hx of oophorectomy Hx of colonoscopy Hx of esophagogastroduodenoscopy Hx of foot surgery Hx of cholecystectomy Hx of tonsillectomy Hx of appendectomy <Tsering Sánchez PA-C - Last Filed: 05/11/24 15:17> Social History: Social History Household Members: Children Household Members Other:: son Housing: Apartment Are you a primary intensive care unit registered nurse to a significant other at home: No Do you presently have visiting nurse or other home services: No Alcohol intake: never Patient Tobacco Use Status: Current everyday Tobacco user Tobacco use type: Cigarette Cigarettes Per Day: 2 Years Smoked: 60 Smoked in Last 30 Days: No Second Hand Smoke Exposure: Yes Use of substances other than those prescribed or required for medical reasons: No Advance Directives: Yes Advance Directives on File: Yes Advance Directives Date on File: 01/16/21 service: No Current occupational status: retired <Tsering Sánchez PA-C - Last Filed: 05/11/24 15:17> Meds Allergies/Adverse reactions: Allergies Allergy/AdvReac Type Severity Reaction Status Date / Time lidocaine Allergy Severe Hives Verified 05/11/24 11:08 <JUNITO Willis Last Filed: 05/11/24 15:17> Home medications: Home Medications ?Medication ?Instructions ?Recorded ?Confirmed ?Last Taken ?Type ascorbic acid (vitamin C) 500 mg 500 mg PO DAILY 05/23/20 05/11/24 05/10/24 History tablet (Vitamin C) citalopram 10 mg tablet 10 mg PO DAILY 01/16/21 05/11/24 05/10/24 History ipratropium 0.5 mg-albuterol 3 mg 1 vial inhalation QID PRN 01/16/21 05/11/24 05/10/24 History (2.5 mg base)/3 mL nebulization Shortness Of Breath Or Wheezing soln fluticasone fur. 200 mcg-umeclid 1 puff inhalation DAILY 10/20/22 05/11/24 05/10/24 History 62.5 mcg-vilant 25 mcg inhalat.powder (Trelegy Ellipta) cyclobenzaprine 10 mg tablet 10 mg PO TID 12/06/23 05/11/24 05/10/24 History ferrous sulfate 325 mg (65 mg 325 mg PO BID 12/06/23 05/11/24 05/10/24 History iron) tablet gabapentin 300 mg capsule 300 mg PO BEDTIME 12/06/23 05/11/24 05/10/24 History albuterol sulfate 2.5 mg/3 mL 3 mg inhalation Q6H PRN Wheezing 05/11/24 05/11/24 05/10/24 History (0.083 %) solution for nebulization albuterol sulfate 90 mcg/actuation 2 puff inhalation Q4-6H PRN 05/11/24 05/11/24 05/10/24 History aerosol inhaler Shortness Of Breath Or Wheezing alendronate 70 mg tablet 70 mg PO QWEEK 05/11/24 05/11/24 05/04/24 History calcium carbonate 500 mg PO BID 05/11/24 05/11/24 05/10/24 History cholecalciferol (vitamin D3) 50 50 mcg PO DAILY 05/11/24 05/11/24 05/10/24 History mcg (2,000 unit) tablet (Vitamin D3) lisinopril 10 mg tablet 10 mg PO DAILY 05/11/24 05/11/24 05/10/24 History tramadol 50 mg tablet 25 mg PO DAILY PRN severe pain 05/11/24 05/11/24 05/10/24 History Garry Sánchez PA-C - Last Filed: 05/11/24 15:17> Physical Exam Vital Signs and Narrative: Vital Signs: Last Vital Signs Temp 98.2 F 05/11/24 11:47 Pulse 85 05/11/24 13:12 Resp 16 05/11/24 13:12 BP 130/65 05/11/24 13:12 Pulse Ox 97 05/11/24 13:12 O2 Del Method Room Air 05/11/24 13:12 BMI result Body Mass Index 24.3 [facility] Filed: 05/11/24 15:17> Const: General: cooperative, comfortable, no acute distress, well developed, alert and awake; No confusion <[facility] Last Filed: 05/11/24 15:17> Orientation/consciousness: oriented to person, oriented to place, oriented to time and No confusion <[facility] Last Filed: 05/11/24 15:17> HEENT: Head: Yes normal to inspection <[facility] Filed: 05/11/24 15:17> Ears: hearing grossly normal bilaterally <[facility] Last Filed: 05/11/24 15:17> Teeth and gingiva: other (dental implants) <[facility] Last Filed: 05/11/24 15:17> Eyes: Visual Childers: normal visual childers by confrontation <[facility] Filed: 05/11/24 15:17> Alignment and Position: alignment normal <[facility] Last Filed: 05/11/24 15:17> Sclerae: sclerae normal <[facility] Last Filed: 05/11/24 15:17> Pupils: Equal, round and reactive pupils present, Pupils normal by confrontation and Pupil accommodation reflex normal <[facility] Last Filed: 05/11/24 15:17> EOM: EOMs intact bilaterally <[facility] Last Filed: 05/11/24 15:17> Neck: Yes normal visual inspection <[facility] Last Filed: 05/11/24 15:17> Resp: Effort & Inspection: normal respiratory effort and able to speak in complete sentences <[facility] Last Filed: 05/11/24 15:17> Auscultation: clear to auscultation bilaterally <[facility] Last Filed: 05/11/24 15:17> Cardio: Rate: regular rate <[facility] Last Filed: 05/11/24 15:17> Rhythm: regular rhythm <Tsering Sánchez [facility] Last Filed: 05/11/24 15:17> Heart sounds: S1 normal heart sound present and S2 normal heart sound present <Tsering Sánchez [facility] Last Filed: 05/11/24 15:17> GI: Palpation (GI): Soft to palpation and nontender <Tsering Sánchez [facility] Last Filed: 05/11/24 15:17> Percussion: Yes normal to percussion <Tsering Snáchez [facility] Last Filed: 05/11/24 15:17> Auscultation: normal bowel sounds <Tsering Sánchez [facility] Last Filed: 05/11/24 15:17> Neuro: Other: weakness RUE, able to lift arm but drifts. decreased sensation right side of face, mild facial droop. <[facility]chez [facility] Last Filed: 05/11/24 15:17> General: oriented to person, oriented to place, oriented to time, No confusion and Unable to assess gait <Tsering Sánchez [facility] Last Filed: 05/11/24 15:17> Cranial nerves: Yes Equal, round and reactive pupils present, Yes Normal accommodation reflex present, Yes Normal facial strength present and Yes Midline tongue present <Tsering Sánchez [facility] Last Filed: 05/11/24 15:17> Cognition (Neuro): normal cognition <Tsering Sánchez [facility] Last Filed: 05/11/24 15:17> Gait exam (Neuro): Unable to assess gait <Tsering Sánchez [facility] Last Filed: 05/11/24 15:17> Motor exam (neuro): Pronator motor function present <Tsering Sánchez PA-C - Last Filed: 05/11/24 15:17> Extrem: General: Yes normal to inspection <Tsering Sánchez PA-C - Last Filed: 05/11/24 15:17> Results Labs CBC and Chem 7: 05/11/24 11:24 05/11/24 11:24 <Tsering Sánchez PA-C - Last Filed: 05/11/24 15:17> Labs: Laboratory Results - last 24 hr 05/11/24 05/11/24 11:19 11:24 MCV 95.4 MCH 29.7 MCHC 31.1 RDW 15.9 Plt Count 316 MPV 10.3 Immature Gran % (Auto) 1.7 H Neut % (Auto) 72.8 Lymph % (Auto) 12.9 L [place] % (Auto) 7.1 Eos % (Auto) 4.4 H Baso % (Auto) 1.1 Lymph # (Auto) 0.9 L [place] # (Auto) 0.5 Eos # (Auto) 0.3 Baso # (Auto) 0.1 Abs Immat Gran (auto) 0.11 H Absolute Neuts (auto) 4.8 Absolute Nucleated RBC 0.000 Nucleated RBC % (auto) 0.0 PT 11.0 Whole Blood PT 11.9 INR 0.9 Whole Blood INR 1.0 APTT 20.5 L Anion Gap 15 Estim Creat Clear Calc 28.1 Estimated GFR 41 POC Glucose 187 H Random Glucose 213 H Calcium 10.2 Total Bilirubin 0.3 AST 19 ALT 17 Alkaline Phosphatase 68 Troponin I High Sens < 2.7 Total Protein 7.6 Albumin 4.2 <JUNITO Willis Last Filed: 05/11/24 15:17> Imaging Radiologist's Impressions: Impressions Head/Neck CTA 05/11/24 11:20 IMPRESSION: * No acute territorial infarction or intracranial hemorrhage. Chronic microangiopathy which limits assessment for small white matter infarcts. Chronic lacunar infarcts in the deep hi nuclei bilaterally. * No acute arterial occlusions and no significant arterial stenoses within the head or neck. * Advanced cervical spondylosis. Findings discussed with Dr. Jiménez at 12:25 PM and May 11, 2024. Electronically signed by: Ilia Stoner MD 05/11/2024 12:26 PM EDT RP Head CT 05/11/24 11:27 IMPRESSION: No evidence of acute stroke. This critical result was discussed with Dr. Sr at 1202 hours on 05/11/2024. It was ascertained that the content and urgency of the report was understood at the time of direct communication. Electronically signed by: Cristy Sr MD 05/11/2024 12:18 PM EDT RP <Tsering Sánchez PA-C - Last Filed: 05/11/24 15:17> Assessment and Plan (1) Right sided weakness: Status: Acute <Tsering Sánchez PA-C - Last Filed: 05/11/24 15:17> 83 yo [place] speaking f with a pmhx of HTN, COPD/asthma, HLD, GERD, neuropathy, chronic anemia ?secondary to CKD, anxiety who presented to the ED with R UE and R facial weakness beginning this AM. right sided weakness ?CVA - mild facial drooping. RUE weakness. - CT/CTA negative, EKG normal. - admit to tele - neuro checks Q2H - MRI brain - non-contrast - Echo with bubble study assess for thrombus or ASD - ASA 81mg QD, given 325mg in ED - atorvastatin 40mg now, then QHS starting tomrrow - check lipids - neuro consult - PT/OT and speech eval - NPO until speech eval HTN - hold meds unless BP >220/120 COPD/asthma - no acute exacerbation, continue home meds chronic anemia secondary to CKD - mild anemia on labs, continue to monitor due to hx of GI bleed tobacco use - smoking cessation discussed - nicotine patch elevated glucose - SSI - check A1C full code admit to telemetry for CVA r/o. <Tsering Sánchez PA-C - Last Filed: 05/11/24 15:17> 83 yo [place] speaking f with a pmhx of HTN, COPD/asthma, HLD, GERD, neuropathy, chronic anemia ?secondary to CKD, anxiety who presented to the ED with R UE and R facial weakness beginning this AM. right sided weakness ?CVA - mild facial drooping. RUE weakness. - CT/CTA negative, EKG normal. - admit to tele - neuro checks Q2H - MRI brain - non-contrast - Echo with bubble study assess for thrombus or ASD - ASA 81mg QD, given 325mg in ED - atorvastatin 40mg now, then QHS starting tomrrow - check lipids - neuro consult - PT/OT and speech eval - NPO until speech eval HTN - hold meds unless BP >220/120 COPD/asthma - no acute exacerbation, continue home meds chronic anemia secondary to CKD - mild anemia on labs, continue to monitor due to hx of GI bleed tobacco use - smoking cessation discussed - nicotine patch full code admit to telemetry for CVA r/o. <Nick Beasley MD - Last Filed: 05/11/24 15:13> Quality Stroke Does the patient have a stroke diagnosis?: No <Tsering Sácnhez PA-C - Last Filed: 05/11/24 15:17> Reason for No Anti-thrombotic by Day Two: Contraindicated (last known well time outside TNK therapeutic window) <Tsering Sánchez PA-C - Last Filed: 05/11/24 15:17> VTE Prior VTE?: Yes <Tsering Sánchez PA-C - Last Filed: 05/11/24 15:17> VTE Risk Level:: Medical - moderate - high <Tsering Sánchez PA-C - Last Filed: 05/11/24 15:17> VTE Device Contraindication: Treatment Not Indicated <Tsering Sánchez PA-C - Last Filed: 05/11/24 15:17> VTE Drug Contraindication: N/A - Med Ordered <Tsering Sánchez PA-C - Last Filed: 05/11/24 15:17>
[2024-05-11] MEDS: Nicotine 14 MG PATCH.TD24 TRANSDERMA (14:49)
[2024-05-11] MEDS: Enoxaparin Sodium 30 MG/0.3 ML SYRINGE SUBCUT (14:51)
[2024-05-11] MEDS: Atorvastatin Calcium 40 MG TABLET PO (14:51)
--- NOTE | 2024-05-11 14:51 | PHA.MEDREC ---
Pharmacy Consult ? Medication Reconciliation Pharmacy has completed the medication reconciliation. Spoke to patient at bedside with help of a family member who spoke more [place]. They were able to call someone at home to tell them which meds the patient still had and help ask the patient which medications they knew they were on. These matched claims, and they stated that they stopped the Enoxaparin 40mg SUBQ which was last filled in December.
--- NOTE | 2024-05-11 15:59 | PC.NURSE ---
Pt in MRI
[2024-05-11 16:23] LABS: Estimated Average Glucose 105 mg/dL; Hemoglobin A1C 99.7761 umol/L; Hemoglobin A1c % 5.3 % (<6.0); Total Hemoglobin (HGBA1C) 2877.6498 umol/L
[2024-05-11 17:04] LABS: Glucose, Whole Blood 100 mg/dL (60-115)
[2024-05-11] MEDS: 0.9 % Sodium Chloride Flush 3 ML SYRINGE IVFLUSH ×2 (18:29→19:52)
[2024-05-11] MEDS: Lactated Ringers 1,000 ML 80 ML IVCONT (18:31)
[2024-05-11] MEDS: Ferrous Sulfate 324 MG TABLET.DR PO (19:51)
[2024-05-11] MEDS: Gabapentin 300 MG CAPSULE PO (19:51)
[2024-05-11] MEDS: Sennosides/Docusate Sodium TABLET 2 TAB PO (19:51)
[2024-05-11] MEDS: Acetaminophen 325 MG TABLET 650 MG PO (19:51)
[2024-05-11] MEDS: Cyclobenzaprine HCl 10 MG TABLET PO (19:51)
[2024-05-11] MEDS: Albuterol/Iprat 2.5/0.5MG 3 ML AMPUL.NEB INHALE (20:04)
[2024-05-11 21:07] LABS: Glucose, Whole Blood 221 mg/dL (60-115)
[2024-05-11] MEDS: Insulin Lispro 100 UNIT/ML 3 ML VIAL SUBCUT (22:01)
[2024-05-12] VITALS (7 sets, daily range): BP systolic 106–151; BP diastolic 58–66; PULSE 68–103; RESP 18; TEMP 36.4–36.6; O2SAT 91–99
[2024-05-12] MEDS: Omeprazole 40 MG CAPSULE.DR PO ×2 (06:11→17:08)
[2024-05-12] MEDS: Lactated Ringers 1,000 ML 80 ML IVCONT ×2 (06:11→21:01)
--- NOTE | 2024-05-12 07:00 | CA_ITS ---
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 The calculated ejection fraction is 69% by biplane method. - No obvious valvular pathology seen on this study. Findings Left Ventricle Normal left ventricular cavity size. There is mildly increased left ventricular wall thickness. The left ventricular systolic function is normal. The calculated ejection fraction is 69% by biplane method. There is no evidence of regional wall motion abnormalities. Evidence suggests grade I (mild) diastolic dysfunction. Right Ventricle Normal right ventricular cavity size and systolic function. Atria Both atria are normal in size. Aortic Valve There is a normal trileaflet aortic valve. There is mild calcification of the aortic valve. There is no aortic valve stenosis. There is no aortic valve regurgitation. Mitral Valve The mitral valve appears normal. There is no mitral valve regurgitation. There is no mitral valve stenosis. Pulmonic Valve The pulmonic valve is likely normal. Tricuspid Valve There is mild tricuspid valve regurgitation. There is no evidence of pulmonary hypertension. Great Vessels The asc aorta is normal in size. Venous The inferior vena cava is normal in size and collapses greater than 50% with inspiration. Pericardium/Pleural There is no evidence of pericardial effusion. Prior Study Comparison No significant change compared to prior study dated: 05/28/2022. Recommendations, Care & Conclusions No obvious valvular pathology seen on this study. Measurements 2D Linear Measurements IVSd: 1.04 0.6-0.9/0.6-1.0 cm LVIDd: 3.55 3.9-5.3/4.2-5.9 cm LVIDd Index: 2.15 2.4-3.2/2.2-3.1 cm/m2 LVIDs: 2.31 2.0-3.6 cm LVPWd: 1.07 0.7-1.1 cm Ao Root: 2.80 2.1-3.5 cm LA Diam: 2.50 2.7-3.8/3.0-4.0 cm LAIDs Index: 1.52 1.5-2.3 cm/m2 LV Mass: 142.05 67-162/88-224 g LV Mass Index: 86.09 43-95/49-115 g/m2 LVOT Diam: 2.30 3.0+(-)1.3 cm 2D Systolic Function EF 4C: 69.70 >55% EF 2C: 68.10 >55% EF BiP: 69.00 >55% Mitral Valve MV Pk E: 0.45 MV PK A: 0.91 MV Decel Time: 76.00 E/A: 0.50 E'Lateral: 5.98 E'Medial: 4.46 E/E' Med: 10.20 E/E' Lat: 7.60 PHT: 22.00 MVA PHT: 10.00 Decel Willacy: 5.96 Aortic Valve AoV Pk Jorge: 1.60 AoV Mn Jorge: 1.02 AoV VTI: 0.29 AoV Pk Grad: 10.00 Aov Mn Grad: 5.00 STANLEY Cont.VTI: 2.95 LVOT LVOT Pk Jorge: 0.94 LVOT Mn Jorge: 0.57 LVOT VTI: 0.21 LVOT Pk Grad: 4.00 LVOT Mn Grad: 2.00 LVOT Diam: 2.30 LVOT Area: 4.15 Diastolic Function MV Pk E: 0.45 MV Pk A: 0.91 E/A: 0.50 E'Medial: 4.46 E/E' Med: 10.20 E' Laterial: 5.98 E/E' Lat: 7.60 Right Ventricle TAPSE (mm): 24.40 TVS' Jorge: 13.50 Tricuspid Valve TR Pk Jorge: 2.42 TR Pk Grad: 23.00 Great Vessels Aorta Ao Root-2D: 2.80 2.0-3.7 cm Ao Asc: 3.00 2.1-3.4 cm Pulmonary Valve PV Pk Jorge: 1.15 Peak PV Grad: 5.00 Updated in Other Vendor System with Status of Final Iggy Lugo MD electronically signed on 05/13/2024 9:16:54 AM with status of Final
[2024-05-12 07:05] LABS: Glucose, Whole Blood 144 mg/dL (60-115)
[2024-05-12 08:09] LABS: Cholesterol 180 mg/dL (<200); HDL Cholesterol 38 mg/dL (>40); LDL Cholesterol Calculated 106 mg/dL (<100); Triglycerides 184 mg/dL (<150)
[2024-05-12] MEDS: Fluticasone/Umeclidinium/Vilanterol 200/62.5/25 BLST.W.DEV 1 PUFF INHALE (08:34)
[2024-05-12] MEDS: Ferrous Sulfate 324 MG TABLET.DR PO ×2 (09:31→20:59)
[2024-05-12] MEDS: Cyclobenzaprine HCl 10 MG TABLET PO ×2 (09:31→20:59)
[2024-05-12] MEDS: Ascorbic Acid 500 MG TABLET PO (09:32)
[2024-05-12] MEDS: Escitalopram Oxalate 5 MG TABLET PO (09:32)
[2024-05-12] MEDS: Cholecalciferol (Vitamin D3) 25 MCG TABLET 50 MCG PO (09:32)
[2024-05-12] MEDS: Aspirin Enteric Coated 81 MG TABLET.DR PO (09:32)
[2024-05-12] MEDS: Sennosides/Docusate Sodium TABLET 2 TAB PO ×2 (09:32→21:00)
[2024-05-12] MEDS: 0.9 % Sodium Chloride Flush 3 ML SYRINGE IVFLUSH ×2 (09:33→17:08)
[2024-05-12] MEDS: polyethylene glycoL 3350 17 GM POWD.PACK PO (09:33)
--- NOTE | 2024-05-12 10:05 | HO.PM.IMPN ---
Subjective Subjective Date of Service: 05/12/24 <Tsering Sánchez PA-C - Last Filed: 05/12/24 10:46> 05/13/24 <Nick Beasley MD - Last Filed: 05/13/24 08:33> Interval History: f/u on CVA interval hx: feeling well. headache gone. RUE weakness improved but still present. still with facial droop <Tsering Sánchez PA-C - Last Filed: 05/12/24 10:46> Constitutional Constitutional: Denies headache(s) <Tsering Sánchez PA-C - Last Filed: 05/12/24 10:46> Eyes Eyes: Denies change in vision <Tsering Sánchez PA-C - Last Filed: 05/12/24 10:46> ENT Ears, Nose, Mouth, and Throat: Denies headache(s) <Tsering Sánchez PA-C - Last Filed: 05/12/24 10:46> Cardiovascular Cardiovascular: Denies chest pain and Denies rapid heart rate <Tesring Sánchez PA-C - Last Filed: 05/12/24 10:46> Respiratory Respiratory: Denies cough <Tsering Sánchez PA-C - Last Filed: 05/12/24 10:46> Gastrointestinal Gastrointestinal: Denies abdominal pain <JUNITO Willis Last Filed: 05/12/24 10:46> Neurologic Neurologic: Denies headache(s) <Tsering Sánchez PA-C - Last Filed: 05/12/24 10:46> Physical Exam Vital Signs: Vital Signs: Last Vital Signs Temp 97.6 F 05/12/24 07:20 Pulse 69 05/12/24 09:31 Resp 18 05/12/24 08:35 BP 113/60 05/12/24 07:20 Pulse Ox 98 05/12/24 07:20 O2 Del Method Room Air 05/12/24 07:20 BMI result Body Mass Index 24.3 <JUNITO Willis Last Filed: 05/12/24 10:46> const: A+Ox3, eating, NAD, multiple family members present cardio: RRR no M resp: CTA bital neuro: still with facial droop on right. facial sensation improved on right. tongue deviates left. LE strength and sensation intact. mild RUE numbness, slightly weaker than LUE. <Tsering Sánchez PA-C - Last Filed: 05/12/24 10:46> Objective Data Active Medications Acetaminophen (Acetaminophen 325 Mg Tablet) 650 mg PO Q6H PRN PRN Reason: Pain, Mild (Pain Scale 1-3), fever or headache Last Admin: 05/11/24 19:51 Dose: 650 mg Documented By: HYACINTH Albuterol Sulfate (Albuterol Sulfate 90 Mcg 8 Gm Inhaler) 2 puff INHALE Q4H PRN PRN Reason: Shortness Of Breath Or Wheezing Albuterol/Ipratropium (Albuterol/Iprat 2.5/0.5mg 3 Ml Ampul.Neb) 3 ml INHALE QID PRN PRN Reason: Shortness Of Breath Or Wheezing Last Admin: 05/11/24 20:04 Dose: 3 ml Documented By: RUBI Ascorbic Acid (Ascorbic Acid 500 Mg Tablet) 500 mg PO DAILY [facility] Last Admin: 05/12/24 09:32 Dose: 500 mg Documented By: SUZI Aspirin (Aspirin Enteric Coated 81 Mg Tablet.Dr) 81 mg PO DAILY [facility] Last Admin: 05/12/24 09:32 Dose: 81 mg Documented By: SUZI Atorvastatin Calcium (Atorvastatin Calcium 40 Mg Tablet) 40 mg PO BEDTIME [facility] Last Admin: 05/11/24 14:51 Dose: 40 mg Documented By: SAE Benzonatate (Benzonatate 100 Mg Capsule) 100 mg PO TID PRN PRN Reason: Cough Calcium Carbonate (Calcium Carbonate 750 Mg Tab.Chew) 750 mg PO Q4H PRN PRN Reason: Heartburn Cyclobenzaprine HCl (Cyclobenzaprine Hcl 10 Mg Tablet) 10 mg PO TID [facility] Last Admin: 05/12/24 09:31 Dose: 10 mg Documented By: SUZI Enoxaparin Sodium (Enoxaparin Sodium 30 Mg/0.3 Ml Syringe) 30 mg SUBCUT Q24H [facility] Last Admin: 05/11/24 14:51 Dose: 30 mg Documented By: SAE Escitalopram Oxalate (Escitalopram Oxalate 5 Mg Tablet) 5 mg PO DAILY [facility] Last Admin: 05/12/24 09:32 Dose: 5 mg Documented By: SUZI Ferrous Sulfate (Ferrous Sulfate 324 Mg Tablet.) 324 mg PO BID [facility] Last Admin: 05/12/24 09:31 Dose: 324 mg Documented By: SUZI Fluticasone/Umeclidinium/Vilanterol (Fluticasone/Umeclidinium/Vilanterol 200/62.5/25 Blst.W.Dev) 1 puff INHALE RDAILY [facility] Last Admin: 05/12/24 08:34 Dose: 1 puff Documented By: SERA Gabapentin (Gabapentin 300 Mg Capsule) 300 mg PO BEDTIME [facility] Last Admin: 05/11/24 19:51 Dose: 300 mg Documented By: HYACINTH Glucose (Glucose Gel 15 Gm Gel..Gram.) 15 gm PO Q15M PRN; Protocol PRN Reason: per Hypoglycemia Standing Ord. Dextrose (D10) 250 mls @ 750 mls/hr IV Q15M PRN; Protocol PRN Reason: per Hypoglycemia Standing Ord. Lactated Ringer's (Lr) 1,000 mls @ 80 mls/hr IVCONT .[id number] [facility] Last Admin: 05/12/24 06:11 Dose: 80 mls/hr Documented By: HYACINTH Insulin Human Lispro (Insulin Lispro 100 Unit/Ml 3 Ml Vial) 0 unit SUBCUT QIDACHS [facility]; Protocol Last Admin: 05/12/24 09:04 Dose: Not Given Documented By: SUZI Non-Admin Reason: No Insulin Coverage Magnesium Hydroxide (Milk Of Magnesia 30 Ml Oral.Susp) 30 ml PO DAILY PRN PRN Reason: Constipation Melatonin (Melatonin 3 Mg Tablet) 6 mg PO BEDTIME PRN PRN Reason: Insomnia Nicotine (Nicotine 14 Mg Patch.Td24) 14 mg TRANSDERMA DAILY [facility] Last Admin: 05/12/24 09:33 Dose: Not Given Documented By: SUZI Non-Admin Reason: Patient Refused Omeprazole (Omeprazole 40 Mg Capsule.) 40 mg PO BID@0630,1630 [facility] Last Admin: 05/12/24 06:11 Dose: 40 mg Documented By: HYACINTH Ondansetron HCl (Ondansetron Hcl 4 Mg/2 Ml Vial) 4 mg IVPUSH Q8H PRN PRN Reason: Nausea and Vomiting Polyethylene Glycol (Polyethylene Glycol 3350 17 Gm Powd.Pack) 17 gm PO DAILY [facility] Last Admin: 05/12/24 09:33 Dose: 17 gm Documented By: SUZI Senna/Docusate Sodium (Sennosides/Docusate Sodium Tablet) 2 tab PO BID [facility] Last Admin: 05/12/24 09:32 Dose: 2 tab Documented By: SUZI Sodium Chloride (0.9 % Sodium Chloride Flush 3 Ml Syringe) 3 ml IVFLUSH QSHIFT [facility] Last Admin: 05/12/24 09:33 Dose: 3 ml Documented By: SUZI Tramadol HCl (Tramadol Hcl 50 Mg Tablet) 25 mg PO DAILY PRN PRN Reason: Pain, Severe (Pain Scale 7-10) Vitamin D (Cholecalciferol (Vitamin D3) 25 Mcg Tablet) 50 mcg PO DAILY [facility] Last Admin: 05/12/24 09:32 Dose: 50 mcg Documented By: SUZI <Tsering Sánchez PA-C - Last Filed: 05/12/24 10:46> Labs CBC & Chem 7: 05/11/24 11:24 05/11/24 11:24 <Tsering Sánchez PA-C - Last Filed: 05/12/24 10:46> Labs: Laboratory Results - last 24 hr 05/11/24 05/11/24 05/11/24 11:19 11:24 16:58 MCV 95.4 MCH 29.7 MCHC 31.1 RDW 15.9 Plt Count 316 MPV 10.3 Immature Gran % (Auto) 1.7 H Neut % (Auto) 72.8 Lymph % (Auto) 12.9 L [place] % (Auto) 7.1 Eos % (Auto) 4.4 H Baso % (Auto) 1.1 Lymph # (Auto) 0.9 L [place] # (Auto) 0.5 Eos # (Auto) 0.3 Baso # (Auto) 0.1 Abs Immat Gran (auto) 0.11 H Absolute Neuts (auto) 4.8 Absolute Nucleated RBC 0.000 Nucleated RBC % (auto) 0.0 PT 11.0 Whole Blood PT 11.9 INR 0.9 Whole Blood INR 1.0 APTT 20.5 L Anion Gap 15 Estim Creat Clear Calc 28.1 Estimated GFR 41 POC Glucose 187 H 100 Random Glucose 213 H Estimat Average Glucose 105 Hemoglobin A1c % 5.3 Calcium 10.2 Total Bilirubin 0.3 AST 19 ALT 17 Alkaline Phosphatase 68 Troponin I High Sens < 2.7 Total Protein 7.6 Albumin 4.2 Triglycerides Cholesterol LDL Cholesterol, Calc HDL Cholesterol 05/11/24 05/12/24 05/12/24 21:02 06:27 06:56 MCV MCH MCHC RDW Plt Count MPV Immature Gran % (Auto) Neut % (Auto) Lymph % (Auto) [place] % (Auto) Eos % (Auto) Baso % (Auto) Lymph # (Auto) [place] # (Auto) Eos # (Auto) Baso # (Auto) Abs Immat Gran (auto) Absolute Neuts (auto) Absolute Nucleated RBC Nucleated RBC % (auto) PT Whole Blood PT INR Whole Blood INR APTT Anion Gap Estim Creat Clear Calc Estimated GFR POC Glucose 221 H 144 H Random Glucose Estimat Average Glucose Hemoglobin A1c % Calcium Total Bilirubin AST ALT Alkaline Phosphatase Troponin I High Sens Total Protein Albumin Triglycerides 184 H Cholesterol 180 LDL Cholesterol, Calc 106 H HDL Cholesterol 38 L <Tsering Sánchez PA-C - Last Filed: 05/12/24 10:46> Imaging MRI - head: Radiologist's impression: Impressions Head/Neck CTA 05/11/24 11:20 IMPRESSION: * No acute territorial infarction or intracranial hemorrhage. Chronic microangiopathy which limits assessment for small white matter infarcts. Chronic lacunar infarcts in the deep hi nuclei bilaterally. * No acute arterial occlusions and no significant arterial stenoses within the head or neck. * Advanced cervical spondylosis. Findings discussed with Dr. Jiménez at 12:25 PM and May 11, 2024. Electronically signed by: Ilia Stoner MD 05/11/2024 12:26 PM EDT RP Head CT 05/11/24 11:27 IMPRESSION: No evidence of acute stroke. This critical result was discussed with Dr. Sr at 1202 hours on 05/11/2024. It was ascertained that the content and urgency of the report was understood at the time of direct communication. Electronically signed by: Cristy Sr MD 05/11/2024 12:18 PM EDT RP Brain MRI 05/11/24 16:00 IMPRESSION: - Multiple small acute infarcts within the left precentral gyrus including within the hand region in the left MCA territory. There are also a few punctate acute infarcts within the parietal lobes bilaterally. There is no mass effect and there is no hemorrhagic transformation. - There is global cerebral volume loss and there is moderate chronic microangiopathy. Electronically signed by: Ilia Stoner MD 05/11/2024 04:48 PM EDT RP <Tsering Sánchez PA-C - Last Filed: 05/12/24 10:46> Assessment and Plan (1) CVA (cerebral vascular accident): Status: Acute <Tsering Sánchez PA-C - Last Filed: 05/12/24 10:46> Assessment and Plan: 83 yo Upper Sor[place] speaking f with a pmhx of HTN, COPD/asthma, HLD, GERD, neuropathy, chronic anemia ?secondary to CKD, and anxiety with new L MCA CVA. CVA- right UE weakness and R facial droop. UE weakness improving - MRI with multiple small acute infarcts within the left precentral gyrus including within the hand region in the left MCA territory and a few punctate acute infarcts within the parietal lobes bilaterally. - echo/bubble study not yet done - mildly elevated triglycerides and LDL, HDL slightly low, continue statin - continue ASA 81 - remain on tele - neuro consult pending HTN - BP good, hold home meds for now COPD/asthma - no acute exacerbation, continue home meds chronic anemia secondary to CKD - mild anemia on labs, continue to monitor due to hx of GI bleed tobacco use - nicotine patch elevated glucose - SSI - A1C 5.3 - not diabetic but BS remain elevated Continue admission on tele to assess for cause of CVA. <Tsering Sánchez PA-C - Last Filed: 05/12/24 10:46> Quality Stroke Does the patient have a stroke diagnosis?: Yes <Tsering Sánchez PA-C - Last Filed: 05/12/24 10:46> Reason for No Anti-thrombotic by Day Two: Contraindicated (last known well time outside TNK therapeutic window) <Tsering Sánchez PA-C - Last Filed: 05/12/24 10:46> VTE Prior VTE?: Yes <Tsering Sánchez PA-C - Last Filed: 05/12/24 10:46> VTE Risk Level:: Medical - moderate - high <Tsering Sánchez PA-C - Last Filed: 05/12/24 10:46> VTE Device Contraindication: Treatment Not Indicated <Tsering Sánchez PA-C - Last Filed: 05/12/24 10:46> VTE Drug Contraindication: N/A - Med Ordered <Tsering Sánchez PA-C - Last Filed: 05/12/24 10:46>
[2024-05-12 10:49] LABS: Glucose, Whole Blood 208 mg/dL (60-115)
[2024-05-12] MEDS: Milk of Magnesia 30 ML ORAL.SUSP PO (11:47)
[2024-05-12] MEDS: Insulin Lispro 100 UNIT/ML 3 ML VIAL SUBCUT (11:49)
[2024-05-12] MEDS: ondansetron HCL 4 MG/2 ML VIAL IVPUSH (12:13)
--- NOTE | 2024-05-12 12:35 | MHC.CM.PN ---
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 HCP is on file and confirmed: Tika. PCP is Rosalina Travis. Pt was at [facility] a few months ago at [facility], and said it was fine. Family can transport home at [place]. DCP: home with services. CM to follow and assist with DC plan.
--- NOTE | 2024-05-12 13:11 | MHC.SL.SWA ---
Speech Pathologist Impression: WFL Risk of Aspiration Due to: Neurological Condition Dysphasia Diet Status: No Change to Diet Order Liquid Consistency and Strategies for Safe Swallow: Liquid Intake Recommendation: Thin Liquid Intake Strategies: Small Sips Solid Food Consistency: Dietary Recommendations: Regular Oral Medication Intake: Whole with Liquid Please contact the pharmacy regarding appropriate crushable or liquid drug formulations that are available whenever modified delivery is recommended. Compensatory Strategies and Precautions to be Taken for Safe Swallow: Sitting Upright (90 deg) Small Bites and Sips Alternate Liquids/Solids Rate of Ingestion Change Supervision While Eating and Drinking for Safe Swallow: Total Supervision (1:1) Foods to Avoid: [place] hard or chewy foods Swallowing Recommended Treatments: Compens. Strategy Educat. Recommendation for Speech: Inpatient Speech Therapy Comment: 1 f/u to monitor tolerance of unmodified diet Frequency/Duration: Date Range for Service Req: Timeline to reassess: Hand Cigar Making Supervisor Clinican/Clinical Fellow: No Supervisory Statement: I have reviewed and agree with the student/clinical fellow's documentation: N/A Speech Language Pathologist: Mary Ellen Armendariz M.A., CCC-[employer] MEMBER
--- NOTE | 2024-05-12 15:01 | PC.NURSE ---
Pt was reporting some constipation. PRN and scheduled stool softeners given. Pt then was complaining of abd pain and nausea; pt then started vomiting. Zofran admin at 12:13, after pt was able to eat some lunch snd stated felt better but then started to vomit once again after eating and was complaining about abd pain. notified- ordered pt to be NPO, CT of head and abd ordered. Reported onto oncoming RN.
[2024-05-12 16:08] LABS: Glucose, Whole Blood 133 mg/dL (60-115)
[2024-05-12 20:27] LABS: Glucose, Whole Blood 146 mg/dL (60-115)
[2024-05-12] MEDS: Gabapentin 300 MG CAPSULE PO (20:59)
[2024-05-12] MEDS: Atorvastatin Calcium 40 MG TABLET PO (21:01)
[2024-05-13] VITALS (8 sets, daily range): BP systolic 108–150; BP diastolic 53–69; PULSE 67–114; RESP 12–19; TEMP 36.3–36.8; O2SAT 94–99
[2024-05-13] MEDS: 0.9 % Sodium Chloride Flush 3 ML SYRINGE IVFLUSH ×2 (00:13→21:05)
[2024-05-13] MEDS: Omeprazole 40 MG CAPSULE.DR PO (06:12)
[2024-05-13] MEDS: Fluticasone/Umeclidinium/Vilanterol 200/62.5/25 BLST.W.DEV 1 PUFF INHALE (07:37)
[2024-05-13] MEDS: Aspirin Enteric Coated 81 MG TABLET.DR PO (08:09)
[2024-05-13] MEDS: Ferrous Sulfate 324 MG TABLET.DR PO ×2 (08:09→21:00)
[2024-05-13] MEDS: Ascorbic Acid 500 MG TABLET PO (08:09)
[2024-05-13] MEDS: Cyclobenzaprine HCl 10 MG TABLET PO ×3 (08:10→20:59)
[2024-05-13] MEDS: Cholecalciferol (Vitamin D3) 25 MCG TABLET 50 MCG PO (08:10)
[2024-05-13] MEDS: Escitalopram Oxalate 5 MG TABLET PO (08:14)
[2024-05-13 08:16] LABS: Glucose, Whole Blood 149 mg/dL (60-115)
--- NOTE | 2024-05-13 08:33 | HO.PM.IMPN ---
Subjective Subjective Date of Service: 05/13/24 Interval History: f/u cva has been having some abd pain n/v ct shows colitis Physical Exam Vital Signs: Vital Signs: Last Vital Signs Temp 97.4 F 05/13/24 08:00 Pulse 100 05/13/24 08:00 Resp 18 05/13/24 08:00 BP 119/61 05/13/24 08:00 Pulse Ox 99 05/13/24 08:00 O2 Del Method Room Air 05/13/24 08:00 BMI result Body Mass Index 24.3 General: AO X 3, no acute distress Resp: CTA bilateral CVS: S1,S2,RRR GI: +BS, mild tenderness in llq area Skin: No rash Neuro: motor grossly intact Psych: appropriate affect Objective Data Active Medications Acetaminophen (Acetaminophen 325 Mg Tablet) 650 mg PO Q6H PRN PRN Reason: Pain, Mild (Pain Scale 1-3), fever or headache Last Admin: 05/11/24 19:51 Dose: 650 mg Documented By: HYACINTH Albuterol Sulfate (Albuterol Sulfate 90 Mcg 8 Gm Inhaler) 2 puff INHALE Q4H PRN PRN Reason: Shortness Of Breath Or Wheezing Albuterol/Ipratropium (Albuterol/Iprat 2.5/0.5mg 3 Ml Ampul.Neb) 3 ml INHALE QID PRN PRN Reason: Shortness Of Breath Or Wheezing Last Admin: 05/11/24 20:04 Dose: 3 ml Documented By: RUBI Ascorbic Acid (Ascorbic Acid 500 Mg Tablet) 500 mg PO DAILY [facility] Last Admin: 05/13/24 08:09 Dose: 500 mg Documented By: MARKUS Aspirin (Aspirin Enteric Coated 81 Mg Tablet.) 81 mg PO DAILY [facility] Last Admin: 05/13/24 08:09 Dose: 81 mg Documented By: MARKUS Atorvastatin Calcium (Atorvastatin Calcium 40 Mg Tablet) 40 mg PO BEDTIME [facility] Last Admin: 05/12/24 21:01 Dose: 40 mg Documented By: ANTHONY Benzonatate (Benzonatate 100 Mg Capsule) 100 mg PO TID PRN PRN Reason: Cough Calcium Carbonate (Calcium Carbonate 750 Mg Tab.Chew) 750 mg PO Q4H PRN PRN Reason: Heartburn Cyclobenzaprine HCl (Cyclobenzaprine Hcl 10 Mg Tablet) 10 mg PO TID [facility] Last Admin: 05/13/24 08:10 Dose: 10 mg Documented By: MARKUS Enoxaparin Sodium (Enoxaparin Sodium 30 Mg/0.3 Ml Syringe) 30 mg SUBCUT Q24H [facility] Last Admin: 05/12/24 14:51 Dose: Not Given Documented By: SUZI Non-Admin Reason: holding for CT Escitalopram Oxalate (Escitalopram Oxalate 5 Mg Tablet) 5 mg PO DAILY [facility] Last Admin: 05/13/24 08:14 Dose: 5 mg Documented By: MARKUS Ferrous Sulfate (Ferrous Sulfate 324 Mg Tablet.Dr) 324 mg PO BID [facility] Last Admin: 05/13/24 08:09 Dose: 324 mg Documented By: MARKUS Fluticasone/Umeclidinium/Vilanterol (Fluticasone/Umeclidinium/Vilanterol 200/62.5/25 Blst.W.Dev) 1 puff INHALE RDAILY [facility] Last Admin: 05/13/24 07:37 Dose: 1 puff Documented By: GOPAL Gabapentin (Gabapentin 300 Mg Capsule) 300 mg PO BEDTIME [facility] Last Admin: 05/12/24 20:59 Dose: 300 mg Documented By: ANTHONY Glucose (Glucose Gel 15 Gm Gel..Gram.) 15 gm PO Q15M PRN; Protocol PRN Reason: per Hypoglycemia Standing Ord. Dextrose (D10) 250 mls @ 750 mls/hr IV Q15M PRN; Protocol PRN Reason: per Hypoglycemia Standing Ord. Lactated Ringer's (Lr) 1,000 mls @ 80 mls/hr IVCONT .[id number] [facility] Last Admin: 05/13/24 06:12 Dose: Not Given Documented By: JAYANT Non-Admin Reason: IV Running Insulin Human Lispro (Insulin Lispro 100 Unit/Ml 3 Ml Vial) 0 unit SUBCUT QIDACHS [facility]; Protocol Last Admin: 05/13/24 08:19 Dose: Not Given Documented By: MARKUS Non-Admin Reason: No Insulin Coverage Magnesium Hydroxide (Milk Of Magnesia 30 Ml Oral.Susp) 30 ml PO DAILY PRN PRN Reason: Constipation Last Admin: 05/12/24 11:47 Dose: 30 ml Documented By: SUZI Melatonin (Melatonin 3 Mg Tablet) 6 mg PO BEDTIME PRN PRN Reason: Insomnia Nicotine (Nicotine 14 Mg Patch.Td24) 14 mg TRANSDERMA DAILY [facility] Last Admin: 05/13/24 08:14 Dose: Not Given Documented By: MARKUS Non-Admin Reason: Patient Refused Omeprazole (Omeprazole 40 Mg Capsule.) 40 mg PO BID@0630,1630 [facility] Last Admin: 05/13/24 06:12 Dose: 40 mg Documented By: JAYANT Ondansetron HCl (Ondansetron Hcl 4 Mg/2 Ml Vial) 4 mg IVPUSH Q8H PRN PRN Reason: Nausea and Vomiting Last Admin: 05/12/24 12:13 Dose: 4 mg Documented By: DAVID Polyethylene Glycol (Polyethylene Glycol 3350 17 Gm Powd.Pack) 17 gm PO DAILY [facility] Last Admin: 05/13/24 08:14 Dose: Not Given Documented By: MARKUS Non-Admin Reason: Patient Refused Senna/Docusate Sodium (Sennosides/Docusate Sodium Tablet) 2 tab PO BID [facility] Last Admin: 05/13/24 08:14 Dose: Not Given Documented By: MARKUS Non-Admin Reason: Patient Refused Sodium Chloride (0.9 % Sodium Chloride Flush 3 Ml Syringe) 3 ml IVFLUSH QSHIFT [facility] Last Admin: 05/13/24 08:19 Dose: Not Given Documented By: MARKUS Non-Admin Reason: IV Running Tramadol HCl (Tramadol Hcl 50 Mg Tablet) 25 mg PO DAILY PRN PRN Reason: Pain, Severe (Pain Scale 7-10) Vitamin D (Cholecalciferol (Vitamin D3) 25 Mcg Tablet) 50 mcg PO DAILY [facility] Last Admin: 05/13/24 08:10 Dose: 50 mcg Documented By: MARKUS Labs 05/11/24 11:24 05/11/24 11:24 Labs: Laboratory Results - last 24 hr 05/12/24 05/12/24 05/12/24 10:40 16:03 20:19 POC Glucose 208 H 133 H 146 H 05/13/24 08:08 POC Glucose 149 H Assessment and Plan (1) CVA (cerebral vascular accident): Status: Acute Plan 83/f Kazakh speaking f with a pmhx of HTN, COPD/asthma, HLD, GERD, neuropathy, chronic anemia ?secondary to CKD, and anxiety with new L MCA CVA. Now abd pain n/v CVA- right UE weakness and R facial droop. UE weakness improving - MRI with multiple small acute infarcts within the left precentral gyrus including within the hand region in the left MCA territory and a few punctate acute infarcts within the parietal lobes bilaterally. - echo/bubble study not yet done - mildly elevated triglycerides and LDL, HDL slightly low, continu high intensity statin - continue ASA 81 - continue tele, no afib noted - neuro consult pending -PT re acute rehab colitis--on CT -start Ceftriaxone + Flagyl -check cbc HTN--normal without meds -hold home meds for now COPD/asthma - no acute exacerbation, continue home meds chronic anemia secondary to CKD - mild anemia on labs, continue to monitor due to hx of GI bleed tobacco use - nicotine patch elevated glucose - SSI - A1C 5.3 - not diabetic but BS remain elevated need for inpt: awaiting rehab Quality Stroke Does the patient have a stroke diagnosis?: Yes Reason for No Anti-thrombotic by Day Two: Contraindicated (last known well time outside [facility] therapeutic window) VTE Prior VTE?: Yes VTE Risk Level:: Medical - moderate - high VTE Device Contraindication: Treatment Not Indicated VTE Drug Contraindication: N/A - Med Ordered
[2024-05-13] MEDS: metroNIDAZOLE 500 MG TABLET PO ×2 (09:27→16:45)
[2024-05-13 09:33] LABS: Hematocrit 29.6 % (37.0-47.0); Hemoglobin 9.1 g/dl (12.0-16.0); Mean Corpuscular HGB Conc 30.7 g/dl (31.0-35.0); Mean Corpuscular Hemoglobin 29.1 pg (27.0-33.0); Mean Corpuscular Volume 94.6 fL (80.0-98.0); Mean Platelet Volume 10.8 fL (9.4-12.3); Platelet Count 283 X10*3/uL (160-400); Red Blood Count 3.13 X10*6/uL (4.20-5.50); Red Cell Distribution Width 15.1 % (11.0-16.0); White Blood Count 12.2 X10*3/uL (4.8-10.8)
[2024-05-13] MEDS: cefTRIAXone sodium 1 GM in 0.9 % Sodium Chloride 50 ML IV (09:34)
[2024-05-13 09:42] LABS: Anion Gap 11 (12-20); Blood Urea Nitrogen 31 mg/dL (9-16); Calcium 9.3 mg/dL (8.4-10.2); Carbon Dioxide 27 mmol/L (22-29); Chloride 105 mmol/L (96-108); Estimated Glomerular Filt Rate > 60; Glucose Random 163 mg/dL (60-115); Potassium 4.8 mmol/L (3.3-5.1); Sodium 138 mmol/L (135-145)
[2024-05-13] MEDS: Lactated Ringers 1,000 ML 80 ML IVCONT (10:11)
[2024-05-13 11:48] LABS: Glucose, Whole Blood 216 mg/dL (60-115)
--- NOTE | 2024-05-13 11:56 | P.CNNE_ITS ---
History of Present Illness Data of Consult Service Date: 05/13/24 Primary Care Provider: Thaddeus Romano MD HPI Reason for consult: STROKE 83 yo Brazilian speaking f with a pmhx of HTN, COPD/asthma, HLD, GERD, neuropathy, chronic anemia ?secondary to CKD CAME TO HOSPITAL WITH NEW ONSET OF RIGHT-SIDED WEAKNESS. SHE WAS STILL FEELING SOME NUMBNESS AND WEAKNESS OF RIGHT SIDE. HER MRI OF BRAIN REVEALED A SMALL STROKE. Review of Systems 2 Review of Systems: NO RECENT CARDIAC SYMPTOM OR COLD OR FLU-LIKE ILLNESS [facility] Past Medical History Medical History (Updated 05/13/24 @ 11:58 by Dhaval Whittington MD) History of DVT (deep vein thrombosis) Mass of right axilla COVID-19 Duodenal arteriovenous malformation Osteopenia Anemia GI bleed GERD (gastroesophageal reflux disease) Peripheral neuropathy Anxiety Depression COPD (chronic obstructive pulmonary disease) Asthma Elevated cholesterol Lab test negative for COVID-19 virus Family History Family History Father Stroke Asthma Mother Heart attack Stroke Asthma Sister DVT (deep venous thrombosis) Asthma Brother COPD (chronic obstructive pulmonary disease) Son Cancer Surgical History Surgical History History of tubal ligation History of axillary surgery Hx of oophorectomy Hx of colonoscopy Hx of esophagogastroduodenoscopy Hx of foot surgery Hx of cholecystectomy Hx of tonsillectomy Hx of appendectomy Social History Social History Household Members: Children Household Members Other:: son Housing: Apartment Are you a primary hiv/aids care nurse to a significant other at home: No Do you presently have visiting nurse or other home services: Yes (home rehabilitation center manager) Alcohol intake: never Patient Tobacco Use Status: Current everyday Tobacco user Tobacco use type: Cigarette Cigarettes Per Day: 2 Years Smoked: 60 Second Hand Smoke Exposure: Yes Advance Directives Date on File: 01/16/21 service: No Current occupational status: retired Meds Allergies Allergy/AdvReac Type Severity Reaction Status Date / Time lidocaine Allergy Severe Hives Verified 05/11/24 11:08 Active Medications: Current Medications Acetaminophen (Acetaminophen 325 Mg Tablet) 650 mg PO Q6H PRN PRN Reason: Pain, Mild (Pain Scale 1-3), fever or headache Last Admin: 05/11/24 19:51 Dose: 650 mg Albuterol Sulfate (Albuterol Sulfate 90 Mcg 8 Gm Inhaler) 2 puff INHALE Q4H PRN PRN Reason: Shortness Of Breath Or Wheezing Albuterol/Ipratropium (Albuterol/Iprat 2.5/0.5mg 3 Ml Ampul.Neb) 3 ml INHALE QID PRN PRN Reason: Shortness Of Breath Or Wheezing Last Admin: 05/11/24 20:04 Dose: 3 ml Ascorbic Acid (Ascorbic Acid 500 Mg Tablet) 500 mg PO DAILY [facility] Last Admin: 05/13/24 08:09 Dose: 500 mg Aspirin (Aspirin Enteric Coated 81 Mg Tablet.) 81 mg PO DAILY [facility] Last Admin: 05/13/24 08:09 Dose: 81 mg Atorvastatin Calcium (Atorvastatin Calcium 40 Mg Tablet) 40 mg PO BEDTIME [facility] Last Admin: 05/12/24 21:01 Dose: 40 mg Benzonatate (Benzonatate 100 Mg Capsule) 100 mg PO TID PRN PRN Reason: Cough Calcium Carbonate (Calcium Carbonate 750 Mg Tab.Chew) 750 mg PO Q4H PRN PRN Reason: Heartburn Cyclobenzaprine HCl (Cyclobenzaprine Hcl 10 Mg Tablet) 10 mg PO TID [facility] Last Admin: 05/13/24 08:10 Dose: 10 mg Enoxaparin Sodium (Enoxaparin Sodium 30 Mg/0.3 Ml Syringe) 30 mg SUBCUT Q24H [facility] Last Admin: 05/12/24 14:51 Dose: Not Given Escitalopram Oxalate (Escitalopram Oxalate 5 Mg Tablet) 5 mg PO DAILY [facility] Last Admin: 05/13/24 08:14 Dose: 5 mg Ferrous Sulfate (Ferrous Sulfate 324 Mg Tablet.) 324 mg PO BID [facility] Last Admin: 05/13/24 08:09 Dose: 324 mg Fluticasone/Umeclidinium/Vilanterol (Fluticasone/Umeclidinium/Vilanterol 200/62.5/25 Blst.W.Dev) 1 puff INHALE RDAILY [facility] Last Admin: 05/13/24 07:37 Dose: 1 puff Gabapentin (Gabapentin 300 Mg Capsule) 300 mg PO BEDTIME [facility] Last Admin: 05/12/24 20:59 Dose: 300 mg Glucose (Glucose Gel 15 Gm Gel..Gram.) 15 gm PO Q15M PRN; Protocol PRN Reason: per Hypoglycemia Standing Ord. Dextrose (D10) 250 mls @ 750 mls/hr IV Q15M PRN; Protocol PRN Reason: per Hypoglycemia Standing Ord. Lactated Ringer's (Lr) 1,000 mls @ 80 mls/hr IVCONT .[id number] [facility] Last Admin: 05/13/24 10:11 Dose: 80 mls/hr Ceftriaxone Sodium 1 gm/ (Sodium Chloride) 50 mls @ 100 mls/hr IV Q24H [facility] Last Infusion: 05/13/24 10:04 Dose: Infused Insulin Human Lispro (Insulin Lispro 100 Unit/Ml 3 Ml Vial) 0 unit SUBCUT QIDACHS [facility]; Protocol Last Admin: 05/13/24 08:19 Dose: Not Given Magnesium Hydroxide (Milk Of Magnesia 30 Ml Oral.Susp) 30 ml PO DAILY PRN PRN Reason: Constipation Last Admin: 05/12/24 11:47 Dose: 30 ml Melatonin (Melatonin 3 Mg Tablet) 6 mg PO BEDTIME PRN PRN Reason: Insomnia Metronidazole (Metronidazole 500 Mg Tablet) 500 mg PO Q8H [facility] Last Admin: 05/13/24 09:27 Dose: 500 mg Nicotine (Nicotine 14 Mg Patch.Td24) 14 mg TRANSDERMA DAILY [facility] Last Admin: 05/13/24 08:14 Dose: Not Given Omeprazole (Omeprazole 40 Mg Capsule.Dr) 40 mg PO BID@0630,1630 [facility] Last Admin: 05/13/24 06:12 Dose: 40 mg Ondansetron HCl (Ondansetron Hcl 4 Mg/2 Ml Vial) 4 mg IVPUSH Q8H PRN PRN Reason: Nausea and Vomiting Last Admin: 05/12/24 12:13 Dose: 4 mg Polyethylene Glycol (Polyethylene Glycol 3350 17 Gm Powd.Pack) 17 gm PO DAILY [facility] Last Admin: 05/13/24 08:14 Dose: Not Given Senna/Docusate Sodium (Sennosides/Docusate Sodium Tablet) 2 tab PO BID [facility] Last Admin: 05/13/24 08:14 Dose: Not Given Sodium Chloride (0.9 % Sodium Chloride Flush 3 Ml Syringe) 3 ml IVFLUSH QSHIFT [facility] Last Admin: 09/28/24 08:19 Dose: Not Given Tramadol HCl (Tramadol Hcl 50 Mg Tablet) 25 mg PO DAILY PRN PRN Reason: Pain, Severe (Pain Scale 7-10) Vitamin D (Cholecalciferol (Vitamin D3) 25 Mcg Tablet) 50 mcg PO DAILY [facility] Last Admin: 05/13/24 08:10 Dose: 50 mcg Home Medications ?Medication ?Instructions ?Recorded ?Confirmed ?Last Taken ?Type ascorbic acid (vitamin C) 500 mg 500 mg PO DAILY 05/23/20 05/11/24 05/10/24 History tablet (Vitamin C) citalopram 10 mg tablet 10 mg PO DAILY 01/16/21 05/11/24 05/10/24 History ipratropium 0.5 mg-albuterol 3 mg 1 vial inhalation QID PRN 01/16/21 05/11/24 05/10/24 History (2.5 mg base)/3 mL nebulization Shortness Of Breath Or Wheezing soln fluticasone fur. 200 mcg-umeclid 1 puff inhalation DAILY 10/20/22 05/11/24 05/10/24 History 62.5 mcg-vilant 25 mcg inhalat.powder (Trelegy Ellipta) cyclobenzaprine 10 mg tablet 10 mg PO TID 12/06/23 05/11/24 05/10/24 History ferrous sulfate 325 mg (65 mg 325 mg PO BID 12/06/23 05/11/24 05/10/24 History iron) tablet gabapentin 300 mg capsule 300 mg PO BEDTIME 12/06/23 05/11/24 05/10/24 History albuterol sulfate 2.5 mg/3 mL 3 mg inhalation Q6H PRN Wheezing 05/11/24 05/11/24 05/10/24 History (0.083 %) solution for nebulization albuterol sulfate 90 mcg/actuation 2 puff inhalation Q4-6H PRN 05/11/24 05/11/24 05/10/24 History aerosol inhaler Shortness Of Breath Or Wheezing alendronate 70 mg tablet 70 mg PO QWEEK 05/11/24 05/11/24 05/04/24 History calcium carbonate 500 mg PO BID 05/11/24 05/11/24 05/10/24 History cholecalciferol (vitamin D3) 50 50 mcg PO DAILY 05/11/24 05/11/2405/10/24 History mcg (2,000 unit) tablet (Vitamin D3) lisinopril 10 mg tablet 10 mg PO DAILY 05/11/24 05/11/24 05/10/24 History tramadol 50 mg tablet 25 mg PO DAILY PRN severe pain 05/11/24 05/11/24 05/10/24 History Physical Exam 2 Vital Signs: Vital Signs: Last Vital Signs Temp 97.8 F 05/13/24 11:46 Pulse 114 H 05/13/24 11:46 Resp 19 05/13/24 11:46 BP 114/64 05/13/24 11:46 Pulse Ox 96 05/13/24 11:46 O2 Del Method Room Air 05/13/24 11:46 BMI result Body Mass Index 24.3 Neuro: Other: SHE IS ALERT AND AWAKE WITH NORMAL SPONTANEITY OF SPEECH FLUENCY COMPREHENSION AND AFFECT. SHE WAS ABLE TO UNDERSTANDING LESION ANSWER IN INDIAN. THERE WAS MILD CENTRAL TYPE RIGHT FACIAL WEAKNESS. THERE WAS NO DEFINITE PRONATOR DRIFT. RIGHT HAND STRENGTH WAS MILDLY WEAK. Results Labs 05/13/24 08:41 05/13/24 08:41 Labs: Short CBC 05/13/24 Range/Units 08:41 WBC 12.2 H (4.8-10.8) X10*3/uL Hgb 9.1 L D (12.0-16.0) g/dl Hct 29.6 L D (37.0-47.0) % Plt Count 283 (160-400) X10*3/uL BMP 05/13/24 08:41 Sodium 138 Potassium 4.8 Chloride 105 Carbon Dioxide 27 BUN 31 H Creatinine 0.86 Calcium 9.3 D MRI OF BRAIN REVEALED A SMALL EMBOLIC LOOKING LEFT MOTOR STRIP ISCHEMIC INFARCT AND MILD CHRONIC MICROVASCULAR DISEASE. EKG REVEALED NORMAL SINUS RHYTHM. Assessment and Plan (1) CVA (cerebral vascular accident): Qualifiers: CVA mechanism: embolism Precerebral and cerebral artery: middle cerebral artery Laterality of affected vessel: left Qualified Code(s): I63.412 - Cerebral infarction due to embolism of left middle cerebral artery Status: Acute 83 YEARS OLD WOMAN WITH SMALL LEFT MIDDLE CEREBRAL ARTERY AREA MOTOR STRIP AREA EMBOLIC ISCHEMIC INFARCT. RECOMMENDATIONS ARE TO RULE OUT CARDIAC SOURCE OF EMBOLISM NO VASCULAR LESION WAS NOTED. IN THE MEANTIME, I RECOMMEND ASPIRIN 81 MG DAILY WITH CLOPIDOGREL 75 MG DAILY FOR 3 MONTHS. Procedures Date of Service Date of Service: 05/13/24
[2024-05-13] MEDS: Insulin Lispro 100 UNIT/ML 3 ML VIAL SUBCUT ×3 (12:01→21:00)
[2024-05-13] MEDS: Clopidogrel Bisulfate 75 MG TABLET PO (12:45)
[2024-05-13] MEDS: Enoxaparin Sodium 30 MG/0.3 ML SYRINGE SUBCUT (12:45)
[2024-05-13] MEDS: Sennosides/Docusate Sodium TABLET 2 TAB PO ×2 (14:22→21:00)
[2024-05-13] MEDS: Acetaminophen 325 MG TABLET 650 MG PO (14:22)
[2024-05-13] MEDS: Pantoprazole Sodium 20 MG TABLET.DR 80 MG PO (15:18)
[2024-05-13 16:10] LABS: Glucose, Whole Blood 164 mg/dL (60-115)
[2024-05-13 19:47] LABS: Glucose, Whole Blood 215 mg/dL (60-115)
[2024-05-13] MEDS: Atorvastatin Calcium 40 MG TABLET PO (21:00)
[2024-05-13] MEDS: Gabapentin 300 MG CAPSULE PO (21:00)
[2024-05-14] VITALS (7 sets, daily range): BP systolic 89–130; BP diastolic 47–59; PULSE 92–100; RESP 17–20; TEMP 36.2–36.8; O2SAT 96–100
[2024-05-14] MEDS: metroNIDAZOLE 500 MG TABLET PO ×3 (01:33→16:08)
[2024-05-14] MEDS: Pantoprazole Sodium 20 MG TABLET.DR 80 MG PO ×2 (06:02→16:08)
--- NOTE | 2024-05-14 07:14 | PC.NURSE ---
1930: Patient c/o cup and spoon fell from right hand about an hour ago. Neuro checks, neg for weakness. Reported to precision millwright provider Sue Alan no medical intervention plan at this time. Strong strength in upper and lower extremities, ambulates to rest room with walker x on shift with standby assist, no further c/o weakness slept intermittently.
[2024-05-14] MEDS: Fluticasone/Umeclidinium/Vilanterol 200/62.5/25 BLST.W.DEV 1 PUFF INHALE (07:33)
[2024-05-14 07:40] LABS: Glucose, Whole Blood 119 mg/dL (60-115)
[2024-05-14] MEDS: Cyclobenzaprine HCl 10 MG TABLET PO ×3 (08:42→20:53)
[2024-05-14] MEDS: Clopidogrel Bisulfate 75 MG TABLET PO (08:42)
[2024-05-14] MEDS: Cholecalciferol (Vitamin D3) 25 MCG TABLET 50 MCG PO (08:43)
[2024-05-14] MEDS: Sennosides/Docusate Sodium TABLET 2 TAB PO (08:43)
[2024-05-14] MEDS: Escitalopram Oxalate 5 MG TABLET PO (08:43)
[2024-05-14] MEDS: Ascorbic Acid 500 MG TABLET PO (08:43)
[2024-05-14] MEDS: Aspirin Enteric Coated 81 MG TABLET.DR PO (08:43)
[2024-05-14] MEDS: 0.9 % Sodium Chloride Flush 3 ML SYRINGE IVFLUSH ×3 (08:48→20:53)
[2024-05-14] MEDS: cefTRIAXone sodium 1 GM in 0.9 % Sodium Chloride 50 ML IV (08:48)
[2024-05-14] MEDS: Ferrous Sulfate 324 MG TABLET.DR PO ×2 (08:53→20:53)
--- NOTE | 2024-05-14 11:23 | HO.PM.IMPN ---
Subjective Subjective Date of Service: 05/14/24 Interval History: f/u cva has been having some abd pain n/v still with some pain and constipation Physical Exam Vital Signs: Vital Signs: Last Vital Signs Temp 98.2 F 05/14/24 08:00 Pulse 92 05/14/24 08:00 Resp 17 05/14/24 08:00 BP 129/58 L 05/14/24 08:00 Pulse Ox 96 05/14/24 08:00 O2 Del Method Room Air 05/14/24 08:00 BMI result Body Mass Index 24.3 General: AO X 3, no acute distress Resp: CTA bilateral CVS: S1,S2,RRR GI: +BS, mild tenderness in llq area Skin: No rash Neuro: motor grossly intact Psych: appropriate affect Objective Data Active Medications Acetaminophen (Acetaminophen 325 Mg Tablet) 650 mg PO Q6H PRN PRN Reason: Pain, Mild (Pain Scale 1-3), fever or headache Last Admin: 05/13/24 14:22 Dose: 650 mg Documented By: MARKUS Albuterol Sulfate (Albuterol Sulfate 90 Mcg 8 Gm Inhaler) 2 puff INHALE Q4H PRN PRN Reason: Shortness Of Breath Or Wheezing Albuterol/Ipratropium (Albuterol/Iprat 2.5/0.5mg 3 Ml Ampul.Neb) 3 ml INHALE QID PRN PRN Reason: Shortness Of Breath Or Wheezing Last Admin: 05/11/24 20:04 Dose: 3 ml Documented By: RUBI Ascorbic Acid (Ascorbic Acid 500 Mg Tablet) 500 mg PO DAILY [facility] Last Admin: 05/14/24 08:43 Dose: 500 mg Documented By: MARKUS Aspirin (Aspirin Enteric Coated 81 Mg Tablet.) 81 mg PO DAILY [facility] Last Admin: 05/14/24 08:43 Dose: 81 mg Documented By: MARKUS Atorvastatin Calcium (Atorvastatin Calcium 40 Mg Tablet) 40 mg PO BEDTIME [facility] Last Admin: 05/13/24 21:00 Dose: 40 mg Documented By: OTTO Benzonatate (Benzonatate 100 Mg Capsule) 100 mg PO TID PRN PRN Reason: Cough Calcium Carbonate (Calcium Carbonate 750 Mg Tab.Chew) 750 mg PO Q4H PRN PRN Reason: Heartburn Clopidogrel Bisulfate (Clopidogrel Bisulfate 75 Mg Tablet) 75 mg PO DAILY [facility] Last Admin: 05/14/24 08:42 Dose: 75 mg Documented By: MARKUS Cyclobenzaprine HCl (Cyclobenzaprine Hcl 10 Mg Tablet) 10 mg PO TID [facility] Last Admin: 05/14/24 08:42 Dose: 10 mg Documented By: MARKUS Enoxaparin Sodium (Enoxaparin Sodium 30 Mg/0.3 Ml Syringe) 30 mg SUBCUT Q24H [facility] Last Admin: 05/13/24 12:45 Dose: 30 mg Documented By: MARKUS Escitalopram Oxalate (Escitalopram Oxalate 5 Mg Tablet) 5 mg PO DAILY [facility] Last Admin: 05/14/24 08:43 Dose: 5 mg Documented By: MARKUS Ferrous Sulfate (Ferrous Sulfate 324 Mg Tablet.Dr) 324 mg PO BID [facility] Last Admin: 05/14/24 08:53 Dose: 324 mg Documented By: MARKUS Fluticasone/Umeclidinium/Vilanterol (Fluticasone/Umeclidinium/Vilanterol 200/62.5/25 Blst.W.Dev) 1 puff INHALE RDAILY [facility] Last Admin: 05/14/24 07:33 Dose: 1 puff Documented By: MAGDA Gabapentin (Gabapentin 300 Mg Capsule) 300 mg PO BEDTIME [facility] Last Admin: 05/13/24 21:00 Dose: 300 mg Documented By: OTTO Glucose (Glucose Gel 15 Gm Gel..Gram.) 15 gm PO Q15M PRN; Protocol PRN Reason: per Hypoglycemia Standing Ord. Dextrose (D10) 250 mls @ 750 mls/hr IV Q15M PRN; Protocol PRN Reason: per Hypoglycemia Standing Ord. Ceftriaxone Sodium 1 gm/ (Sodium Chloride) 50 mls @ 100 mls/hr IV Q24H [facility] Last Infusion: 05/14/24 09:18 Dose: Infused Documented By: MARKUS Insulin Human Lispro (Insulin Lispro 100 Unit/Ml 3 Ml Vial) 0 unit SUBCUT QIDACHS [facility]; Protocol Last Admin: 05/14/24 07:41 Dose: Not Given Documented By: MARKUS Non-Admin Reason: No Insulin Coverage Magnesium Hydroxide (Milk Of Magnesia 30 Ml Oral.Susp) 30 ml PO DAILY PRN PRN Reason: Constipation Last Admin: 05/12/24 11:47 Dose: 30 ml Documented By: SUZI Melatonin (Melatonin 3 Mg Tablet) 6 mg PO BEDTIME PRN PRN Reason: Insomnia Metronidazole (Metronidazole 500 Mg Tablet) 500 mg PO Q8H [facility] Last Admin: 05/14/24 08:43 Dose: 500 mg Documented By: MARKUS Nicotine (Nicotine 14 Mg Patch.Td24) 14 mg TRANSDERMA DAILY [facility] Last Admin: 05/14/24 08:53 Dose: Not Given Documented By: MARKUS Non-Admin Reason: Patient Refused Ondansetron HCl (Ondansetron Hcl 4 Mg/2 Ml Vial) 4 mg IVPUSH Q8H PRN PRN Reason: Nausea and Vomiting Last Admin: 05/12/24 12:13 Dose: 4 mg Documented By: DAVID Pantoprazole Sodium (Pantoprazole Sodium 20 Mg Tablet.Dr) 80 mg PO BID@0630,1630 [facility] Last Admin: 05/14/24 06:02 Dose: 80 mg Documented By: OTTO Polyethylene Glycol (Polyethylene Glycol 3350 17 Gm Powd.Pack) 17 gm PO DAILY [facility] Last Admin: 05/14/24 08:53 Dose: Not Given Documented By: MARKUS Non-Admin Reason: Patient Refused Senna/Docusate Sodium (Sennosides/Docusate Sodium Tablet) 2 tab PO BID [facility] Last Admin: 05/14/24 08:43 Dose: 2 tab Documented By: MARKUS Sodium Chloride (0.9 % Sodium Chloride Flush 3 Ml Syringe) 3 ml IVFLUSH QSHIFT [facility] Last Admin: 05/14/24 08:48 Dose: 3 ml Documented By: MARKUS Tramadol HCl (Tramadol Hcl 50 Mg Tablet) 25 mg PO DAILY PRN PRN Reason: Pain, Severe (Pain Scale 7-10) Vitamin D (Cholecalciferol (Vitamin D3) 25 Mcg Tablet) 50 mcg PO DAILY [facility] Last Admin: 05/14/24 08:43 Dose: 50 mcg Documented By: MARKUS Labs 05/13/24 08:41 05/13/24 08:41 Labs: Laboratory Results - last 24 hr 05/13/24 05/13/24 05/13/24 11:43 16:06 19:38 POC Glucose 216 H 164 H 215 H 05/14/24 07:23 POC Glucose 119 H Assessment and Plan (1) CVA (cerebral vascular accident): Status: Acute Plan 83/f Malay speaking f with a pmhx of HTN, COPD/asthma, HLD, GERD, neuropathy, chronic anemia ?secondary to CKD, and anxiety with new L MCA CVA. Now abd pain n/v CVA- right UE weakness and R facial droop. UE weakness improving - MRI with multiple small acute infarcts within the left precentral gyrus including within the hand region in the left MCA territory and a few punctate acute infarcts within the parietal lobes bilaterally. - echo/bubble study not yet done - mildly elevated triglycerides and LDL, HDL slightly low, continu high intensity statin - continue ASA 81 - continue tele, no afib noted - neuro consult pending -PT re acute rehab colitis--on CT -start Ceftriaxone + Flagyl -check cbc HTN--normal without meds -hold home meds for now COPD/asthma - no acute exacerbation, continue home meds chronic anemia secondary to CKD - mild anemia on labs, continue to monitor due to hx of GI bleed tobacco use - nicotine patch elevated glucose - SSI - A1C 5.3 - not diabetic but BS remain elevated constipation : bowel regimen, enema need for inpt: awaiting rehab Quality Stroke Does the patient have a stroke diagnosis?: Yes Reason for No Anti-thrombotic by Day Two: Contraindicated (last known well time outside [facility] therapeutic window) VTE Prior VTE?: Yes VTE Risk Level:: Medical - moderate - high VTE Device Contraindication: Treatment Not Indicated VTE Drug Contraindication: N/A - Med Ordered
[2024-05-14 11:25] LABS: Glucose, Whole Blood 121 mg/dL (60-115)
[2024-05-14] MEDS: Enoxaparin Sodium 30 MG/0.3 ML SYRINGE SUBCUT (13:59)
[2024-05-14] MEDS: Sodium Phosphate,Mono-Dibasic 133 ML ENEMA PR (13:59)
[2024-05-14 16:23] LABS: Glucose, Whole Blood 134 mg/dL (60-115)
[2024-05-14 20:25] LABS: Glucose, Whole Blood 141 mg/dL (60-115)
[2024-05-14] MEDS: Atorvastatin Calcium 40 MG TABLET PO (20:53)
[2024-05-14] MEDS: Gabapentin 300 MG CAPSULE PO (20:53)
[2024-05-15] VITALS (8 sets, daily range): BP systolic 100–130; BP diastolic 51–60; PULSE 78–98; RESP 16–20; TEMP 35.9–36.6; O2SAT 96–100
[2024-05-15] MEDS: metroNIDAZOLE 500 MG TABLET PO ×3 (00:31→15:53)
[2024-05-15] MEDS: Pantoprazole Sodium 20 MG TABLET.DR 80 MG PO ×2 (04:57→15:53)
[2024-05-15 07:05] LABS: Anion Gap 11 (12-20); Blood Urea Nitrogen 20 mg/dL (9-16); Calcium 8.8 mg/dL (8.4-10.2); Carbon Dioxide 24 mmol/L (22-29); Chloride 110 mmol/L (96-108); Creatinine Clr Calc Pharmacy 32.9; Estimated Glomerular Filt Rate 49; Glucose Random 147 mg/dL (60-115); Potassium 4.1 mmol/L (3.3-5.1); Sodium 141 mmol/L (135-145)
[2024-05-15 07:17] LABS: Hematocrit 24.3 % (37.0-47.0); Hemoglobin 7.5 g/dl (12.0-16.0); Mean Corpuscular HGB Conc 30.9 g/dl (31.0-35.0); Mean Corpuscular Hemoglobin 29.5 pg (27.0-33.0); Mean Corpuscular Volume 95.7 fL (80.0-98.0); Mean Platelet Volume 11.1 fL (9.4-12.3); Platelet Count 225 X10*3/uL (160-400); Red Blood Count 2.54 X10*6/uL (4.20-5.50); Red Cell Distribution Width 14.8 % (11.0-16.0); White Blood Count 6.4 X10*3/uL (4.8-10.8)
[2024-05-15 07:38] LABS: Glucose, Whole Blood 149 mg/dL (60-115)
[2024-05-15] MEDS: Cholecalciferol (Vitamin D3) 25 MCG TABLET 50 MCG PO (08:02)
[2024-05-15] MEDS: Clopidogrel Bisulfate 75 MG TABLET PO (08:02)
[2024-05-15] MEDS: Cyclobenzaprine HCl 10 MG TABLET PO ×3 (08:02→20:11)
[2024-05-15] MEDS: Escitalopram Oxalate 5 MG TABLET PO (08:02)
[2024-05-15] MEDS: Sennosides/Docusate Sodium TABLET 2 TAB PO ×2 (08:02→20:11)
[2024-05-15] MEDS: Aspirin Enteric Coated 81 MG TABLET.DR PO (08:02)
[2024-05-15] MEDS: Ascorbic Acid 500 MG TABLET PO (08:02)
[2024-05-15] MEDS: Ferrous Sulfate 324 MG TABLET.DR PO ×2 (08:02→20:11)
[2024-05-15] MEDS: polyethylene glycoL 3350 17 GM POWD.PACK PO (08:12)
[2024-05-15] MEDS: 0.9 % Sodium Chloride Flush 3 ML SYRINGE IVFLUSH ×3 (08:12→20:12)
[2024-05-15] MEDS: cefTRIAXone sodium 1 GM in 0.9 % Sodium Chloride 50 ML IV (08:12)
[2024-05-15] MEDS: Fluticasone/Umeclidinium/Vilanterol 200/62.5/25 BLST.W.DEV 1 PUFF INHALE (09:40)
--- NOTE | 2024-05-15 10:18 | MHC.CM.PN ---
Per ROUNDS discussion, Patient is medically cleared for dc to Acute Rehab today. [facility] has accepted and [facility] is following and both are requesting updated PT/OT PN from today;CM has reached out to both disciplines, requesting PN from today in order for [facility] auth to be obtained. CM will follow.
--- NOTE | 2024-05-15 11:10 | HO.PM.IMPN ---
Subjective Subjective Date of Service: 05/16/24 Interval History: f/u cva has been having some abd pain n/v still with some pain and constipation Physical Exam Vital Signs: Vital Signs: Last Vital Signs Temp 97.4 F 05/15/24 08:00 Pulse 98 05/15/24 09:42 Resp 16 05/15/24 09:42 BP 130/60 05/15/24 08:00 Pulse Ox 100 05/15/24 08:00 O2 Del Method Room Air 05/15/24 08:00 BMI result Body Mass Index 24.3 General: AO X 3, no acute distress Resp: CTA bilateral CVS: S1,S2,RRR GI: +BS, mild tenderness in llq area Skin: No rash Neuro: motor grossly intact Psych: appropriate affect Objective Data Active Medications Acetaminophen (Acetaminophen 325 Mg Tablet) 650 mg PO Q6H PRN PRN Reason: Pain, Mild (Pain Scale 1-3), fever or headache Last Admin: 05/13/24 14:22 Dose: 650 mg Documented By: MARKUS Albuterol Sulfate (Albuterol Sulfate 90 Mcg 8 Gm Inhaler) 2 puff INHALE Q4H PRN PRN Reason: Shortness Of Breath Or Wheezing Albuterol/Ipratropium (Albuterol/Iprat 2.5/0.5mg 3 Ml Ampul.Neb) 3 ml INHALE QID PRN PRN Reason: Shortness Of Breath Or Wheezing Last Admin: 05/11/24 20:04 Dose: 3 ml Documented By: RUBI Ascorbic Acid (Ascorbic Acid 500 Mg Tablet) 500 mg PO DAILY [facility] Last Admin: 05/15/24 08:02 Dose: 500 mg Documented By: MARKUS Aspirin (Aspirin Enteric Coated 81 Mg Tablet.) 81 mg PO DAILY [facility] Last Admin: 05/15/24 08:02 Dose: 81 mg Documented By: MARKUS Atorvastatin Calcium (Atorvastatin Calcium 40 Mg Tablet) 40 mg PO BEDTIME [facility] Last Admin: 05/14/24 20:53 Dose: 40 mg Documented By: HYACINTH Benzonatate (Benzonatate 100 Mg Capsule) 100 mg PO TID PRN PRN Reason: Cough Calcium Carbonate (Calcium Carbonate 750 Mg Tab.Chew) 750 mg PO Q4H PRN PRN Reason: Heartburn Clopidogrel Bisulfate (Clopidogrel Bisulfate 75 Mg Tablet) 75 mg PO DAILY [facility] Last Admin: 05/15/24 08:02 Dose: 75 mg Documented By: MARKUS Cyclobenzaprine HCl (Cyclobenzaprine Hcl 10 Mg Tablet) 10 mg PO TID [facility] Last Admin: 05/15/24 08:02 Dose: 10 mg Documented By: MARKUS Enoxaparin Sodium (Enoxaparin Sodium 30 Mg/0.3 Ml Syringe) 30 mg SUBCUT Q24H [facility] Last Admin: 05/14/24 13:59 Dose: 30 mg Documented By: MARKUS Escitalopram Oxalate (Escitalopram Oxalate 5 Mg Tablet) 5 mg PO DAILY [facility] Last Admin: 05/15/24 08:02 Dose: 5 mg Documented By: MARKUS Ferrous Sulfate (Ferrous Sulfate 324 Mg Tablet.Dr) 324 mg PO BID [facility] Last Admin: 05/15/24 08:02 Dose: 324 mg Documented By: MARKUS Fluticasone/Umeclidinium/Vilanterol (Fluticasone/Umeclidinium/Vilanterol 200/62.5/25 Blst.W.Dev) 1 puff INHALE RDAILY [facility] Last Admin: 05/15/24 09:40 Dose: 1 puff Documented By: MAGDA Gabapentin (Gabapentin 300 Mg Capsule) 300 mg PO BEDTIME [facility] Last Admin: 05/14/24 20:53 Dose: 300 mg Documented By: HYCAINTH Glucose (Glucose Gel 15 Gm Gel..Gram.) 15 gm PO Q15M PRN; Protocol PRN Reason: per Hypoglycemia Standing Ord. Dextrose (D10) 250 mls @ 750 mls/hr IV Q15M PRN; Protocol PRN Reason: per Hypoglycemia Standing Ord. Ceftriaxone Sodium 1 gm/ (Sodium Chloride) 50 mls @ 100 mls/hr IV Q24H [facility] Last Infusion: 05/15/24 08:42 Dose: Infused Documented By: MARKUS Insulin Human Lispro (Insulin Lispro 100 Unit/Ml 3 Ml Vial) 0 unit SUBCUT QIDACHS [facility]; Protocol Last Admin: 05/15/24 07:48 Dose: Not Given Documented By: MARKUS Non-Admin Reason: No Insulin Coverage Magnesium Hydroxide (Milk Of Magnesia 30 Ml Oral.Susp) 30 ml PO DAILY PRN PRN Reason: Constipation Last Admin: 05/12/24 11:47 Dose: 30 ml Documented By: SUZI Melatonin (Melatonin 3 Mg Tablet) 6 mg PO BEDTIME PRN PRN Reason: Insomnia Metronidazole (Metronidazole 500 Mg Tablet) 500 mg PO Q8H [facility] Last Admin: 05/15/24 08:03 Dose: 500 mg Documented By: MARKUS Nicotine (Nicotine 14 Mg Patch.Td24) 14 mg TRANSDERMA DAILY [facility] Last Admin: 05/15/24 08:17 Dose: Not Given Documented By: MARKUS Non-Admin Reason: Patient Refused Ondansetron HCl (Ondansetron Hcl 4 Mg/2 Ml Vial) 4 mg IVPUSH Q8H PRN PRN Reason: Nausea and Vomiting Last Admin: 05/12/24 12:13 Dose: 4 mg Documented By: DAVID Pantoprazole Sodium (Pantoprazole Sodium 20 Mg Tablet.Dr) 80 mg PO BID@0630,1630 [facility] Last Admin: 05/15/24 04:57 Dose: 80 mg Documented By: HYACINTH Polyethylene Glycol (Polyethylene Glycol 3350 17 Gm Powd.Pack) 17 gm PO DAILY [facility] Last Admin: 05/15/24 08:12 Dose: 17 gm Documented By: MARKUS Senna/Docusate Sodium (Sennosides/Docusate Sodium Tablet) 2 tab PO BID [facility] Last Admin: 05/15/24 08:02 Dose: 2 tab Documented By: MARKUS Sodium Biphosphate/Sodium Phosphate (Sodium Phosphate,Tyrrell-Dibasic 133 Ml Enema) 133 ml MA ONCE PRN PRN Reason: Constipation Last Admin: 05/14/24 13:59 Dose: 133 ml Documented By: MARKUS Sodium Chloride (0.9 % Sodium Chloride Flush 3 Ml Syringe) 3 ml IVFLUSH QSHIFT [facility] Last Admin: 05/15/24 08:12 Dose: 3 ml Documented By: MARKUS Tramadol HCl (Tramadol Hcl 50 Mg Tablet) 25 mg PO DAILY PRN PRN Reason: Pain, Severe (Pain Scale 7-10) Vitamin D (Cholecalciferol (Vitamin D3) 25 Mcg Tablet) 50 mcg PO DAILY [facility] Last Admin: 05/15/24 08:02 Dose: 50 mcg Documented By: MARKUS Labs 05/15/24 05:54 05/15/24 05:54 Labs: Laboratory Results - last 24 hr 05/14/24 05/14/24 05/14/24 11:14 16:14 20:14 MCV MCH MCHC RDW Plt Count MPV Absolute Nucleated RBC Nucleated RBC % (auto) Anion Gap Estim Creat Clear Calc Estimated GFR POC Glucose 121 H 134 H 141 H Random Glucose Calcium 05/15/24 05/15/24 05:54 07:33 MCV 95.7 MCH 29.5 MCHC 30.9 L RDW 14.8 Plt Count 225 MPV 11.1 Absolute Nucleated RBC 0.000 Nucleated RBC % (auto) 0.0 Anion Gap 11 L Estim Creat Clear Calc 32.9 Estimated GFR 49 POC Glucose 149 H Random Glucose 147 H Calcium 8.8 Assessment and Plan (1) CVA (cerebral vascular accident): Status: Acute Plan 83/f Sinhala speaking f with a pmhx of HTN, COPD/asthma, HLD, GERD, neuropathy, chronic anemia ?secondary to CKD, and anxiety with new L MCA CVA. Now abd pain n/v CVA- right UE weakness and R facial droop. UE weakness improving - MRI with multiple small acute infarcts within the left precentral gyrus including within the hand region in the left MCA territory and a few punctate acute infarcts within the parietal lobes bilaterally. - echo/bubble study not yet done - mildly elevated triglycerides and LDL, HDL slightly low, continu high intensity statin - continue ASA 81, Plavix for 3 months--per neurology -no afib on tele -PT rec rehab, overall improving. colitis--on CT -start Ceftriaxone + Flagyl--> Augmentin, or Flagyl +Ceftin at [facility], WBC is now normal HTN--normal without meds -hold home meds for now COPD/asthma - no acute exacerbation, continue home meds chronic anemia secondary to CKD - mild anemia on labs, continue to monitor due to hx of GI bleed tobacco use - nicotine patch elevated glucose - SSI - A1C 5.3 - not diabetic but BS remain elevated constipation : bowel regimen, enema need for inpt: awaiting rehab Quality Stroke Does the patient have a stroke diagnosis?: Yes Reason for No Anti-thrombotic by Day Two: Contraindicated (last known well time outside [facility] therapeutic window) VTE Prior VTE?: Yes VTE Risk Level:: Medical - moderate - high VTE Device Contraindication: Treatment Not Indicated VTE Drug Contraindication: N/A - Med Ordered
[2024-05-15 11:50] LABS: Glucose, Whole Blood 188 mg/dL (60-115)
[2024-05-15] MEDS: Insulin Lispro 100 UNIT/ML 3 ML VIAL SUBCUT ×3 (12:12→20:11)
--- NOTE | 2024-05-15 12:12 | MHC.SL.SWA ---
Speech Pathologist Impression: No evidence of dysphagia Risk of Aspiration Due to: No risk for aspiration Dysphasia Diet Status: Regular with thins Liquid Consistency and Strategies for Safe Swallow: Liquid Intake Recommendation: Thin Liquid Intake Strategies: Unrestricted Solid Food Consistency: Dietary Recommendations: Regular Additional Modifications to Solid Foods: Patient is admitted with acute CVA, presents with R-side facial droop, mildly prolonged mastication time, and complaints of biting inner cheek when chewing. All other aspects of swallow deemed WFL. No overt s/s of aspiration observed at bedside, good oral clearance on all textures. No changes made to diet order at this time. Patient is recommended to continue on REGULAR texture solids and THIN liquids, pills to be administered one at a time whole with liquid. PRESS MACHINE FEEDER advised patient on aspiration precautions: take small bites/sips, chew carefully and eat with a slow pace, alternate bites/sips for clearance, ensure upright 90 degree position during PO intake. Oral Medication Intake: Whole with Liquid Please contact the pharmacy regarding appropriate crushable or liquid drug formulations that are available whenever modified delivery is recommended. Compensatory Strategies and Precautions to be Taken for Safe Swallow: Sitting Upright (90 deg) Small Bites and Sips Alternate Liquids/Solids Rate of Ingestion Change Supervision While Eating and Drinking for Safe Swallow: None Needed Foods to Avoid: [place] hard or chewy foods Swallowing Recommended Treatments: Compens. Strategy Educat. Recommendation for Speech: Inpatient Speech Therapy complete. Pt tolerating regular diet with thin liquids, no overt s/s of aspiration. Pt independent in using safety strategies such as upright positioning, slow pacing, alternating consistencies and taking small bites. R sided facial droop resolving, no persisting oromotor difficulties in speech or swallow. Comment: Frequency/Duration: Date Range for Service Req: Timeline to reassess: Crimping Machine Operator Clinican/Clinical Fellow: No Supervisory Statement: I have reviewed and agree with the student/clinical fellow's documentation: N/A Speech Language Pathologist: Marlen Delaney M.S. [facility]ACH[facility] [employer]ED[facility]
--- NOTE | 2024-05-15 13:03 | MHC.CM.PN ---
Today's PT & OT PN have been sent to referrals; CM will follow.
--- NOTE | 2024-05-15 14:23 | MHC.CM.PN ---
[facility] has accepted Patient and they are initiating [facility] auth. CM will follow.
[2024-05-15] MEDS: Enoxaparin Sodium 30 MG/0.3 ML SYRINGE SUBCUT (14:39)
[2024-05-15 16:16] LABS: Glucose, Whole Blood 155 mg/dL (60-115)
[2024-05-15 20:09] LABS: Glucose, Whole Blood 155 mg/dL (60-115)
[2024-05-15] MEDS: Acetaminophen 325 MG TABLET 650 MG PO (20:11)
[2024-05-15] MEDS: Atorvastatin Calcium 40 MG TABLET PO (20:11)
[2024-05-15] MEDS: Gabapentin 300 MG CAPSULE PO (20:11)
[2024-05-16] MEDS: metroNIDAZOLE 500 MG TABLET PO ×2 (02:19→08:53)
[2024-05-16 03:30] VITALS: BP 136/62; PULSE 87; RESP 20; TEMP 36.6; O2SAT 100
[2024-05-16] MEDS: Pantoprazole Sodium 20 MG TABLET.DR 80 MG PO (06:14)
[2024-05-16 07:57] LABS: Glucose, Whole Blood 125 mg/dL (60-115)
[2024-05-16 08:00] VITALS: BP 104/51; PULSE 86; RESP 16; TEMP 36.3; O2SAT 98
[2024-05-16] MEDS: Fluticasone/Umeclidinium/Vilanterol 200/62.5/25 BLST.W.DEV 1 PUFF INHALE (08:14)
[2024-05-16 08:16] VITALS: PULSE 86; RESP 16
[2024-05-16] MEDS: cefTRIAXone sodium 1 GM in 0.9 % Sodium Chloride 50 ML IV (08:52)
[2024-05-16] MEDS: 0.9 % Sodium Chloride Flush 3 ML SYRINGE IVFLUSH (08:52)
[2024-05-16] MEDS: Ascorbic Acid 500 MG TABLET PO (08:53)
[2024-05-16] MEDS: Ferrous Sulfate 324 MG TABLET.DR PO (08:53)
[2024-05-16] MEDS: Aspirin Enteric Coated 81 MG TABLET.DR PO (08:53)
[2024-05-16] MEDS: Cyclobenzaprine HCl 10 MG TABLET PO (08:53)
[2024-05-16] MEDS: Escitalopram Oxalate 5 MG TABLET PO (08:53)
[2024-05-16] MEDS: Sennosides/Docusate Sodium TABLET 2 TAB PO (08:53)
[2024-05-16] MEDS: Cholecalciferol (Vitamin D3) 25 MCG TABLET 50 MCG PO (08:53)
[2024-05-16] MEDS: Clopidogrel Bisulfate 75 MG TABLET PO (08:53)
[2024-05-16] MEDS: polyethylene glycoL 3350 17 GM POWD.PACK PO (08:53)
--- NOTE | 2024-05-16 11:14 | PM.DS ---
DS: Providers Provider Date of Service: 05/16/24 Date of admission: 05/11/24 14:03 Primary care physician: Thaddeus Romano MD Consults: 05/11/24 14:15 Consult to Neurology Routine Consulting Provider: [facility] Reason for consultation: right sided deficits, ?CVA 05/13/24 08:38 Consult to Neurology Routine Consulting Provider: [facility] Reason for consultation: cva Has provider been notified: No DS: Diagnosis Discharge Diagnosis (1) CVA (cerebral vascular accident): Status: Acute DS: Summary Hospital Course Hospital Course: admission hpi 83 yo Ugandan speaking f with a pmhx of HTN, COPD/asthma, HLD, GERD, neuropathy, chronic anemia ?secondary to CKD, anxiety who presented to the ED with R UE and R facial weakness beginning this AM. RUE weakness prior to facial drooping, noticed when she went to eat breakfast. Daughter notes change in speech today. tension headache since yesterday that persists. chronic dizziness, no change from baseline. no visual changes. no LE weakness, deficits or left sided deficits. denies nausea, vomiting, abd pain, SOB or chest pain. chronic urinary incontinence, no change from baseline. hospital course: This case describes an 83-year-old female with a complex medical history, including hypertension, COPD/asthma, hyperlipidemia, GERD, neuropathy, chronic anemia possibly secondary to CKD, and anxiety. She presented with right facial weakness and right-sided weakness. She was outside the window for thrombolytic therapy. An initial CT of the head was negative for acute stroke; however, she was started on aspirin and Lipitor. Later, an MRI confirmed an acute stroke, revealing multiple small acute infarcts within the left precentral gyrus, including the hand region in the left MCA territory, and a few punctate acute infarcts within the parietal lobes bilaterally. An echocardiogram showed no intracardiac clot. She has been monitored on telemetry without evidence of atrial fibrillation. Her lipid panel showed mildly elevated triglycerides and LDL, with slightly low HDL, and she has remained on Lipitor 40 mg daily. The neurologist recommended daily aspirin, statin therapy, and Plavix 75 mg daily for three months. The patient was evaluated by speech therapy and has no difficulties with eating or swallowing. Physical and occupational therapy have been working with her, and she has shown significant improvement. Initially, she was recommended for rehabilitation, but due to her improvement, the recommendation now is for discharge home with PT and OT services at home. While in the hospital, she developed abdominal pain, nausea/vomiting, and an elevated WBC. A CT of the abdomen and pelvis showed findings of pericolonic fat stranding around the descending and sigmoid colon, suggestive of colitis, likely of inflammatory or infectious etiology. She was treated with Ceftriaxone and Flagyl for the colitis, and her pain and nausea/vomiting have resolved. Her WBC has returned to normal. She will be discharged with Ceftin and oral Flagyl for a total of seven days. HTN--normal without meds, so stop Lisinopril colitis--Flagyl and Ceftin as above COPD/asthma - no acute exacerbation, continue home meds chronic anemia secondary to CKD - mild anemia on labs, continue to monitor due to hx of GI bleed tobacco use - nicotine patch elevated glucose, A1C 5.3 - Pre diabetic and I recommend diet control constipation : bowel regimen, enema Time Attestation Discharge Coordination Time (in mins): 45 Quality: Safe Use of Opioids Does Pt have an Active Cancer Diagnosis on the Problem List?: No Quality: Stroke Does the patient have a stroke diagnosis?: Yes Reason for No Anti-thrombotic at DC: N/A - Med Ordered Reason for No Anticoagulant at DC: Drug treatment not indicated Reason Not Initiating IV-Tpa: Not indicated Reason for No Anti-thrombotic by Day Two: N/A - Med Ordered Reason for No Statin at DC: N/A - Med Ordered Physical Exam Vital Signs: Vital Signs: Last Vital Signs Temp 97.4 F 05/16/24 08:00 Pulse 86 05/16/24 08:16 Resp 16 05/16/24 08:16 BP 104/51 L 05/16/24 08:00 Pulse Ox 98 05/16/24 08:00 O2 Del Method Room Air 05/16/24 08:00 BMI result Body Mass Index 24.3 DS: Data Data Completed and Pending Completed studies during hospitalization [Text1]: Procedures Reposition Left Upper Femur with Intramedullary Internal Fixation Device, Percutaneous Approach (12/06/23) Transfusion of Nonautologous Red Blood Cells into Peripheral Vein, Percutaneous Approach (01/16/21) Labs on day of discharge: Laboratory Results - last 24 hr 05/15/24 05/15/24 05/15/24 11:37 16:07 20:03 POC Glucose 188 H 155 H 155 H 05/16/24 07:52 POC Glucose 125 H Discharge Plan Discharge Anticipated Discharge Date/Time: 05/16/24 10:46 Patient Disposition: Home Health Service Discharge Diagnosis: Acute stroke Referrals: Attila GALVEZ [Outside] - 1 Week Name,MD Thaddeus [Primary Care Provider] - 1 Week Discharge Medications: New atorvastatin 40 mg Tablet 40 mg PO BEDTIME Qty: 90 0RF aspirin 81 mg Tablet,Delayed Release (Dr/Ec) 81 mg PO DAILY Qty: 90 0RF clopidogrel 75 mg Tablet 75 mg PO DAILY Qty: 90 0RF cefuroxime axetil 500 mg tablet 500 mg PO BID 4 Days Qty: 8 0RF Rx Instructions: next dose tomorrow morning metronidazole 500 mg tablet 500 mg PO TID 4 Days Qty: 12 0RF Rx Instructions: nex dose today Continued omeprazole 40 mg capsule,delayed release(DR/EC) 40 mg PO BID Qty: 60 1RF ascorbic acid (vitamin C) [Vitamin C] 500 mg Tablet 500 mg PO DAILY citalopram 10 mg tablet 10 mg PO DAILY ipratropium-albuterol 0.5 mg-3 mg(2.5 mg base)/3 mL solution for nebulization 1 vial inhalation QID PRN (Reason: Shortness Of Breath Or Wheezing) acetaminophen [Tylenol] 325 mg tablet 650 mg PO Q6H PRN (Reason: fever or pain) Qty: 10 0RF Trelegy Ellipta 200-62.5-25 mcg blister with device 1 puff inhalation DAILY albuterol sulfate 2.5 mg /3 mL (0.083 %) solution for nebulization 3 mg inhalation Q6H PRN (Reason: Wheezing) alendronate 70 mg tablet 70 mg PO QWEEK tramadol 50 mg tablet 25 mg PO DAILY PRN (Reason: severe pain) calcium carbonate 500 mg calcium (1,250 mg) tablet 500 mg PO BID albuterol sulfate 90 mcg/actuation HFA aerosol inhaler 2 puff INHALATION Q4-6H PRN (Reason: Shortness Of Breath Or Wheezing) cholecalciferol (vitamin D3) [Vitamin D3] 50 mcg (2,000 unit) tablet 50 mcg PO DAILY cyclobenzaprine 10 mg tablet 10 mg PO TID ferrous sulfate 325 mg (65 mg iron) tablet 325 mg PO BID gabapentin 300 mg capsule 300 mg PO BEDTIME polyethylene glycol 3350 17 gram Powder In Packet 17 g PO DAILY Qty: 1 0RF sennosides-docusate sodium [Senna Plus] 8.6-50 mg Tablet 2 tab PO BID Qty: 1 0RF Discontinued lisinopril 10 mg tablet 10 mg PO DAILY Discharge Orders: Discharge Order (Routine); Ordered 05/16/24 Ordered By: Nick Beasley Diet: Diabetic diet Activity on Discharge: As tolerated Stand Alone Forms: Patient Portal Discharge page Print Language: Ugandan Care Plan Goals: recovery from stroke Health Concerns: acute stroke Plan of Treatment: Take Aspirin 81 mg daily indifinatelyt. Take Plavix 75 mg daily for 3 months Take Lipitor 40 mg daily to minimize risk of future stroke Assessment: see above Discharge Date/Time: 05/16/24 13:38
[2024-05-16 11:44] VITALS: BP 122/58; PULSE 102; RESP 20; TEMP 36.1; O2SAT 97
--- NOTE | 2024-05-16 11:48 | W.MHC.F2F ---
Service Date Service Date: 05/16/24 Encounter Date of encounter: 05/16/24 Reasons for Services Signs and symptoms assessed: Stroke causing weakness, unsteady gait Reason for assisted: medication management and teach disease management Reason for physical therapy: home safety and mobility, therapeutic exercises and gait/transfer training Reason for occupational therapy: home safety and mobility, therapeutic exercises and ADL training Homebound: Leaving the home is medically contraindicated at this time without the asist of a device and/or another person due th the listed conditions above and below. Reason homebound: unsteady gait / fall risk and other (falll risk related to stroke) Homebound supporting statement: Homeboud due to stroke, causing weakness, unsteady gait and therefore needs the assistance of another person Certification: Based on the above findings, I certify that this patient is confined to the home and needs intermittent assisted care, physical therapy and/or speech therapy, or continues to need occupational therapy. The patient is under my care, and I have initiated the establishment of the plan of care. The patient will be followed by a physician who will periodically review the plan of care. Time Spent With Patient Time: Total time managing care of this patient today ____ minutes.
[2024-05-16 11:56] LABS: Glucose, Whole Blood 166 mg/dL (60-115)
--- NOTE | 2024-05-16 12:01 | MHC.CM.PN ---
informed CM via [place] text that Patient can be dc'd to home today with services. A referral has been made to [facility], who is aware of today's dc. CM met with Patient and a visitor at bedside to discuss the dc plan; Patient is in agreement with the plan to return home with NA. IMM was addressed with Patient and the original was given to Patient and a copy has been placed on the chart. JOSÉ MANUEL spoke with Son/HCP/Didier @ [phone] and per his request, also spoke with Granddaughter/Sole @ [phone], whom will transport Patient home today at 2PM. MD & RN are aware.
[2024-05-16] MEDS: Insulin Lispro 100 UNIT/ML 3 ML VIAL SUBCUT (12:06)
== END 2024-05-16 13:38 | disposition home health service (06) | DRG 66 ==
LOC: HO.ED 12:39 → HO.EDOVER 14:33 → HO.IMC 15:35
PROVIDERS: Physician Assistant; Admitting Provider Physician Assistant; Emergency Provider Student in an Organized Health Care Education/Training Program; PCP Internal Medicine Geriatric Medicine; Visit Provider Internal Medicine
DX: I63.412 Cerebral infarction due to embolism of left middle cerebral artery (principal); F17.210 Nicotine dependence, cigarettes, uncomplicated; J44.9 Chronic obstructive pulmonary disease, unspecified; Z71.6 Tobacco abuse counseling; K52.9 Noninfective gastroenteritis and colitis, unspecified; G83.21 Monoplegia of upper limb affecting right dominant side; R29.810 Facial weakness; D63.1 Anemia in chronic kidney disease; R29.703 NIHSS score 3; I12.9 Hypertensive chronic kidney disease with stage 1 through stage 4 chronic kidney disease, or unspecified chronic kidney disease; Z79.82 Long term (current) use of aspirin; Z79.899 Other long term (current) drug therapy
CPT/HCPCS: 36415; 70450; 70496; 70498; 70551; 74176; 80048; 80053; 80061; 82947; 83036; 84484; 85025; 85027; 85610; 85730; 92526; 92610; 93005; 93306; 94640; 97116; 97162; 97166; 97530; 97535; 99285; J0696; J1650; J2405; J7120; Q9957; Q9967

== ENCOUNTER 2024-05-11 14:03 | Outpatient (BNV) | payer OTHER, SELFPAY | END 2024-05-12 07:00 | PROVIDERS: Admitting Provider Physician Assistant; Emergency Provider Student in an Organized Health Care Education/Training Program; PCP Internal Medicine Geriatric Medicine; Visit Provider Internal Medicine | DX: I36.1 Nonrheumatic tricuspid (valve) insufficiency (principal); I51.89 Other ill-defined heart diseases | CPT/HCPCS: 93306 ==

== ENCOUNTER → 2024-05-11 14:03 | Outpatient (BNV) | payer OTHER, SELFPAY | PROVIDERS: Admitting Provider Physician Assistant; Emergency Provider Student in an Organized Health Care Education/Training Program; PCP Internal Medicine Geriatric Medicine; Visit Provider Psychiatry & Neurology Neurology | DX: I63.412 Cerebral infarction due to embolism of left middle cerebral artery (principal) | CPT/HCPCS: 99222 ==

== ENCOUNTER → 2024-05-11 14:03 | Outpatient (BNV) | payer OTHER, SELFPAY | PROVIDERS: Admitting Provider Physician Assistant; Emergency Provider Student in an Organized Health Care Education/Training Program; PCP Internal Medicine Geriatric Medicine; Visit Provider Physician Assistant | DX: R53.1 Weakness (principal) | CPT/HCPCS: 99223; 99232; 99239; G0180 ==

== ENCOUNTER 2024-05-26 11:00 | Outpatient (REF) | payer OTHER, SELFPAY ==
[2024-05-26 13:14] LABS: MANUAL DIFF FLAG NO
[2024-05-26 13:40] LABS: Basophils Absolute Auto 0.1 X10*3/uL (0.0-0.2); Basophils Percent Auto 0.9 % (0-2); Eosinophils Absolute Auto 1.3 X10*3/uL (0.0-0.4); Eosinophils Percent Auto 16.8 % (0-4); Hematocrit 26.3 % (37.0-47.0); Hemoglobin 7.7 g/dl (12.0-16.0); Imm Gran Pct Auto 1.3 % (0.0-0.4); Lymphocytes Absolute Auto 0.9 X10*3/uL (1.2-4.9); Lymphocytes Percent Auto 12.2 % (20-40); Mean Corpuscular HGB Conc 29.3 g/dl (31.0-35.0); Mean Corpuscular Volume 102.3 fL (80.0-98.0); Mean Platelet Volume 10.8 fL (9.4-12.3); Monocytes Absolute Auto 0.5 X10*3/uL (0.1-1.2); Monocytes Percent Auto 6.4 % (2-11); Neutrophils Absolute Auto 4.7 x10*3/uL (2.0-8.3); Neutrophils Percent Auto 62.4 % (45-73); Platelet Count 397 X10*3/uL (160-400); Red Blood Count 2.57 X10*6/uL (4.20-5.50); Red Cell Distribution Width 18.8 % (11.0-16.0); White Blood Count 7.5 X10*3/uL (4.8-10.8)
[2024-05-26 14:08] LABS: Anion Gap 11 (12-20); Blood Urea Nitrogen 18 mg/dL (9-16); Calcium 9.6 mg/dL (8.4-10.2); Carbon Dioxide 27 mmol/L (22-29); Chloride 107 mmol/L (96-108); Estimated Glomerular Filt Rate 48; Glucose Random 156 mg/dL (60-115); Potassium 4.9 mmol/L (3.3-5.1); Sodium 140 mmol/L (135-145)
== END 2024-05-26 11:01 | disposition home or self-care (01) ==
LOC: HO.HHCL 11:00
PROVIDERS: Internal Medicine Geriatric Medicine; Visit Provider Pediatrics
DX: N18.9 Chronic kidney disease, unspecified (principal); D63.1 Anemia in chronic kidney disease; D50.9 Iron deficiency anemia, unspecified; I10 Essential (primary) hypertension
CPT/HCPCS: 36415; 80048; 85025

== ENCOUNTER 2024-07-27 10:00 | Outpatient (AMB) | payer OTHER, SELFPAY ==
[2024-07-27 10:22] VITALS: BP 104/51; PULSE 81; BMI 24.2
--- NOTE | 2024-07-27 10:22 | MHC.OFFVIS ---
Vital Signs 07/27/24 10:22 Height 5 ft 3.5 in Weight 138 lb 14.259 oz BMI 24.2 BP 104/51 L Blood Pressure Location Lt brachial Position Sitting Pulse 81 Intake Visit Reasons: Anemia Intake Note: New patient in office today referred to GI for anemia. CC: Patient c/o constipation, abdominal bloating, abdominal pain, nausea sometimes, heartburn,and acid reflux. Per her son she has been anemic for a long time. Sprinkling System Installer Required: Yes Accompanied by: Son Allergies lidocaine Allergy (Severe, Verified 07/27/24 10:36) Hives HPI HPI Anemia: Details: Assessment & Plan (1) GERD (gastroesophageal reflux disease): ?Code(s): K21.9 - Gastro-esophageal reflux disease without esophagitis ?Category:?Medical ?Plan - Apurva Mancia, BENITO-C: Ni[place]an #[id number], Ana. She tolerated the procedures well. The endoscopy this recommends no further colonoscopy screenings are needed given the patient's comorbidities and age. She says that her upper abd pain is intermittent and I explain that it may be r/t not tolerating foods that we did when we were young. She will continue on her omeprazole for her GERD since there was esophagitis, and she follows with her PCP for this (2) Epigastric pain: ?Comment: This is intermittent and has faded at this time she does not wish any more investigations were medications for this and she follows with her primary care provider for her GERD ?Code(s): R10.13 - Epigastric pain ?Category:?Medical (3) Duodenal arteriovenous malformation: ?Comment: Noted on 2019 EGD, not appear to be related any pathology that is concerning ?Code(s): K31.819 - Angiodysplasia of stomach and duodenum without bleeding ?Category:?Medical (4) Colon cancer screening: ?Comment: 2020 hyperplastic polyps, no further screenings recommended except if there are other medical indications for scopes. ?Code(s): Z12.11 - Encounter for screening for malignant neoplasm of colon ?Category:?Medical PMX History of DVT History of CVA COPD Duodenal AV malformation TODAY'S VISIT [place] #Lacie Live Patient referred back to me but was seen by Dr. Almanza is an inpatient regarding AVMs of the colon and I do not know is plan so I am requesting it he see her.? Cautery verse APC referral s ETC. patient has been lost to follow-up since 2019 and at that time conservative treatment to be followed by her PCP is what was decided between her and Dr. Diaz son. She says that her anemia is not resolving despite oral iron replacement therapy. She is seeing Dr. Holm who is continuing her workup as her anemia is likely multifactorial - including chronic renal disease, asa and plavix therapy, poor dietary intake, and other yet to be determined factors that are still being worked up by hematology that could include thalassema, myelodysplasia, hemolysis, etc. She has had health problems since we last saw her including a stroke and a fractured hip. I think our role will be to see if the duodenal angiodysplasia is c/t her anemia. Her last colonoscopy was normal and it was not recommended that she repeat this for screening r/t her age and comorbidities. She does not see any RB in the stools. The stools are dark r/t oral iron therapy. Her son admits she does not like to drink anything but caffeinated coffee. We discuss trying to find something that she likes to drink. She asks if she can change to decaf coffee and this certainly would help. She feels that she moves her bowels well if she takes one senna a night. I encourage her to take 1 every night since this works well for her. Because of straining, she has had some episodes of RB on the TT with roids, so this would be best to manage given her need for oral iron therapy. She does not feel her COPD/asthma is well controlled r/t the cold weather. Her pulm is Dr. Westbrook, so I will send him a note for clearance. She denies any cardiac problems. NO ID problems. There are no prior problems with anestheasia or sedation. ROV 8 weeks. [facility] Medical History (Updated 07/27/24 @ 11:13 by OSEAS Almaguer) Colon cancer screening GI bleed Epigastric pain COVID-19 Occult blood positive stool Intertrochanteric fracture History of DVT (deep vein thrombosis) Mass of right axilla COVID-19 Duodenal arteriovenous malformation Osteopenia Anemia GERD (gastroesophageal reflux disease) Peripheral neuropathy Anxiety Depression COPD (chronic obstructive pulmonary disease) Asthma Elevated cholesterol Lab test negative for COVID-19 virus Surgical History History of tubal ligation History of axillary surgery Hx of oophorectomy Hx of colonoscopy Hx of esophagogastroduodenoscopy Hx of foot surgery Hx of cholecystectomy Hx of tonsillectomy Hx of appendectomy Family History Father Stroke Asthma Mother Heart attack Stroke Asthma Sister DVT (deep venous thrombosis) Asthma Brother COPD (chronic obstructive pulmonary disease) Son Cancer Social History Household Members: Children Household Members Other:: son Housing: Apartment Are you a primary long term acute care registered nurse to a significant other at home: No Do you presently have visiting nurse or other home services: Yes (home wiring inspector) Alcohol intake: never Patient Tobacco Use Status: Current everyday Tobacco user Tobacco use type: Cigarette Cigarettes Per Day: 2 Years Smoked: 60 Second Hand Smoke Exposure: Yes Advance Directives Date on File: 01/16/21 service: No Current occupational status: retired Review of Systems Const Denies fatigue, Denies fever(s), Denies night sweats, Denies poor appetite and Denies weight loss Eyes Details: glasses Reports requires corrective lenses ENT Reports Normal hearing present, Denies dental pain, Denies dysphagia, Denies hearing loss, Denies mouth pain, Denies odynophagia, Denies throat swelling, Denies tongue swelling and Reports other (Dentition adequate) Card Reports no additional complaints and Reports dyspnea on exertion Resp Reports cough and Reports dyspnea on exertion GI Details: Denies abdominal pain, Denies melena, Denies bloating, Denies hematochezia, Reports constipation, Denies GI cramping, Denies dysphagia, Denies excessive flatus, Denies early satiety, Reports heartburn, Denies diarrhea, Denies nausea, Denies odynophagia, Denies vomiting and Denies hematemesis Musc Reports abnormal gait Skin/Breast Denies pruritus, Denies lesions, Denies rash and Denies jaundice Neuro Reports Normal hearing present, Denies Abnormal speech present and Reports abnormal gait Endo Denies fatigue Aller/Immun Denies throat swelling and Denies tongue swelling Physical Exam Vital Signs: Last Vital Signs Pulse 81 07/27/24 10:22 BP 104/51 L 07/27/24 10:22 BMI result Body Mass Index 24.2 Const General: cooperative, no acute distress, well developed and well groomed Nutritional Appearance: well nourished, obese and overweight Orientation/consciousness: oriented to person, oriented to place and oriented to time Limitations: language barrier and ambulation with cane HEENT Head: Yes normocephalic and Yes atraumatic Eyes General: appearance normal, both eyes and all related structures Pupils: Equal, round and reactive pupils present Neck Neck: Yes normal visual inspection and Yes no lymphadenopathy Thyroid: Thyroid normal Resp Effort & Inspection: normal respiratory effort and able to speak in complete sentences Auscultation: clear to auscultation bilaterally Cardio Rate: regular rate Rhythm: regular rhythm Heart sounds: Normal, physiologic split S2 sound present Peripheral pulses: radial pulses present and posterior tibial pulses present GI Inspection: No distended, No Abdominal panniculus present and Yes striae Palpation (GI): Soft to palpation, nontender, no guarding, not rigid and No hepatosplenomegaly present Percussion: Yes normal to percussion Auscultation: normal bowel sounds Rectal Exam - Female: deferred Abdomen image: 1. surgical scar Skin General skin exam: no rashes or lesions noted, turgor normal, skin not dry, no jaundice, No spider nevi and no striae Rashes: no rashes Nails: normal Neuro General: oriented to person, oriented to place and oriented to time Cranial nerves: Yes Equal, round and reactive pupils present and Yes Normal hearing present Speech: No Abnormal speech present Extrem General: Yes normal to inspection, No clubbing, No cyanosis and No edema Psych Appearance: grossly normal and well kempt Mental Status: mental status grossly normal Speech and movement: Normal speech and movement present Affect: normal affect Attitude: cooperative Thought process: Circumstantial thought process present and not confabulating Thought content: Normal thought content present Insight: Limited insight present (Psych) Judgement: Limited judgement present (Psych) Assessment & Plan Assessment & Plan (1) Microcytic hypochromic anemia: Code(s): D50.9 - Iron deficiency anemia, unspecified Category: Medical (2) CKD stage 3a, GFR 45-59 ml/min: Code(s): N18.31 - Chronic kidney disease, stage 3a Category: Medical (3) Chronic idiopathic constipation: Code(s): K59.04 - Chronic idiopathic constipation Category: Medical (4) Duodenal arteriovenous malformation: Comment: Noted on 2019 EGD, not appear to be related any pathology that is concerning Code(s): K31.819 - Angiodysplasia of stomach and duodenum without bleeding Category: Medical Plan [place] #Lacie Live Patient referred back to me but was seen by Dr. Almanza is an inpatient regarding AVMs of the colon and I do not know is plan so I am requesting it he see her.? Cautery verse APC referral s ETC. patient has been lost to follow-up since 2019 and at that time conservative treatment to be followed by her PCP is what was decided between her and Dr. Diaz son. She says that her anemia is not resolving despite oral iron replacement therapy. She is seeing Dr. Holm who is continuing her workup as her anemia is likely multifactorial - including chronic renal disease, asa and plavix therapy, poor dietary intake, and other yet to be determined factors that are still being worked up by hematology that could include thalassema, myelodysplasia, hemolysis, etc. She has had health problems since we last saw her including a stroke and a fractured hip. I think our role will be to see if the duodenal angiodysplasia is c/t her anemia. Her last colonoscopy was normal and it was not recommended that she repeat this for screening r/t her age and comorbidities. She does not see any RB in the stools. The stools are dark r/t oral iron therapy. Her son admits she does not like to drink anything but caffeinated coffee. We discuss trying to find something that she likes to drink. She asks if she can change to decaf coffee and this certainly would help. She feels that she moves her bowels well if she takes one senna a night. I encourage her to take 1 every night since this works well for her. Because of straining, she has had some episodes of RB on the TT with roids, so this would be best to manage given her need for oral iron therapy. She does not feel her COPD/asthma is well controlled r/t the cold weather. Her pulm is Dr. Westbrook, so I will send him a note for clearance. She denies any cardiac problems. NO ID problems. There are no prior problems with anesthesia or sedation. ROV 8 weeks. Orders: Orders EGD - GI Use Only Today D50.9 - Iron deficiency anemia, unspecified, K31.819 - Angiodysplasia of stomach and duodenum without bleeding Medications: Refilled sennosides-docusate sodium 8.6-50 mg (Senna Plus) 2 tabs PO BID 60 tabs 6RF K59.04 - Chronic idiopathic constipation On Hold polyethylene glycol 3350 Hold Comment: Doctor's Order 17 grams PO DAILY 1 ea 0RF Coding Level of Care Code New Pt Level 3 (64185) Diagnoses Microcytic hypochromic anemia D50.9 CKD stage 3a, GFR 45-59 ml/min N18.31 Chronic idiopathic constipation K59.04 Duodenal arteriovenous malformation K31.819
== END 2024-07-27 11:27 | disposition home or self-care (01) ==
PROVIDERS: PCP Internal Medicine Geriatric Medicine; Visit Provider Nurse Practitioner
DX: D50.9 Iron deficiency anemia, unspecified (principal); N18.31 Chronic kidney disease, stage 3a; K59.04 Chronic idiopathic constipation; K31.819 Angiodysplasia of stomach and duodenum without bleeding
CPT/HCPCS: 99203

== ENCOUNTER → 2024-07-27 10:00 | Outpatient (BNVA) | payer OTHER, SELFPAY | PROVIDERS: PCP Internal Medicine Geriatric Medicine; Visit Provider Nurse Practitioner | DX: D50.9 Iron deficiency anemia, unspecified (principal); N18.31 Chronic kidney disease, stage 3a; K59.04 Chronic idiopathic constipation; K31.819 Angiodysplasia of stomach and duodenum without bleeding | CPT/HCPCS: 99202 ==

== ENCOUNTER 2024-08-02 13:15 | Outpatient (AMB) | payer OTHER, SELFPAY ==
[2024-08-02 13:17] VITALS: BP 118/72; PULSE 89; O2SAT 99; BMI 24.1
--- NOTE | 2024-08-02 13:17 | A.OFFVIS_ITS ---
Vital Signs 08/02/24 13:17 Height 5 ft 3.5 in Weight 138 lb BMI 24.1 BP 118/72 Blood Pressure Location Lt brachial Position Sitting Pulse 89 Pulse Source Doppler Pulse Oximetry (%) 99 Oxygen Delivery Method Room Air Intake Visit Reasons: COPD Allergies lidocaine Allergy (Severe, Verified 07/27/24 14:46) Hives HPI HPI COPD: Details: 83-year-old lady, active 40+ pack-year smoker, followed for underlying moderate COPD and chronic cough.? She continues to use Trelegy and albuterol MDI/nebs wit h good baseline control of her underlying symptoms.? Over the last 2 weeks she has been having a bronchitic exacerbation symptomatic with worsening cough productive of yellowish sputum. [facility] Medical History (Updated 07/27/24 @ 14:55 by Leidy Holm MD) Colon cancer screening GI bleed Epigastric pain COVID-19 Occult blood positive stool Intertrochanteric fracture History of DVT (deep vein thrombosis) Mass of right axilla COVID-19 Duodenal arteriovenous malformation Osteopenia Anemia GERD (gastroesophageal reflux disease) Peripheral neuropathy Anxiety Depression COPD (chronic obstructive pulmonary disease) Asthma Elevated cholesterol Lab test negative for COVID-19 virus Surgical History History of tubal ligation History of axillary surgery Hx of oophorectomy Hx of colonoscopy Hx of esophagogastroduodenoscopy Hx of foot surgery Hx of cholecystectomy Hx of tonsillectomy Hx of appendectomy Family History Father Stroke Asthma Mother Heart attack Stroke Asthma Sister DVT (deep venous thrombosis) Asthma Brother COPD (chronic obstructive pulmonary disease) Son Cancer Social History Household Members: Children Household Members Other:: son Housing: Apartment Are you a primary hearing care practitioner to a significant other at home: No Do you presently 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) Alcohol intake: never Patient Tobacco Use Status: Current everyday Tobacco user Tobacco use type: Cigarette Cigarettes Per Day: 2 Years Smoked: 60 Second Hand Smoke Exposure: Yes Advance Directives Date on File: 01/16/21 service: No Current occupational status: retired Review of Systems Const Denies daytime sleepiness, Denies excessive sweating, Denies fatigue, Denies fever(s), Denies lethargy, Denies malaise, Denies night sweats, Denies snoring and Denies weight loss Eyes Denies blurry vision and Denies itchy eyes ENT Denies nasal congestion, Denies post nasal drip, Denies sinus pain, Denies sinus pressure and Denies other ( Thrush) Card Denies chest pain, Denies pedal edema, Denies dyspnea, Denies orthopnea and Denies paroxysmal nocturnal dyspnea Resp Reports cough, Denies hemoptysis, Reports excessive phlegm production, Denies dyspnea, Denies snoring and Denies wheezing GI Denies abdominal pain and Denies heartburn Musc Denies myalgias, Denies arthralgias and Denies joint swelling Skin/Breast Denies rash Neuro Denies memory loss and Denies seizure-like activity Psych Denies abnormal sleep pattern, Denies anxiety and Denies memory loss Endo Denies excessive sweating, Denies fatigue and Denies heat intolerance Marino/Lymph Denies easy bruising Aller/Immun Denies itchy eyes, Denies seasonal rhinorrhea and Denies wheezing Physical Exam Vital Signs: Last Vital Signs Pulse 89 08/02/24 13:17 BP 118/72 08/02/24 13:17 Pulse Ox 99 08/02/24 13:17 Oxygen Delivery Method Room Air 08/02/24 13:17 BMI result Body Mass Index 24.1 Const General: no acute distress and alert Nutritional Appearance: not obese Orientation/consciousness: Other orientation findings ( oriented) HEENT Head: Yes atraumatic Eyes General: appearance normal, both eyes and all related structures Sclerae: sclerae normal EOM: EOMs intact bilaterally Neck Neck: Yes supple Lymphatic: no lymphadenopathy noted Resp Effort & Inspection: normal respiratory effort and no use of accessory muscles Auscultation: clear to auscultation bilaterally Cardio Rate: regular rate Rhythm: regular rhythm Heart sounds: no gallops, no murmurs and no rubs Skin General skin exam: other ( warm) Extrem General: No clubbing, No cyanosis and No edema Assessment & Plan Assessment & Plan (1) COPD (chronic obstructive pulmonary disease): Code(s): J44.9 - Chronic obstructive pulmonary disease, unspecified Category: Medical Plan: Well controlled on baseline regimen of Trelegy, albuterol MDI, albuterol nebs. Continue current regimen. Now with bronchitic exacerbation, will treat with a course of azithromycin and prednisone. (2) GERD (gastroesophageal reflux disease): Code(s): K21.9 - Gastro-esophageal reflux disease without esophagitis Category: Medical Plan: Control on twice a day pantoprazole. Continue current regimen. Medications: New prednisone 40 mg (2 x 20 mg) PO DAILY 10 tabs 0RF azithromycin For 250 mg dose pack: take 500 mg today (day 1), then 250 mg for 4 days (days 2-5) PO 6 tabs 0RF Coding Level of Care Code Est Pt Level 4 (35085) Diagnoses COPD (chronic obstructive pulmonary disease) J44.9 GERD (gastroesophageal reflux disease) K21.9
== END 2024-08-02 13:35 | disposition home or self-care (01) ==
PROVIDERS: PCP Internal Medicine Geriatric Medicine; Visit Provider Internal Medicine Pulmonary Disease
DX: J44.9 Chronic obstructive pulmonary disease, unspecified (principal); K21.9 Gastro-esophageal reflux disease without esophagitis
CPT/HCPCS: 99214

== ENCOUNTER → 2024-08-02 13:15 | Outpatient (BNVA) | payer OTHER, SELFPAY | PROVIDERS: PCP Internal Medicine Geriatric Medicine; Visit Provider Internal Medicine Pulmonary Disease | DX: J44.9 Chronic obstructive pulmonary disease, unspecified (principal); K21.9 Gastro-esophageal reflux disease without esophagitis | CPT/HCPCS: 99212 ==

== ENCOUNTER 2024-10-24 09:02 | Day surgery (SDC) | payer OTHER, SELFPAY ==
[2024-10-20 08:31] VITALS: BMI 24.1
--- NOTE | 2024-10-23 10:31 | HO.ANESPROP2 ---
Documented by User: Merle Worley NP 10/23/24 10:35 HPI - Anesthesia Eval Consult details Narrative: 84yo F for Upper Endoscopy Plavix ? for hx stroke Pulmo optimized. Follows [facility] [place] for COPD/Asthma PMFSH Active Problems Active Problems: All Active Problems Chronic idiopathic constipation (Acute) CKD stage 3a, GFR 45-59 ml/min (Acute) CVA (cerebral vascular accident) (Acute) Dyspnea on exertion (Acute) Lumbar radiculitis (Acute) Lumbar spondylosis (Acute) Cervical spondylosis (Acute) Knee pain, bilateral (Acute) Chronic cough (Acute) Microcytic hypochromic anemia (Acute) Duodenal arteriovenous malformation (Acute) Mass of right axilla (Acute) COPD (chronic obstructive pulmonary disease) (Acute) Anxiety (Acute) Asthma (Acute) GERD (gastroesophageal reflux disease) (Acute) Osteopenia (Acute) Peripheral neuropathy (Acute) Past Medical History Medical History (Updated 10/23/24 @ 10:34 by Merle Worley NP) CKD stage 3a, GFR 45-59 ml/min CVA (cerebral vascular accident) History of DVT (deep vein thrombosis) Intertrochanteric fracture Mass of right axilla Occult blood positive stool COVID-19 Colon cancer screening Duodenal arteriovenous malformation Epigastric pain Osteopenia Anemia GI bleed GERD (gastroesophageal reflux disease) Peripheral neuropathy Anxiety Depression COPD (chronic obstructive pulmonary disease) Asthma Elevated cholesterol Lab test negative for COVID-19 virus Family History Family History Father Stroke Asthma Mother Heart attack Stroke Asthma Sister DVT (deep venous thrombosis) Asthma Brother COPD (chronic obstructive pulmonary disease) Son Cancer Family history of problems with anesthesia: No Surgical History Surgical History History of tubal ligation History of axillary surgery Hx of oophorectomy Hx of colonoscopy Hx of esophagogastroduodenoscopy Hx of foot surgery Hx of cholecystectomy Hx of tonsillectomy Hx of appendectomy Social History Social History Household Members: Children Household Members Other:: son Housing: Apartment Are you a primary vehicle care specialist to a significant other at home: No Do you 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 If so, by whom?: No Advance Directives: No Advance Directives Information Provided: Yes Advance Directives Date on File: 01/16/21 Recently lost weight without trying: No service: No Current occupational status: retired Meds Allergies Allergy/AdvReac Type Severity Reaction Status Date / Time lidocaine Allergy Severe Hives Verified 07/27/24 14:46 Home Medications ?Medication ?Instructions ?Recorded ?Confirmed ?Last Taken ?Type ascorbic acid (vitamin C) 500 mg 500 mg PO DAILY 05/23/20 07/27/24 05/10/24 History tablet (Vitamin C) citalopram 10 mg tablet 10 mg PO DAILY 01/16/21 07/27/24 05/10/24 History ipratropium 0.5 mg-albuterol 3 mg 1 vial inhalation QID PRN 01/16/21 07/27/24 05/10/24 History (2.5 mg base)/3 mL nebulization Shortness Of Breath Or Wheezing soln fluticasone fur. 200 mcg-umeclid 1 puff inhalation DAILY 10/20/22 07/27/24 05/10/24 History 62.5 mcg-vilant 25 mcg inhalat.powder (Trelegy Ellipta) cyclobenzaprine 10 mg tablet 10 mg PO TID 12/06/23 07/27/24 05/10/24 History ferrous sulfate 325 mg (65 mg 325 mg PO BID 12/06/23 07/27/24 05/10/24 History iron) tablet gabapentin 300 mg capsule 300 mg PO BEDTIME 12/06/23 07/27/24 05/10/24 History albuterol sulfate 2.5 mg/3 mL 3 mg inhalation Q6H PRN Wheezing 05/11/24 07/27/24 05/10/24 History (0.083 %) solution for nebulization albuterol sulfate 90 mcg/actuation 2 puff inhalation Q4-6H PRN 05/11/24 07/27/24 05/10/24 History aerosol inhaler Shortness Of Breath Or Wheezing alendronate 70 mg tablet 70 mg PO QWEEK 05/11/24 07/27/24 05/04/24 History calcium carbonate 500 mg PO BID 05/11/24 07/27/24 05/10/24 History cholecalciferol (vitamin D3) 50 50 mcg PO DAILY 05/11/24 07/27/24 05/10/24 History mcg (2,000 unit) tablet (Vitamin D3) tramadol 50 mg tablet 25 mg PO DAILY PRN severe pain 05/11/24 07/27/24 05/10/24 History pantoprazole 40 mg tablet,delayed 40 mg PO BID 07/27/24 07/27/24 Unknown History release Exam Height,Weight and Vital Signs: Height 5 ft 3.5 in Weight 62.596 kg Pertinent Lab Results Pertinent Lab Results: Laboratory Tests 10/19/24 11:31 WBC 4.9 Hgb 11.3 L Hct 36.8 L Plt Count 300 Sodium 141 Potassium 4.5 Chloride 110 H Carbon Dioxide 25 BUN 18 H Creatinine 0.89 Narrative Narrative: ECHO 04/2024 Conclusions: - The left ventricular systolic function is normal. The calculated ejection fraction is 69% by biplane method. - No obvious valvular pathology seen on this study. EKG 04/2024 Vent. Rate : 097 BPM Atrial Rate : 097 BPM P-R Int : 158 ms QRS Dur : 072 ms QT Int : 330 ms P-R-T Axes : 046 057 022 degrees QTc Int : 419 ms Normal sinus rhythm Normal ECG When compared with ECG of 06-DEC-2023 08:05, No significant change was found Assessment and Plan Assessment Anesthesia Assessment: Chart Reviewed Final Anesthetic Review Family History of Problems with Anesthesia: No Documented by User: Santos Mace MD 10/24/24 09:42 [facility] Past Medical History Medical History (Updated 10/23/24 @ 10:34 by Merle Worley NP) CKD stage 3a, GFR 45-59 ml/min CVA (cerebral vascular accident) History of DVT (deep vein thrombosis) Intertrochanteric fracture Mass of right axilla Occult blood positive stool COVID-19 Colon cancer screening Duodenal arteriovenous malformation Epigastric pain Osteopenia Anemia GI bleed GERD (gastroesophageal reflux disease) Peripheral neuropathy Anxiety Depression COPD (chronic obstructive pulmonary disease) Asthma Elevated cholesterol Lab test negative for COVID-19 virus Family History Family History Father Stroke Asthma Mother Heart attack Stroke Asthma Sister DVT (deep venous thrombosis) Asthma Brother COPD (chronic obstructive pulmonary disease) Son Cancer Surgical History Surgical History History of tubal ligation History of axillary surgery Hx of oophorectomy Hx of colonoscopy Hx of esophagogastroduodenoscopy Hx of foot surgery Hx of cholecystectomy Hx of tonsillectomy Hx of appendectomy History of Problems with Anesthesia: No Social History Social History Household Members: Children Household Members Other:: son Housing: Apartment Are you a primary vehicle care specialist to a significant other at home: No Do you 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 If so, by whom?: No Advance Directives: No Advance Directives Information Provided: Yes Advance Directives Date on File: 01/16/21 Recently lost weight without trying: No service: No Current occupational status: retired [employer] Allergies Allergy/AdvReac Type Severity Reaction Status Date / Time lidocaine Allergy Severe Hives Verified 07/27/24 14:46 Home Medications ?Medication ?Instructions ?Recorded ?Confirmed ?Last Taken ?Type ascorbic acid (vitamin C) 500 mg 500 mg PO DAILY 05/23/20 07/27/24 05/10/24 History tablet (Vitamin C) citalopram 10 mg tablet 10 mg PO DAILY 01/16/21 07/27/24 05/10/24 History ipratropium 0.5 mg-albuterol 3 mg 1 vial inhalation QID PRN 01/16/21 07/27/24 05/10/24 History (2.5 mg base)/3 mL nebulization Shortness Of Breath Or Wheezing soln fluticasone fur. 200 mcg-umeclid 1 puff inhalation DAILY 10/20/22 07/27/24 05/10/24 History 62.5 mcg-vilant 25 mcg inhalat.powder (Trelegy Ellipta) cyclobenzaprine 10 mg tablet 10 mg PO TID 12/06/23 07/27/24 05/10/24 History ferrous sulfate 325 mg (65 mg 325 mg PO BID 12/06/23 07/27/24 05/10/24 History iron) tablet gabapentin 300 mg capsule 300 mg PO BEDTIME 12/06/23 07/27/24 05/10/24 History albuterol sulfate 2.5 mg/3 mL 3 mg inhalation Q6H PRN Wheezing 05/11/24 07/27/24 05/10/24 History (0.083 %) solution for nebulization albuterol sulfate 90 mcg/actuation 2 puff inhalation Q4-6H PRN 05/11/24 07/27/24 05/10/24 History aerosol inhaler Shortness Of Breath Or Wheezing alendronate 70 mg tablet 70 mg PO QWEEK 05/11/24 07/27/24 05/04/24 History calcium carbonate 500 mg PO BID 05/11/24 07/27/24 05/10/24 History cholecalciferol (vitamin D3) 50 50 mcg PO DAILY 05/11/24 07/27/24 05/10/24 History mcg (2,000 unit) tablet (Vitamin D3) tramadol 50 mg tablet 25 mg PO DAILY PRN severe pain 05/11/24 07/27/24 05/10/24 History pantoprazole 40 mg tablet,delayed 40 mg PO BID 07/27/24 07/27/24 Unknown History release Exam Airway Mallampati Class: II TM Dist: >3cm Neck ROM: Full Loose/Missing/Broken Teeth: Yes (loose upper right implants.) Heart: ok Lungs: ok. see above. Sat 98% on room air Assessment and Plan Assessment Anesthesia Assessment: Anesthesia Plan Discussed Final Anesthetic Review History of Problems with Anesthesia: No NPO: Yes ASA Class: IV Final Preanesthetic Review: No Changes in Pt Med Stat, Meds/Allgs Chart Reviewed, Consent Obtained/Reviewed and Anes Risks/Benef Reviewed Patient Risk: High Procedure Risk: Intermediate Anesthetic Plan Anesthetic Plan: Agree w/ Assess. and Plan and TIVA Disposition: Standard PACU
[2024-10-24 09:06] VITALS: BP 139/57; PULSE 71; RESP 16; TEMP 36.8; O2SAT 98
--- NOTE | 2024-10-24 09:25 | MHC.SHP ---
Pre-Procedural Eval Section A - 24 Hr Update-Section A only Date of Service: 10/24/24 Section B - Complete if H&P > 30 days Chief Complaint: Angiodysplasia of stomach and duodenum,anemia, Details of Present Illness: Anxiety Asthma COPD (chronic obstructive pulmonary disease) COVID-19 Depression Elevated cholesterol GERD (gastroesophageal reflux disease) GI bleed Lab test negative for COVID-19 virus Osteopenia Peripheral neuropathy Surgical History Surgical History History of axillary surgery Hx of appendectomy Hx of cholecystectomy Hx of colonoscopy Hx of esophagogastroduodenoscopy Hx of foot surgery Hx of oophorectomy Hx of tonsillectomy Present Medications: see Short Stay Collaborative assessment Allergies: Allergies Allergy/AdvReac Type Severity Reaction Status Date / Time lidocaine Allergy Severe Hives Verified 07/27/24 14:46 Review of Systems Review of Systems Comment: Ten point ROS negative Exam Exam Comment: Gen appear: No acute distress HEENT: no icterus Chest: No overt resp distress Abd: soft, nontender, nondistended Psych: Stable affect, answering questions appropriately Neuro: A/Ox3 noted to move all extremities spontaneously Ext: no peripheral edema Plan Diagnosis/Plan: Unchanged I have reviewed the history and physical and performed a pertinent physical examination on my patient. No changes have occurred unless specified. Time Spent With Patient Time: Total time managing care of this patient today ____ minutes.
[2024-10-24] MEDS: Lactated Ringers 1,000 ML 100 ML IVCONT (09:33)
[2024-10-24 11:23] VITALS: BP 117/56; PULSE 65; RESP 15; TEMP 36.6; O2SAT 98
[2024-10-24 11:43] VITALS: BP 137/67; PULSE 58; RESP 17; TEMP 36.1; O2SAT 96
--- NOTE | 2024-10-24 12:00 | P.OP_ITS ---
Operative Note Operative Note Date of Service: 10/24/24 Narrative: Procedure: Esophagogastroduodenoscopy Endoscopist: Wanda Kraft MD Indication: Anemia, AVMs Anesthesia Provider: Santos Mace MD Anesthesia Type: MAC ?? EGD Procedure:?? The procedure, indications, preparation and potential complications were reviewed with the patient, who indicated understanding and gave written informed consent to proceed. A physical exam was performed. The endoscope was introduced through the mouth, and advanced to the second part of duodenum. The mucosa was carefully examined on slow withdrawal of the endoscope. The patient tolerated the procedure well. There were no immediate complications.? ? EGD Findings:? * Esophagus:? Normal mucosa noted in the entire esophagus. The Z line was at 39 cm. * Stomach:? Normal mucosa was noted in the stomach. Multiple AVMs measruring < 5 mm noted in the body of the stomach. * Duodenum:? Normal mucosa was noted in the whole of the examined duodenum. Multiple spontaneously bleeding AVMs size 5-15 mm in the duodenal bulb and second portion of the duodenum. Additional intervention: Argon plasma coagulation was applied using straight fire catheter to gastric and duodenal AVMs with complete hemostasis. ? EGD Impressions:? * Normal esophagus * Gastric AVMs (APC) * Duodenal AVMs (APC) Recommendations:?? * Continue PPI therapy. * Start carafate 10 ml TID x 2 weeks * Avoid NSAIDs. * Monitor CBC. * Given age and comorbidities, consider conservative medical management with PRN iron infusions vs IM octreotide Above has been reviewed with the patient.
== END 2024-10-24 12:10 | disposition home or self-care (01) ==
PROVIDERS: PCP Internal Medicine Geriatric Medicine; Visit Provider Internal Medicine
PROC: 0DJ08ZZ Inspection of Upper Intestinal Tract, Via Natural or Artificial Opening Endoscopic (ICD-10-PCS; CPT 43235; principal; 2024-10-24 10:50)
DX: D50.9 Iron deficiency anemia, unspecified (principal); K31.819 Angiodysplasia of stomach and duodenum without bleeding; K59.04 Chronic idiopathic constipation; R10.13 Epigastric pain; K21.9 Gastro-esophageal reflux disease without esophagitis; N18.31 Chronic kidney disease, stage 3a; J44.9 Chronic obstructive pulmonary disease, unspecified; M85.80 Other specified disorders of bone density and structure, unspecified site; E78.00 Pure hypercholesterolemia, unspecified; G62.9 Polyneuropathy, unspecified; F32.A Depression, unspecified; F41.9 Anxiety disorder, unspecified; Z86.73 Personal history of transient ischemic attack (TIA), and cerebral infarction without residual deficits; Z86.718 Personal history of other venous thrombosis and embolism; Z79.899 Other long term (current) drug therapy; Z88.8 Allergy status to other drugs, medicaments and biological substances; F17.210 Nicotine dependence, cigarettes, uncomplicated; Z98.890 Other specified postprocedural states
CPT/HCPCS: 43255; J2003; J2704; J3010

== ENCOUNTER → 2024-10-24 09:02 | Outpatient (BNV) | payer OTHER, SELFPAY | PROVIDERS: PCP Internal Medicine Geriatric Medicine; Visit Provider Internal Medicine | DX: D64.9 Anemia, unspecified (principal); Q27.33 Arteriovenous malformation of digestive system vessel | CPT/HCPCS: 43270 ==

== ENCOUNTER 2024-11-07 14:27 | Outpatient (AMB) | payer OTHER, SELFPAY ==
[2024-11-07 14:33] VITALS: BP 136/65; PULSE 79; BMI 23.9
--- NOTE | 2024-11-07 14:33 | A.OFFVIS_ITS ---
Vital Signs 11/07/24 14:33 Height 5 ft 3.5 in Weight 137 lb BMI 23.9 BP 136/65 Blood Pressure Location Lt brachial Position Sitting Pulse 79 Intake Visit Reasons: S/P EGD Swapnil Intake Note: Rukhsana presents in follow up s/p EGD. CC: Patient c/o heartburn, abdominal pain, diarrhea alternating with constipation. Allergies lidocaine Allergy (Severe, Verified 11/07/24 14:52) Hives HPI HPI S/P EGD Swapnil: Details: Assessment & Plan (1) Microcytic hypochromic anemia: Code(s): D50.9 - Iron deficiency anemia, unspecified Category: Medical (2) CKD stage 3a, GFR 45-59 ml/min: Code(s): N18.31 - Chronic kidney disease, stage 3a Category: Medical (3) Chronic idiopathic constipation: Code(s): K59.04 - Chronic idiopathic constipation Category: Medical (4) Duodenal arteriovenous malformation: Comment: Noted on 2019 EGD, not appear to be related any pathology that is concerning Code(s): K31.819 - Angiodysplasia of stomach and duodenum without bleeding Category: Medical Plan Turkish #Lacie Live Patient referred back to me but was seen by Dr. Almanza is an inpatient regarding AVMs of the colon and I do not know is plan so I am requesting it he see her.? Cautery verse APC referral s ETC. patient has been lost to follow-up since 2019 and at that time conservative treatment to be followed by her PCP is what was decided between her and Dr. Diaz son. She says that her anemia is not resolving despite oral iron replacement therapy. She is seeing Dr. Holm who is continuing her workup as her anemia is likely multifactorial - including chronic renal disease, asa and plavix therapy, poor dietary intake, and other yet to be determined factors that are still being worked up by hematology that could include thalassema, myelodysplasia, hemolysis, etc. She has had health problems since we last saw her including a stroke and a fractured hip. I think our role will be to see if the duodenal angiodysplasia is c/t her anemia. Her last colonoscopy was normal and it was not recommended that she repeat this for screening r/t her age and comorbidities. She does not see any RB in the stools. The stools are dark r/t oral iron therapy. Her son admits she does not like to drink anything but caffeinated coffee. We discuss trying to find something that she likes to drink. She asks if she can change to decaf coffee and this certainly would help. She feels that she moves her bowels well if she takes one senna a night. I encourage her to take 1 every night since this works well for her. Because of straining, she has had some episodes of RB on the TT with roids, so this would be best to manage given her need for oral iron therapy. She does not feel her COPD/asthma is well controlled r/t the cold weather. Her pulm is Dr. Westbrook, so I will send him a note for clearance. She denies any cardiac problems. NO ID problems. There are no prior problems with anesthesia or sedation. ROV 8 weeks. Orders: Orders EGD - GI Use Only Today D50.9 - Iron deficiency anemia, unspecified, K31.819 - Angiodysplasia of stomach and duodenum without bleeding Medications: EGD EGD Findings:? * Esophagus:? Normal mucosa noted in the entire esophagus. The Z line was at 39 cm. * Stomach:? Normal mucosa was noted in the stomach. Multiple AVMs measruring < 5 mm noted in the body of the stomach. * Duodenum:? Normal mucosa was noted in the whole of the examined duodenum. Multiple spontaneously bleeding AVMs size 5-15 mm in the duodenal bulb and second portion of the duodenum. Additional intervention: Argon plasma coagulation was applied using straight fire catheter to gastric and duodenal AVMs with complete hemostasis. ? EGD Impressions:? * Normal esophagus * Gastric AVMs (APC) * Duodenal AVMs (APC) Recommendations:?? * Continue PPI therapy. * Start carafate 10 ml TID x 2 weeks * Avoid NSAIDs. * Monitor CBC. * Given age and comorbidities, consider conservative medical management with PRN iron infusions vs IM octreotide TODAYS VISIT Turkish #dtr translates per pt request. She tolerated the procedure fairly well she did have some upper abdominal discomfort afterwards which does not surprise me given the large number of AVMs that had to be treated with the argon plasma development eng. She is doing much better now. She continues on twice a day pantoprazole and I think we can probably drop that to once a day. She had a short course of sucralfate as well. She continues on iron twice a day and her hemoglobin and hematocrit have been steady over the past few months. Because iron can also be irritating to the stomach and constipating I am going to get a ferritin so we can assess how well her iron stores have repleted so we can tell her when she can potentially dropped down to once a day iron supplementation. The iron as prescribed by Dr. Romano. She has more energy and they are happy with her improvement. Return office visit in 3 months. She continues to do well on her senna/Colace combination in his no longer taking MiraLax. [facility] Medical History CKD stage 3a, GFR 45-59 ml/min CVA (cerebral vascular accident) History of DVT (deep vein thrombosis) Intertrochanteric fracture Mass of right axilla Occult blood positive stool COVID-19 Colon cancer screening Duodenal arteriovenous malformation Epigastric pain Osteopenia Anemia GI bleed GERD (gastroesophageal reflux disease) Peripheral neuropathy Anxiety Depression COPD (chronic obstructive pulmonary disease) Asthma Elevated cholesterol Lab test negative for COVID-19 virus Surgical History History of tubal ligation History of axillary surgery Hx of oophorectomy Hx of colonoscopy Hx of esophagogastroduodenoscopy Hx of foot surgery Hx of cholecystectomy Hx of tonsillectomy Hx of appendectomy Family History Father Stroke Asthma Mother Heart attack Stroke Asthma Sister DVT (deep venous thrombosis) Asthma Brother COPD (chronic obstructive pulmonary disease) Son Cancer Social History Household Members: Children Household Members Other:: son Housing: Apartment Are you a primary pharmacy care coordinator to a significant other at home: No Do you presently have 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) Alcohol intake: never Patient Tobacco Use Status: Current everyday Tobacco user Tobacco use type: Cigarette Cigarettes Per Day: 4 Years Smoked: 60 Second Hand Smoke Exposure: Yes Advance Directives Date on File: 01/16/21 service: No Current occupational status: retired Review of Systems Const Denies fatigue, Denies fever(s), Denies night sweats, Denies poor appetite and Denies weight loss Eyes Details: glasses Reports requires corrective lenses ENT Reports Normal hearing present, Denies dysphagia, Denies odynophagia, Denies throat swelling and Denies tongue swelling Card Reports no additional complaints Resp Reports no additional complaints GI Details: Denies abdominal pain, Denies melena, Denies bloating, Denies hematochezia, Reports constipation, Denies GI cramping, Denies dysphagia, Denies excessive flatus, Denies early satiety, Reports heartburn, Denies diarrhea, Denies nausea, Denies odynophagia, Denies vomiting and Denies hematemesis Skin/Breast Denies pruritus, Denies lesions, Denies rash and Denies jaundice Neuro Reports Normal hearing present and Denies Abnormal speech present Endo Denies fatigue Aller/Immun Denies throat swelling and Denies tongue swelling Physical Exam Vital Signs: Last Vital Signs Pulse 79 11/07/24 14:33 BP 136/65 11/07/24 14:33 BMI result Body Mass Index 23.9 Const General: cooperative, no acute distress, well developed and well groomed Nutritional Appearance: average body habitus and well nourished Orientation/consciousness: oriented to person, oriented to place and oriented to time Limitations: language barrier and ambulation with cane HEENT Head: Yes normocephalic and Yes atraumatic Eyes General: appearance normal, both eyes and all related structures Pupils: Equal, round and reactive pupils present Neck Neck: Yes normal visual inspection and Yes no lymphadenopathy Thyroid: Thyroid normal Resp Effort & Inspection: normal respiratory effort and able to speak in complete sentences Auscultation: clear to auscultation bilaterally Cardio Rate: regular rate Rhythm: regular rhythm Heart sounds: Normal, physiologic split S2 sound present Peripheral pulses: radial pulses present and posterior tibial pulses present GI Inspection: No distended and No Abdominal panniculus present Palpation (GI): Soft to palpation, nontender, no guarding, not rigid and No hepatosplenomegaly present Percussion: Yes normal to percussion Auscultation: normal bowel sounds Rectal Exam - Female: deferred Skin General skin exam: no rashes or lesions noted, turgor normal, skin not dry, no jaundice, No spider nevi and no striae Rashes: no rashes Nails: normal Neuro General: oriented to person, oriented to place and oriented to time Cranial nerves: Yes Equal, round and reactive pupils present and Yes Normal hearing present Speech: No Abnormal speech present Extrem General: Yes normal to inspection, No clubbing, No cyanosis and No edema Psych Appearance: grossly normal and well kempt Mental Status: mental status grossly normal Speech and movement: Normal speech and movement present Affect: normal affect Attitude: cooperative Thought process: Normal thought process present and not confabulating Thought content: Normal thought content present Insight: Limited insight present (Psych) Judgement: Limited judgement present (Psych) Results Reviewed Results Reviewed: EGD EGD Findings:? * Esophagus:? Normal mucosa noted in the entire esophagus. The Z line was at 39 cm. * Stomach:? Normal mucosa was noted in the stomach. Multiple AVMs measruring < 5 mm noted in the body of the stomach. * Duodenum:? Normal mucosa was noted in the whole of the examined duodenum. Multiple spontaneously bleeding AVMs size 5-15 mm in the duodenal bulb and second portion of the duodenum. Additional intervention: Argon plasma coagulation was applied using straight fire catheter to gastric and duodenal AVMs with complete hemostasis. ? EGD Impressions:? * Normal esophagus * Gastric AVMs (APC) * Duodenal AVMs (APC) Recommendations:?? * Continue PPI therapy. * Start carafate 10 ml TID x 2 weeks * Avoid NSAIDs. * Monitor CBC. * Given age and comorbidities, consider conservative medical management with PRN iron infusions vs IM octreotide Assessment & Plan Assessment & Plan (1) GERD (gastroesophageal reflux disease): Code(s): K21.9 - Gastro-esophageal reflux disease without esophagitis Category: Medical (2) Microcytic hypochromic anemia: Code(s): D50.9 - Iron deficiency anemia, unspecified Category: Medical Plan Turkish #dtr translates per pt request. She tolerated the procedure fairly well she did have some upper abdominal discomfort afterwards which does not surprise me given the large number of AVMs that had to be treated with the argon plasma development eng. She is doing much better now. She continues on twice a day pantoprazole and I think we can probably drop that to once a day. She had a short course of sucralfate as well. She continues on iron twice a day and her hemoglobin and hematocrit have been steady over the past few months. Because iron can also be irritating to the stomach and constipating I am going to get a ferritin so we can assess how well her iron stores have repleted so we can tell her when she can potentially dropped down to once a day iron supplementation. The iron as prescribed by Dr. Romano. She has more energy and they are happy with her improvement. Return office visit in 3 months. She continues to do well on her senna/Colace combination in his no longer taking MiraLax. Orders: Orders Ferritin Today D50.9 - Iron deficiency anemia, unspecified Medications: Changed From pantoprazole 40 mg PO BID K21.9 - Gastro-esophageal reflux disease without esophagitis To pantoprazole 40 mg PO QAM 30 tabs 6RF K21.9 - Gastro-esophageal reflux disease without esophagitis Refilled sennosides-docusate sodium 8.6-50 mg (Senna Plus) 2 tabs PO BID 60 tabs 6RF K59.04 - Chronic idiopathic constipation Coding Level of Care Code Est Pt Level 3 (73175) Diagnoses GERD (gastroesophageal reflux disease) K21.9 Microcytic hypochromic anemia D50.9
--- OUTSIDE RECORDS SUMMARY | 2024-11-07 18:07 | XMS_ITS | Clinical Summary ---
Author Organization [facility] ity Address [address] [place] [address] Care Team Providers Care Embroidery Specialist Name Role Phone Unavailable Primary Care Provider Unavailabl e Social History Tobacco Use Types Packs/Day Years Used Date Smoking Tobacco: Never Assessed Comments Unknown Sex and Gender Information Value Date Recorded Sex Assigned at Not on file Legal Sex Female 3:35 AM EST Gender Identity Not on file Sexual Orientation Not on file Plan of Treatment Health Maintenance Due Date Last Done Comments DTaP,Tdap,and Td Vaccines (1 - Tdap) 1959 Pneumococcal Vaccine: 50+ Ye ars (1 of 1 - PCV) 1990 Zoster Vaccines (1 of 2) 1990 RSV Immunization Patients 60 + Years Old (1 - 1-dose 75+ series) 2015 COVID-19 Vaccine ( - 2023-2 5 season) 2024 Influenza Vaccine (#1) 2024 HIB Vaccines Aged Out No longer eligi ble based on patient's age to complete this topic HPV Vaccines Aged Out No longer eligi ble based on patient's age to complete this topic Hepatitis A Vaccines Aged Out No long er eligible based on patient's age to complete this topic Hepatitis B Vaccines Aged Out No long er eligible based on patient's age to complete this topic IPV Vaccines Aged Out No longer eligi ble based on patient's age to complete this topic MMR Vaccines Aged Out No longer eligi ble based on patient's age to complete this topic Meningococcal ACWY Vaccine Aged Out N o longer eligible based on patient's age to complete this topic Meningococcal B Vacine Aged Out No lo nger eligible based on patient's age to complete this topic RSV Immunization Patients Un peewee 20 months Aged Out No longer eligible b ased on patient's age to complete this topic Varicella Vaccines Aged Out No longer eligible based on patient's age to complete this topic
--- OUTSIDE RECORDS SUMMARY | 2024-11-07 18:07 | XMS_ITS ---
Author Name Dereck GEMDivina Address [address] [place] [address] Phone [phone] [facility] Care Team Providers Care Nuclear Weapons Specialist Name Role Phone Divina Harden Unavailable [phone] Unavailable Unavailable Unavailable Unavailable Unavailable Unavailable [facility] Unavailable CELESTINA BarbraANNEMARIE Unavailable [phone] PAYTON HURTADO Unavailable [phone] NameThaddeus Unavailable [phone] Reason for Referral Not Available Allergies, adverse reactions, alerts No known allergies History of medication use Medication Class Instructions Start Date End Date Acetaminophen 325 mg Tab TAKE 2 TABLETS BY ORAL ROUTE EVERY 6 HOURS NEEDED FOR PAIN 2022-02-19 No Data Available Azithromycin 250 mg Tab TOME 2 TABLETAS POR V A ORAL HOY, LUEGO TOME 1 TABLETA POR D A ABUNDIO 4 D 2022-02-19 No Data Available Nicotine Polacrilex 2 mg Lozenge PLEASE SEE ATTACHED FOR DETAILED DIRECTIONS 2022-02-19 2022-07-31 Nicotine 14 mg/24HR Patch 24hr APPLY 1 P ATCH BY TRANSDERMAL ROUTE EVERY DAY AND WEAR FOR 16-24 HOURS. 2022-02-19 2022-07-31 predniSONE 20 mg Tab TAKE 2 TABLETS BY O RAL ROUTE ONCE EVERY DAY 2022-02-19 2022-07-31 Trelegy Ellipta 200-62.5-25 MCG/ACT Aerosol Powder Breath Activated INHALE 1 PUFF BY INHALATION ROUTE EVERY DAY AT THE SAME TIME EACH DAY 2022-02-19 No Data Available Citalopram Hydrobromide 10 m g Tab TOME BLAKE TABLETA TODOS LOS D 2021-04-09 No Data Available Amoxicillin-Pot Clavulanate 875/125 mg Tab TOME BLAKE TABLETA DOS VECES AL D A POR 10 D 2022-04-29 No Data Available Gabapentin 300 mg Cap 1 cap by mouth at bedtime 05-12 No Data Available Alendronate Sodium 70 mg Tab PLEASE SEE ATTACHED FOR DETAILED DIRECTIONS 2022-05-14 2024-02-24 OYSTER SHELL CALCIUM 500 MG TB TOME BLAKE TABLETA DOS VECES AL D A 2022-05-14 2024-07-12 Ferrous Sulfate 325 (65 Fe) MG Tab delayed rel 1 tablet orally 2 times per day 2022-06-30 No Data Available Omeprazole 40 mg Cap delayed rel 1 BID 2022-06-30 2024-07-12 Vitamin B-12 100 MCG Tab 1 daily 2022-06-3009-27-15 Lidocaine 5 % Patch 1 patch topically to affected area daily remove after 12 hours PRN Pain 2022-07-31 No Data Available Calcium-Vitamin D3 600/12.5 mg-MCG Cap 1 capsule orally daily with a meal 2022-07-31 No Data Available ProAir HFA 108 (90 Base) MCG/ACT Aerosol Solution Inhalation 2 inhalations every 3 hours as needed. wheezing coughing and sob 2022-07-31 No Data Available Cyclobenzaprine 10 mg Tab 1 tablet orally TID PRN 2022 No Data Available Amoxicillin 500 mg Cap TOME BLAKE C PSULA SCOT VECES AL D A 2022-10-29 No Data Available Ibuprofen 800 mg Tab TOME BLAKE TABLETA PO R V A ORAL CADA SEIS A OCHO HORAS CUANDO SEA NECESARIO 2022-10-29 No Data Available Cyclobenzaprine 10 mg Tab TOME BLAKE TABLE TA POR V A ORAL 3 TIMES DAILY 2023-01-12 No Data Available Clotrimazole-Betamethasone 1-0.05 % Crm APLIQUE AL PEDRO AFECTADA DOS VECES AL D A 2023-03-01 No Data Available Diclofenac Sodium 1 % Gel APPLY TWICE A DAY TO BOTH HANDS 2023-03-01 No Data Available Naproxen 500 mg Tab TOME BLAKE TABLETA POR V A ORAL 2 TIMES A DAY NEEDED FOR PAIN 2023-10-30 No Data Available predniSONE 20 mg Tab PLEASE SEE ATTACHED FOR DETAILED DIRECTIONS 2023-11-03 2024-02-24 traMADol 50 mg Tab TOME BLAKE TABLETA TOD OS LOS D EN LA MA ANILA Y AL ACOSTARSE PARA DOLOR ODILON CUANDO SEA NECESARIO 2024-01-04 No Data Available VITAMIN D3 2,000 UNIT TABLET TOME 1 TABL ETA POR V A ORAL TODOS LOS D 2024-02-01 No Data Available Acetaminophen 325 mg Tab 1 tablet po BID PRN 2024-02-14 1 No Data Available Calcium Carbonate 1250 (500 Ca) MG Tab 1 tablet orally daily 2024-02-24 No Data Available Diclofenac Sodium 1 % Gel 4 grams topica lly to affected area 4 times per day PRN 2024-02-24 2024-07-12 Fluticasone Propionate 50 MCG/ACT Suspension PLEASE SEE ATTACHED FOR DETAILED DIRECTIONS 2024-03-14 No Data Available Alendronate Sodium 70 mg Tab TOME BLAKE TA BLETA POR V A ORAL EVERY WEEK IN THE MORNING WITH A FULL GLASS OF WATER, EMPTY STOMACH 2024-02-01 No Data Available Pantoprazole Sodium 40 mg Ta b delayed rel TOME 1 TABLETA POR V A ORAL DOS VECES AL D A 2024-05-26 No Data Available Problem List Problem Status Onset Date Resolved Date GERD (gastroesophageal reflux disease) Active 06-08-16 N/A Osteopenia Active 2022-07-31 N/A Osteoarthritis Active 2022-07-31 N/A History of DVT (deep vein thrombosis) Active 09-27-15 N/A Peripheral vascular disease, unspecified Active 2022-08-03 N/A Myelodysplastic syndrome, unspecified Active 09-26-14 N/A Chronic kidney disease, stage 4 (severe) Active 2022-06-30 N/A HLD (hyperlipidemia) Resolved 2022-07-312023-03 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 Active 2024-05-22 N/A Tobacco abuse Active 2024-02-24 N/A Chronic low back pain anddifficulty walking Active 2022-07-31 N/A Other problems related to ne dical facilities and other health care Active 2024-07-12 N/A Hx of fracture of hip Active 2024-02-24 N/A Major depressive disorder, recurrent, moderate Active 2022-06-30 N/A Constipation Active 2022-07-31 N/A Chronic obstructive pulmonary disease, unspecified Act karlie 2022-06-30 N/A Encounters Encounters Type Facility Date of Service Diagnosis/Co mplaint New patient,40-59min; chronic exacerbation, 2 stable chronic or 1 acute illness add add modifier 95 for video (do not use for phone, instead use 49970-00) [facility] [place]22 Myelodysplastic syndrome, unspecifiedChronic obstructive pulmonary disease, unspecifiedChronic kidney disease, stage 4 (severe)Gastro-esophageal reflux disease without esophagitisConstipation, unspecifiedOth disrd of bone density and structure, unspecified siteUnspecified osteoarthritis, unspecified siteLow back pain, unspecifiedOther chronic painHyperlipidemia, unspecifiedPersonal history of other venous thrombosis and embolismMajor depressive disorder, recurrent, moderateMajor depressive disorder, recurrent, mildPeripheral vascular disease, unspecified New patient,40-59min; chronic exacerbation, 2 stable chronic or 1 acute illness add add modifier 95 for video (do not use for phone, instead use [id number]) [facility] New patient,40-59min; chronic exacerbation, 2 stable chronic or 1 acute illness add add modifier 95 for video (do not use for phone, instead use 87483-23) [facility] New patient,40-59min; chronic exacerbation, 2 stable chronic or 1 acute illness add add modifier 95 for video (do not use for phone, instead use [id number]) [facility] New patient,40-59min; chronic exacerbation, 2 stable chronic or 1 acute illness add add modifier 95 for video (do not use for phone, instead use 31436-88) [facility] [place] 07[place] New patient,40-59min; chronic exacerbation, 2 stable chronic or 1 acute illness add add modifier 95 for video (do not use for phone, instead use 69978-58) [facility] [place] 07[place]/20[place] New patient,40-59min; chronic exacerbation, 2 stable chronic or 1 acute illness add add modifier 95 for video (do not use for phone, instead use 09058-64) [facility] [place] 07[place] New patient,40-59min; chronic exacerbation, 2 stable chronic or 1 acute illness add add modifier 95 for video (do not use for phone, instead use 53431-74) [facility] [place] New patient,40-59min; chronic exacerbation, 2 stable chronic or 1 acute illness add add modifier 95 for video (do not use for phone, instead use 61714-40) [facility] Estab. patient 30-39min; chronic exacerbation, 2 stable chronic or 1 acute illness add add modifier 95 for video, (do not use for phone, instead use 78791-38) [facility] 04[place]/2023 Myelodysplastic syndrome, unspecifiedMajor depressive disorder, recurrent, mildChronic obstructive pulmonary disease, unspecifiedOther nonthrombocytopenic purpuraPeripheral vascular disease, unspecifiedGastro-esophageal reflux disease without esophagitisConstipation, unspecifiedOth disrd of bone density and structure, unspecified siteUnspecified osteoarthritis, unspecified siteLow back pain, unspecifiedOther chronic painPersonal history of other venous thrombosis and embolism Estab. patient 30-39min; chronic exacerbation, 2 stable chronic or 1 acute illness add add modifier 95 for video, (do not use for phone, instead use 20216-30) [facility] Estab. patient 30-39min; chronic exacerbation, 2 stable chronic or 1 acute illness add add modifier 95 for video, (do not use for phone, instead use 56023-55) [facility] Estab. patient 30-39min; chronic exacerbation, 2 stable chronic or 1 acute illness add add modifier 95 for video, (do not use for phone, instead use 51817-87) [facility] 04[place] Estab. patient 30-39min; chronic exacerbation, 2 stable chronic or 1 acute illness add add modifier 95 for video, (do not use for phone, instead use 39694-03) [facility] 04[place] Estab. patient 30-39min; chronic exacerbation, 2 stable chronic or 1 acute illness add add modifier 95 for video, (do not use for phone, instead use 45863-91) [facility] [place] 04[place]20[place] Estab. patient 30-39min; chronic exacerbation, 2 stable chronic or 1 acute illness add add modifier 95 for video, (do not use for phone, instead use 51849-41) [facility] [place] 04[place]20[place] Estab. patient 30-39min; chronic exacerbation, 2 stable chronic or 1 acute illness add add modifier 95 for video, (do not use for phone, instead use 55240-01) [facility] [place] 02/[place]/2024 Myelodysplastic syndrome, unspecifiedMajor depressive disorder, recurrent, mildChronic obstructive pulmonary disease, unspecifiedChronic kidney disease, stage 4 (severe)Gastro-esophageal reflux disease without esophagitisConstipation, unspecifiedOth disrd of bone density and structure, unspecified siteUnspecified osteoarthritis, unspecified siteLow back pain, unspecifiedOther chronic painDifficulty in walking, not elsewhere classifiedPersonal history of other venous thrombosis and embolismPeripheral vascular disease, unspecifiedTobacco usePersonal history of (healed) traumatic fractureOther problems related to medical facilities and other health care Estab. patient 30-39min; chronic exacerbation, 2 stable chronic or 1 acute illness add add modifier 95 for video, (do not use for phone, instead use 65654-10) [facility] 02[place] Estab. patient 30-39min; chronic exacerbation, 2 stable chronic or 1 acute illness add add modifier 95 for video, (do not use for phone, instead use 70742-08) [facility] 02[place] Estab. patient 30-39min; chronic exacerbation, 2 stable chronic or 1 acute illness add add modifier 95 for video, (do not use for phone, instead use 60248-63) [facility] 02[place] Estab. patient 30-39min; chronic exacerbation, 2 stable chronic or 1 acute illness add add modifier 95 for video, (do not use for phone, instead use 40575-91) [facility] 02/[place] Estab. patient 30-39min; chronic exacerbation, 2 stable chronic or 1 acute illness add add modifier 95 for video, (do not use for phone, instead use 92003-63) [facility] 02[place] Estab. patient 30-39min; chronic exacerbation, 2 stable chronic or 1 acute illness add add modifier 95 for video, (do not use for phone, instead use 15958-03) [facility] 02[place] Estab. patient 30-39min; chronic exacerbation, 2 stable chronic or 1 acute illness add add modifier 95 for video, (do not use for phone, instead use 25666-52) [facility] 02[place] Estab. patient 30-39min; chronic exacerbation, 2 stable chronic or 1 acute illness add add modifier 95 for video, (do not use for phone, instead use 42228-27) [facility] 02[place] Estab. patient 30-39min; chronic exacerbation, 2 stable chronic or 1 acute illness add add modifier 95 for video, (do not use for phone, instead use 99540-35) [facility] 02[place]20[place] RN, CN or CP time with patient by phone; use with 1111F, BP, A1c or other CPTII codes [facility] 05/17/2024 Encounter for other specifie d aftercare Unlisted special service; to be used for medical record reviews and reporting CPTII codes (1111F, etc) [facility] ([place]) 05/19/2024 Encounter for other specifie d aftercare Unlisted special service; to be used for medical record reviews and reporting CPTII codes (1111F, etc) [facility] 05/19/2024 No Data Available [facility]20[place] Hemiplga following cerebral infrc aff right dominant sideChronic obstructive pulmonary disease, unspecifiedOther problems related to medical facilities and other health care No Data Available [facility] 06[place]12/2024 No Data Available [facility] No Data Available [facility] No Data Available [facility] 05[place]/2024 Intracardiac thrombosis, not elsewhere classifiedOther problems related to medical facilities and other health carePrsnl hx of TIA (TIA), and cereb infrc w/o resid deficits No Data Available [facility] [place] No Data Available [facility] [place] No Data Available [facility] [place] No Data Available [facility] [place] No Data Available [facility] [place] No Data Available [facility] [place] No Data Available [facility] [place] No Data Available [facility] [place] No Data Available [facility] [place] 07[place]2024 Major depressive disorder, recurrent, mildChronic obstructive pulmonary disease, unspecifiedConstipation, unspecifiedOther problems related to medical facilities and other health care No Data Available [facility] [place] No Data Available [facility] [place] No Data Available [facility] [place] No Data Available [facility] [place] No Data Available [facility] [place] No Data Available [facility] [place] No Data Available [facility] [place] No Data Available [facility] [place] No Data Available [facility] [place]20[place] Hemiplga following cerebral infrc aff right dominant sideChronic obstructive pulmonary disease, unspecifiedPersonal history of (healed) traumatic fractureTobacco useOth disrd of bone density and structure, unspecified siteUnspecified osteoarthritis, unspecified site No Data Available [facility] [place] 07[place]20[place] Estab. patient 10-29min; 1 minor problem; add add modifier 95 for video, modifier 93 for phone [facility] [place] 08[place]/2024 Constipation, unspecifiedChronic obstructive pulmonary disease, unspecifiedPeripheral vascular disease, unspecifiedTobacco useOther problems related to medical facilities and other health carePersonal history of (healed) traumatic fracture Estab. patient 10-29min; 1 minor problem; add add modifier 95 for video, modifier 93 for phone [facility] [place] Estab. patient 10-29min; 1 minor problem; add add modifier 95 for video, modifier 93 for phone [facility] [place] Estab. patient 10-29min; 1 minor problem; add add modifier 95 for video, modifier 93 for phone [facility] [place] 08[place]20[place] Estab. patient 10-29min; 1 minor problem; add add modifier 95 for video, modifier 93 for phone [facility] [place] Estab. patient 10-29min; 1 minor problem; add add modifier 95 for video, modifier 93 for phone [facility] [place] 09[place]2024 Constipation, unspecifiedOth er problems related to medical facilities and other health care Estab. patient 10-29min; 1 minor problem; add add modifier 95 for video, modifier 93 for phone [facility] [place] 10[place]2024 Other problems related to medical facilities and other health careConstipation, unspecifiedChronic obstructive pulmonary disease, unspecified Vital Signs Date of Collection Vitals 2022-07-31 10:40:08 Height - 160.02 cmWe ight - 63.5 kgBody Mass Index (BMI) - 24.8 kg/m2BP Diastolic - 77.0 mm[Hg]BP Systolic - 122.0 mm[Hg] 2023-04-05 07:15:53 Height - 161.29 cmWe ight - 61.69 kgBody Mass Index (BMI) - 23.71 kg/m2Pain Scale - 3.0 {score} 2024-02-24 10:20:28 Height - 161.29 cmWe ight - 63.05 kgBody Mass Index (BMI) - 24.24 kg/m2BP Diastolic - 74.0 mm[Hg]BP Systolic - 148.0 mm[Hg] 2024-05-22 10:49:41 Weight - 63.05 kgBod y Mass Index (BMI) - 24.24 kg/m2BP Diastolic - 61.0 mm[Hg]BP Systolic - 146.0 mm[Hg]Pain Scale - 0.0 {score} 2024-06-12 09:38:28 Height - 161.29 cmWe ight - 63.05 kgBody Mass Index (BMI) - 24.24 kg/m2BP Diastolic - 62.0 mm[Hg]BP Systolic - 119.0 mm[Hg]Pain Scale - 0.0 {score} 2024-07-12 08:29:00 Height - 160.02 cmWe ight - 63.5 kgBody Mass Index (BMI) - 24.8 kg/m2Pain Scale - 5.0 {score} 2024-08-25 09:51:35 Weight - 63.5 kgBody Mass Index (BMI) - 24.8 kg/m2BP Diastolic - 60.0 mm[Hg]BP Systolic - 122.0 mm[Hg]Pain Scale - 0.0 {score} Social History Social History Social History Observation Description Effec tive Time Current Smoking Status Current every day smoker 2024-11-07 Sex Female History of Procedures Procedures Service Procedure code Service date Servicing provider Phone# New patient,40-59min; chronic exacerbation, 2 stable chronic or 1 acute illness add add modifier 95 for video (do not use for phone, instead use [id number]) [id number] 2022-07-31 No Data Available No Data Availa ble Pain Assessment - NO pain present (1126F) 1126F 2022-07-31 No Data Available No Data A vailable Medication List Documented (1159F) 1159F 2022-07-31 No Data Available No Data Debra ilable Medication Review by prescribing provider or pharmacist documented (1160F) 1160F 2022-07-31 No Data Available No Data Debra ilable Functional Status Assessed (1170F) 1170F 2022-07-31 No Data Available No Data Avail able Advance Care Directive Advance care planning discussion documented in the medical record (1158F) 1158F 2022-07-31 No Data Available No Data Availa ble BMI obtained (3008F) 3008F 2022-07-31 No Data Availab le No Data Available SBP < 130 (3074F) 3074F 2022-07-31 No Data Available No Data Available DBP <80 (3078F) 3078F 2022-07-31 No Data Available No Data Available Estab. patient 30-39min; chronic exacerbation, 2 stable chronic or 1 acute illness add add modifier 95 for video, (do not use for phone, instead use 64142-61) 85253 2023-04-05 No Data Available No Data Availa ble Functional Status Assessed (1170F) 1170F 2023-04-05 No Data Available No Data Avail able Medication List Documented (1159F) 1159F 2023-04-05 No Data Available No Data Debra ilable Medication Review by prescribing provider or pharmacist documented (1160F) 1160F 2023-04-05 No Data Available No Data Debra ilable Pain Assessment - Pain Documented on a Pain Scale (1125F) 1125F 2023-04-05 No Data Available No Data Debra ilable BMI obtained (3008F) 3008F 2023-04-05 No Data Availab le No Data Available Advance Care Directive Advance care planning discussion documented in the medical record (1158F) 1158F 2023-04-05 No Data Available No Data Availa ble Estab. patient 30-39min; chronic exacerbation, 2 stable chronic or 1 acute illness add add modifier 95 for video, (do not use for phone, instead use [id number]) 85656 2024-02-24 No Data Available No Data Availa ble Medication List Documented (1159F) 1159F 2024-02-24 No Data Available No Data Debra ilable Medication Review by prescribing provider or pharmacist documented (1160F) 1160F 2024-02-24 No Data Available No Data Debra ilable Pain Assessment - NO pain present (1126F) 1126F 2024-02-24 No Data Available No Data A vailable BMI obtained (3008F) 3008F 2024-02-24 No Data Availab le No Data Available Advance Care Directive Advance care planning discussion documented in the medical record (1158F) 1158F 2024-02-24 No Data Available No Data Availa ble Advance care planning discussed and documented in the medical record ? beneficiary/patient did not wish to or was unable to provide an advance care plan or name a surrogate decision-maker. (1124F) 1124F 2024-02-24 No Data Available No Data Availa ble Functional Status Assessed (1170F) 1170F 2024-02-24 No Data Available No Data Avail able SBP >= 140 3077F 2024-02-24 No Data Available No Data Available DBP <80 (3078F) 3078F 2024-02-24 No Data Available No Data Available RN, CN or CP time with patient by phone; use with 1111F, BP, A1c or other CPTII codes 66977 2024-05-17 No Data Available No Data Avai lable Unlisted special service; to be used for medical record reviews and reporting CPTII codes (1111F, etc) 66527 2024-05-19 No Data Available No Data Availa ble Medications prescribed in hospital were reviewed and reconciled against what they were taking prior to admission during today's visit. (1111F) 1111F 2024-05-19 No Data Available No Data Availa ble No Data Available 18569 2024-06-12 No Data Available No Data Available Medication List Documented (1159F) 1159F 2024-06-12 No Data Available No Data Debra ilable Pain Assessment - NO pain present (1126F) 1126F 2024-06-12 No Data Available No Data A vailable BMI obtained (3008F) 3008F 2024-06-12 No Data Availab le No Data Available No Data Available 81100 2024-05-22 No Data Available No Data Available Medications prescribed in hospital were reviewed and reconciled against what they were taking prior to admission during today's visit. (1111F) 1111F 2024-05-22 No Data Available No Data Availa ble Advance care planning discussed and documented ? advance care plan or surrogate decision-maker was documented in the medical record. (1123F) 1123F 2024-05-22 No Data Available No Data Availa ble Pain Assessment - NO pain present (1126F) 1126F 2024-05-22 No Data Available No Data A vailable Medication List Documented (1159F) 1159F 2024-05-22 No Data Available No Data Debra ilable SBP >= 140 3077F 2024-05-22 No Data Available No Data Available DBP <80 (3078F) 3078F 2024-05-22 No Data Available No Data Available BMI obtained (3008F) 3008F 2024-05-22 No Data Availab le No Data Available Advance Care Directive Advance care planning discussion documented in the medical record (1158F) 1158F 2024-05-22 No Data Available No Data Availa ble No Data Available 53236 2024-07-12 No Data Available No Data Available Pain Assessment - Pain Documented on a Pain Scale (1125F) 1125F 2024-07-12 No Data Available No Data Debra ilable Advance Care Directive Advance care planning discussion documented in the medical record (1158F) 1158F 2024-07-12 No Data Available No Data Availa ble Medication List Documented (1159F) 1159F 2024-07-12 No Data Available No Data Debra ilable Medication Review by prescribing provider or pharmacist documented (1160F) 1160F 2024-07-12 No Data Available No Data Debra ilable Pain Assessment - Pain Documented on a Pain Scale (1125F) 1125F 2024-07-12 No Data Available No Data Debra ilable BMI obtained (3008F) 3008F 2024-07-12 No Data Availab le No Data Available Advance care planning discussed and documented ? advance care plan or surrogate decision-maker was documented in the medical record. (1123F) 1123F 2024-07-12 No Data Available No Data Availa ble Functional Status Assessed (1170F) 1170F 2024-07-12 No Data Available No Data Avail able No Data Available 69091 2024-07-26 No Data Available No Data Available Medication List Documented (1159F) 1159F 2024-07-26 No Data Available No Data Debra ilable Estab. patient 10-29min; 1 minor problem; add add modifier 95 for video, modifier 93 for phone [id number] 2024-08-25 No Data Available No Data Availa ble Pain Assessment - NO pain present (1126F) 1126F 2024-08-25 No Data Available No Data A vailable SBP < 130 (3074F) 3074F 2024-08-25 No Data Available No Data Available DBP <80 (3078F) 3078F 2024-08-25 No Data Available No Data Available Medication List Documented (1159F) 1159F 2024-08-25 No Data Available No Data Debra ilable Estab. patient 10-29min; 1 minor problem; add add modifier 95 for video, modifier 93 for phone [id number] 2024-09-21 No Data Available No Data Availa ble Estab. patient 10-29min; 1 minor problem; add add modifier 95 for video, modifier 93 for phone [id number] 2024-10-19 No Data Available No Data Availa ble Functional Status Functional Category Effective Dates Cognition Status: Oriented to Person, Pl jalen and Time 2022-07-31 ADLsAmbulating - Needs Demetria tanceDressing - Needs assistanceBathing - Needs assistanceToileting - Needs assistanceTransfers - Needs assistanceEating - Some assistanceiADLsShopping - Needs assistanceMedications - Needs assistanceHousekeeping - Needs assistanceCooking - Needs assistance 2024-02-24 Falls in last 6 Months: Denies. Has shower chair, cane & walker (does no t use walker much) 2022-07-31 Has home health aide 10 hours per week 2 Uses a cane 2023-04-05 Uses shower chair 2023-04-05 Mental Status Status Date Alert & Oriented x 3 2022-07-31 Assessments Date of Service Assessments 2022-07-31 10:40:08 Myelodysplastic synd vee, unspecifiedChronic obstructive pulmonary disease, unspecifiedChronic kidney disease, stage 4 (severe)GERD (gastroesophageal reflux disease)ConstipationOsteopeniaOsteoarthritisChronic low back painHLD (hyperlipidemia)Major depressive disorder, recurrent, mildHistory of DVT (deep vein thrombosis)Peripheral vascular disease, unspecified 2023-04-05 07:15:53 Myelodysplastic synd vee, unspecifiedMajor depressive disorder, recurrent, mildChronic obstructive pulmonary disease, unspecifiedChronic kidney disease, stage 4 (severe)GERD (gastroesophageal reflux disease)ConstipationOsteopeniaOsteoarthritisChronic low back painHistory of DVT (deep vein thrombosis)Peripheral vascular disease, unspecified 2024-02-24 10:20:28 Myelodysplastic synd vee, unspecifiedMajor depressive disorder, recurrent, mildChronic obstructive pulmonary disease, unspecifiedChronic kidney disease, stage 4 (severe)GERD (gastroesophageal reflux disease)ConstipationOsteopeniaOsteoarthritisChronic low back pain anddifficulty walkingHistory of DVT (deep vein thrombosis)Peripheral vascular disease, unspecifiedTobacco abuseHx of fracture of hipOther problems related to medical facilities and other health care 2024-06-12 09:38:28 CVA (cerebral vascul ar accident)Chronic obstructive pulmonary disease, unspecifiedOther problems related to medical facilities and other health care 2024-05-22 10:49:41 Patient Education to avoid future hospitalization: Call Jori if symptoms of illness develop.CVA (cerebral vascular accident)Other problems related to medical facilities and other health care 2024-07-12 08:29:00 Major depressive dis order, recurrent, mildChronic obstructive pulmonary disease, unspecifiedConstipationOther problems related to medical facilities and other health care 2024-07-26 07:27:47 hemiparesis affectin g right side as late effect of strokeHx of fracture of hipTobacco abuseOsteopeniaOsteoarthritisChronic obstructive pulmonary disease, unspecified 2024-08-25 09:51:35 ConstipationChronic obstructive pulmonary disease, unspecifiedPeripheral vascular disease, unspecifiedTobacco abuseOther problems related to medical facilities and other health careHx of fracture of hip 2024-09-21 09:56:09 Other problems relat ed to medical facilities and other health careConstipation 2024-10-19 11:41:50 Other problems relat ed to medical facilities and other health careConstipationChronic obstructive pulmonary disease, unspecified Plan of Care Date of Service Plans 2022-07-31 10:40:08 Pain Assessment - NO pain documented (1126F)Medication Review by prescribing provider or pharmacist documented (1160F)Medication List Documented (1159F)Functional Status Assessed (1170F)Advance Care Directive Advance care planning discussion documented in the medical record (1158F)BMI obtained (3008F)SBP < 130 (3074F)DBP <80 (3078F)Televideo new patient,40-59min; chronic exacerbation, 2 stable chronic or 1 acute illness add modifier 95Continue to see PCP. Follow-up with J[facility] as needed for any acute or disease education needs that may arise.[facility] codedPatient denies having this condition but reports she had a hemoglobin of 8 in January and is now supplementing with Ferrous sulfate BIDStates she is followed by hematologyContinue current rdks-dp-arrk, medication compliance, report any unexplained bruising, bleedingRX: trelegy, AlbuterolPer outside care records 07/28/22 - COPD symptoms well controlled on inhalersContinues smoking 4-5 cigarettes/day and not ready to quitSmoking cessation referral madeDoes not use oxygenHas productive cough with white sputum at present but denies fever, chills, chest congestion, SOB, difficulty breathingFollowed by PCP & PulmonologyContinue medications, smoking cessationUHC codedPatient denies any kidney concernsCould not find any evidence in outside care records Not on ant-ihypertensives, reports BP 122/77Reports intermittent abdominal pain/bloating, denies any concerns at presentDenies any acid reflux symptomsTaking omeprazole Followed by PCPContinue current wldo-gb-hboi, avoid GERD triggersStates she is taking Vitamin C for constipation and that she sometimes using stool softeners or laxatives but could not recall the nameReports last BM was todayFollowed by PCPIncrease fiber in diet, stool softeners/laxatives PRN, increase oral hydrationOn Fosamax, Vitamin D3, CalciumFollowed by orthopedicsDenies any falls or fracturesContinue vdnk-sm-kznm, fall precautionsReports recent x-ray demonstrating osteoarthritisStates she has arthritic wrists and hands Takes Tylenol PRNFollowed by orthopedicsContinue Tylenol PRNReports 03/25 lower back painStates she is seeing a specialist for an injection on Mondayshe states she had an injection many years agoUsing Lidocaine 5% patch, Tylenol PRN, GabapentinOn Zocor Followed by PCPDenies chest pain, chest pressureMedication compliance, heart healthy dietRX: citalopramMood stable, PHQ-9 = 3Denies SI or HIFollowed by PCP & has family supportContinue emgk-at-ovcp, medication complianceReports history of blood clot to left legWas previously on CoumadinReports occasional swelling in left leg, denies any at present and no swelling noted during visitNoted purpura to ankles B/LFollowed by PCPReport any calf pain or swellingUHC Previously Coded, ICD10: I739: Peripheral vascular disease, unspecified-History of DVT left leg-Purpura to ankles B/LFollowed by PCPReport any calf pain or swelling 2023-04-05 07:15:53 Medication Review by prescribing provider or pharmacist documented (1160F)Medication List Documented (1159F)Functional Status Assessed (1170F)Advance Care Directive Advance care planning discussion documented in the medical record (1158F)BMI obtained (3008F)sbdbTelevideo 30-39min; chronic exacerbation, 2 stable chronic or 1 acute illness add modifier 95Advance care planning discussed and documented ? advance care plan or surrogate decision-maker was documented in the medical record. (1123F)Advance care planning discussed and documented in the medical record ? beneficiary/patient did not wish to or was unable to provide an advance care plan or name a surrogate decision-maker. (1124F)Pain Assessment - NO pain documented (1126F)Continue to see PCP. Follow-up with [facility] as needed for any acute or disease education needs that may arise.[facility] codedContinues to take Ferrous sulfate BIDStates she is followed by hematologyContinue current qgmw-nr-xfjn, medication compliance, report any unexplained bruising, bleedingRX: citalopramMood stableContinue to monitor PHQ9 scoreDenies SI or HIFollowed by PCP & has family supportContinue zcjo-fy-utcb, medication complianceRX: trelegy, AlbuterolPer outside care records 07/28/22 - COPD symptoms well controlled on inhalersContinues smoking 4-5 cigarettes/day and not ready to quitDoes not use oxygenFollowed by PCP & PulmonologyContinue medications, smoking cessationSELECT [facility] codedPatient denies any kidney concerns except urinary incontinence. Could not find any evidence in outside care records Not on anthypertensives, reports BP is good, checks several times weeklyReports intermittent abdominal pain/bloating, denies any concerns at presentDenies any acid reflux symptomsTaking omeprazole Followed by PCPContinue current qjyq-nc-ywfh, avoid GERD triggersStates she is taking Vitamin C for constipation and reports it is helpful. Followed by PCPIncrease fiber in diet, stool softeners/laxatives PRN, increase oral hydrationOn Fosamax, Vitamin D3, CalciumFollowed by orthopedicsDenies any falls or fracturesContinue twha-ob-kmgo, fall precautionsReports recent x-ray demonstrating osteoarthritisStates she has arthritic wrists and hands Takes Tylenol PRNFollowed by orthopedicsContinue Tylenol PRNReports 10/23 lower back painUsing Lidocaine 5% patch, Tylenol PRN, GabapentinReports history of blood clot to left legWas previously on CoumadinReports occasional swelling in left leg, denies any at present and no swelling noted during visitNoted purpura to ankles B/LFollowed by PCPReport any calf pain or swellingSELECT [facility] Previously Coded, ICD10: I739: Peripheral vascular disease, unspecified-History of DVT left leg-Purpura to ankles B/LFollowed by PCPReport any calf pain or swelling 2024-02-24 10:20:28 Medication Review by prescribing provider or pharmacist documented (1160F)Medication List Documented (1159F)Functional Status Assessed (1170F)Advance Care Directive Advance care planning discussion documented in the medical record (1158F)BMI obtained (3008F)Televideo 30-39min; chronic exacerbation, 2 stable chronic or 1 acute illness add modifier 95Advance care planning discussed and documented ? advance care plan or surrogate decision-maker was documented in the medical record. (1123F)Advance care planning discussed and documented in the medical record ? beneficiary/patient did not wish to or was unable to provide an advance care plan or name a surrogate decision-maker. (1124F)Pain Assessment - NO pain documented (1126F)Continue to see PCP. Follow-up with [facility] as needed for any acute or disease education needs that may arise.[facility] codedContinues to take Ferrous sulfate BIDStates she is followed by hematologyContinue current ztpk-xp-srnj, medication compliance, report any unexplained bruising, bleedingRX: citalopramMood stableContinue to monitor PHQ9 scoreDenies SI or HIFollowed by PCP & has family supportContinue iqdu-kb-qkuo, medication complianceRX: trelegy, AlbuterolPer outside care records 07/28/22 - COPD symptoms well controlled on inhalersContinues smoking 4-5 cigarettes/day and not ready to quitDoes not use oxygenFollowed by PCP & PulmonologyContinue medications, smoking cessationUH codedPatient denies any kidney concerns except urinary incontinence. Could not find any evidence in outside care records Not on anthypertensives, reports BP is good, checks several times weeklyReports intermittent abdominal pain/bloating, denies any concerns at presentDenies any acid reflux symptomsTaking omeprazole Followed by PCPContinue current tyur-nk-bqau, avoid GERD triggersStates she is taking Vitamin C for constipation and reports it is helpful. Followed by PCPIncrease fiber in diet, stool softeners/laxatives PRN, increase oral hydrationOn Fosamax, Vitamin D3, CalciumFollowed by orthopedicsDenies any falls or fracturesContinue yria-fy-iyfz, fall precautionsReports recent x-ray demonstrating osteoarthritisStates she has arthritic wrists and hands Takes Tylenol PRNFollowed by orthopedicsContinue Tylenol PRNReports 10/23 lower back painUsing Lidocaine 5% patch, Tylenol PRN, Gabapentin Walker old and does not work well. Recommend rollator. Will order.Reports history of blood clot to left legWas previously on CoumadinReports occasional swelling in left leg, denies any at present and no swelling noted during visitNoted purpura to ankles B/LFollowed by PCPReport any calf pain or swellingSELECT [facility] Previously Coded, ICD10: I739: Peripheral vascular disease, unspecified-History of DVT left leg-Purpura to ankles B/LFollowed by PCPReport any calf pain or swelling3-4 cigarettes a dayNot interested in quitting right now.Left femur, 12/06/2023Had surgery .Had/having PT.Call CB ifYou fallYour pain worsens 2024-06-12 09:38:28 Phone (patient, pare nt, or guardian); 5-10 minutes of medical discussion (no modifier 95)SBP < 130 (3074F)DBP <80 (3078F)Continue to see PCP. Follow-up with Jori as needed for any acute or disease education needs that may arise 08/03.05/22/24: Pt presented w/ R facial weakness and R sided weakness. MRI confirmed acute stroke, echo showed no intracardiac clot. Neurologist recommended daily aspirin, statin therapy, and Plavix 75mg daily for 3 month. Cleared by SP. PT and OT at home recommended. While in the hospital, pt developed abd pain, N/V, and elevated WBC. C.T of abd and pelvis revealed suggestive of colitis, was tx with Ceftriaxone and Flagyl; Sx were resolved. Pt to be dc'd with Ceftin and oral Flagyl for a total of 7days. plavix asa 81mg, finished abx todaydenies N/V, denies abd pain last BM this AM -takes docusate f/u neurology-none yetpcp f/u 05/26/24re right sided-weakness; mild residual. OT/PT walks around the house with her walkerlipitor is currently not 06/12/2024 - Patient granddaughter reports that the patient is recovering well after her stroke. She has completed all her physical therapy. Blood pressure is good. She has a cane, walker and shower chair should she need it.RX: trelegy, AlbuterolPer outside care records 07/28/22 - COPD symptoms well controlled on inhalersContinues smoking 4-5 cigarettes/day and not ready to quitDoes not use oxygenFollowed by PCP & PulmonologyContinue medications, smoking cessation 06/12/2024 - No problems breathing everything is good no concerns.Call CB ifYou fallYour pain worsensHYPERTENSION CONTINGENCY PLANLast updated: 06/12/2024Member to call for the following symptoms: BP >180/100??/ Headache/ HR >100??Planned intervention: Encourage low sodium diet/ Discuss breathing exercises/ Encourage medication adherence 2024-05-22 10:49:41 Discharge medication s reconciled with current medication listAdvance care planning discussed and documented ? advance care plan or surrogate decision-maker was documented in the medical record. (4183F)Phone (patient, parent, or guardian); 5-10 minutes of medical discussion (no modifier 95)PCP visit is planned for: Continue to see PCP. Follow-up with [facility] as needed for any acute or disease education needs that may arise 08/03.05/22/24: Pt presented w/ R facial weakness and R sided weakness. MRI confirmed acute stroke, echo showed no intracardiac clot. Neurologist recommended daily aspirin, statin therapy, and Plavix 75mg daily for 3 month. Cleared by SP. PT and OT at home recommended. While in the hospital, pt developed abd pain, N/V, and elevated WBC. C.T of abd and pelvis revealed suggestive of colitis, was tx with Ceftriaxone and Flagyl; Sx were resolved. Pt to be dc'd with Ceftin and oral Flagyl for a total of 7days. plavix asa 81mg, finished abx todaydenies N/V, denies abd pain last BM this AM -takes docusate f/u neurology-none yetpcp f/u 05/26/24re right sided-weakness; mild residual. OT/PT walks around the house with her walkerlipitor is currently not Patient granddaughter reports that the patient is recovering well after her stroke. She has completed all her physical therapy. Blood pressure is good. She has a cane, walker and shower chair should she need it.Call CB ifYou fallYour pain worsensHYPERTENSION CONTINGENCY PLANLast updated: 05/22/24Member to call for the following symptoms: BP >180/100??/ Headache/ HR >100??Planned intervention: Encourage low sodium diet/ Discuss breathing exercises/ Encourage medication adherence 2024-07-12 08:29:00 Phone (patient, pare nt, or guardian); 5-10 minutes of medical discussion (no modifier 95)Advance Care Directive Advance care planning discussion documented in the medical record (1158F)Medication List Documented (1159F)Medication Review by prescribing provider or pharmacist documented (1160F)Pain Assessment - NO pain documented (1126F)BMI obtained (3008F)Continue to see PCP. Follow-up with Jori as needed for any acute or disease education needs that may arise 08/03.RX: citalopramMood stableContinue to monitor PHQ9 scoreDenies SI or HIFollowed by PCP & has family supportContinue jrzm-hz-insc, medication fmerqrskva97/27/2024 patient states that she is controlled at this momentRX: trelegy, AlbuterolPer outside care records 07/28/22 - COPD symptoms well controlled on inhalersContinues smoking 4-5 cigarettes/day and not ready to quitDoes not use oxygenFollowed by PCP & PulmonologyContinue medications, smoking cessation 06/12/2024 - No problems breathing everything is good no concerns. 07/13/2024 patient is feeling well, denies SOBStates she is taking Vitamin C for constipation and reports it is helpful. Followed by PCPIncrease fiber in diet, stool softeners/laxatives PRN, increase oral /27/2024 Patient is controlled for the most partFALL CONTINGENCY PLANMember to call for the following symptoms: BP <110/70??/ Fall??/ WeaknessPlanned intervention: Encourage extra fluid intake / Assess for change in mental status and provide reassurance if none (patient's Baseline is _) / Review importance of sitting for two to three minutes prior to standing after laying down 2024-07-26 07:27:47 Phone (patient, pare nt, or guardian); 5-10 minutes of medical discussion (no modifier 95)Continue to see PCP. Follow-up with [facility] as needed for any acute or disease education needs that may arise 08/03.05/22/24: Pt presented w/ R facial weakness and R sided weakness. MRI confirmed acute stroke, echo showed no intracardiac clot. Neurologist recommended daily aspirin, statin therapy, and Plavix 75mg daily for 3 month. Cleared by SP. PT and OT at home recommended. While in the hospital, pt developed abd pain, N/V, and elevated WBC. C.T of abd and pelvis revealed suggestive of colitis, was tx with Ceftriaxone and Flagyl; Sx were resolved. Pt to be dc'd with Ceftin and oral Flagyl for a total of 7days. plavix asa 81mg, finished abx todaydenies N/V, denies abd pain last BM this AM -takes docusate f/u neurology-none yetpcp f/u 05/26/24re right sided-weakness; mild residual. OT/PT walks around the house with her walkerlipitor is currently not Patient granddaughter reports that the patient is recovering well after her stroke. She has completed all her physical therapy. Blood pressure is good. She has a cane, walker and shower chair should she need it. 07/26/24: no falls in the last 3 weeksLeft femur, 12/06/2023Had surgery .Had/having PT.07/26/24: finished course of PT, feels well3-4 cigarettes a dayNot interested in quitting right now.07/26/24: not intererested in quittingOn Fosamax, Vitamin D3, CalciumFollowed by orthopedicsDenies any falls or fracturesContinue qngb-pp-iyex, fall precautionsReports recent x-ray demonstrating osteoarthritisStates she has arthritic wrists and hands Takes Tylenol PRNFollowed by orthopedicsContinue Tylenol PRNRX: trelegy, AlbuterolPer outside care records 07/28/22 - COPD symptoms well controlled on inhalersContinues smoking 4-5 cigarettes/day and not ready to quitDoes not use oxygenFollowed by PCP & PulmonologyContinue medications, smoking cessation 06/12/2024 - No problems breathing everything is good no concerns. 07/13/2024 patient is feeling well, denies SOB07/26/24: no 2024-08-25 09:51:35 Estab. patient 10-29 min; 1 minor problem; modifier 93 for phoneSBP < 130 (3074F)DBP <80 (3078F)BMI obtained (3008F)Continue to see PCP. Follow-up with [facility] as needed for any acute or disease education needs that may arise 08/03.States she is taking Vitamin C for constipation and reports it is helpful. Followed by PCPIncrease fiber in diet, stool softeners/laxatives PRN, increase oral /27/2024 Patient is controlled for the most part 08/25/24: doing well, las BM todayRX: trelegy, AlbuterolPer outside care records 07/28/22 - COPD symptoms well controlled on inhalersContinues smoking 4-5 cigarettes/day and not ready to quitDoes not use oxygenFollowed by PCP & PulmonologyContinue medications, smoking cessation 06/12/2024 - No problems breathing everything is good no concerns. 07/13/2024 patient is feeling well, denies SOB08/25/24: denies cp or wheezing, denies chest congestionsUHC Previously Coded, ICD10: I739: Peripheral vascular disease, unspecified-History of DVT left leg-Purpura to ankles B/LFollowed by PCPReport any calf pain or swelling3-4 cigarettes a dayNot interested in quitting right now.07/26/24: not intererested in quittingCOPD CONTINGENCY PLANLast updated: 08/25/2023[facility] to call for the following symptoms: Breathing loudly??/ Increased cough??/ WheezingPlanned intervention: Increase use of albuterol inhaler to q2h PRN cough, breathlessness/ Prednisone prednisone taper 40mg x 3 days, 30mg x 3 days, 20mg x 3 days, 10mg x 3 days/ Levofloxacin 500mg daily x 5 daysLeft femur, 12/06/2023Had surgery .Had/having PT.07/26/24: finished course of PT, feels well08/27/24: denies falls in the past month, ambulates with cane. Cane is ok. 2024-09-21 09:56:09 Estab. patient 10-29 min; 1 minor problem; add add modifier 95 for video, modifier 93 for phoneContinue to see PCP. [facility] or disease education needs that may arise 08/03.COPD CONTINGENCY PLANLast updated: 08/25/2023[facility] to call for the following symptoms: Breathing loudly??/ Increased cough??/ WheezingPlanned intervention: Increase use of albuterol inhaler to q2h PRN cough, breathlessness/ Prednisone prednisone taper 40mg x 3 days, 30mg x 3 days, 20mg x 3 days, 10mg x 3 days/ Levofloxacin 500mg daily x 5 daysStates she is taking Vitamin C for constipation and reports it is helpful. Followed by PCPIncrease fiber in diet, stool softeners/laxatives PRN, increase oral jwfepprur96/27/2024 Patient is controlled for the most part 08/25/24: doing well, las BM today09/21/24: Reports recent stomach virus that has now resolved. She reports son is in the hospital with the flu. Denies any current needs. 2024-10-19 11:41:50 Estab. patient 10-29 min; 1 minor problem; add add modifier 95 for video, modifier 93 for phoneContinue to see PCP. [facility] or disease education needs that may arise 08/03.COPD CONTINGENCY PLANLast updated: 08/25/2023Member to call for the following symptoms: Breathing loudly??/ Increased cough??/ WheezingPlanned intervention: Increase use of albuterol inhaler to q2h PRN cough, breathlessness/ Prednisone prednisone taper 40mg x 3 days, 30mg x 3 days, 20mg x 3 days, 10mg x 3 days/ Levofloxacin 500mg daily x 5 daysStates she is taking Vitamin C for constipation and reports it is helpful. Followed by PCPIncrease fiber in diet, stool softeners/laxatives PRN, increase oral egudllwap68/27/2024 Patient is controlled for the most part 08/25/24: doing well, las BM today09/21/24: Reports recent stomach virus that has now resolved. She reports son is in the hospital with the flu. Denies any current needs. 10/19/24: Symptoms have resolved, the patient feels well at this time, denies any concernsRX: treleroseline, AlbuterolPer outside care records 07/28/22 - COPD symptoms well controlled on inhalersContinues smoking 4-5 cigarettes/day and not ready to quitDoes not use oxygenFollowed by PCP & PulmonologyContinue medications, smoking cessation 06/12/2024 - No problems breathing everything is good no concerns. 07/13/2024 patient is feeling well, denies SOB08/25/24: denies cp or wheezing, denies chest congestion10/19/24: Denies dyspnea Goals Date Goal 2022-07-31 Remember to contact [facility] with any questions or concerns at [phone]. 2024-06-12 Continue taking medi cations as directed and keep all follow up appointments with established PCP and Specialist. 2024-07-12 At least 50% of time spent counseling pt, discussing diagnosis, treatment plan, compliance, and coordinating followup care. Continue taking medications as directed and keep all follow up appointments with established PCP and Specialist Health Concerns Date Concern 2024-10-19 Visit completed via audio by telephone. Patient/Guardian agreed to visit via telehealth.Time spent in visit: 2024-10-19 Most recent hospital stay(s) or ER visit(s) and precipitating factors: Denies
== END 2024-11-07 15:38 | disposition home or self-care (01) ==
LOC: HO.HGI 14:28
PROVIDERS: PCP Internal Medicine Geriatric Medicine; Visit Provider Nurse Practitioner
DX: K21.9 Gastro-esophageal reflux disease without esophagitis (principal); D50.9 Iron deficiency anemia, unspecified
CPT/HCPCS: 99213

== ENCOUNTER → 2024-11-07 14:27 | Outpatient (BNVA) | payer OTHER, SELFPAY | PROVIDERS: PCP Internal Medicine Geriatric Medicine; Visit Provider Nurse Practitioner | DX: D50.9 Iron deficiency anemia, unspecified (principal); N18.31 Chronic kidney disease, stage 3a; K59.04 Chronic idiopathic constipation; K31.819 Angiodysplasia of stomach and duodenum without bleeding; K21.9 Gastro-esophageal reflux disease without esophagitis | CPT/HCPCS: 99212 ==

== ENCOUNTER 2025-01-17 10:48 | Outpatient (AMB) | payer OTHER, SELFPAY ==
--- NOTE | 2025-01-17 10:49 | A.OFFVIS_ITS ---
Vital Signs 01/17/25 11:01 Height 5 ft 3 in Weight 136 lb BMI 24.1 BP 132/62 Blood Pressure Location Rt brachial Position Sitting Pulse 100 Pulse Source Pulse Oximeter Pulse Oximetry (%) 99 Oxygen Delivery Method Room Air Intake Visit Reasons: Follow up anemia, GERD, CIC Intake Note: Established patient for mgmt of GERD, CIC + anemia. Pt has active lab order for Ferritin but has had other labs done since last OV. CC; C.O. upper abd pain (generalized) and constipation despite taking her senna. Pt denies any additional sx or concerns at this time. Fire And Safety Helper Required: Yes Fire And Safety Helper Services: Fire And Safety Helper Offered & Declined Accompanied by: Son Allergies lidocaine Allergy (Severe, Verified 01/17/25 10:49) Hives HPI HPI Follow up anemia, GERD, CIC: Details: Assessment & Plan (1) GERD (gastroesophageal reflux disease): Code(s): K21.9 - Gastro-esophageal reflux disease without esophagitis Category: Medical (2) Microcytic hypochromic anemia: Code(s): D50.9 - Iron deficiency anemia, unspecified Category: Medical Plan [place] #dtr translates per pt request. 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 She is doing much better now. She continues on twice a day pantoprazole and I think we can probably drop that to once a day. She had a short course of sucralfate as well. She continues on iron twice a day and her hemoglobin and hematocrit have been steady over the past few months. Because iron can also be irritating to the stomach and constipating I am going to get a ferritin so we can assess how well her iron stores have repleted so we can tell her when she can potentially dropped down to once a day iron supplementation. The iron as prescribed by Dr. Romano. She has more energy and they are happy with her improvement. Return office visit in 3 months. She continues to do well on her senna/Colace combination in his no longer taking MiraLax. Orders: Orders Ferritin Today D50.9 - Iron deficiency anemia, unspecified Medications: Changed From pantoprazole 40 mg PO BID K21.9 - Gastro-esophageal reflux disease without esophagitis To pantoprazole 40 mg PO QAM 30 tabs 6RF K21.9 - Gastro-esophageal reflux disease without esophagitis Refilled sennosides-docusate sodium 8.6-50 mg (Senna Plus) 2 tabs PO BID 60 tabs 6RF K59.04 - Chronic idiopathic constipation Laboratory Tests 01/11/25 11:02 WBC 5.4 RBC 3.27 L Hgb 9.2 L Hct 30.4 L MCV 93.0 MCH 28.1 Plt Count 292 Ferritin was not obtained TODAY'S VISIT [place] # family member translates per patient request she continues on her pantoprazole, senna/Colace combination in his no longer taking MiraLax. She is only taking the senna prn, and now she has been having some more problems with CIC - I suggest that she take it on a scheduled basis instead of PRN. She has had no lapse in her iron therapy, and she is also now on Procrit for her possible ACD from renal dysfxn. I am unsure if we should do another EGD to check the AVM's, she is seeing Dr. Reece next week, so I will send a work load and try to make a coordinated decision given the pts age and comorbid status. She has to nap dally and has some episodes of dizziness, about twice a week. ROV 6 mos. PFSH Medical History CKD stage 3a, GFR 45-59 ml/min CVA (cerebral vascular accident) History of DVT (deep vein thrombosis) Intertrochanteric fracture Mass of right axilla Occult blood positive stool COVID-19 Colon cancer screening Duodenal arteriovenous malformation Epigastric pain Osteopenia Anemia GI bleed GERD (gastroesophageal reflux disease) Peripheral neuropathy Anxiety Depression COPD (chronic obstructive pulmonary disease) Asthma Elevated cholesterol Lab test negative for COVID-19 virus Surgical History History of tubal ligation History of axillary surgery Hx of oophorectomy Hx of colonoscopy Hx of esophagogastroduodenoscopy Hx of foot surgery Hx of cholecystectomy Hx of tonsillectomy Hx of appendectomy Family History Father Stroke Asthma Mother Heart attack Stroke Asthma Sister DVT (deep venous thrombosis) Asthma Brother COPD (chronic obstructive pulmonary disease) Son Cancer Social History Household Members: Children Household Members Other:: son Housing: Apartment Are you a primary insurance healthcare consultant to a significant other at home: No Do you presently have 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) Alcohol intake: never Patient Tobacco Use Status: Current everyday Tobacco user Tobacco use type: Cigarette Cigarettes Per Day: 4 Years Smoked: 60 Second Hand Smoke Exposure: Yes Advance Directives Date on File: 01/16/21 service: No Current occupational status: retired Review of Systems Const Reports fatigue, Denies fever(s), Denies night sweats, Denies poor appetite and Denies weight loss Eyes Details: glasses Reports requires corrective lenses ENT Reports Normal hearing present, Denies dental pain, Denies dysphagia, Reports dizziness, Denies hearing loss, Denies mouth pain, Denies odynophagia, Denies throat swelling, Denies tongue swelling and Reports other (Dentition adequate) Card Reports no additional complaints Resp Reports no additional complaints GI Details: Denies abdominal pain, Denies melena, Denies bloating, Denies hematochezia, Reports constipation, Denies GI cramping, Denies dysphagia, Denies excessive flatus, Denies early satiety, Reports heartburn, Denies diarrhea, Denies nausea, Denies odynophagia, Denies vomiting and Denies hematemesis Skin/Breast Denies pruritus, Denies lesions, Denies rash and Denies jaundice Neuro Reports Normal hearing present, Denies Abnormal speech present and Reports dizziness Endo Reports fatigue Aller/Immun Denies throat swelling and Denies tongue swelling Physical Exam Vital Signs: Last Vital Signs Pulse 100 01/17/25 11:01 BP 132/62 01/17/25 11:01 Pulse Ox 99 01/17/25 11:01 Oxygen Delivery Method Room Air 01/17/25 11:01 BMI result Body Mass Index 24.1 Const General: cooperative, no acute distress, well developed and well groomed Nutritional Appearance: average body habitus and well nourished Orientation/consciousness: oriented to person, oriented to place and oriented to time Limitations: language barrier and ambulation with cane HEENT Head: Yes normocephalic and Yes atraumatic Eyes General: appearance normal, both eyes and all related structures Pupils: Equal, round and reactive pupils present Neck Neck: Yes normal visual inspection and Yes no lymphadenopathy Thyroid: Thyroid normal Resp Effort & Inspection: normal respiratory effort and able to speak in complete sentences Auscultation: clear to auscultation bilaterally Cardio Rate: regular rate Rhythm: regular rhythm Heart sounds: Normal, physiologic split S2 sound present Peripheral pulses: radial pulses present and posterior tibial pulses present GI Inspection: No distended and No Abdominal panniculus present Palpation (GI): Soft to palpation, nontender, no guarding, not rigid and No hepatosplenomegaly present Percussion: Yes normal to percussion Auscultation: normal bowel sounds Rectal Exam - Female: deferred Skin General skin exam: no rashes or lesions noted, turgor normal, skin not dry, no jaundice, No spider nevi and no striae Rashes: no rashes Nails: normal Neuro General: oriented to person, oriented to place and oriented to time Cranial nerves: Yes Equal, round and reactive pupils present and Yes Normal hearing present Speech: No Abnormal speech present Extrem General: Yes normal to inspection, No clubbing, No cyanosis and No edema Psych Appearance: grossly normal and well kempt Mental Status: mental status grossly normal Speech and movement: Normal speech and movement present Affect: normal affect Attitude: cooperative Thought process: Normal thought process present and not confabulating Thought content: Normal thought content present Insight: Fair insight present (Psych) Judgement: Fair judgement present (Psych) Assessment & Plan Assessment & Plan (1) Chronic idiopathic constipation: Code(s): K59.04 - Chronic idiopathic constipation Category: Medical (2) Duodenal arteriovenous malformation: Comment: Noted on 2019 EGD, not appear to be related any pathology that is concerning Code(s): K31.819 - Angiodysplasia of stomach and duodenum without bleeding Category: Medical (3) Microcytic hypochromic anemia: Code(s): D50.9 - Iron deficiency anemia, unspecified Category: Medical (4) GERD (gastroesophageal reflux disease): Code(s): K21.9 - Gastro-esophageal reflux disease without esophagitis Category: Medical Plan [place] # family member translates per patient request she continues on her pantoprazole, senna/Colace combination in his no longer taking MiraLax. She is only taking the senna prn, and now she has been having some more problems with CIC - I suggest that she take it on a scheduled basis instead of PRN. She has had no lapse in her iron therapy, and she is also now on Procrit for her possible ACD from renal dysfxn. I am unsure if we should do another EGD to check the AVM's, she is seeing Dr. Reece next week, so I will send a work load and try to make a coordinated decision given the pts age and comorbid status. She has to nap dally and has some episodes of dizziness, about twice a week. ROV 6 mos Coding Level of Care Code Est Pt Level 3 (63603) Diagnoses Chronic idiopathic constipation K59.04 Duodenal arteriovenous malformation K31.819 Microcytic hypochromic anemia D50.9 GERD (gastroesophageal reflux disease) K21.9
[2025-01-17 11:01] VITALS: BP 132/62; PULSE 100; O2SAT 99; BMI 24.1
--- OUTSIDE RECORDS SUMMARY | 2025-01-17 11:37 | XMS_ITS | Clinical Summary ---
Author Organization [employer] Address [address] [facility] [address] [place] [address] Care Team Providers Care Building Surveyor Name Role Phone Name, Thaddeus DIETRICH Primary Care Provider [phone] Allergies Active Allergy Reactions Criticality Noted Date Comments Lidocaine Hives High 05/11/2024 LIDO PATCH Medications acetaminophen (Tylenol) 325 MG tablet Take 2 tablets by mouth in the morning and 2 tablets at noon and 2 tablets in the evening and 2 tablets before bedtime. 10/17/19 21 Active ascorbic acid (Vitamin C) 500 MG ER capsule nick 1 capsule daily 10/17/19 21 Active Diclofenac Sodium 1 % gel APPLY 2 GRAMS TO BOTH HANDS TWICE A DAY 100 g 2 06/11/20 23 Active citalopram (CeleXA) 10 MG tablet TAKE 1 TABLET BY MOUTH EVERY DAY 90 tablet 1 12/22/19 24 Active alendronate (Fosamax) 70 MG tablet Take 1 tablet (70 mg) by mouth every 7 (seven) days. Take in the morning with a full glass of water, on an empty stomach, and do not take anything else by mouth or lie down for the next 30 min. 4 tablet 11 02/01/20 24 2024 Active fluticasone (Flonase) 50 MCG/ACT nasal spray Administer 1-2 sprays into each nostril Once per day. Shake gently. Before first use, prime pump. After use, clean tip and replace cap. 16 g 2 03/14/20 24 2024 Active gabapentin (Neurontin) 300 MG capsuleIndicati ons:Chronic low back pain, unspecified back pain laterality, unspecified whether sciatica present,Pain of left hip Take 1 capsule (300 mg) by mouth at bedtime. 30 capsule 11 04/26/20 24 2024 Active cyclobenzaprine (Flexeril) 10 MG tabletIndicatio ns:Chronic low back pain, unspecified back pain laterality, unspecified whether sciatica present,Pain of left hip Take 1 tablet (10 mg) by mouth if needed in the morning, at noon, and at bedtime for muscle spasms. 90 tablet 04/26/20 24 2024 Active albuterol (2.5 MG/3ML) 0.083% nebulizer solution Take 3 mL (2.5 mg) by nebulization every 6 (six) hours if needed for wheezing. 75 mL 04/26/20 24 2024 Active Fluticasone-Ume clidin-Vilant (Trelegy Ellipta) 200-62.5-25 MCG/ACT aerosol powderIndicatio ns:COPD exacerbation (CMS/HCC) Inhale 1 puff Once per day. INHALE 1 PUFF BY INHALATION ROUTE EVERY DAY AT THE SAME TIME EACH DAY 60 each 04/26/20 24 Active D3 50 MCG (2000 UT) tablet Take 1 tablet by mouth Once per day. Active Oyster Shell Calcium 500 MG tablet Take 1 tablet by mouth 2 times daily. 04/28/20 24 Active atorvastatin (Lipitor) 40 MG tablet Take 1 tablet by mouth Once per day. Active pantoprazole (Protonix) 40 MG EC tabletIndicatio ns:Colitis Take 1 tab orally bid 60 tablet 11 05/26/20 24 Active albuterol 108 (90 Base) MCG/ACT inhalerIndicati ons:COPD exacerbation (CMS/HCC) INHALE 2 PUFFS BY MOUTH EVERY 4-6 HOURS NEEDED 6.7 g 4 09/18/19 25 Active clopidogrel (Plavix) 75 MG tablet TAKE 1 TABLET BY MOUTH EVERY DAY 90 tablet 1 12/08/19 25 Active metFORMIN (Glucophage) 500 MG tabletIndicatio ns:Type 2 Diabetes Mellitus Take 1 tablet (500 mg) by mouth with breakfast and with evening meal. 60 tablet 2 12/09/19 25 2025 Active FREESTYLE LITE test strip Use to test blood sugar 1 times daily 100 each 12 12/09/19 25 2025 Active Alcohol Swabs 70 % pads Use to test blood sugar 1 times daily 100 each 12/09/19 25 Active Blood Glucose Monitoring Suppl (ONE TOUCH ULTRA 2) w/Device kitIndications: New onset type 2 diabetes mellitus (CMS/HCC) USE TO TEST BLOOD SUGAR ONCE A DAY 1 kit 12/12/19 25 Active OneTouch Delica Lancets 33G miscIndications :New onset type 2 diabetes mellitus (CMS/HCC) USE TO TEST BLOOD SUGAR ONCE A DAY 100 each 3 12/12/19 25 Active glucose blood (OneTouch Ultra) test stripIndication s:New onset type 2 diabetes mellitus (CMS/HCC) USE TO TEST BLOOD SUGAR ONCE A DAY 100 each 3 12/12/19 25 Active ferrous sulfate 325 (65 Fe) MG tabletIndicatio ns:Epigastric pain TAKE 1 TABLET BY MOUTH TWICE A DAY 180 tablet 01/18/20 25 Active ferrous sulfate 325 (65 Fe) MG tabletIndicatio ns:Epigastric pain TAKE 1 TABLET BY MOUTH TWICE A DAY 180 tablet 10/20/19 25 2024 Discontinued Active Problems Problem Noted Date Diagnosed Date CVA (cerebral vascular accident) 07/31/2024 Overview (11/15/2024): The patient had an ischemic stroke in May 2024. The patient had mild weakness and speech impediment after the stroke but her deficits have resolved completely. She has been using aspirin and Plavix since May and high-dose statin. Workup in the hospital was negative for echocardiogram abnormalities. No A-fib. 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 Multiple spontaneously bleeding AVMs size 5-15 mm in the duodenal bulb and second portion of the duodenum. Additional intervention: Argon plasma coagulation was applied using straight fire catheter to gastric and duodenal AVMs with complete hemostasis. Knee pain, bilateral 11/03/2023 Cervical spondylosis 11/03/2023 Lumbar radiculitis 11/03/2023 Lumbar radiculopathy 11/03/2023 Lumbar spondylosis 11/03/2023 COPD (chronic obstructive pulmonary disease) Assessment & Plan (03/14/2024 7:17 PM EDT): Resume inhalers, rinse mouth after, Tobacco dependence syndrome 03/01/2023 Chronic low back pain 07/28/2022 Osteoporosis 07/18/2022 Venous insufficiency 07/18/2022 Chronic neck pain 04/06/2018 Anemia 11/06/2013 Depressive disorder 05/06/2012 Hyperlipidemia 05/06/2012 Osteoarthritis 05/06/2012 Peripheral neuropathy 05/06/2012 LISA (stress urinary incontinence, female) 2011 Resolved Problems Problem Noted Date Diagnosed Date Resolved Date Facial droop 07/31/2024 11/15/2024 Right arm weakness 07/31/2024 Right sided weakness 07/31/2024 025 Viral URI 03/14/2024 11/15/2024 Acute viral syndrome 11/03/2023 025 Asthma 11/03/2023 05/26/2024 Back pain 11/03/2023 11/15/2024 Chest pain 11/03/2023 11/15/2024 Chronic cough 11/03/2023 11/15/2024 Colon cancer screening 11/03/202311/15 Overview (07/31/2024): 2020 hyperplastic polyps, no further screenings recommended except if there are other medical indications for scopes. COVID-19 11/03/2023 11/15/2024 Dyspnea on exertion 11/03/2023 11/16/19 25 Influenza A 11/03/2023 11/15/2024 Mass of right axilla 11/03/2023 025 Microcytic hypochromic anemia 11/03/2023 11/15/2024 Muscle strain 11/03/2023 11/15/2024 Occult blood positive stool 11/03/2023 11/15/2024 Strain of lumbar region 11/03/2023 04/0 09/2024 Osteopenia 11/03/2023 11/15/2024 Abnormal radiologic density 03/01/2023 03/02/2023 Moderate persistent asthma 07/18/2022 0 11/15/2024 Tobacco user 07/18/2022 11/15/2024 H/O lower gastrointestinal bleeding 07/18/2022 11/15/2024 Overview (03/02/2023): EGD/Colonoscopy 05/2020. Negative small non bleeding colon AVMs Blood in urine 09/21/2018 03/02/2023 Acute maxillary sinusitis 04/12/2017 Epigastric pain 10/12/2016 11/15/2024 Overview (07/31/2024): This is intermittent and has faded at this time she does not wish any more investigations were medications for this and she follows with her primary care provider for her GERD Knee pain 07/14/2016 05/26/2024 Chronic obstructive lung disease 05/06/2012 11/15/2024 Hypertension 05/06/2012 11/02/2022 Osteopenia 05/06/2012 03/02/2023 Encounters Date Type Department Care Team Description 01/17/2025 Refill [facility] MED[facility] [address] [place] [address] Name, MD Thaddeus Epigastric pain 01/16/2025 Telephone [facility] MEDICINE [address] [place] [address] NameThaddeus MD 01/16/2025 Travel 01/08/2025 Refill [facility] W[facility] [address] [place] [address] Name, MD Thaddeus New onset type 2 diabetes mellitus (CMS/HCC) 12/26/2024 Telephone [facility] MED[facility] [address] [place] [address] Margarita Marr RN 12/22/2024 10:30 AM EDT Clinical Support [facility] MED[facility] [address] [place] [id number] Margarita Marr RN New onset type 2 diabetes mellitus (CMS/HCC) 12/22/2024 Travel 12/21/2024 Telephone [facility] MED[facility]INE [address] [place] [phone] ThorpeDariotachoANNAMARIA pugh [place] recalls 12/10/2024 Refill [facility] [address] [place] [phone] NameThaddeus MD New onset type 2 diabetes mellitus (CMS/HCC) 12/08/2024 9:40 AM EDT Office Visit [facility] [address] [place] [id number] Thaddeus Romano MD New onset type 2 diabetes mellitus ([facility]) (Primary Dx); Elevated glucose 12/08/2024 Telephone [facility] [address] [place] [phone] Margarita Marr RN 12/08/2024 Refill [facility] [address] [place] [phone] NameThaddeus MD New onset type 2 diabetes mellitus ([facility]/HCC) 12/08/2024 Refill [facility] [address] [place] [phone] NameThaddeus MD 12/08/2024 Refill [facility] [address] [place] [phone] Thaddeus Romano MD 12/08/2024 Telephone [facility] [address] [place] [phone] Thaddeus Romano MD Dizziness 12/07/2024 Telephone [facility] [address] [place] [phone] Thaddeus Romano MD Nurse Triage 12/06/2024 Refill [facility] [address] [place] [phone] Thaddeus Romano MD 11/15/2024 11:30 AM EDT Office Visit [address] [phone] Thaddeus Romano MD COPD exacerbation (CMS/[facility]) (Primary Dx); Gastrointestinal hemorrhage, unspecified gastrointestinal hemorrhage type; Cerebrovascular accident (CVA), unspecified mechanism (CMS/HCC); Chronic low back pain, unspecified back pain laterality, unspecified whether sciatica present; Lumbar spondylosis 11/15/2024 Travel 11/08/2024 Patient Outreach [facility] [address] [place] [address] NameThaddeus MD Pre-visit Planning ([facility] unable to reach [facility]) 10/19/2024 Refill [facility] MED[facility]INE [address] [place] [address] Name, MD Thaddeus Epigastric pain from Last 3 Months Immunizations Immunization Administration Dates Next Due Influenza High-dose Quadriva lent Preservative Free 05/12/2022,06/11/2021 Influenza injectable quadriv alent preservative free 07/14/2016,08/02/2015 Influenza, High Dose Seasona l, Preservative Free 04/26/2024,10/09/2019,06/13/2018,05/10 Influenza, IIV3, injectable 06/04/2014, 1 Influenza, Split (incl. eleanor fied surface antigen) 06/12/2013,09/08/2012 Pfizer Covid-19 Vaccine 12+ Bivalent 07/28/2022 Pneumococcal Conjugate PCV 13 02/22/2017, 016 Pneumococcal Polysaccharide PPSV23 06/13/2018, TD (adult), 2 Lf tetanus tox oid, preservative free, adsorbed 11/19/2000 Tdap 07/14/2016 Zoster, live 08/29/2015 Social History Tobacco Use Types Packs/Day Years Used Date Smoking Tobacco: Every Day Cigarettes Smokeless Tobacco: Never Tobacco Cessation:Ready to Q uit: Not Asked; Counseling Given: Not Answered Alcohol Use Standard Drinks/Week Comments Never 0 (1 standard drink = 0.6 oz pur e alcohol) Depression Answer Date Recorded Patient Health Questionnaire-9 Score 5 11/15/2024 Patient Health Questionnaire-9 Score 5 11/15/2024 Last PHQ-9: Questionnaire Data Not on file 0 11/15/2024 Housing Stability Answer Date Recorded What is your housing situation today? I have gali webb 11/15/[address] you li ve. Do you have problems with any of the following? None of the above 11/15/2024 Food Insecurity Answer Date Recorded Within the past 12 months, y ou worried that your food would run out before you got money to buy more: Never True 11/15/2024 Within the past 12 months,th e food you bought just didn't last and you didn't have enough money to get more: Never True 09/2024 Transportation Answer Date Recorded In the past 12 months, has l ack of transportation kept you from medical appts, meetings, work or from getting things needed for daily living? No 11/15/2024 Utilities Answer Date Recorded In the past 12 months, has t he electric, gas, oil or water company threatened to shut off services in your home? No 11/15/2024 Depression Answer Date Recorded Patient Health Questionnaire-2 Score 1 11/15/2024 Internet Access Answer Date Recorded Internet Access Q1 Yes 05/18/2024 Internet Access Q2 Not on file 05/18/2024 Comments Unknown Sex and Gender Information Value Date Recorded Sex Assigned at Female 06/15/2022 10:15 AM EDT Legal Sex Female 10:15 AM EDT Gender Identity Female 06/15/2022 10:15 AM EDT Sexual Orientation Straight 06/15/2022 10 :15 AM EDT Last Filed Vital Signs Vital Sign Reading Time Taken Comments Blood Pressure 118/74 12/08/2024 9:05 AM EDT Pulse 77 12/08/2024 9:05 AM EDT Temperature 36.4 ??C (97.5 ??F) 12/08/2024 9:05 AM ED T Respiratory Rate 16 12/08/2024 9:05 AM EDT Oxygen Saturation 99% 12/08/2024 9:05 AM EDT Inhaled Oxygen Concentration - - Weight 62.2 kg (137 lb 3.2 oz) 11/15/2024 11:23 AM EDT Height 160 cm (5' 3 ) 11/15/2024 11:23 AM EDT Body Mass Index 24.3 11/15/2024 11:23 AM EDT Plan of Treatment Upcoming Encounters Date Type Department Care Team (Late st Contact Info) Description 04/09/2025 11:00 AM EDT Office Visit [facility] [address] [facility] [place] [place] [address] Name, MD [facility]deus [facility] [place] [address] Health Maintenance Due Date Last Done Comments Diabetes: Foot Exam 1950 Eye Exam 1950 Diabetes: Urine Protein Screening 1959 RSV Patients and Patients Aged 60 years or older (1 - 1-dose 75+ series) 2015 Zoster Vaccines (2 of 3) 10/24/2015 08/29/2015 Lipid Panel 11/05/2022 11/05/2021 COVID-19 Vaccine ( season) 2024 07/28/2022, 08/14/2021, 02/09/2021 Diabetes: Hemoglobin A1C 06/09/2025 025, 11/05/2021, 10/10/2019 Alcohol/Substance Use Screening 11/15/2025 11/15/2024 Depression Screening 11/15/2025 11/15/2024, 11/16/19 SDOH Screening 11/15/2025 11/15/2024 Tobacco Screening 11/15/2025 11/15/2024 DTaP/Tdap/Td Vaccines (2 - Td or Tdap) 07/14/2026 07/14/2016, 11/19/2000 Pneumococcal Vaccine: 50+ Years Completed 06/13/2018, 02/22/2017, 08/29/2015, Additional history exists Influenza Vaccine Completed 04/26/2024, , 06/11/2021, Additional history exists HIB Vaccines Aged Out No longer eligi [...] age to complete this topic Meningococcal B Vaccine Aged Out No l onger eligible based on patient's age to complete this topic Meningococcal Vaccine Aged Out No krista david eligible based on patient's age to complete this topic RSV under 20 months Aged Out No longe r eligible based on patient's age to complete this topic Rotavirus Vaccines Aged Out No longer eligible based on patient's age to complete this topic Procedures Procedure Name Priority Date/Time Associated Diagnosis Comments POCT GLUCOSE Routine 12/22/2024 10:45 AM EDT New onset type 2 diabetes mellitus (CMS/HCC) POCT GLYCATED HEMOGLOBIN, TOTAL Routine 12/08/2024 9:37 AM EDT Elevated glucose POCT GLUCOSE Routine 12/08/2024 9:13 AM EDT Elevated glucose LIPID PANEL, STANDARD Routine 11/05/2021 9:15 AM EDT from Last 3 Months or Most Recently Relevant to Health Maintenance Results * POCT Glucose (12/22/2024 10:45 AM EDT) Only the most recent of2 resultswithin the time period is included. Glucose Blood, POC 188 60 - 200 mg/dL QC Media Lot # [id number] Lot# Expiration Date Blood Capillary blood specimen / Unknown 12/22/2024 10:45 AM EDT us Thaddeus Romano MD POINT OF CARE TEST ENTER/EDIT OR DERABLES Final Result * POCT A1C (12/08/2024 9:37 AM EDT) Hemoglobin A1C 5.7 4.0 - 6.0 % Blood 12/08/2024 9:37 AM EDT us Thaddeus Romano MD POINT OF CARE TEST ENTER/EDIT OR DERABLES Final Result * (ABNORMAL) LIPID PANEL, STANDARD (11/05/2021 9:15 AM EDT) Chol/HDLC Ratio 4.0 <5.0 (calc) [facility] Cholesterol, Total 190 <200 mg/dL [facility] HDL Cholesterol 47(L) > OR = 50 mg/dL [facility] LDL Cholesterol 118(H) mg/dL (calc) [facility] Comment: Reference range: <100 ?? Desirable range <100 mg/dL for primary prevention; ?? <70 mg/dL for patients with CHD or diabetic patients ?? with > or = 2 CHD risk factors. ?? LDL-C is now calculated using the Carol ?? calculation, which is a validated novel method providing ?? better accuracy than the Friedewald equation in the ?? estimation of LDL-C. ?? Blaise NEUMANN et al. MARVA. 2013;310(19): 1613-2958 ?? (http://education.CureDM/faq/PDX760) Non-HDL Cholesterol 143(H) <130 mg/dL (calc) [facility] Comment: For patients with diabetes plus 1 major ASCVD risk ?? factor, treating to a non-HDL-C goal of <100 mg/dL ?? (LDL-C of <70 mg/dL) is considered a therapeutic ?? option. Triglycerides 137 <150 mg/dL [facility] 11/05/2021 9:15 AM EDT us Thaddeus Romano MD LAB BLOOD ORDERABLES Final Resul t [facility] [address] from Last 3 Months or Most Recently Relevant to Health Maintenance Insurance [facility] [employer]IC[employer] Care Teams Building Surveyor Relationship Specialty Start Date End Date Name, MD Thaddeus [address] [place] [id number] PCP - General Family Medicine 11/20/15
== END 2025-01-17 11:23 | disposition home or self-care (01) ==
LOC: HO.HGI 10:48
PROVIDERS: PCP Internal Medicine Geriatric Medicine; Visit Provider Nurse Practitioner
DX: K59.04 Chronic idiopathic constipation (principal); K31.819 Angiodysplasia of stomach and duodenum without bleeding; D50.9 Iron deficiency anemia, unspecified; K21.9 Gastro-esophageal reflux disease without esophagitis
CPT/HCPCS: 99213

== ENCOUNTER → 2025-01-17 10:48 | Outpatient (BNVA) | payer OTHER, SELFPAY | PROVIDERS: PCP Internal Medicine Geriatric Medicine; Visit Provider Nurse Practitioner | DX: K59.04 Chronic idiopathic constipation (principal); K31.819 Angiodysplasia of stomach and duodenum without bleeding; K21.9 Gastro-esophageal reflux disease without esophagitis; D50.9 Iron deficiency anemia, unspecified | CPT/HCPCS: 99212 ==

== ENCOUNTER 2025-01-18 13:02 | Outpatient (AMB) | payer OTHER, SELFPAY ==
[2025-01-18 13:27] VITALS: BP 111/58; PULSE 73; O2SAT 98; BMI 24.1
--- NOTE | 2025-01-18 13:27 | MHC.OFFVIS ---
Vital Signs 01/18/25 13:27 Height 5 ft 3 in Weight 136 lb BMI 24.1 BP 111/58 L Blood Pressure Location Lt brachial Position Sitting Pulse 73 Pulse Source Pulse Oximeter Pulse Oximetry (%) 98 Oxygen Delivery Method Room Air Intake Visit Reasons: copd Allergies lidocaine Allergy (Severe, Verified 01/17/25 10:49) Hives HPI HPI copd: Details: 84-year-old lady, active 40+ pack-year smoker, followed for underlying moderate COPD and chronic cough.? She continues to use Trelegy and albuterol MDI/nebs with good baseline control of her underlying symptoms.? Patient has ran out of her Trelegy over the last week and her symptoms has been less well controlled, she also started to develop productive cough. [facility] Medical History CKD stage 3a, GFR 45-59 ml/min CVA (cerebral vascular accident) History of DVT (deep vein thrombosis) Intertrochanteric fracture Mass of right axilla Occult blood positive stool COVID-19 Colon cancer screening Duodenal arteriovenous malformation Epigastric pain Osteopenia Anemia GI bleed GERD (gastroesophageal reflux disease) Peripheral neuropathy Anxiety Depression COPD (chronic obstructive pulmonary disease) Asthma Elevated cholesterol Lab test negative for COVID-19 virus Surgical History History of tubal ligation History of axillary surgery Hx of oophorectomy Hx of colonoscopy Hx of esophagogastroduodenoscopy Hx of foot surgery Hx of cholecystectomy Hx of tonsillectomy Hx of appendectomy Family History Father Stroke Asthma Mother Heart attack Stroke Asthma Sister DVT (deep venous thrombosis) Asthma Brother COPD (chronic obstructive pulmonary disease) Son Cancer Social History Household Members: Children Household Members Other:: son Housing: Apartment Are you a primary career technical supervisor to a significant other at home: No Do you presently have visiting nurse or other home services: Yes (home radiation therapist) Alcohol intake: never Patient Tobacco Use Status: Current everyday Tobacco user Tobacco use type: Cigarette Cigarettes Per Day: 4 Years Smoked: 60 Second Hand Smoke Exposure: Yes Advance Directives Date on File: 01/16/21 service: No Current occupational status: retired Review of Systems Const Denies daytime sleepiness, Denies excessive sweating, Denies fatigue, Denies fever(s), Denies lethargy, Denies malaise, Denies night sweats, Denies snoring and Denies weight loss Eyes Denies blurry vision and Denies itchy eyes ENT Denies nasal congestion, Denies post nasal drip, Denies sinus pain, Denies sinus pressure and Denies other ( Thrush) Card Denies chest pain, Denies pedal edema, Denies dyspnea, Denies orthopnea and Denies paroxysmal nocturnal dyspnea Resp Reports cough, Denies hemoptysis, Reports excessive phlegm production, Denies dyspnea, Denies snoring and Denies wheezing GI Denies abdominal pain and Denies heartburn Musc Denies myalgias, Denies arthralgias and Denies joint swelling Skin/Breast Denies rash Neuro Denies memory loss and Denies seizure-like activity Psych Denies abnormal sleep pattern, Denies anxiety and Denies memory loss Endo Denies excessive sweating, Denies fatigue and Denies heat intolerance Marino/Lymph Denies easy bruising Aller/Immun Denies itchy eyes, Denies seasonal rhinorrhea and Denies wheezing Physical Exam Vital Signs: Last Vital Signs Pulse 73 01/18/25 13:27 BP 111/58 L 01/18/25 13:27 Pulse Ox 98 01/18/25 13:27 Oxygen Delivery Method Room Air 01/18/25 13:27 BMI result Body Mass Index 24.1 Const General: no acute distress and alert Nutritional Appearance: not obese Orientation/consciousness: Other orientation findings ( oriented) HEENT Head: Yes atraumatic Eyes General: appearance normal, both eyes and all related structures Sclerae: sclerae normal EOM: EOMs intact bilaterally Neck Neck: Yes supple Lymphatic: no lymphadenopathy noted Resp Effort & Inspection: normal respiratory effort and no use of accessory muscles Auscultation: clear to auscultation bilaterally Cardio Rate: regular rate Rhythm: regular rhythm Heart sounds: no gallops, no murmurs and no rubs Skin General skin exam: other ( warm) Extrem General: No clubbing, No cyanosis and No edema Assessment & Plan Assessment & Plan (1) COPD (chronic obstructive pulmonary disease): Code(s): J44.9 - Chronic obstructive pulmonary disease, unspecified Category: Medical Plan: Well controlled on Trelegy and albuterol MDI/nebs. Continue current regimen. (2) Chronic cough: Code(s): R05 - Cough Category: Medical Plan: Will treat with a course of azithromycin. Medications: New azithromycin For 250 mg dose pack: take 500 mg today (day 1), then 250 mg for 4 days (days 2-5) PO 6 tabs 0RF albuterol sulfate 90 mcg/actuation 2 puffs inhalation Q4-6H PRN 1 ea 6RF Shortness Of Breath Or Wheezing Changed From [id number]-wzrijhruo-gcgdtecr 200-62.5-25 mcg (Trelegy Ellipta) 1 puff inhalation DAILY To nrpecltdcgx-ppyongpqk-sjvtbadt 200-62.5-25 mcg (Trelegy Ellipta) 1 ea inhalation DAILY 1 ea 6RF Coding Level of Care Code Est Pt Level 4 (21440) Diagnoses COPD (chronic obstructive pulmonary disease) J44.9 Chronic cough R05
--- OUTSIDE RECORDS SUMMARY | 2025-01-18 15:12 | XMS_ITS | Clinical Summary ---
Author Organization 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 MEDIC[facility] [address] [place] [address] Name, MD Thaddeus Epigastric pain 01/16/2025 Telephone [facility] MEDICINE [address] [place] [address] NameThaddeus MD 01/16/2025 Travel 01/08/2025 Refill [facility] WALK-IN CENTER [address] [place] [address] Name, MD Thaddeus New onset type 2 diabetes mellitus (CMS/HCC) 12/26/2024 Telephone [facility] MEDICINE [address] [place] [address] Margarita Marr RN 12/22/2024 10:30 AM EDT Clinical Support [facility] MEDICINE [address] [place] [phone] Margarita Marr RN New onset type 2 diabetes mellitus (CMS/HCC) 12/22/2024 Travel 12/21/2024 Telephone [facility] MEDICINE [address] [place] [phone] ThorpeDariotachoANNAMARIA pugh augus[employer] recalls 12/10/2024 Refill [facility] [address] [place] [phone] NameThaddeus MD New onset type 2 diabetes mellitus (CMS/HCC) 12/08/2024 9:40 AM EDT Office Visit [facility] [address] [place] [phone] Thaddeus Romano MD New onset type 2 diabetes mellitus ([facility]) (Primary Dx); Elevated glucose 12/08/2024 Telephone [facility] MED[facility] [address] [place] [phone] Margarita Marr RN 12/08/2024 Refill [facility] W[facility] [address] [place] [phone] NameThaddeus MD New onset type 2 diabetes mellitus ([facility]/HCC) 12/08/2024 Refill [facility] [address] [place] [phone] NameThaddeus MD 12/08/2024 Refill [facility] [address] [place] [phone] Thaddeus Romano MD 12/08/2024 Telephone [facility] [address] [place] [phone] Thaddeus Romano MD Dizziness 12/07/2024 Telephone [facility] [address] [place] [phone] Thaddeus Romano MD Nurse Triage 12/06/2024 Refill [facility] [address] [place] [phone] Thaddeus Romano MD 11/15/2024 11:30 AM EDT Office Visit [address] [phone] Thaddeus Romano MD COPD exacerbation (CMS/[facility]) (Primary Dx); Gastrointestinal hemorrhage, unspecified gastrointestinal hemorrhage type; Cerebrovascular accident (CVA), unspecified mechanism (CMS/HCC); Chronic low back pain, unspecified back pain laterality, unspecified whether sciatica present; Lumbar spondylosis 11/15/2024 Travel 11/08/2024 Patient Outreach [facility] [address] [place] [address] NameThaddeus MD Pre-visit Planning ([facility] unable to reach [facility]) 10/19/2024 Refill [facility] MED[facility]INE [address] [place] [address] Name, MD Thaddeus Epigastric pain from Last [...] Description 04/09/2025 11:00 AM EDT Office Visit [facility] [address] [facility] [place] [address] Name, MD Thaddeus [facility] [address] Health Maintenance Due Date Last Done Comments [...] AM EDT) Chol/HDLC Ratio 4.0 <5.0 (calc) [facility] Cholesterol, Total 190 <200 mg/dL [...] ?? Blaise NEUMANN et al. MARVA. 2013;310(19): 6537-5213 ?? (http://education.Joturl/faq/LIB614) Non-HDL Cholesterol 143(H) <130 mg/dL (calc) [facility] [...] Resul t [facility] [address] from Last 3 Months or Most Recently Relevant to Health Maintenance Insurance [facility] [address] MEDICARE Care Teams Senior Graphic Designer Relationship Specialty Start Date End Date Name, MD Thaddeus [address] [place] [id number] PCP - General Family Medicine 11/20/15
== END 2025-01-18 13:40 | disposition home or self-care (01) ==
LOC: HO.HPS 13:04
PROVIDERS: PCP Internal Medicine Geriatric Medicine; Visit Provider Internal Medicine Pulmonary Disease
DX: J44.9 Chronic obstructive pulmonary disease, unspecified (principal); R05.9 Cough, unspecified
CPT/HCPCS: 99214

== ENCOUNTER → 2025-01-18 13:02 | Outpatient (BNVA) | payer OTHER, SELFPAY | PROVIDERS: PCP Internal Medicine Geriatric Medicine; Visit Provider Internal Medicine Pulmonary Disease | DX: J44.9 Chronic obstructive pulmonary disease, unspecified (principal); F17.210 Nicotine dependence, cigarettes, uncomplicated | CPT/HCPCS: 99212 ==

== ENCOUNTER 2025-05-25 11:14 | Outpatient (AMB) | payer OTHER, SELFPAY ==
[2025-05-25 11:15] VITALS: BP 118/62; PULSE 93; O2SAT 100; BMI 22.3
--- NOTE | 2025-05-25 11:15 | A.OFFVIS_ITS ---
Vital Signs 05/25/25 11:15 Height 5 ft 3.5 in Weight 128 lb BMI 22.3 BP 118/62 Blood Pressure Location Lt brachial Position Sitting Pulse 93 Pulse Source Pulse Oximeter Pulse Oximetry (%) 100 Oxygen Delivery Method Room Air Intake Visit Reasons: COPD Allergies lidocaine Allergy (Severe, Verified 05/02/25 10:57) Hives HPI HPI COPD: Details: 84-year-old lady, active 40+ pack-year smoker, followed for underlying moderate COPD and chronic cough.? She continues to use Trelegy and albuterol MDI/nebs with good baseline control of her underlying symptoms. Today she complains of approximately one-week history of worsening cough productive of yellowish sputum associated with some wheezing. REPLACED BY [facility] Medical History CKD stage 3a, GFR 45-59 ml/min CVA (cerebral vascular accident) History of DVT (deep vein thrombosis) Intertrochanteric fracture Mass of right axilla Occult blood positive stool COVID-19 Colon cancer screening Duodenal arteriovenous malformation Epigastric pain Osteopenia Anemia GI bleed GERD (gastroesophageal reflux disease) Peripheral neuropathy Anxiety Depression COPD (chronic obstructive pulmonary disease) Asthma Elevated cholesterol Lab test negative for COVID-19 virus Surgical History History of tubal ligation History of axillary surgery Hx of oophorectomy Hx of colonoscopy Hx of esophagogastroduodenoscopy Hx of foot surgery Hx of cholecystectomy Hx of tonsillectomy Hx of appendectomy Family History Father Stroke Asthma Mother Heart attack Stroke Asthma Sister DVT (deep venous thrombosis) Asthma Brother COPD (chronic obstructive pulmonary disease) Son Cancer Social History Household Members: Children Household Members Other:: son Housing: Apartment Are you a primary weekend caregiver to a significant other at home: No 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) Alcohol intake: never Patient Tobacco Use Status: Current everyday Tobacco user Tobacco use type: Cigarette Cigarettes Per Day: 4 Years Smoked: 60 Second Hand Smoke Exposure: Yes Advance Directives Date on File: 01/16/21 service: No Current occupational status: retired Review of Systems Const Denies daytime sleepiness, Denies excessive sweating, Denies fatigue, Denies fever(s), Denies lethargy, Denies malaise, Denies night sweats, Denies snoring and Denies weight loss Eyes Denies blurry vision and Denies itchy eyes ENT Denies nasal congestion, Denies post nasal drip, Denies sinus pain, Denies sinus pressure and Denies other ( Thrush) Card Denies chest pain, Denies pedal edema, Denies dyspnea, Denies orthopnea and Denies paroxysmal nocturnal dyspnea Resp Reports cough, Denies hemoptysis, Reports excessive phlegm production, Denies dyspnea, Denies snoring and Reports wheezing GI Denies abdominal pain and Denies heartburn Musc Denies myalgias, Denies arthralgias and Denies joint swelling Skin/Breast Denies rash Neuro Denies memory loss and Denies seizure-like activity Psych Denies abnormal sleep pattern, Denies anxiety and Denies memory loss Endo Denies excessive sweating, Denies fatigue and Denies heat intolerance [place]/Lymph Denies easy bruising Aller/Immun Denies itchy eyes, Denies seasonal rhinorrhea and Reports wheezing Physical Exam Vital Signs: Last Vital Signs Pulse 93 05/25/25 11:15 BP 118/62 05/25/25 11:15 Pulse Ox 100 05/25/25 11:15 Oxygen Delivery Method Room Air 05/25/25 11:15 BMI result Body Mass Index 22.3 Const General: no acute distress and alert Nutritional Appearance: not obese Orientation/consciousness: Other orientation findings ( oriented) HEENT Head: Yes atraumatic Eyes General: appearance normal, both eyes and all related structures Sclerae: sclerae normal EOM: EOMs intact bilaterally Neck Neck: Yes supple Lymphatic: no lymphadenopathy noted Resp Effort & Inspection: normal respiratory effort and no use of accessory muscles Auscultation: clear to auscultation bilaterally Cardio Rate: regular rate Rhythm: regular rhythm Heart sounds: no gallops, no murmurs and no rubs Skin General skin exam: other ( warm) Extrem General: No clubbing, No cyanosis and No edema Assessment & Plan Assessment & Plan (1) COPD (chronic obstructive pulmonary disease): Code(s): J44.9 - Chronic obstructive pulmonary disease, unspecified Category: Medical Plan: Baseline controlled on Trelegy and albuterol MDI/nebs. Continue current regimen. (2) Chronic cough: Code(s): R05 - Cough Category: Medical Plan: Now with acute exacerbation with significant productive component, will treat with a course of Augmentin and prednisone. Medications: New amoxicillin-pot clavulanate 875-125 mg 1 tab PO BID 14 tabs 0RF prednisone 40 mg (2 x 20 mg) PO DAILY 10 tabs 0RF Coding Level of Care Code Est Pt Level 4 (56721) Diagnoses COPD (chronic obstructive pulmonary disease) J44.9 Chronic cough R05
== END 2025-05-25 11:37 | disposition home or self-care (01) ==
LOC: HO.HPS 11:14
PROVIDERS: PCP Internal Medicine Geriatric Medicine; Visit Provider Internal Medicine Pulmonary Disease
DX: J44.9 Chronic obstructive pulmonary disease, unspecified (principal); R05.9 Cough, unspecified
CPT/HCPCS: 99214

== ENCOUNTER → 2025-05-25 11:14 | Outpatient (BNVA) | payer OTHER, SELFPAY | PROVIDERS: PCP Internal Medicine Geriatric Medicine; Visit Provider Internal Medicine Pulmonary Disease | DX: J44.9 Chronic obstructive pulmonary disease, unspecified (principal); R05.9 Cough, unspecified; Z72.0 Tobacco use | CPT/HCPCS: 99212 ==

== ENCOUNTER 2025-06-29 14:00 | Emergency (ER) | payer OTHER, SELFPAY ==
--- NOTE | ~2025-06-29 | CT_ITS ---
CLINICAL HISTORY: pain Exam: Contrast-enhanced CT abdomen and pelvis with multiplanar reformats. Comparison: 05/12/2024. Findings: CT abdomen: Lung bases reveal mild pulmonary mosaic attenuation common nonspecific although may be seen in small airways disease. Liver is free of focal lesions. Slight intrahepatic ductal dilatation is likely sequela of prior cholecystectomy. Common bile duct is within normal limits for patient's age at 8 mm transverse dimension. No filling defects identified within the biliary tree. Gallbladder is absent. Spleen appears unremarkable. Pancreas and adrenal glands appear unremarkable. Kidneys reveal tiny subcentimeter hypodensities, too small to characterize although likely small cysts. Kidneys otherwise unremarkable. Small amount of free fluid within the pelvis is likely reactive. No abdominal ascites. No retroperitoneal masses or adenopathy. Abdominal aorta is normal caliber with mild calcific athero sclerosis. Bowel loops reveal mildly inflamed appearing sigmoid colonic diverticuli (for example, 7; 47), with segmental colonic wall thickening and mild surrounding stranding and fluid. No evidence of perforation or abscess. No other abnormal bowel wall thickening or distention. CT pelvis: Uterus and adnexal structures appear unremarkable. Urinary bladder is free of gross filling defects. No pelvic masses or adenopathy. Osseous structures reveal no destructive osseous lesions. Impression: 1. Mild uncomplicated sigmoid colonic diverticulitis. This document has been electronically signed by: Sam Eden MD on 06/29/2025 18:55:34
[2025-06-29 15:00] VITALS: BP 112/55; PULSE 80; RESP 16; TEMP 36.5; O2SAT 97; BMI 22.5
--- NOTE | 2025-06-29 15:01 | ED.GENADULT ---
HPI - General Adult General Chief complaint: Abdominal Pain Stated complaint: Back Pain Time Seen by Provider: 06/29/25 16:42 Source: patient Mode of arrival: ambulatory Limitations: no limitations History of Present Illness ED Provider: Dr. Conard HPI narrative: 84-year-old female presented hospital today for right lower quadrant abdominal pain that radiates to her suprapubic area. Patient's has appendicitis removed in the past. History of diverticulitis. She is also complaining of dysuria however UA at primary care doctor was negative for any signs of UTI. She does complain of some symptoms of dysuria associated with her suprapubic pain. Denies any nausea or vomiting. Related Data Home Medications ?Medication ?Instructions ?Recorded ?Confirmed ascorbic acid (vitamin C) 500 mg 500 mg PO DAILY 05/23/20 05/02/25 tablet (Vitamin C) citalopram 10 mg tablet 10 mg PO DAILY 01/16/21 05/02/25 ipratropium 0.5 mg-albuterol 3 mg 1 vial inhalation QID PRN 01/16/21 05/02/25 (2.5 mg base)/3 mL nebulization Shortness Of Breath Or Wheezing soln ferrous sulfate 325 mg (65 mg 325 mg PO BID 12/06/23 05/02/25 iron) tablet gabapentin 300 mg capsule 300 mg PO BEDTIME 12/06/23 05/02/25 albuterol sulfate 2.5 mg/3 mL 3 mg inhalation Q6H PRN Wheezing 05/11/24 05/02/25 (0.083 %) solution for nebulization alendronate 70 mg tablet 70 mg PO QWEEK 05/11/24 05/02/25 calcium carbonate 500 mg PO BID 05/11/24 05/02/25 cholecalciferol (vitamin D3) 50 50 mcg PO DAILY 05/11/24 05/02/25 mcg (2,000 unit) tablet (Vitamin D3) tramadol 50 mg tablet 25 mg PO DAILY PRN severe pain 05/11/24 05/02/25 cyclobenzaprine 10 mg tablet 10 mg PO TID PRN prn 11/07/24 05/02/25 metformin 500 mg tablet 500 mg PO DAILY 12/14/24 05/02/25 Previous Rx's ?Medication ?Instructions ?Recorded acetaminophen 325 mg tablet 650 mg (2 x 325 mg) PO Q6H PRN 07/04/20 (Tylenol) fever or pain #10 tabs atorvastatin 40 mg tablet 40 mg PO BEDTIME #90 tabs 05/13/24 clopidogrel 75 mg tablet 75 mg PO DAILY #90 tabs 05/16/24 Held on 10/24/24. Instructions: Resume on 10/25/24. Hold TODAY pantoprazole 40 mg tablet,delayed 40 mg PO QAM #30 tabs 11/07/24 release sennosides 8.6 mg-docusate sodium 2 tab PO BID #60 tabs 11/07/24 50 mg tablet (Senna Plus) albuterol sulfate 90 mcg/actuation 2 puff inhalation Q4-6H PRN 01/18/25 aerosol inhaler Shortness Of Breath Or Wheezing #1 ea fluticasone fur. 200 mcg-umeclid 1 ea inhalation DAILY #1 ea 01/18/25 62.5 mcg-vilant 25 mcg inhalat.powder (Trelegy Ellipta) amoxicillin 875 mg-potassium 1 tab PO BID #14 tabs 05/25/25 clavulanate 125 mg tablet prednisone 20 mg tablet 40 mg (2 x 20 mg) PO DAILY #10 tabs 05/25/25 amoxicillin 875 mg-potassium 1 tab PO Q12H 7 days #14 tabs 06/29/25 clavulanate 125 mg tablet ondansetron 4 mg disintegrating 4 mg PO Q8H PRN nausea and 06/29/25 tablet vomiting #14 tabs oxycodone 5 mg tablet 2.5 mg (1/2 x 5 mg) PO Q8H PRN 06/29/25 pain #14 tabs sennosides 8.6 mg capsule (senna) 8.6 mg PO DAILY #14 caps 06/29/25 Allergies Allergy/AdvReac Type Severity Reaction Status Date / Time lidocaine Allergy Severe Hives Verified 06/29/25 15:03 Review of Systems Review of Systems: Pertinent review of systems as mentioned in HPI. All other system otherwise negative. [facility] Past Medical History [facility] Narrative: [facility] Medical History CKD stage 3a, GFR 45-59 ml/min CVA (cerebral vascular accident) History of DVT (deep vein thrombosis) Intertrochanteric fracture Mass of right axilla Occult blood positive stool COVID-19 Colon cancer screening Duodenal arteriovenous malformation Epigastric pain Osteopenia Anemia GI bleed GERD (gastroesophageal reflux disease) Peripheral neuropathy Anxiety Depression COPD (chronic obstructive pulmonary disease) Asthma Elevated cholesterol Lab test negative for COVID-19 virus Surgical History History of tubal ligation History of axillary surgery Hx of oophorectomy Hx of colonoscopy Hx of esophagogastroduodenoscopy Hx of foot surgery Hx of cholecystectomy Hx of tonsillectomy Hx of appendectomy Family History Family History Father Stroke Asthma Mother Heart attack Stroke Asthma Sister DVT (deep venous thrombosis) Asthma Brother COPD (chronic obstructive pulmonary disease) Son Cancer Social History Social History Household Members: Children Household Members Other:: son Housing: Apartment Are you a primary career development associate to a significant other at home: No 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) Alcohol intake: never Patient Tobacco Use Status: Current everyday Tobacco user Tobacco use type: Cigarette Cigarettes Per Day: 4 Years Smoked: 60 Second Hand Smoke Exposure: Yes Advance Directives Date on File: 01/16/21 service: No Current occupational status: retired Physical Exam ED Exam Exam: General: Appears to be in pain Head: Normacephalic, atraumatic ENT: oral mucosa moist, neck supple, no tracheal deviation Cardiovascular: regular rate, regular rhythm, no murmurs, rubbing, gallops Respiratory: CTAB, no wheeze, rales, rhonchi Gastrointestinal: Soft, non distended, suprapubic tenderness on palpation no CVA tenderness on percussion Neurological: Awake and alert, no facial droop noted Skin: Warm and dry Psychiatric: Appropriate mood and thoughts Vital Signs: Vital Signs - 24 hr 06/29/25 15:00 06/29/25 16:45 06/29/25 18:11 Temperature 97.7 F 98.0 F 97.3 F Pulse Rate 80 83 77 Respiratory Rate 16 16 16 Blood Pressure 112/55 L 127/42 L 131/65 Pulse Oximetry 97 98 99 Oxygen Delivery Method Room Air Room Air Room Air 06/29/25 20:10 Temperature 97.3 F Pulse Rate 77 Respiratory Rate 16 Blood Pressure 131/65 Pulse Oximetry 99 Oxygen Delivery Method Room Air BMI result Body Mass Index 22.5 Course Course Course Narrative: This is a rapid medical exam performed by Cyndi Velez NP: Additional HPI, ROS, PE not included below will be deferred to primary provider. Patient is an 84y/o Argentine speaking female with pmhx of appendectomy, diverticulitis referred by PCP for evaluation of suprapubic/RLQ tenderness for the past 2 days, chills, body aches. Plan: labs, UA Medications Administered Discontinued Medications Generic Name Dose Route Start Last Admin Trade Name Freq PRN Reason Stop Dose Admin Amoxicillin/Clavulanate Potassium 875 mg 06/29/25 19:23 06/29/25 19:42 Amoxicillin/Potassium Clav 875 Mg Tablet PO 06/29/25 19:24 875 mg ONCE ONE Administration Iohexol 100 ml 06/29/25 18:19 06/29/25 18:20 Iohexol 350 Mg/Ml 100 Ml Infus..Btl IV 06/29/25 18:20 85 ml ONCE ONE Administration Morphine Sulfate 2 mg 06/29/25 17:32 06/29/25 17:45 Morphine Sulfate 4 Mg/Ml Cartridge IVPUSH 06/29/25 17:33 2 mg ONCE ONE Administration Protocol Medical Decision Making Medical Decision Making [facility] Narrative: 84-year-old female presented hospital today for evaluation of suprapubic pain that radiates to her right lower quadrant. Abdominal lab work was negative. Patient's UA was clear for any signs of UTI. CT imaging did show signs of sigmoid diverticulitis. Dose of Augmentin will be given to the patient. IV morphine was given to the patient as well for pain control. On reassessment patient stated her pain has improved. We will plan to discharge patient with the oxycodone and Augmentin course for diverticulitis. Encouraged her to follow up with the primary care doctor. translator interpreter was used for this encounter. Patient is stable at this time. Patient will be discharged Differential Diagnosis Differential Diagnoses: The differential diagnosis associated with the presentation includes Diverticulitis, nephrolithiasis, colitis, enteritis Admission/Observation Consideration of admission/observation: Escalation of care including admission/observation considered Lab Data [facility] Lab Attestation statement: I reviewed the patient's lab results. 06/29/25 15:21 06/29/25 15:21 Labs: Lab Results 06/29/25 06/29/25 Range/Units 15:21 16:53 WBC 6.6 (4.8-10.8) X10*3/uL RBC 3.73 L (4.20-5.50) X10*6/uL Hgb 11.2 L (12.0-16.0) g/dl Hct 35.5 L (37.0-47.0) % MCV 95.2 (80.0-98.0) fL MCH 30.0 (27.0-33.0) pg MCHC 31.5 (31.0-35.0) g/dl RDW 13.6 (11.0-16.0) % Plt Count 289 (160-400) X10*3/uL MPV 10.3 (9.4-12.3) fL Immature Gran % (Auto) 0.6 H (0.0-0.4) % Neut % (Auto) 71.6 (45-73) % Lymph % (Auto) 15.4 L (20-40) % [place] % (Auto) 8.1 (2-11) % Eos % (Auto) 3.5 (0-4) % Baso % (Auto) 0.8 (0-2) % Lymph # (Auto) 1.0 L (1.2-4.9) X10*3/uL [place] # (Auto) 0.5 (0.1-1.2) X10*3/uL Eos # (Auto) 0.2 (0.0-0.4) X10*3/uL Baso # (Auto) 0.1 (0.0-0.2) X10*3/uL Abs Immat Gran (auto) 0.04 H (0.00-0.03) X10*3/uL Absolute Neuts (auto) 4.8 (2.0-8.3) x10*3/uL Absolute Nucleated RBC 0.000 (0.0-0.012) X10*3/uL Nucleated RBC % (auto) 0.0 (0.0-0.2) /100WBC Sodium 144 (135-145) mmol/L Potassium 5.0 (3.3-5.1) mmol/L Chloride 110 H (96-108) mmol/L Carbon Dioxide 27 (22-29) mmol/L Anion Gap 12 (12-20) BUN 17 H (9-16) mg/dL Creatinine 0.89 (0.5-1.4) mg/dL Estim Creat Clear Calc 38.8 Estimated GFR > 60 Random Glucose 131 H (60-115) mg/dL Calcium 9.8 (8.4-10.2) mg/dL Total Bilirubin 0.1 (0.0-1.0) mg/dL AST 25 (5-31) U/L ALT 21 (0-31) U/L Alkaline Phosphatase 55 (39-117) U/L Total Protein 6.9 (6.5-8.0) g/dL Albumin 4.2 (3.5-5.0) g/dL Urine Color Yellow Urine Appearance Clear Urine pH 6.0 (5.0-9.0) Ur Specific [place] 1.015 (1.005-1.025) Urine Protein Negative (Neg-Trace) mg/dL Urine Glucose (UA) Negative (Negative) mg/dL Urine Ketones Negative (Negative) mg/dL Urine Blood Trace H (Negative) Urine Nitrite Negative (Negative) Ur Leukocyte Esterase Negative (Negative) Urine RBC 3-5 H (0-2) /HPF Urine WBC 0-5 (0-5) /HPF Ur Squamous Epith Cells 0-2 (0-2) /HPF Urine Bacteria None Seen (None Seen) Hyaline Casts 0-2 (0-2) /LPF Independent Interpretation I performed an independent interpretation of an: CT Scan Radiology Impression Discussion of test interpretation with radiology: I have reviewed the radiologist's reading. Discharge Plan Discharge Clinical Impression: Diverticulitis Patient Disposition: Home, Self-Care Prescriptions: New oxycodone 5 mg tablet 2.5 mg PO Q8H PRN (Reason: pain) Qty: 14 0RF Rx Instructions: Partial Fill upon patient request. ondansetron 4 mg tablet,disintegrating 4 mg PO Q8H PRN (Reason: nausea and vomiting) Qty: 14 0RF amoxicillin-pot clavulanate 875-125 mg tablet 1 tab PO Q12H 7 Days Qty: 14 0RF senna 8.6 mg capsule 8.6 mg PO DAILY Qty: 14 0RF No Action ascorbic acid (vitamin C) [Vitamin C] 500 mg Tablet 500 mg PO DAILY citalopram 10 mg tablet 10 mg PO DAILY ipratropium-albuterol 0.5 mg-3 mg(2.5 mg base)/3 mL solution for nebulization 1 vial inhalation QID PRN (Reason: Shortness Of Breath Or Wheezing) acetaminophen [Tylenol] 325 mg tablet 650 mg PO Q6H PRN (Reason: fever or pain) Qty: 10 0RF metformin 500 mg Tablet 500 mg PO DAILY albuterol sulfate 2.5 mg /3 mL (0.083 %) solution for nebulization 3 mg inhalation Q6H PRN (Reason: Wheezing) alendronate 70 mg tablet 70 mg PO QWEEK tramadol 50 mg tablet 25 mg PO DAILY PRN (Reason: severe pain) calcium carbonate 500 mg calcium (1,250 mg) tablet 500 mg PO BID cholecalciferol (vitamin D3) [Vitamin D3] 50 mcg (2,000 unit) tablet 50 mcg PO DAILY atorvastatin 40 mg Tablet 40 mg PO BEDTIME Qty: 90 0RF clopidogrel 75 mg Tablet 75 mg PO DAILY Qty: 90 0RF ferrous sulfate 325 mg (65 mg iron) tablet 325 mg PO BID gabapentin 300 mg capsule 300 mg PO BEDTIME cyclobenzaprine 10 mg tablet 10 mg PO TID PRN (Reason: prn) Trelegy Ellipta 200-62.5-25 mcg blister with device 1 ea inhalation DAILY Qty: 1 6RF albuterol sulfate 90 mcg/actuation HFA aerosol inhaler 2 puff INHALATION Q4-6H PRN (Reason: Shortness Of Breath Or Wheezing) Qty: 1 6RF pantoprazole 40 mg tablet,delayed release (DR/EC) 40 mg PO QAM Qty: 30 6RF sennosides-docusate sodium [Senna Plus] 8.6-50 mg tablet 2 tab PO BID Qty: 60 6RF prednisone 20 mg tablet 40 mg PO DAILY Qty: 10 0RF amoxicillin-pot clavulanate 875-125 mg tablet 1 tab PO BID Qty: 14 0RF Interventions: ED Discharge Assessment Last Done: 06/29/25 20:10 Discharge Date/Time: 06/29/25 20:36 Print Language: Argentine
[2025-06-29 15:25] LABS: MANUAL DIFF FLAG NO
[2025-06-29 15:28] LABS: Hematocrit 35.5 % (37.0-47.0); Hemoglobin 11.2 g/dl (12.0-16.0); Imm Gran Abs Auto 0.04 X10*3/uL (0.00-0.03); Imm Gran Pct Auto 0.6 % (0.0-0.4); Lymphocytes Absolute Auto 1.0 X10*3/uL (1.2-4.9); Mean Corpuscular HGB Conc 31.5 g/dl (31.0-35.0); Mean Corpuscular Hemoglobin 30.0 pg (27.0-33.0); Mean Corpuscular Volume 95.2 fL (80.0-98.0); NRBC Abs Auto 0.000 X10*3/uL (0.0-0.012); NRBC Pct Auto 0.0 /100WBC (0.0-0.2); Platelet Count 289 X10*3/uL (160-400); Red Blood Count 3.73 X10*6/uL (4.20-5.50); White Blood Count 6.6 X10*3/uL (4.8-10.8)
[2025-06-29 15:40] LABS: Alanine Aminotransferase 21 U/L (0-31); Albumin Level 4.2 g/dL (3.5-5.0); Alkaline Phosphatase 55 U/L (39-117); Anion Gap 12 (12-20); Aspartate Amino Transferase 25 U/L (5-31); Blood Urea Nitrogen 17 mg/dL (9-16); Calcium 9.8 mg/dL (8.4-10.2); Carbon Dioxide 27 mmol/L (22-29); Chloride 110 mmol/L (96-108); Creatinine Clr Calc Pharmacy 38.8; Estimated Glomerular Filt Rate > 60; Potassium 5.0 mmol/L (3.3-5.1); Sodium 144 mmol/L (135-145); Total Protein 6.9 g/dL (6.5-8.0)
[2025-06-29 16:45] VITALS: BP 127/42; PULSE 83; RESP 16; TEMP 36.7; O2SAT 98
[2025-06-29 17:03] LABS: Appearance Urine Clear; Glucose Urine UA Negative (Negative); PH 6.0 (5.0-9.0); Specific Gravity - Urine 1.015 (1.005-1.025); UMIC TRIGGER UACC YES
[2025-06-29 18:11] VITALS: BP 131/65; PULSE 77; RESP 16; TEMP 36.3; O2SAT 99
[2025-06-29] MEDS: iohexoL 350 MG/ML 100 ML INFUS..BTL IV (18:20)
[2025-06-29 20:10] VITALS: BP 131/65; PULSE 77; RESP 16; TEMP 36.3; O2SAT 99
--- OUTSIDE RECORDS SUMMARY | 2025-06-30 00:48 | XMS_ITS ---
Author Name Jorge Parker NP Address [address] [place] [address] Phone [phone] [facility] Care Team Providers Care Doctor Osteopathic Name Role Phone Sai Parkerley Unavailable [phone] Fer Cara Unavailable [phone] Unavailable Unavailable Unavailable [facility] Unavailable [phone] ORIANA OSCAR Unavailable [phone] PAYTON HURTADO Unavailable [phone] NameThaddeus Unavailable [phone] Reason for Referral Not Available Allergies, adverse reactions, alerts No known allergies History of medication use Medication Class Instructions Start Date End Date Acetaminophen 325 mg Tab TAKE 2 TABLETS BY ORAL ROUTE EVERY 6 HOURS NEEDED FOR PAIN 2022-02-19 No Data Available Azithromycin 250 mg Tab TOME 2 TABLETAS POR V A ORAL [place] TOME 1 TABLETA POR D A ABUNDIO [...] hours PRN Pain 2022-07-31 No Data Available ProAir HFA 108 [...] BID PRN 2024-02-14 1 No Data Available Diclofenac Sodium 1 % Gel 4 grams topica lly to affected area 4 times per day PRN 2024-02-24 2024-07-12 Fluticasone Propionate 50 MCG/ACT Suspension PLEASE SEE ATTACHED FOR DETAILED DIRECTIONS 2024-03-14 2025-03-30 Alendronate Sodium 70 mg Tab TOME BLAKE TA BLETA POR V A ORAL EVERY WEEK IN THE MORNING WITH A FULL GLASS OF WATER, EMPTY STOMACH 2024-02-01 No Data Available Pantoprazole Sodium 40 mg Ta b delayed rel TOME 1 TABLETA POR V A ORAL DOS VECES AL D A 2024-05-26 No Data Available Atorvastatin Calcium 40 mg Tab take 1 ta blet by mouth at bedtime 2024-11-21 No Data Available metFORMIN 500 mg Tab TOME BLAKE TABLETA (5 00 MG) POR V A ORAL CON EL [place]AY[place]O AND WITH EVENING MEAL 2024-12-08 No Data Available Senexon-S 8.6/50 mg Tab TAKE 2 TABLETS O RALLY 2 TIMES A DAY 2024-07-27 2025-03-30 OYSTER SHELL CALCIUM 500 MG TB TOME 1 TA BLETA POR V A ORAL DOS VECES AL D A 2024-02-01 No Data Available Clopidogrel Bisulfate 75 mg Tab TOME 1 TABLETA POR V A ORAL TODOS LOS D 2024-12-07 No Data Available OneTouch Ultra 2 w/Device Kit USE TO YURY T BLOOD SUGAR ONCE A DAY 2024-12-11 No Data Available OneTouch Ultra Strip USE TO TEST BLOOD S UGAR ONCE A DAY 2024-12-11 No Data Available OneTouch Delica Plus Lancet3 3G Miscellaneous USE TO TEST BLOOD SUGAR ONCE A DAY 2024-12-11 No Data Available Problem List Problem Status Onset Date Resolved Date Synopsis GERD (gastroesophageal reflux disease) Active 2022-07-31 N/A -Pantoprazole -F ollowed by PCPContinue current toqu-ml-rusv, avoid GERD triggers Osteopenia Active 2022-07-31 N/A On Fosamax, Vi tamin D3, CalciumFollowed by orthopedicsDenies any falls or fracturesContinue ljok-ov-ejov, fall precautions Osteoarthritis Active 2022-07-31 N/A Takes Tyle nol PRN-Lidocaine patch prn-Cyclobenzaprine prn Followed by orthopedics/pcp Peripheral vascular disease, unspecified Active 2022-08-03 N/A -Plavix-Keshav rvastatinHistory of DVT left legFollowed by PCPReport any calf pain or swelling Myelodysplastic syndrome, unspecified Active 2022-06-30 N/A Continues to bryan e Ferrous sulfate BIDStates she is followed by hematologyContinue current klwq-nr-rnym, medication compliance, report any unexplained bruising, bleeding Tobacco abuse Active 2024-02-24 N/A 3-4 cigaret yury a dayNot interested in quitting right now. Chronic low back pain anddifficulty walking Active 2022-07-31 N/A -Using Lid ocaine 5% patch, Tylenol PRN, Gabapentin -follow ups with pcp Major depressive disorder, recurrent, moderate Active 2022-06-30 N/A RX: citalopramCo ntinue to monitor PHQ9 scoreFollowed by PCP & has family supportContinue zbur-cn-pvaw, medication compliance Constipation Active 2022-07-31 N/A -used Senna in the past-no current medications-follow ups with pcp Hemiparesis affecting right side as late effect of stroke Active 2024-05-22 N/A 05/22/24: Pt pres ented w/ R facial weakness and R sided weakness. MRI confirmed acute stroke, echo showed no intracardiac clot. Neurologist recommended daily aspirin, statin therapy, and Plavix 75mg daily for 3 month. Cleared by SP. PT and OT at home recommended. 11/21/24: Granddaughter reports that the patient was recently started on atorvastatin 40mg daily by PCP, but pharmacy did not have medication in file. RX sent for refill. Denies any current concerns.-Plavix-Atorvastati n-follow ups with PCP Other problems related to medical facilities and other health care Active 2024-07-12 N/A DIABETES CO NTINGENCY PLANLast updated: 02/27/2025Member to call for the following symptoms: Blood sugar <70 / Blood sugar >300 / PolydipsiaPlanned intervention: Increase Metformin x1 dose/ Encourage adequate water intake Chronic obstructive pulmonary disease, unspecified Active 2022-06-30 N/A -Trelegy-rinse m outh after use-Continues smoking 4-5 cigarettes/day and not ready to quit-follow ups with pulm/pcp DM type 2 with diabetic mixed hyperlipidemia Active 2025-02-27 N/A A1C 5.7 () Newly diagnosedTaking MetforminEncouraged a low carb diet and exercise as tolerated-follow ups with pcp for labs and check ups Encounters Encounters Type Facility Date of Service Diagnosis/Co mplaint New patient,40-59min; chronic exacerbation, 2 stable chronic or 1 acute illness add add modifier 95 for video (do not use for phone, instead use 31087-47) [facility], ([place]) [place] Myelodysplastic syndrome, unspecifiedChronic obstructive pulmonary disease, [...] (do not use for phone, instead use 85535-66) [facility] New patient,40-59min; chronic exacerbation, 2 stable chronic or 1 acute illness add add modifier 95 for video (do not use for phone, instead use 96165-45) [facility] New patient,40-59min; chronic exacerbation, 2 stable chronic or 1 acute illness add add modifier 95 for video (do not use for phone, instead use 85380-67) [facility] New patient,40-59min; chronic exacerbation, 2 stable chronic or 1 acute illness add add modifier 95 for video (do not use for phone, instead use 48465-61) [facility] New patient,40-59min; chronic exacerbation, 2 stable chronic or 1 acute illness add add modifier 95 for video (do not use for phone, instead use 85391-62) [facility] New patient,40-59min; chronic exacerbation, 2 stable chronic or 1 acute illness add add modifier 95 for video (do not use for phone, instead use 75930-57) [facility], ([place] 07[place] New patient,40-59min; chronic exacerbation, 2 stable chronic or 1 acute illness add add modifier 95 for video (do not use for phone, instead use 84087-41) [facility] ([place] New patient,40-59min; chronic exacerbation, 2 stable chronic or 1 acute illness add add modifier 95 for video (do not use for phone, instead use 44928-07) [facility] Estab. patient 30-39min; chronic exacerbation, 2 stable chronic or 1 acute illness add add modifier 95 for video, (do not use for phone, instead use 43499-02) [facility] ([place] Myelodysplastic syndrome, unspecifiedMajor depressive disorder, recurrent, [...] (do not use for phone, instead use 60355-60) [facility] Estab. patient 30-39min; chronic exacerbation, 2 stable chronic or 1 acute illness add add modifier 95 for video, (do not use for phone, instead use 00240-22) [facility] Estab. patient 30-39min; chronic exacerbation, 2 stable chronic or 1 acute illness add add modifier 95 for video, (do not use for phone, instead use 89650-19) [facility] Estab. patient 30-39min; chronic exacerbation, 2 stable chronic or 1 acute illness add add modifier 95 for video, (do not use for phone, instead use 65025-02) [facility] Estab. patient 30-39min; chronic exacerbation, 2 stable chronic or 1 acute illness add add modifier 95 for video, (do not use for phone, instead use 43002-71) [facility] Estab. patient 30-39min; chronic exacerbation, 2 stable chronic or 1 acute illness add add modifier 95 for video, (do not use for phone, instead use 27625-99) [facility]20[place] Estab. patient 30-39min; chronic exacerbation, 2 stable chronic or 1 acute illness add add modifier 95 for video, (do not use for phone, instead use 87758-19) [facility] 02[place]/2024 Myelodysplastic syndrome, unspecifiedMajor depressive disorder, recurrent, [...] (do not use for phone, instead use 23337-02) [facility] 02[place] Estab. patient 30-39min; chronic exacerbation, 2 stable chronic or 1 acute illness add add modifier 95 for video, (do not use for phone, instead use 31973-95) [facility] Estab. patient 30-39min; chronic exacerbation, 2 stable chronic or 1 acute illness add add modifier 95 for video, (do not use for phone, instead use 87584-06) [facility] Estab. patient 30-39min; chronic exacerbation, 2 stable chronic or 1 acute illness add add modifier 95 for video, (do not use for phone, instead use 69633-81) [facility] Estab. patient 30-39min; chronic exacerbation, 2 stable chronic or 1 acute illness add add modifier 95 for video, (do not use for phone, instead use 01336-51) [facility] 02[place] Estab. patient 30-39min; chronic exacerbation, 2 stable chronic or 1 acute illness add add modifier 95 for video, (do not use for phone, instead use 12648-69) [facility] 02[place] Estab. patient 30-39min; chronic exacerbation, 2 stable chronic or 1 acute illness add add modifier 95 for video, (do not use for phone, instead use 08104-35) [facility] 02[place] Estab. patient 30-39min; chronic exacerbation, 2 stable chronic or 1 acute illness add add modifier 95 for video, (do not use for phone, instead use 57259-94) [facility] 02[place] Estab. patient 30-39min; chronic exacerbation, 2 stable chronic or 1 acute illness add add modifier 95 for video, (do not use for phone, instead use 57360-40) [facility], ([place]) 02[place]24/20[place] RN, CN or CP time with patient by phone; use with 1111F, BP, A1c or other CPTII codes [facility] ([place]) 05/17/2024 Encounter for other specifie d aftercare Unlisted special service; to be used for medical record reviews and reporting CPTII codes (1111F, etc) [facility] ([place]) 05/19/2024 Encounter for other specifie d aftercare Unlisted special service; to be used for medical record reviews and reporting CPTII codes (1111F, etc) [facility] ([place] 05[place]19/[place] No Data Available [facility] [place] Hemiplga following cerebral infrc aff right dominant sideChronic obstructive pulmonary disease, unspecifiedOther problems related to medical facilities and other health care No Data Available [facility] [place] No Data Available [facility] [place] No Data Available [facility] [place] No Data Available [facility] [place] Intracardiac thrombosis, not elsewhere classifiedOther problems related to medical facilities and other health carePrsnl hx of TIA (TIA), and cereb infrc w/o resid deficits No Data Available [facility] [place] No Data Available [facility] [place] No Data Available [facility] [place] No Data Available [facility] [place] No Data Available [facility] [place] No Data Available [facility] [place] No Data Available [facility] [place] No Data Available [facility] [place] No Data Available [facility] [place] Major depressive disorder, recurrent, mildChronic obstructive pulmonary disease, unspecifiedConstipation, unspecifiedOther problems related to medical facilities and other health care No Data Available [facility] [place] No Data Available [facility] [place] No Data Available [facility] [place] No Data Available [facility] [place] No Data Available [facility] [place] No Data Available [facility] [place] No Data Available [facility] [place] No Data Available [facility] [place] No Data Available [facility] [place] Hemiplga following cerebral infrc aff right dominant sideChronic obstructive pulmonary disease, unspecifiedPersonal history of (healed) traumatic fractureTobacco useOth disrd of bone density and structure, unspecified siteUnspecified osteoarthritis, unspecified site No Data Available [facility], ([place] 07[place]/20[place] Estab. patient 10-29min; 1 minor problem; add add modifier 95 for video, modifier 93 for phone [facility] ([place]2024 Constipation, unspecifiedChronic obstructive pulmonary disease, unspecifiedPeripheral vascular disease, unspecifiedTobacco useOther problems related to medical facilities and other health carePersonal history of (healed) traumatic fracture Estab. patient 10-29min; 1 minor problem; add add modifier 95 for video, modifier 93 for phone [facility], ([place] 08/25/20[place] Estab. patient 10-29min; 1 minor problem; add add modifier 95 for video, modifier 93 for phone [facility] ([place] 08/25/20[place] Estab. patient 10-29min; 1 minor problem; add add modifier 95 for video, modifier 93 for phone [facility] [place] 08/25/20[place] Estab. patient 10-29min; 1 minor problem; add add modifier 95 for video, modifier 93 for phone [facility] [place] 08/25/20[place] Estab. patient 10-29min; 1 minor problem; add add modifier 95 for video, modifier 93 for phone [facility] [place] 09/21/2024 Constipation, unspecifiedOth er problems related to medical facilities and other health care Estab. patient 10-29min; 1 minor problem; add add modifier 95 for video, modifier 93 for phone [facility] [place] 10[place]19/2024 Constipation, unspecifiedChronic obstructive pulmonary disease, unspecifiedOther problems related to medical facilities and other health care Estab. patient 10-29min; 1 minor problem; add add modifier 95 for video, modifier 93 for phone [facility] Hemiplga following cerebral infrc aff right dominant sideOther problems related to medical facilities and other health care Estab. patient 10-29min; 1 minor problem; add add modifier 95 for video, modifier 93 for phone [facility] Estab. patient 10-29min; 1 minor problem; add add modifier 95 for video, modifier 93 for phone [facility] [place] [place] Hemiplga following cerebral infrc aff right dominant sideChronic obstructive pulmonary disease, unspecifiedOther problems related to medical facilities and other health care Estab. patient 10-29min; 1 minor problem; add add modifier 95 for video, modifier 93 for phone [facility] [place]/19[place] Estab. patient 10-29min; 1 minor problem; add add modifier 95 for video, modifier 93 for phone [facility] [place] 12/19/20[place] Estab. patient 10-29min; 1 minor problem; add add modifier 95 for video, modifier 93 for phone [facility] [place]17/2025 Chronic obstructive pulmonar y disease, unspecifiedOther problems related to medical facilities and other health care Estab. patient 10-29min; 1 minor problem; add add modifier 95 for video, modifier 93 for phone [facility] ([place] 02/27/2025 Type 2 diabetes mellitus without complicationsOther problems related to medical facilities and other health care Estab. patient 10-29min; 1 minor problem; add add modifier 95 for video, modifier 93 for phone [facility] [place] 02/27/20[place] Estab. patient 10-29min; 1 minor problem; add add modifier 95 for video, modifier 93 for phone [facility] ([place] 03/30/2025 Myelodysplastic syndrome, unspecifiedMajor depressive disorder, recurrent, moderateChronic obstructive pulmonary disease, unspecifiedGastro-esophageal reflux disease without esophagitisConstipation, unspecifiedOth disrd of bone density and structure, unspecified siteUnspecified osteoarthritis, unspecified siteLow back pain, unspecifiedOther chronic painDifficulty in walking, not elsewhere classifiedPeripheral vascular disease, unspecifiedNicotine dependence, cigarettes, uncomplicatedType 2 diabetes mellitus with other specified complicationMixed hyperlipidemiaHemiplga following cerebral infrc aff right dominant sideLong term (current) use of oral hypoglycemic drugsOther problems related to medical facilities and other health care Estab. patient 10-29min; 1 minor problem; add add modifier 95 for video, modifier 93 for phone [facility] [place] Estab. patient 10-29min; 1 minor problem; add add modifier 95 for video, modifier 93 for phone [facility] [place] Estab. patient 10-29min; 1 minor problem; add add modifier 95 for video, modifier 93 for phone [facility] [place] 03[place]20[place] Estab. patient 10-29min; 1 minor problem; add add modifier 95 for video, modifier 93 for phone [facility] [place] 03[place]20[place] Estab. patient 10-29min; 1 minor problem; add add modifier 95 for video, modifier 93 for phone [facility] [place] 03[place] Estab. patient 10-29min; 1 minor problem; add add modifier 95 for video, modifier 93 for phone [facility] [place] 03[place] Estab. patient 10-29min; 1 minor problem; add add modifier 95 for video, modifier 93 for phone [facility] [place] 03[place]20[place] Vital Signs Date of Collection Vitals 2022-07-31 [...] - 122.0 mm[Hg]Pain Scale - 0.0 {score} 2024-12-19 06:43:09 BP Diastolic - 65.0 mm[Hg]BP Systolic - 131.0 mm[Hg] 2025-03-30 08:01:55 Height - 161.29 cmWe ight - 58.51 kgBody Mass Index (BMI) - 22.49 kg/m2Pain Scale - 4.0 {score} Social History Social History Social History Observation Description Effec tive Time Current Smoking Status Current every day smoker 2025-06-30 Sex Female History of Procedures Procedures Service Procedure code Service date Servicing provider Phone# New patient,40-59min; chronic exacerbation, 2 stable chronic or 1 acute illness add add modifier 95 for video (do not use for phone, instead use 32662-10) [id number] 2022-07-31 No Data Available No Data Availa [...] (do not use for phone, instead use 16608-43) 30550 2023-04-05 No Data Available No Data Availa [...] (do not use for phone, instead use 82265-92) 87832 2024-02-24 No Data Available No Data Availa [...] discussed and documented in the medical record beneficiary/patient did not wish to or was [...] 1111F, BP, A1c or other CPTII codes 42449 2024-05-17 No Data Available No Data Avai lable Unlisted special service; to be used for medical record reviews and reporting CPTII codes (1111F, etc) 85071 2024-05-19 No Data Available No Data Availa ble Medications prescribed in hospital were reviewed and reconciled against what they were taking prior to admission during today's visit. (1111F) 1111F 2024-05-19 No Data Available No Data Availa ble No Data Available [id number] 2024-06-12 No Data Available No Data Available Medication List Documented (1159F) 1159F 2024-06-12 No Data Available No Data Debra ilable Pain Assessment - NO pain present (1126F) 112F 2024-06-12 No Data Available No Data A vailable BMI obtained (3008F) 3008F 2024-06-12 No Data Availab le No Data Available No Data Available [id number] 2024-05-22 No Data Available No Data Available Medications prescribed in hospital were reviewed and reconciled against what they were taking prior to admission during today's visit. (1111F) 1111F 2024-05-22 No Data Available No Data Availa ble Advance care planning discussed and documented advance care plan or surrogate decision-maker was [...] No Data Availa ble No Data Available [id number] 2024-07-12 No Data Available No Data Available [...] Available Advance care planning discussed and documented advance care plan or surrogate decision-maker was documented in the medical record. (1123F) 1123F 2024-07-12 No Data Available No Data Availa ble Functional Status Assessed (1170F) 1170F 2024-07-12 No Data Available No Data Avail able No Data Available [id number] 2024-07-26 No Data Available No Data Available Medication List Documented (1159F) 1159F 2024-07-26 No Data Available No Data Debra ilable Estab. patient 10-29min; 1 minor problem; add add modifier 95 for video, modifier 93 for phone 29806 2024-08-25 No Data Available No Data Availa [...] 95 for video, modifier 93 for phone 07575 2024-09-21 No Data Available No Data Availa ble Estab. patient 10-29min; 1 minor problem; add add modifier 95 for video, modifier 93 for phone [id number] 2024-10-19 No Data Available No Data Availa ble Estab. patient 10-29min; 1 minor problem; add add modifier 95 for video, modifier 93 for phone 13666 2024-11-21 No Data Available No Data Availa ble Medication List Documented (1159F) 1159F 2024-11-21 No Data Available No Data Debra ilable Estab. patient 10-29min; 1 minor problem; add add modifier 95 for video, modifier 93 for phone [id number] 2024-12-19 No Data Available No Data Availa ble DBP <80 (3078F) 3078F 2024-12-19 No Data Available No Data Available SBP 130-139 (3075F) 3075F 2024-12-19 No Data Availabl e No Data Available Estab. patient 10-29min; 1 minor problem; add add modifier 95 for video, modifier 93 for phone [id number] 2025-01-17 No Data Available No Data Availa ble Estab. patient 10-29min; 1 minor problem; add add modifier 95 for video, modifier 93 for phone [id number] 2025-02-27 No Data Available No Data Availa ble Medication List Documented (1159F) 1159F 2025-02-27 No Data Available No Data Debra ilable Estab. patient 10-29min; 1 minor problem; add add modifier 95 for video, modifier 93 for phone [id number] 2025-03-30 No Data Available No Data Availa ble Medication List Documented (1159F) 1159F 2025-03-30 No Data Available No Data Debra ilable Medication Review by prescribing provider or pharmacist documented (1160F) 1160F 2025-03-30 No Data Available No Data Debra ilable Functional Status Assessed (1170F) 1170F 2025-03-30 No Data Available No Data Avail able Advance Care Directive Advance care planning discussion documented in the medical record (1158F) 1158F 2025-03-30 No Data Available No Data Availa ble Advance care planning discussed and documented advance care plan or surrogate decision-maker was documented in the medical record. (1123F) 1123F 2025-03-30 No Data Available No Data Availa ble Pain Assessment - Pain Documented on a Pain Scale (1125F) 1125F 2025-03-30 No Data Available No Data Debra ilable Most recent A1c (HbA1c) or GMI level <7% (3044F) 3044F 2025-03-30 No Data Available No Data Availa ble Functional Status Functional Category Effective Dates Cognition Status: Oriented to Person, Pl jalen and Time 2022-07-31 ADLsAmbulating - Needs Demteria tanceDressing - Needs assistanceBathing - Needs assistanceToileting [...] Patient Education to avoid future hospitalization: Call [facility] if symptoms of illness develop.CVA (cerebral vascular [...] other health careConstipationChronic obstructive pulmonary disease, unspecified 2024-11-21 07:16:49 hemiparesis affectin g right side as late effect of strokeOther problems related to medical facilities and other health care 2024-12-19 06:43:09 hemiparesis affectin g right side as late effect of strokeOther problems related to medical facilities and other health careChronic obstructive pulmonary disease, unspecified 2025-01-17 12:49:03 Other problems relat ed to medical facilities and other health careOther problems related to medical facilities and other health careChronic obstructive pulmonary disease, unspecified 2025-02-27 08:04:26 Type 2 diabetes jaquan itusOther problems related to medical facilities and other health care 2025-03-30 08:01:55 Myelodysplastic synd vee, unspecifiedOther problems related to medical facilities and other health careMajor depressive disorder, recurrent, moderateChronic obstructive pulmonary disease, unspecifiedGERD (gastroesophageal reflux disease)ConstipationOsteopeniaOsteoarthritisChronic low back pain anddifficulty walkingPeripheral vascular disease, unspecifiedTobacco abuseHemiparesis affecting right side as late effect of strokeDM type 2 with diabetic mixed hyperlipidemia Plan of Care Date of Service Plans [...] modifier 95Continue to see PCP. Follow-up with [facility] as needed for any acute or disease education needs that may arise.[facility] codedPatient denies having this condition but reports she had a hemoglobin of 8 in January and is now supplementing with Ferrous sulfate BIDStates she is followed by hematologyContinue current atlf-gm-ugao, medication compliance, report any unexplained bruising, bleedingRX: trelegy, AlbuterolPer outside care records 07/28/22 - COPD symptoms well controlled on inhalersContinues smoking 4-5 cigarettes/day and not ready to quitSmoking cessation referral madeDoes not use oxygenHas productive cough with white sputum at present but denies fever, chills, chest congestion, SOB, difficulty breathingFollowed by PCP & PulmonologyContinue medications, smoking cessationTR[facility]HEALTH [facility] codedPatient denies any kidney concernsCould not find any evidence in outside care records Not on ant-ihypertensives, reports BP 122/77Reports intermittent abdominal pain/bloating, denies any concerns at presentDenies any acid reflux symptomsTaking omeprazole Followed by PCPContinue current udpu-ab-lvto, avoid GERD triggersStates she is taking Vitamin C for constipation and that she sometimes using stool softeners or laxatives but could not recall the nameReports last BM was todayFollowed by PCPIncrease fiber in diet, stool softeners/laxatives PRN, increase oral hydrationOn Fosamax, Vitamin D3, CalciumFollowed by orthopedicsDenies any falls or fracturesContinue xfbb-vh-puhx, fall precautionsReports recent x-ray demonstrating osteoarthritisStates she [...] HIFollowed by PCP & has family supportContinue mnca-kz-poia, medication complianceReports history of blood clot to [...] modifier 95Advance care planning discussed and documented advance care plan or surrogate decision-maker was documented in the medical record. (1123F)Advance care planning discussed and documented in the medical record beneficiary/patient did not wish to or was unable to provide an advance care plan or name a surrogate decision-maker. (1124F)Pain Assessment - NO pain documented (1126F)Continue to see PCP. Follow-up with Jori as needed for any acute or disease education needs that may arise.[facility] codedContinues to take Ferrous sulfate BIDStates she is followed by hematologyContinue current wfnu-od-cjzl, medication compliance, report any unexplained bruising, bleedingRX: citalopramMood stableContinue to monitor PHQ9 scoreDenies SI or HIFollowed by PCP & has family supportContinue qzks-nu-vcsx, medication complianceRX: trelegy, AlbuterolPer outside care records [...] reflux symptomsTaking omeprazole Followed by PCPContinue current ccpp-jl-yvic, avoid GERD triggersStates she is taking Vitamin C for constipation and reports it is helpful. Followed by PCPIncrease fiber in diet, stool softeners/laxatives PRN, increase oral hydrationOn Fosamax, Vitamin D3, CalciumFollowed by orthopedicsDenies any falls or fracturesContinue eprx-cq-qkvl, fall precautionsReports recent x-ray demonstrating osteoarthritisStates she has arthritic wrists and hands Takes Tylenol PRNFollowed by orthopedicsContinue Tylenol PRNReports 3/10 lower back painUsing Lidocaine 5% patch, Tylenol PRN, GabapentinReports history of blood clot to left legWas previously on CoumadinReports occasional swelling in left leg, denies any at present and no swelling noted during visitNoted purpura to ankles B/LFollowed by PCPReport any calf pain or swellingUH Previously Coded, ICD10: I739: Peripheral vascular disease, [...] modifier 95Advance care planning discussed and documented advance care plan or surrogate decision-maker was documented in the medical record. (1123F)Advance care planning discussed and documented in the medical record beneficiary/patient did not wish to or was unable to provide an advance care plan or name a surrogate decision-maker. (1124F)Pain Assessment - NO pain documented (1126F)Continue to see PCP. Follow-up with [facility] as needed for any acute or disease education needs that may arise.[facility] codedContinues to take Ferrous sulfate BIDStates she is followed by hematologyContinue current mtty-jk-vhyd, medication compliance, report any unexplained bruising, bleedingRX: citalopramMood stableContinue to monitor PHQ9 scoreDenies SI or HIFollowed by PCP & has family supportContinue rzfo-jd-qhei, medication complianceRX: trelegy, AlbuterolPer outside care records 07/28/22 - COPD symptoms well controlled on inhalersContinues smoking 4-5 cigarettes/day and not ready to quitDoes not use oxygenFollowed by PCP & PulmonologyContinue medications, smoking cessationTR[facility]HEALTH [facility] codedPatient denies any kidney concerns except urinary incontinence. Could not find any evidence in outside care records Not on anthypertensives, reports BP is good, checks several times weeklyReports intermittent abdominal pain/bloating, denies any concerns at presentDenies any acid reflux symptomsTaking omeprazole Followed by PCPContinue current hyky-qt-lbxi, avoid GERD triggersStates she is taking Vitamin C for constipation and reports it is helpful. Followed by PCPIncrease fiber in diet, stool softeners/laxatives PRN, increase oral hydrationOn Fosamax, Vitamin D3, CalciumFollowed by orthopedicsDenies any falls or fracturesContinue rnmz-qh-ikdc, fall precautionsReports recent x-ray demonstrating osteoarthritisStates she has arthritic wrists and hands Takes Tylenol PRNFollowed by orthopedicsContinue Tylenol PRNReports 3/10 lower back painUsing Lidocaine 5% patch, Tylenol PRN, Gabapentin Walker old and does not work well. Recommend rollator. Will order.Reports history of blood clot to left legWas previously on CoumadinReports occasional swelling in left leg, denies any at present and no swelling noted during visitNoted purpura to ankles B/LFollowed by PCPReport any calf pain or swellingTRIHEALTH [facility] Previously Coded, ICD10: I739: Peripheral vascular disease, [...] <80 (3078F)Continue to see PCP. Follow-up with [facility] as needed for any acute or [...] to call for the following symptoms: BP >180/100 / Headache/ HR >100 Planned intervention: Encourage low sodium diet/ Discuss breathing exercises/ Encourage medication adherence 2024-05-22 10:49:41 Discharge medication s reconciled with current medication listAdvance care planning discussed and documented advance care plan or surrogate decision-maker was documented in the medical record. (1123F)Phone (patient, parent, or guardian); 5-10 minutes of [...] to call for the following symptoms: BP >180/100 / Headache/ HR >100 Planned intervention: Encourage low sodium diet/ Discuss breathing [...] HIFollowed by PCP & has family supportContinue odlw-bq-vdqc, medication cyerlibkmr57/27/2024 patient states that she is controlled at this momentRX: trelegy AlbuterolPer outside care records 07/28/22 - COPD [...] in diet, stool softeners/laxatives PRN, increase oral yhujldkds12/27/2024 Patient is controlled for the most partFALL CONTINGENCY PLANMember to call for the following symptoms: BP <110/70 / Fall / WeaknessPlanned intervention: Encourage extra fluid intake / Assess for change in mental status and provide reassurance if none (patient's Baseline is _) / Review importance of sitting for two to three minutes prior to standing after laying down 2024-07-26 07:27:47 Phone (patient, pare nt, or guardian); 5-10 minutes of medical discussion (no modifier 95)Continue to see PCP. Follow-up with Jori as [...] CalciumFollowed by orthopedicsDenies any falls or fracturesContinue hoil-ho-hlyv, fall precautionsReports recent x-ray demonstrating osteoarthritisStates she [...] in diet, stool softeners/laxatives PRN, increase oral cwjydxdjf95/27/2024 Patient is controlled for the most part [...] not intererested in quittingCOPD CONTINGENCY PLANLast updated: 08/25/2023Member to call for the following symptoms: Breathing loudly / Increased cough / WheezingPlanned intervention: Increase use of albuterol inhaler [...] for phoneContinue to see PCP. Follow-up with Jori as needed for any acute or disease education needs that may arise 08/03.COPD CONTINGENCY PLANLast updated: 08/25/2023[place] to call for the following symptoms: Breathing loudly / Increased cough / WheezingPlanned intervention: Increase use of albuterol inhaler to q2h PRN cough, breathlessness/ Prednisone prednisone taper 40mg x 3 days, 30mg x 3 days, 20mg x 3 days, 10mg x 3 days/ Levofloxacin 500mg daily x 5 daysStates she is taking Vitamin C for constipation and reports it is helpful. Followed by PCPIncrease fiber in diet, stool softeners/laxatives PRN, increase oral oudyuztoi14/27/2024 Patient is controlled for the most part 08/25/24: doing well, las BM today09/21/24: Reports recent stomach virus that has now resolved. She reports son is in the hospital with the flu. Denies any current needs. 2024-10-19 11:41:50 Estab. patient 10-29 min; 1 minor problem; add add modifier 95 for video, modifier 93 for phoneContinue to see PCP. Follow-up with Jori as needed for any acute or disease education needs that may arise 08/03.COPD CONTINGENCY PLANLast updated: 08/25/2023Meer to call for the following symptoms: Breathing loudly / Increased cough / WheezingPlanned intervention: Increase use of albuterol inhaler to q2h PRN cough, breathlessness/ Prednisone prednisone taper 40mg x 3 days, 30mg x 3 days, 20mg x 3 days, 10mg x 3 days/ Levofloxacin 500mg daily x 5 daysStates she is taking Vitamin C for constipation and reports it is helpful. Followed by PCPIncrease fiber in diet, stool softeners/laxatives PRN, increase oral bnjdrgnra46/27/2024 Patient is controlled for the most part 08/25/24: doing well, las BM today09/21/24: Reports recent stomach virus that has now resolved. She reports son is in the hospital with the flu. Denies any current needs. 10/19/24: Symptoms have resolved, the patient feels well at this time, denies any concernsRX: rohini AlbuterolPer outside care records 07/28/22 - COPD symptoms well controlled on inhalersContinues smoking 4-5 cigarettes/day and not ready to quitDoes not use oxygenFollowed by PCP & PulmonologyContinue medications, smoking cessation 06/12/2024 - No problems breathing everything is good no concerns. 07/13/2024 patient is feeling well, denies SOB08/25/24: denies cp or wheezing, denies chest congestion10/19/24: Denies dyspnea 2024-11-21 07:16:49 Estab. patient 10-29 min; 1 minor problem; add add modifier 95 for video, modifier 93 for phoneContinue to see PCP. Follow-up with [facility] as needed for any acute or disease education needs that may arise 08/03.05/22/24: Pt presented w/ R facial weakness and R sided weakness. MRI confirmed acute stroke, echo showed no intracardiac clot. Neurologist recommended daily aspirin, statin therapy, and Plavix 75mg daily for 3 month. Cleared by SP. PT and OT at home recommended. re right sided-weakness; mild residual. OT/PT walks around the house with her walkerPatient granddaughter reports that the patient is recovering well after her stroke. She has completed all her physical therapy. Blood pressure is good. She has a cane, walker and shower chair should she need it. 11/21/24: Granddaughter reports that the patient was recently started on atorvastatin 40mg daily by PCP, but pharmacy did not have medication in file. RX sent for refill. Denies any current concerns.COPD CONTINGENCY PLANLast updated: 08/25/2023Member to call for the following symptoms: Breathing loudly / Increased cough / WheezingPlanned intervention: Increase use of albuterol inhaler to q2h PRN cough, breathlessness/ Prednisone prednisone taper 40mg x 3 days, 30mg x 3 days, 20mg x 3 days, 10mg x 3 days/ Levofloxacin 500mg daily x 5 days 2024-12-19 06:43:09 Estab. patient 10-29 min; 1 minor problem; add add modifier 95 for video, modifier 93 for phoneDBP <80 (3078F)SBP 130-139 (3075F)Continue to see PCP. [facility] or disease education needs that may arise 08/03.05/22/24: Pt presented w/ R facial weakness and R sided weakness. MRI confirmed acute stroke, echo showed no intracardiac clot. Neurologist recommended daily aspirin, statin therapy, and Plavix 75mg daily for 3 month. Cleared by SP. PT and OT at home recommended. re right sided-weakness; mild residual. OT/PT walks around the house with her walkerPatient granddaughter reports that the patient is recovering well after her stroke. She has completed all her physical therapy. Blood pressure is good. She has a cane, walker and shower chair should she need it. 11/21/24: Granddaughter reports that the patient was recently started on atorvastatin 40mg daily by PCP, but pharmacy did not have medication in file. RX sent for refill. Denies any current concerns.COPD CONTINGENCY PLANLast updated: 08/25/2023[facility] to call for the following symptoms: Breathing loudly / Increased cough / WheezingPlanned intervention: Increase use of albuterol inhaler to q2h PRN cough, breathlessness/ Prednisone prednisone taper 40mg x 3 days, 30mg x 3 days, 20mg x 3 days, 10mg x 3 days/ Augmentin x5 daysRX: trelegy, AlbuterolPer outside care records 07/28/22 - COPD symptoms well controlled on inhalersContinues smoking 4-5 cigarettes/day and not ready to quitDoes not use oxygenFollowed by PCP & PulmonologyContinue medications, smoking cessation 06/12/2024 - No problems breathing everything is good no concerns. 07/13/2024 patient is feeling well, denies SOB08/25/24: denies cp or wheezing, denies chest congestion10/19/24: Denies dyspnea12/19/24: PCP visit on 11/15/24 for COPD exacerbation, prescribed prednisone and augmentin x5 days. Patient reports feeling well, denies any concerns. 2025-01-17 12:49:03 Estab. patient 10-29 min; 1 minor problem; add add modifier 95 for video, modifier 93 for phoneContinue to see PCP. Follow-up with [facility] as needed for any acute or disease education needs that may arise 08/03.Add Contingency PlanCOPD CONTINGENCY PLANLast updated: 08/25/2023[facility] to call for the following symptoms: Breathing loudly / Increased cough / WheezingPlanned intervention: Increase use of albuterol inhaler to q2h PRN cough, breathlessness/ Prednisone prednisone taper 40mg x 3 days, 30mg x 3 days, 20mg x 3 days, 10mg x 3 days/ Augmentin x5 daysRX: trelegy, AlbuterolPer outside care records 07/28/22 - COPD symptoms well controlled on inhalersContinues smoking 4-5 cigarettes/day and not ready to quitDoes not use oxygenFollowed by PCP & PulmonologyContinue medications, smoking cessation 08/25/24: denies cp or wheezing, denies chest congestion10/19/24: Denies dyspnea12/19/24: PCP visit on 11/15/24 for COPD exacerbation, prescribed prednisone and augmentin x5 days. Patient reports feeling well, denies any concerns. 2025-02-27 08:04:26 Estab. patient 10-29 min; 1 minor problem; add add modifier 95 for video, modifier 93 for phoneContinue to see PCP. Follow-up with [facility] as needed for any acute or disease education needs that may arise 08/03.A1C 5.7 (11/2024) Newly diagnosedTaking MetforminEncouraged a low carb diet and exercise as toleratedDM contingency plan reviewedDIABETES CONTINGENCY PLANLast updated: 02/27/2025Member to call for the following symptoms: Blood sugar <70 / Blood sugar >300 / PolydipsiaPlanned intervention: Increase Metformin x1 dose/ Encourage adequate water intake 2025-03-30 08:01:55 Medication Review by prescribing provider or pharmacist documented (1160F)Medication List Documented (1159F)Functional Status Assessed (1170F)Advance Care Directive Advance care planning discussion documented in the medical record (1158F)Advance care planning discussed and documented advance care plan or surrogate decision-maker was documented in the medical record. (1123F)Pain Assessment - NO pain present (1126F)Estab. patient 20-29min; 1 stable chronic or 2 minor; add add modifier 95 for video, modifier 93 for phoneContinue to see PCP. Follow-up with [facility] as needed for any acute or disease education needs that may arise.Continues to take Ferrous sulfate BIDStates she is followed by hematologyContinue current gogj-lr-rsgj, medication compliance, report any unexplained bruising, bleedingDIABETES CONTINGENCY PLANLast updated: 02/27/2025Member to call for the following symptoms: Blood sugar <70 / Blood sugar >300 / PolydipsiaPlanned intervention: Increase Metformin x1 dose/ Encourage adequate water intakeRX: citalopramContinue to monitor PHQ9 scoreFollowed by PCP & has family supportContinue sfjq-jd-yjzo, medication uhtywkxvjk-Tluzjnd-xvzxo mouth after use-Continues smoking 4-5 cigarettes/day and not ready to quit-follow ups with pulm/pcp-Pantoprazole -Followed by PCPContinue current kigz-ui-ezox, avoid GERD triggers-used Senna in the past-no current medications-follow ups with pcpOn Fosamax, Vitamin D3, CalciumFollowed by orthopedicsDenies any falls or fracturesContinue aqfu-jr-pdky, fall precautionsTakes Tylenol PRN-Lidocaine patch prn-Cyclobenzaprine prn Followed by orthopedics/pcp-Using Lidocaine 5% patch, Tylenol PRN, Gabapentin -follow ups with hqk-Pjqlwd-FpvtqpgendrlOlbqwda of DVT left legFollowed by PCPReport any calf pain or swelling3-4 cigarettes a dayNot interested in quitting right now.05/22/24: Pt presented w/ R facial weakness and R sided weakness. MRI confirmed acute stroke, echo showed no intracardiac clot. Neurologist recommended daily aspirin, statin therapy, and Plavix 75mg daily for 3 month. Cleared by SP. PT and OT at home recommended. 11/21/24: Granddaughter reports that the patient was recently started on atorvastatin 40mg daily by PCP, but pharmacy did not have medication in file. RX sent for refill. Denies any current concerns.-Vnpdql-Rqgyawficqea-ioltfp ups with PCPA1C 5.7 (11/2024) Newly diagnosedTaking MetforminEncouraged a low carb diet and exercise as tolerated-follow ups with pcp for labs and check ups Goals Date Goal 2022-07-31 Remember to contact [facility] with any questions or concerns at [phone]. 2024-06-12 Continue taking medi cations as directed and keep all follow up appointments with established PCP and Specialist. 2024-07-12 At least 50% of time spent counseling pt, discussing diagnosis, treatment plan, compliance, and coordinating followup care. Continue taking medications as directed and keep all follow up appointments with established PCP and Specialist 2025-03-30 Reminded to call [place] [facility] 08/03 for health issues discussed during visit or with any questions or concerns. Health Concerns Date Concern 2025-03-30 Patient/Guardian agr eed to visit via telehealth. Today, patient has chief complaint of: annual visit.Visit completed via:[x] audio and video; [ ] audio onlyInformed verbal consent was obtained from this patient to communicate and provide care using virtual and other telecommunications tools. This patient has been explained the risks, if any, related to the encounter. I explained that care provided through video or audio communication cannot replace the need for physical examination or an in-person visit for some disorders or urgent problems. 2025-03-30 Concerns for today's visit:No acute concerns or needs.Reviewed allergies, medications, active medical conditions, past medical and surgical history, social history. 2025-03-30 Most recent hospital stay or ER visit:Member denies ER visits or hospitalizations in last year.Discussed our goal of helping the member have more days at home rather than in the ER or the hospital. 2025-03-30 Open HEDIS Measures: No open measures 2025-03-30 Advance Care Planrohit santos ConversationAdvance Care Plan and Serious Illness ConversationDate of Conversation: 03/30/2025Life Limiting Diagnosis: Diagnosis:Currently on Hospice NoDo you have a Durable Power of Patroller for Healthcare, or Healthcare Proxy Or Guardianship? yesIf so, Who? two childrendaugher-Amanda and son-Migue you have a written Advance Directive? Has Advance DirectivePrognostic Understanding: Appropriate understanding of prognosisInformation: Patient wants to be fully informedToday's prognostic communication: Did not discussCode Status: YES CPR: Attempt ResuscitationGoals of Care: Curative: Attempt to sustain life by all medically effective meansNutrition goals: No decision made about nutrition today; not discussed 2025-03-30 Functional Assessmen tCognition Status: Oriented to Person, Place and TimeADL: Bathing Needs Assistance , Dressing Needs Assistance , Eating Independent , Transferring Independent and Toileting IndependentIADL: Medication Independent , Meal Prep Needs Assistance , Shopping Needs Assistance , Driving or Public Transport Needs Assistance , Housework Needs Assistance , Finances IndependentHow many falls within the last 6 months? 0Near falls within the last 6 months? 0Do you feel unsteady on your feet? YesDo you worry about falling? NoDME used with ambulation: [facility] 2025-03-30 [facility] video visit. me dications reviewed. blood sugar is 106. PCP visit on 04.09.25. Has PROSTHETIC ASSISTANT that comes daily. has david hip pain chronically. Denies needs today.
== END 2025-06-29 20:36 | disposition home or self-care (01) ==
PROVIDERS: Registered Nurse Emergency; Emergency Provider Student in an Organized Health Care Education/Training Program; PCP Internal Medicine Geriatric Medicine
DX: K57.92 Diverticulitis of intestine, part unspecified, without perforation or abscess without bleeding (principal); R10.31 Right lower quadrant pain; R30.0 Dysuria; N18.31 Chronic kidney disease, stage 3a; Z79.899 Other long term (current) drug therapy
CPT/HCPCS: 36415; 74177; 80053; 81001; 81003; 85025; 96374; 99283; 99284; J2270; Q9967

== ENCOUNTER → 2025-06-29 17:32 | Outpatient (BNV) | payer OTHER, SELFPAY | PROVIDERS: Emergency Provider Student in an Organized Health Care Education/Training Program; PCP Internal Medicine Geriatric Medicine; Visit Provider Radiology Diagnostic Radiology | DX: K57.32 Diverticulitis of large intestine without perforation or abscess without bleeding (principal) | CPT/HCPCS: 74177 ==

== ENCOUNTER 2025-07-18 10:04 | Outpatient (AMB) | payer OTHER, SELFPAY ==
--- NOTE | 2025-07-18 10:09 | MHC.OFFVIS ---
Vital Signs 07/18/25 10:24 Height 5 ft 3 in Weight 129 lb BMI 22.8 BP 99/51 L Blood Pressure Location Lt brachial Position Sitting Pulse 73 Intake Visit Reasons: 6m- anemia, GERD, CIC Intake Note: patient 6m- anemia, GERD, CIC Patient cc: diverticulitis dx by CT scan, acid reflux, abdominal pain, and constipation. Yardage Control Clerk Required: No Accompanied by: Family/Other Allergies lidocaine Allergy (Severe, Verified 07/18/25 10:09) Hives HPI HPI 6m- anemia, GERD, CIC: Details: Assessment & Plan (1) Chronic idiopathic constipation: Code(s): K59.04 - Chronic idiopathic constipation Category: Medical (2) Duodenal arteriovenous malformation: Comment: Noted on 2019 EGD, not appear to be related any pathology that is concerning Code(s): K31.819 - Angiodysplasia of stomach and duodenum without bleeding Category: Medical (3) Microcytic hypochromic anemia: Code(s): D50.9 - Iron deficiency anemia, unspecified Category: Medical (4) GERD (gastroesophageal reflux disease): Code(s): K21.9 - Gastro-esophageal reflux disease without esophagitis Category: Medical Plan Bangladeshi # family member translates per patient request she continues on her pantoprazole, senna/Colace combination in his no longer taking MiraLax. She is only taking the senna prn, and now she has been having some more problems with CIC - I suggest that she take it on a scheduled basis instead of PRN. She has had no lapse in her iron therapy, and she is also now on Procrit for her possible ACD from renal dysfxn. I am unsure if we should do another EGD to check the AVM's, she is seeing Dr. Reece next week, so I will send a work load and try to make a coordinated decision given the pts age and comorbid status. She has to nap dally and has some episodes of dizziness, about twice a week. ROV [address] ABD AND PELVIS 06/29/25 Findings: CT abdomen: Lung bases reveal mild pulmonary mosaic attenuation common nonspecific although may be seen in small airways disease. Liver is free of focal lesions. Slight intrahepatic ductal dilatation is likely sequela of prior cholecystectomy. Common bile duct is within normal limits for patient's age at 8 mm transverse dimension. No filling defects identified within the biliary tree. Gallbladder is absent. Spleen appears unremarkable. Pancreas and adrenal glands appear unremarkable. Kidneys reveal tiny subcentimeter hypodensities, too small to characterize although likely small cysts. Kidneys otherwise unremarkable. Small amount of free fluid within the pelvis is likely reactive. No abdominal ascites. No retroperitoneal masses or adenopathy. Abdominal aorta is normal caliber with mild calcific athero sclerosis. Bowel loops reveal mildly inflamed appearing sigmoid colonic diverticuli (for example, 7; 47), with segmental colonic wall thickening and mild surrounding stranding and fluid. No evidence of perforation or abscess. No other abnormal bowel wall thickening or distention. CT pelvis: Uterus and adnexal structures appear unremarkable. Urinary bladder is free of gross filling defects. No pelvic masses or adenopathy. Osseous structures reveal no destructive osseous lesions. Impression: 1. Mild uncomplicated sigmoid colonic diverticulitis. [facility]'S VISIT [facility] Medical History CKD stage 3a, GFR 45-59 ml/min CVA (cerebral vascular accident) History of DVT (deep vein thrombosis) Intertrochanteric fracture Mass of right axilla Occult blood positive stool COVID-19 Colon cancer screening Duodenal arteriovenous malformation Epigastric pain Osteopenia Anemia GI bleed GERD (gastroesophageal reflux disease) Peripheral neuropathy Anxiety Depression COPD (chronic obstructive pulmonary disease) Asthma Elevated cholesterol Lab test negative for COVID-19 virus Surgical History History of tubal ligation History of axillary surgery Hx of oophorectomy Hx of colonoscopy Hx of esophagogastroduodenoscopy Hx of foot surgery Hx of cholecystectomy Hx of tonsillectomy Hx of appendectomy Family History Father Stroke Asthma Mother Heart attack Stroke Asthma Sister DVT (deep venous thrombosis) Asthma Brother COPD (chronic obstructive pulmonary disease) Son Cancer Social History Household Members: Children Household Members Other:: son Housing: Apartment Are you a primary lawn care technician to a significant other at home: No Do you presently have visiting nurse or other home services: Yes (home lead ramp agent) Alcohol intake: never Patient Tobacco Use Status: Current everyday Tobacco user Tobacco use type: Cigarette Cigarettes Per Day: 4 Years Smoked: 60 Second Hand Smoke Exposure: Yes Advance Directives Date on File: 01/16/21 service: No Current occupational status: retired Review of Systems Const Reports body aches ENT Reports Normal hearing present GI Reports abdominal pain, Reports constipation and Reports heartburn Musc Reports back pain, Reports myalgias, Reports arthralgias and Reports stiffness Neuro Reports Normal hearing present and Denies Abnormal speech present Physical Exam Vital Signs: Last Vital Signs Pulse 73 07/18/25 10:24 BP 99/51 L 07/18/25 10:24 BMI result Body Mass Index 22.8 Const General: cooperative, no acute distress, well developed and well groomed Nutritional Appearance: average body habitus, well nourished and obese Orientation/consciousness: oriented to person, oriented to place and oriented to time Limitations: language barrier and ambulation with cane HEENT Head: Yes normocephalic and Yes atraumatic Eyes General: appearance normal, both eyes and all related structures Pupils: Equal, round and reactive pupils present Neck Neck: Yes normal visual inspection and Yes no lymphadenopathy Thyroid: Thyroid normal Resp Effort & Inspection: normal respiratory effort and able to speak in complete sentences Auscultation: clear to auscultation bilaterally Cardio Rate: regular rate Rhythm: regular rhythm Heart sounds: Normal, physiologic split S2 sound present Peripheral pulses: radial pulses present and posterior tibial pulses present GI Inspection: No distended and No Abdominal panniculus present Palpation (GI): Soft to palpation, nontender, no guarding, not rigid, No hepatosplenomegaly present and Hepatosplenomegaly present Percussion: Yes normal to percussion Auscultation: normal bowel sounds Rectal Exam - Female: deferred Skin General skin exam: no rashes or lesions noted, turgor normal, skin not dry, no jaundice, No spider nevi and no striae Rashes: no rashes Nails: normal Neuro General: oriented to person, oriented to place and oriented to time Cranial nerves: Yes Equal, round and reactive pupils present and Yes Normal hearing present Speech: No Abnormal speech present Extrem General: Yes normal to inspection, No clubbing, No cyanosis and No edema Psych Appearance: grossly normal and well kempt Mental Status: mental status grossly normal Speech and movement: Normal speech and movement present Affect: normal affect Attitude: cooperative Thought process: Normal thought process present and not confabulating Thought content: Normal thought content present Insight: Fair insight present (Psych) Judgement: Fair judgement present (Psych) Assessment & Plan Assessment & Plan (1) GERD (gastroesophageal reflux disease): Code(s): K21.9 - Gastro-esophageal reflux disease without esophagitis Category: Medical (2) Chronic idiopathic constipation: Code(s): K59.04 - Chronic idiopathic constipation Category: Medical (3) Duodenal arteriovenous malformation: Comment: Noted on 2019 EGD, not appear to be related any pathology that is concerning Code(s): K31.819 - Angiodysplasia of stomach and duodenum without bleeding Category: Medical (4) Diverticulitis: Code(s): K57.92 - Diverticulitis of intestine, part unspecified, without perforation or abscess without bleeding Category: Medical Plan Bangladeshi # family member translates per patient request she continues on her pantoprazole, senna/Colace combination in his no longer taking MiraLax. She is only taking the senna prn, and now she has been having some more problems with CIC - I suggest that she take it on a scheduled basis instead of PRN. Subjective Patient presents for follow-up after evaluation by PCP and hospital imaging demonstrating diverticulitis on CT in June. She was treated with Augmentin and reports clinical improvement. She has chronic constipation and is taking senna nightly (one tablet), with stools reported to be somewhat softer. Counseling provided that multiple current medications contribute to constipation (calcium, vitamin D, iron, oxycodone). Heartburn symptoms are controlled on pantoprazole. History notable for anemia treated with Procrit and prior gastric AVMs that were cauterized; discussion held about potential need for repeat endoscopy, deferred until after the holidays given recent diverticulitis. Patient reports current low back pain and diffuse arthralgias consistent with weather-related arthritis flare. Relevant Past Medical, Social, and Family History - Chronic constipation - Anemia on Procrit; history of gastric AVMs treated with cautery - GERD on pantoprazole - Arthritis - Medications contributing to constipation: calcium, vitamin D, iron, oxycodone Objective - CT scan (June): Diverticulitis noted; diverticulosis also present. - Hemoglobin/hematocrit described as not that bad. - Patient appeared uncomfortable, consistent with reported low back pain. Assessment & Plan Diverticulitis: Recent episode confirmed by CT in June; treated with Augmentin with improvement. - Begin daily fiber supplementation to reduce recurrence risk and improve stool consistency: options reviewed include psyllium (Metamucil or generic), wheat dextrin (Benefiber or generic), or methylcellulose (Citrucel or generic); powder or capsule forms acceptable. - Continue senna one tablet nightly; adjust as needed for regular, soft bowel movements. - Educated on constipation mitigation given constipating medications (calcium, vitamin D, iron, oxycodone) and age-related slowed motility. - Return in 8 weeks for reassessment. - If recurrent abdominal pain occurs, call promptly; will treat empirically to avoid repeat CT/ER when appropriate and minimize radiation exposure. Chronic constipation (medication-associated): Ongoing but improved slightly with nightly senna. - Continue senna nightly. - Add fiber supplement twice daily as tolerated. - Reinforce hydration and consistent bowel regimen to counteract constipating medications. GERD: Stable. - Continue pantoprazole. Anemia with prior gastric AVMs: Managed with Procrit; prior AVMs cauterized. Considering surveillance endoscopy. - Defer decision on repeat endoscopy until after the holidays; revisit at follow-up after diverticulitis fully resolved. Medications: Refilled pantoprazole 40 mg PO QAM 30 tabs 6RF K21.9 - Gastro-esophageal reflux disease without esophagitis Discontinued sennosides (senna) Discontinued Reason: Doctor's Order 8.6 mg PO DAILY 14 caps 0RF amoxicillin-pot clavulanate 875-125 mg Discontinued Reason: Doctor's Order 1 tab PO BID 14 tabs 0RF Coding Level of Care Code Est Pt Level 3 (34820) Diagnoses GERD (gastroesophageal reflux disease) K21.9 Chronic idiopathic constipation K59.04 Duodenal arteriovenous malformation K31.819 Diverticulitis K57.92
[2025-07-18 10:24] VITALS: BP 99/51; PULSE 73; BMI 22.8
--- OUTSIDE RECORDS SUMMARY | 2025-07-18 11:25 | XMS_ITS | Clinical Summary ---
Author Organization [facility] ity Address [address] [place] [address] Care Team Providers Care Foley Artist Name Role Phone Unavailable Primary Care Provider [...] Vaccines (1 of 2) 1990 RSV Immunization Adult Patie nts (1 - 1-dose 75+ series) 2015 Depression Screening 08/16/2024 COVID-19 Vaccine (1 - 2024-2 6 season) 2025 Influenza Vaccine (#1) 2025 HIB Vaccines Aged Out No longer eligi [...]
--- OUTSIDE RECORDS SUMMARY | 2025-07-18 11:25 | XMS_ITS | Encounter Summary ---
Author Organization [employer] Address [address] [facility] 7[address] [place] [address] Care Team Providers Care Pond Worker Name Role Phone Name, Thaddeus DIETRICH Primary Care Provider [phone] Reason for Visit * Reason Comments Med Refill Encounter Details Date Type Department Care Team (Late st Contact Info) Description 05/26/2024 Refill [facility] [address] [place] [address] Gilda Ashby NP [address] [place] [address] Social History Tobacco Use Types Packs/Day Years Used Date Smoking Tobacco: Every Day Cigarettes Smokeless Tobacco: Never Alcohol Use Standard Drinks/Week Comments Never 0 (1 standard drink = 0.6 oz pur e alcohol) Depression Answer Date Recorded Patient Health Questionnaire-9 Score 8 11/03/2023 Patient Health Questionnaire-9 Score 8 11/03/2023 Last PHQ-9: Questionnaire Data Not on file 0 11/03/2023 Housing Stability Answer Date Recorded What is your housing situation today? I have gali webb 11/03/[address] you li ve. Do you have problems with any of the following? None of the above 11/03/2023 Food Insecurity Answer Date Recorded Within the past 12 months, y ou worried that your food would run out before you got money to buy more: Never True 11/03/2023 Within the past 12 months,th e food you bought just didn't last and you didn't have enough money to get more: Never True Transportation Answer Date Recorded In the past 12 months, has l ack of transportation kept you from medical appts, meetings, work or from getting things needed for daily living? No 11/03/2023 Utilities Answer Date Recorded In the past 12 months, has t he electric, gas, oil or water company threatened to shut off services in your home? No 11/03/2023 Depression Answer Date Recorded Patient Health Questionnaire-2 Score 2 11/03/2023 Internet Access Answer Date Recorded Internet Access Q1 Yes 05/18/2024 Internet Access Q2 Not on file 05/18/2024 Comments Unknown Sex and Gender Information Value Date Recorded Sex Assigned at Female 06/15/2022 10:15 AM EDT Legal Sex Female 10:15 AM EDT Gender Identity Female 06/15/2022 10:15 AM EDT Sexual Orientation Straight 06/15/2022 10 :15 AM EDT documented as of this encounter Plan of Treatment Not on file documented as of this encounter Visit Diagnoses Not on filedocumented in this encounter Additional Health Concerns Assessment Noted Time PHQ-9 Depression Total Score: 8 11/03/19 24 10:36 AM EDT documented as of this encounter Care Teams Pond Worker Relationship Specialty Start Date End Date Name, MD Thaddeus [address] [place] [address] PCP - General Family Medicine 11/20/15 documented as of this encounter
--- OUTSIDE RECORDS SUMMARY | 2025-07-18 11:25 | XMS_ITS | Encounter Summary ---
Author Organization [employer] Address [address] [facility] [address] [place] [address] Care Team Providers Care Occupational Health Coordinator Name Role Phone Name, Thaddeus DIETRICH Primary Care Provider [phone] Reason for Visit * Reason Onset Date Comments Nurse Triage 09/20/2024 Encounter Details Date Type Department Care Team ([facility] st Contact Info) Description 09/20/2024 Telephone [facility] [address] [place], [place] [phone] Name, MD Thaddeus [address] [place] [address] Nurse Triage Social History Tobacco Use Types Packs/Day Years [...] AM EDT documented as of this encounter Miscellaneous Notes * Telephone Encounter - Nori Delatorre RN - 09/20/2024 11:38 AM EST Triage call with Pt daughter, RON Cheng. Pt has two other brothers living in the home who are now hospitalized with influenza A. Daughter is calling in regards to exposure. Pt neg for fever, bodyaches, cough, vomiting, diarrhea. Pt does have occasional runny nose but, denies any other sx. Daughter was advised to have Pt checked for flu A. Daughter is advised to monitor for symptoms and encourage fluids at this time. Warm drinks, juice, water. Pt is offered to come to [facility] if needed open [id number] this evening and 830am -400p , Wednesday. Daughter agrees with this disposition and home careadvised. Unable to verifiy insurance due to computer error. Protocol Used: Influenza (Flu) Exposure (Adult) Protocol-Based Disposition: Home Care Positive Triage Question: * Influenza EXPOSURE (Close Contact) within last 7 days and NO respiratory symptoms * All higher-acuity triage questions were negative Care Advice Discussed: * Reassurance and Education - Exposed to Influenza Within Past 7 Days * Influenza - [place] * Influenza - Symptoms * Influenza - How It is Spread * Reasons To Call Back - You have more questions * Influenza - How to Protect Your Family and Yourself From Getting Sick * Influenza - How to Protect Others - When You Are Sick With the Flu * Telephone Encounter - Deanna Montano - 09/20/2024 11:04 AM EST Tc from pt returning call. Yoruba speaker * Telephone Encounter - Deanna Montano - 09/20/2024 9:42 AM EST Symptom: Runny Nose Outcome: Schedule an appointment to be seen within 24 hours Reason: Caller denied all higher acuity questions The caller accepted this outcome. [phone] (Prosper) uzbek documented in this encounter Plan of Treatment Not on file documented as of this encounter Visit Diagnoses Not on filedocumented in this encounter Additional Health Concerns Assessment Noted Time PHQ-9 Depression Total Score: 8 11/03/19 24 10:36 AM EDT documented as of this encounter Care Teams Occupational Health Coordinator Relationship Specialty Start Date End Date Name, MD Thaddeus [address] [place] [address] PCP - General Family Medicine 11/20/15 documented as of this encounter
--- OUTSIDE RECORDS SUMMARY | 2025-07-18 11:25 | XMS_ITS | Encounter Summary ---
Author Organization [employer] Address [address] [facility] [address] [place] [address] Care Team Providers Care Egg Factory Worker Name Role Phone Name, Thaddeus DIETRICH Primary Care Provider [phone] Reason for Visit * Reason Comments Med Refill Encounter Details Date Type Department Care Team (Late st Contact Info) Description 01/08/2025 Refill [facility] [address] [place] [address] Name, MD Thaddeus [address] [place] [address] New onset type 2 diabetes mellitus (CMS/HCC) Social History Tobacco Use Types Packs/Day Years [...] documented as of this encounter Visit Diagnoses Diagnosis New onset type 2 diabetes mellitus (HCC) documented in this encounter Additional Health Concerns Assessment Noted Time PHQ-9 Depression Total Score: 5 11/16/19 25 11:53 AM EDT documented as of this encounter Care Teams Egg Factory Worker Relationship Specialty Start Date End Date Name, MD Thaddeus [address] [place] [address] PCP - General Family Medicine 11/20/15 documented as of this encounter
--- OUTSIDE RECORDS SUMMARY | 2025-07-18 11:25 | XMS_ITS | Encounter Summary ---
Author Organization [employer] Address [address] [facility] [address] [place] [address] Care Team Providers Care Mint Wafer Depositor Name Role Phone Name, Thaddeus DIETRICH Primary Care Provider [phone] Reason for Visit * Reason Comments Med Refill Encounter Details Date Type Department Care Team (Late st Contact Info) Description 07/13/2025 Refill [facility] [address] [place], [place] [phone] Name, MD Thaddeus [address] [place] [address] Epigastric pain Social History Tobacco Use Types Packs/Day Years [...] on file documented as of this encounter Goals Goal Patient Goal Type Associated Problems Recent Progress Patient-Stated? Author Help patients manage their type 2 diabetes Care Plan Help patients manage their type 2 diabetes BelkThaddeus Romano MD Patient has chronic kidney disease Care Plan Patient has chronic kidney disease BelkThaddeus Romano MD documented as of this encounter Visit Diagnoses Diagnosis Epigastric pain Abdominal pain, epigastric documented in this encounter Additional Health Concerns Active Problems Noted Date Diagnosed Date Help patients manage their type 2 diabetes 06/29 Patient has chronic kidney disease 06/29/2025 Assessment Noted Time PHQ-9 Depression Total Score: 5 11/16/19 25 11:53 AM EDT documented as of this encounter Care Teams Mint Wafer Depositor Relationship Specialty Start Date End Date Thaddeus Romano MD [address] [place] [id number] PCP - General Family Medicine 11/20/15 documented as of this encounter
--- OUTSIDE RECORDS SUMMARY | 2025-07-18 11:25 | XMS_ITS | Encounter Summary ---
Author Organization [employer] Address [address] [facility] [address] [place] [address] Care Team Providers Care Continuity Tester Name Role Phone Name, Thaddeus DIETRICH Primary Care Provider [phone] Reason for Visit * Reason Onset Date Comments [facility] 05/19/2024 Encounter Details Date Type Department Care Team ([facility] st Contact Info) Description 05/19/2024 Telephone [facility] [address] [place] [address] Name, MD Thaddeus [address] [place] [address] [facility] Social History Tobacco Use Types Packs/Day Years [...] encounter Miscellaneous Notes * Telephone Encounter - Amee Amanda - 05/19/2024 8:45 AM EDT Tc from [facility] PT with Attila reporting that she has started pt on PT for twice a week. documented in this encounter Plan of Treatment Not on file documented as of this encounter Visit Diagnoses Not on filedocumented in this encounter Additional Health Concerns Assessment Noted Time PHQ-9 Depression Total Score: 8 11/03/19 24 10:36 AM EDT documented as of this encounter Care Teams Continuity Tester Relationship Specialty Start Date End Date Name, MD Thaddeus [address] [place] [address] PCP - General Family Medicine 11/20/15 documented as of this encounter
--- OUTSIDE RECORDS SUMMARY | 2025-07-18 11:25 | XMS_ITS | Clinical Summary ---
Author Organization [employer] Address [address] [facility] [address] [place] [address] Care Team Providers Care Rate Examiner Name Role Phone Name, Thaddeus DIETRICH Primary Care Provider [phone] Allergies Active Allergy Reactions Criticality Noted Date Comments Lidocaine Hives High 05/11/2024 LIDO PATCH Medications acetaminophen (Tylenol) 325 MG tablet Take 2 tablets by mouth in the morning and 2 tablets at noon and 2 tablets in the evening and 2 tablets before bedtime. 021 Active ascorbic acid (Vitamin C) 500 MG ER capsule nick 1 capsule daily 021 Active Diclofenac Sodium 1 % gel APPLY 2 GRAMS TO BOTH HANDS TWICE A DAY 100 g 2 023 Active citalopram (CeleXA) 10 MG tablet TAKE 1 TABLET BY MOUTH EVERY DAY 90 tablet 1 024 Active fluticasone (Flonase) 50 MCG/ACT nasal spray Administer 1-2 sprays into each nostril Once per day. Shake gently. Before first use, prime pump. After use, clean tip and replace cap. 16 g 2 024 Active cyclobenzaprine (Flexeril) 10 MG tabletIndicatio ns:Chronic low back pain, unspecified back pain laterality, unspecified whether sciatica present,Pain of left hip Take 1 tablet (10 mg) by mouth if needed in the morning, at noon, and at bedtime for muscle spasms. 90 tablet 024 Active albuterol (2.5 MG/3ML) 0.083% nebulizer solution Take 3 mL (2.5 mg) by nebulization every 6 (six) hours if needed for wheezing. 75 mL 11 Active Fluticasone-Ume clidin-Vilant (Trelegy Ellipta) 200-62.5-25 MCG/ACT aerosol powderIndicatio ns:COPD exacerbation (CMS/HCC) (HCC) Inhale 1 puff Once per day. INHALE 1 PUFF BY INHALATION ROUTE EVERY DAY AT THE SAME TIME EACH DAY 60 each Active D3 50 MCG (2000 UT) tablet Take 1 tablet by mouth Once per day. Active atorvastatin (Lipitor) 40 MG tablet Take 1 tablet by mouth Once per day. Active pantoprazole (Protonix) 40 MG EC tabletIndicatio ns:Colitis Take 1 tab orally bid 60 tablet 11 Active albuterol 108 (90 Base) MCG/ACT inhalerIndicati ons:COPD exacerbation (CMS/HCC) (HCC) INHALE 2 PUFFS BY MOUTH EVERY 4-6 HOURS NEEDED 6.7 g 4 Active FREESTYLE LITE test strip Use to test blood sugar 1 times daily 100 each 12 025 2025 Active Alcohol Swabs 70 % pads Use to test blood sugar 1 times daily 100 each Active OneTouch Delica Lancets 33G miscIndications :New onset type 2 diabetes mellitus (HCC) USE TO TEST BLOOD SUGAR ONCE A DAY 100 each 3 025 Active Oyster Shell Calcium 500 MG tablet TAKE 1 TABLET BY MOUTH TWICE DAILY 180 tablet 3 Active alendronate (Fosamax) 70 MG tablet TOME BLAKE TABLETA POR VIA ORAL EVERY WEEK IN THE MORNING WITH A FULL GLASS OF WATER, EMPTY STOMACH 12 tablet 3 Active gabapentin (Neurontin) 300 MG capsuleIndicati ons:Chronic low back pain, unspecified back pain laterality, unspecified whether sciatica present,Pain of left hip TAKE 1 CAPSULE BY MOUTH AT BEDTIME 30 capsule 3 025 Active glucose blood (Accu-Chek Guide Test) test stripIndication s:New onset type 2 diabetes mellitus (HCC) USE TO TEST BLOOD SUGAR ONCE A DAY 100 each 4 025 2025 Active metFORMIN (Glucophage) 500 MG tablet TAKE 1 TABLET BY MOUTH WITH BREAKFAST AND EVENING MEAL 180 tablet 1 Active clopidogrel (Plavix) 75 MG tablet TAKE 1 TABLET BY MOUTH EVERY DAY 90 tablet 1 Active Accu-Chek FastClix Lancets miscIndications :New onset type 2 diabetes mellitus (HCC) USE TO TEST BLOOD SUGAR ONCE A DAY 100 each 4 Active Blood Glucose Monitoring Suppl (Accu-Chek Guide Me) w/Device kitIndications: New onset type 2 diabetes mellitus (HCC) USE TO TEST BLOOD SUGAR ONCE A DAY 1 kit Active ferrous sulfate 325 (65 Fe) MG tabletIndicatio ns:Epigastric pain TAKE 1 TABLET BY MOUTH TWICE A DAY 180 tablet Active Blood Glucose Monitoring Suppl (ONE TOUCH ULTRA 2) w/Device kitIndications: New onset type 2 diabetes mellitus (HCC) USE TO TEST BLOOD SUGAR ONCE A DAY 1 kit 2024 Discontinued(T herapy completed) ferrous sulfate 325 (65 Fe) MG tabletIndicatio ns:Epigastric pain TOME 1 TABLETA POR VIA ORAL DOS VECES AL JOSE A 180 tablet 2024 Discontinued predniSONE (Deltasone) 20 MG tabletIndicatio ns:COPD exacerbation ([facility]) ([facility]) Take 1 tablet (20 mg) by mouth Once per day for 5 days. 5 tablet 025 2024 oxyCODONE-aceta minophen (Percocet) 5-325 MG tabletIndicatio ns:Exacerbation of chronic back pain,Osteoarthr itis of spine with radiculopathy, lumbar region Take 1 tablet by mouth if needed in the morning and at bedtime for severe pain for up to 5 days. 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 at [facility]) PND (post-nasal drip) 03/14/2024 Assessment & Plan (03/14/2024 7:18 PM EDT): Trial topical nasal spray, rtc for failure to improve or worsening symptoms History of open reduction an d internal fixation (ORIF) procedure 12/27/2023 Intertrochanteric fracture (CMS/HCC) 12/27/2023 Anxiety 11/03/2023 GERD (gastroesophageal reflux disease) [...] Encounters Date Type Department Care Team Description 07/13/2025 Refill [facility] [address] [place] [address] [phone] Thaddeus Romano MD Epigastric pain 07/06/2025 10:00 AM EST Office Visit [facility] [address] [place] [address] [phone] Thaddeus Romano MD Exacerbation of chronic back pain (Primary Dx); Osteoarthritis of spine with radiculopathy, lumbar region; COPD exacerbation (CMS/HCC) (HCC); Diverticulitis 07/06/2025 Travel 07/02/2025 Telephone [facility] [address] [place] [address] [phone] Thaddeus Romano MD 06/29/2025 1:00 PM EST Office Visit [facility] [address] [place] [address] [phone] Thaddeus Romano MD RLQ abdominal pain (Primary Dx); Myalgia; Acute on chronic back pain; New onset type 2 diabetes mellitus (HCC) 06/29/2025 Orders Only GENERIC EXTERNAL DATA DEPARTMENT Provider, Generic External Data 06/29/2025 Travel 06/28/2025 Telephone [facility] [address] [place] [address] [phone] Thaddeus Romano MD chartprep 06/03/2025 Refill [facility] [address] [place] [address] [phone] Thaddeus Romano MD 06/02/2025 Refill [facility] [address] [place] [address] [phone] Thaddeus Romano MD New onset type 2 diabetes mellitus (HCC) 05/15/2025 Refill [facility] [address] [place] [address] [phone] Thaddeus Romano MD Chronic low back pain, unspecified back pain laterality, unspecified whether sciatica present; Pain of left hip from Last 3 Months Immunizations Immunization Administration [...] Sign Reading Time Taken Comments Blood Pressure 125/66 07/06/2025 10:28 AM EST Pulse 74 07/06/2025 10:28 AM EST Temperature 36.7 C (98.1 F) 07/06/2025 10:28 AM EST Respiratory Rate 18 07/06/2025 10:28 AM EST Oxygen Saturation 96% 07/06/2025 10:28 AM EST Inhaled Oxygen Concentration - - Weight 58.8 kg (129 lb 9.6 oz) 07/06/2025 10:28 AM EST Height 161.3 cm (5' 3.5 ) 07/06/2025 10:28 AM ES T Body Mass Index 22.6 07/06/2025 10:28 AM EST Plan of Treatment Health Maintenance Due Date Last Done Comments Diabetes: Foot Exam 1950 Eye Exam 1950 Diabetes: Urine Protein Screening 1959 RSV Patients and Patients Aged 60 years or older (1 - 1-dose 75+ series) 2015 Zoster Vaccines (2 of 3) 10/24/2015 08/29/2015 Lipid Panel 11/05/2022 11/05/2021 COVID-19 Vaccine ( season) 2025 07/28/2022, 08/14/2021, 02/09/2021 Influenza Vaccine (#1) 2025 , 05/12/2022, 06/11/2021, Additional history exists Alcohol/Substance Use Screening 11/15/2025 11/15/2024 Depression Screening 11/15/2025 11/15/2024, 11/16/19 25 SDOH Screening 11/15/2025 11/15/2024 Diabetes: Hemoglobin A1C 12/27/2025 025, 12/08/2024, 11/05/2021, Additional history exists Tobacco Screening 07/06/2026 07/06/2025 DTaP/Tdap/Td Vaccines (2 - Td or Tdap) 07/14/2026 07/14/2016, 11/19/2000 Pneumococcal Vaccine: 50+ Years Completed 06/13/2018, 02/22/2017, 08/29/2015, Additional history exists HIB Vaccines Aged Out [...] on patient's age to complete this topic Goals Goal Patient Goal Type Associated Problems Recent Progress Patient-Stated? Author Help patients manage their type 2 diabetes Care Plan Help patients manage their type 2 diabetes ChancellorThaddeus Romano MD Patient has chronic kidney disease Care Plan Patient has chronic kidney disease ChancellorThaddeus Romano MD Procedures Procedure Name Priority Date/Time Associated Diagnosis Comments POCT COVID-19 AG RYAN ID NOW Routine 07/06/2025 10:59 AM EST Exacerbation of chronic back pain POCT INFLUENZA B (ID NOW RAPID MOLECULAR) Routine 07/06/2025 10:59 AM EST Exacerbation of chronic back pain POCT INFLUENZA A (ID NOW RAPID MOLECULAR) Routine 07/06/2025 10:59 AM EST Exacerbation of chronic back pain CT ABDOMEN PELVIS W CONTRAST Routine 06/29/2025 6:55 PM EST URINALYSIS, COMPLETE, WITH REFLEX TO CULTURE Routine 06/29/2025 4:53 PM EST COMPREHENSIVE METABOLIC PANEL Routine 06/29/2025 3:21 PM EST CBC WITH AUTO DIFFERENTIAL Routine 06/29/2025 3:21 PM EST POCT URINALYSIS DIPSTICK Routine 06/29/2025 1:30 PM EST Acute on chronic back pain POCT GLYCATED HEMOGLOBIN, TOTAL Routine 06/29/2025 1:14 PM EST New onset type 2 diabetes mellitus (HCC) POCT GLUCOSE Routine 06/29/2025 1:14 PM EST New onset type 2 diabetes mellitus (HCC) LIPID PANEL, STANDARD Routine 11/05/2021 9:15 AM EDT from Last 3 Months or Most Recently Relevant to Health Maintenance Results * Influenza B (ID NOW Rapid Molecular) (07/06/2025 10:59 AM EST) Influenza B Negative Negative, Indeterminate [facility] Swab 07/06/2025 10:5 9 AM EST us Thaddeus Romano MD POINT OF CARE TEST ENTER/EDIT OR DERABLES Final Result Performing Organization Address City/[facility]/ZIP Co de Phone Number [facility] [address] [place] [address] [phone] * Influenza A (ID NOW Rapid Molecular) (07/06/2025 10:59 AM EST) Influenza A Negative Negative, Indeterminate [facility] Swab 07/06/2025 10:5 9 AM EST us Thaddeus Romano MD POINT OF CARE TEST ENTER/EDIT OR DERABLES Final Result Performing Organization Address [facility]/ZIP Co de Phone Number [facility] [address] [place] [address] [phone] * POCT COVID-19 Ag Ryan ID NOW (07/06/2025 10:59 AM EST) Coronavirus Antigen PCR Negative Negative, Indeterminate, None Detected, Trace, 3+, Specimen unsatisfactory for evaluation, Weakly Positive, 1+, 2+ Swab 07/06/2025 10:5 9 AM EST us Thaddeus Romano MD POINT OF CARE TEST ENTER/EDIT OR DERABLES Final Result * CT Abdomen Pelvis w/ Contrast (06/29/2025 6:55 PM EST) Anatomical Region Laterality Modality Body, Pelvis, Abdomen Computed T omography 06/29/2025 6:55 PM EST Narrative 06/29/2025 6:57 PM EST [place] [address] CT Scan Report Signed Patient: Rukhsana Joseph MR#: [id number] : 1940 Acct:[id number] Age/Sex: 84 / F ADM Date: 06/29/25 Loc: .ED Attending Dr: Ordering Physician: Gem Conrad DO Date of Service: 06/29/25 Procedure(s): CT abdomen pelvis w IV con Accession Number(s): [id number] cc: Gem Conrad DO; NameThaddeus MD Report Number: [id number]: Total DLP = 432.00 mGy-cm Reason for Exam: pain CLINICAL HISTORY: pain Exam: Contrast-enhanced CT abdomen and pelvis with multiplanar reformats. Comparison: 05/12/2024. Findings: CT abdomen: Lung bases reveal mild pulmonary mosaic attenuation common nonspecific although may be seen in small airways disease. Liver is free of focal lesions. Slight intrahepatic ductal dilatation is likely sequela of prior cholecystectomy. Common bile duct is within normal limits for patient's age at 8 mm transverse dimension. No filling defects identified within the biliary tree. Gallbladder is absent. Spleen appears unremarkable. Pancreas and adrenal glands appear unremarkable. Kidneys reveal tiny subcentimeter hypodensities, too small to characterize although likely small cysts. Kidneys otherwise unremarkable. Small amount of free fluid within the pelvis is likely reactive. No abdominal ascites. No retroperitoneal masses or adenopathy. Abdominal aorta is normal caliber with mild calcific athero sclerosis. Bowel loops reveal mildly inflamed appearing sigmoid colonic diverticuli (for example, 7; 47), with segmental colonic wall thickening and mild surrounding stranding and fluid. No evidence of perforation or abscess. No other abnormal bowel wall thickening or distention. CT pelvis: Uterus and adnexal structures appear unremarkable. Urinary bladder is free of gross filling defects. No pelvic masses or adenopathy. Osseous structures reveal no destructive osseous lesions. Impression: 1. Mild uncomplicated sigmoid colonic diverticulitis. This document has been electronically signed by: Sam Eden MD on 06/29/2025 18:55:34 Dictated By: Sam Eden MD Signed By: <Electronically signed by Sam Eden MD in OV> 06/29/251855 DD/ 54 TD/TT: 06/29/251854 Wearing Apparel Assembler: Procedure Note Donotuseinterpreter, Image - 06/29/[address] [place] [address] [address] Scan Report Signed Patient: Rukhsana Joseph MMR#: [id number] : 1940cct:[id number] Age/Sex: 84 / FADM Date: 06/29/25 Loc: .ED Attending Dr: Ordering Physician: Gem Conrad DO Date of Service: 06/29/25 Procedure(s): CT abdomen pelvis w IV con Accession Number(s): [id number] cc: Gem Conrad DO; Name,Thaddeus DIETRICH Report Number: [id number]: Total DLP = 432.00 mGy-cm Reason for Exam: pain CLINICAL HISTORY: pain Exam: Contrast-enhanced CT abdomen and pelvis with multiplanar reformats. Comparison: 05/12/2024. Findings: CT abdomen: Lung bases reveal mild pulmonary mosaic attenuation common nonspecific although may be seen in small airways disease. Liver is free of focal lesions. Slight intrahepatic ductal dilatation is likely sequela of prior cholecystectomy. Common bile duct is within normal limits for patient's age at 8 mm transverse dimension. No filling defects identified within the biliary tree. Gallbladder is absent. Spleen appears unremarkable. Pancreas and adrenal glands appear unremarkable. Kidneys reveal tiny subcentimeter hypodensities, too small to characterize although likely small cysts. Kidneys otherwise unremarkable. Small amount of free fluid within the pelvis is likely reactive. No abdominal ascites. No retroperitoneal masses or adenopathy. Abdominal aorta is normal caliber with mild calcific athero sclerosis. Bowel loops reveal mildly inflamed appearing sigmoid colonic diverticuli (for example, 7; 47), with segmental colonic wall thickening and mild surrounding stranding and fluid. No evidence of perforation or abscess. No other abnormal bowel wall thickening or distention. CT pelvis: Uterus and adnexal structures appear unremarkable. Urinary bladder is free of gross filling defects. No pelvic masses or adenopathy. Osseous structures reveal no destructive osseous lesions. Impression: 1. Mild uncomplicated sigmoid colonic diverticulitis. This document has been electronically signed by: Sam Eden MD on 06/29/2025 18:55:34 Dictated By: Sam Eden MD Signed By: <Electronically signed by Sam Eden MD in OV> 06/29/251855 DD/ 54 TD/TT: 06/29/251854 Wearing Apparel Assembler: [facility] External Provider IMG CT PROCEDURES Final Result * (ABNORMAL) Urinalysis, Complete, with Reflex to Culture (06/29/2025 4:53 PM EST) Color Urine Yellow [facility] Appearance Urine Clear [facility] PH 6.0 5.0 - 9.0 [facility] Glucose Urine UA Negative Negative mg/dL [facility] Urine Blood Trace(A) Negative [facility] Specific [place] - Urine 1.015 1.005 - 1.025 [facility] Urine Protein Negative Neg-Trace mg/dL [facility] Urine Ketones Negative Negative mg/dL [facility] Nitrite Urine Negative Negative [facility] Leukocyte Esterase Urine Negative Negative [facility] RBC Urine 3-5(A) 0 - 2 /HPF [facility] Urine WBC 0-5 0 - 5 /HPF [facility] Urine Squamous Epithelial Cell 0-2 0 - 2 /HPF [facility] Urine Bacteria None Seen None Seen [facility] Hyaline Casts, Urine 0-2 0 - 2 /LPF [facility] 06/29/2025 4:53 PM EST 06/29/2025 4:56 PM EST Narrative [facility] - 06/29/2025 5:45 PM EST Urine, Clean Catch us Generic External Data Provider LAB URINE ORDERAB LES Final Result [facility] [address] [place] [phone] * (ABNORMAL) CBC auto differential (06/29/2025 3:21 PM EST) White Blood Count 6.6 4.8 - 10.8 X10*3/uL [facility] Red Blood Count 3.73(L) 4.20 - 5.50 X10*6/uL [facility] Hemoglobin 11.2(L) 12.0 - 16.0 g/dl [facility] Hematocrit 35.5(L) 37.0 - 47.0 % [facility] Mean Corpuscular Volume 95.2 80.0 - 98.0 fL [facility] Mean Corpuscular Hemoglobin 30.0 27.0 - 33.0 pg [facility] Mean Corpuscular HGB Conc 31.5 31.0 - 35.0 g/dl [facility] Red Cell Distribution Width 13.6 11.0 - 16.0 % [facility] Platelet Count 289 160 - 400 X10*3/uL [facility] Mean Platelet Volume 10.3 9.4 - 12.3 fL [facility] Neutrophils Percent Auto 71.6 45 - 73 % [facility] Imm Gran Pct Auto 0.6(H) 0.0 - 0.4 % [facility] Lymphocytes Percent Auto 15.4(L) 20 - 40 % [facility] Monocytes Percent Auto 8.1 2 - 11 % [facility] Eosinophils Percent Auto 3.5 0 - 4 % [facility] Basophils Percent Auto 0.8 0 - 2 % [facility] NRBC Pct Auto 0.0 0.0 - 0.2 /100WBC [facility] Neutrophils Absolute Auto 4.8 2.0 - 8.3 x10*3/uL [facility] Imm Gran Abs Auto 0.04(H) 0.00 - 0.03 X10*3/uL [facility] Lymphocytes Absolute Auto 1.0(L) 1.2 - 4.9 X10*3/uL [facility] Monocytes Absolute Auto 0.5 0.1 - 1.2 X10*3/uL [facility] Eosinophils Absolute Auto 0.2 0.0 - 0.4 X10*3/uL [facility] Basophils Absolute Auto 0.1 0.0 - 0.2 X10*3/uL [facility] NRBC Abs Auto 0.000 0.0 - 0.012 X10*3/uL [facility] 06/29/2025 3:21 PM EST 06/29/2025 3:23 PM EST us Generic External Data Provider LAB BLOOD ORDERAB LES Final Result [facility] [address] [place] [address] [phone] * (ABNORMAL) Comprehensive Metabolic Panel (06/29/2025 3:21 PM EST) Sodium 144 135 - 145 mmol/L [facility] Potassium 5.0 3.3 - 5.1 mmol/L [facility] Chloride 110(H) 96 - 108 mmol/L [facility] Carbon Dioxide 27 22 - 29 mmol/L [facility] Anion Gap 12 12 - 20 [facility] Urea Nitrogen (BUN) 17(H) 9 - 16 mg/dL [facility] Creatinine, Serum 0.89 0.5 - 1.4 mg/dL [facility] Creatinine Clr Calc Pharmacy 38.8 [facility] Comment:Provided height and weight: 161.29 cm,58.513 kg.eGFR (calculated from the MDRD study equation) and eCrCl(calculated from the Cockcroft-Gault equation) are based ondifferent parameters and may not yield comparable results.If eCrCl result is absurd, please check patient'sheight/weight. Estimated Glomerular Filt Rate >60 [facility] Comment:Chronic Kidney Disea se: Estimated GFR < 60 mL/min/1.97m8Zylnlw Kidney Disease: Estimated GFR < 15 mL/min/1.73m2 Glucose 131(H) 60 - 115 mg/dL [facility] Calcium 9.8 8.4 - 10.2 mg/dL [facility] Bilirubin, Total 0.1 0.0 - 1.0 mg/dL [facility] Aspartate Amino Transferase 25 5 - 31 U/L [facility] Alanine Aminotransferase 21 0 - 31 U/L [facility] Total Protein 6.9 6.5 - 8.0 g/dL [facility] Albumin Level 4.2 3.5 - 5.0 g/dL [facility] Alkaline Phosphatase 55 39 - 117 U/L [facility] 06/29/2025 3:21 PM EST 06/29/2025 3:23 PM EST us Generic External Data Provider LAB BLOOD ORDERAB LES Final Result [facility] [address] [place] [phone] * (ABNORMAL) POCT Urinalysis (06/29/2025 1:30 PM EST) Color, UA Dark Leah Clarity, UA Clear Glucose, UA Negative Bilirubin, UA Negative Ketones, UA Negative Spec Grav, UA 1.020 Blood, UA Positive(A) Negative, None Detected Comment:trace-intact pH, UA 6.5 Protein, UA Negative Urobilinogen, UA 0.2 Leukocytes, UA Negative Negative, Rare, Trace Nitrite, UA Negative Negative, None Detected Appearance, UA dark yellow [employer] Lot # [id number] Lot# Expiration Date Urine (Urine, Random) 06/29/2025 1:30 PM EST us Thaddeus Romano MD POINT OF CARE TEST ENTER/EDIT OR DERABLES Final Result * (ABNORMAL) POCT Hgb A1c (06/29/2025 1:14 PM EST) Hemoglobin A1C 5.1 4.0 - 5.7 % [employer] Lot # [id number] Lot# Expiration Date 51 Blood 06/29/2025 1:14 PM EST us Thaddeus Romano MD POINT OF CARE TEST ENTER/EDIT OR DERABLES Final Result * POCT Glucose (06/29/2025 1:14 PM EST) Glucose Blood, POC 120 60 - 200 mg/dL [employer] Lot # [id number] Lot# Expiration Date 72 Blood Capillary blood specimen / Unknown 06/29/2025 1:14 PM EST us Thaddeus Romano MD POINT OF CARE TEST ENTER/EDIT OR DERABLES Final Result * (ABNORMAL) LIPID PANEL, STANDARD (11/05/2021 9:15 AM EDT) Chol/HDLC Ratio 4.0 <5.0 (calc) [facility] Cholesterol, Total 190 <200 mg/dL [facility] HDL Cholesterol 47(L) > OR = 50 mg/dL [facility] LDL Cholesterol 118(H) mg/dL (calc) [facility] Comment: Reference range: <100 Desirable range <100 mg/dL for primary prevention; <70 mg/dL for patients with CHD or diabetic patients with > or = 2 CHD risk factors. LDL-C is now calculated using the Carol calculation, which is a validated novel method providing better accuracy than the Friedewald equation in the estimation of LDL-C. Blaise NEUMANN et al. MARVA. 2013;310(19): 9664-3169 (http://education.[employer].[facility]/faq/TAL954) Non-HDL Cholesterol 143(H) <130 mg/dL (calc) [facility] Comment: For patients with diabetes plus 1 major ASCVD risk factor, treating to a non-HDL-C goal of <100 mg/dL (LDL-C of <70 mg/dL) is considered a therapeutic option. Triglycerides 137 <150 mg/dL [facility] 11/05/2021 9:15 AM EDT us Thaddeus Romano MD LAB BLOOD ORDERABLES Final Resul t [facility] [address] from Last 3 Months or Most Recently Relevant to Health Maintenance Additional Health Concerns Active Problems Noted Date Diagnosed Date Help patients manage their type 2 diabetes 06/29 Patient has chronic kidney disease 06/29/2025 Insurance [facility] DUAL COMPLETE MEDICARE Care Teams Rate Examiner Relationship Specialty Start Date End Date Name, MD Thaddeus [address] [place] [phone] PCP - General Family Medicine 11/20/15
--- OUTSIDE RECORDS SUMMARY | 2025-07-18 11:25 | XMS_ITS | Encounter Summary ---
Author Organization [employer] Address [address] [facility] [address] [place] [address] Care Team Providers Care Back Hanger Name Role Phone Name, Thaddeus DIETRICH Primary Care Provider [phone] Reason for Visit * Reason Onset Date Comments FYI 01/11/2024 Encounter Details Date Type Department Care Team ([facility] st Contact Info) Description 01/11/2024 Telephone [facility] [address] [place], [place] [phone] Name, MD Thaddeus [address] [place] [address] FYI Social History Tobacco Use Types Packs/Day Years [...] Recorded Patient Health Questionnaire-2 Score 2 11/03/2023 Comments Unknown Sex and Gender Information Value Date Recorded Sex Assigned at Female 06/15/2022 10:15 AM EDT Legal Sex Female 10:15 AM EDT Gender Identity Female 06/15/2022 10:15 AM EDT Sexual Orientation Straight 06/15/2022 10 :15 AM EDT documented as of this encounter Miscellaneous Notes * Telephone Encounter - Sofia Ansari RN - 01/11/2024 2:18 PM EDT T/C to Sadei at [phone] for below message. Sadie verbally greed and understood. * Telephone Encounter - Sofia Ansari RN - 01/11/2024 2:02 PM EDT Please review and advise for below message. [facility] states pt. Is still taking these medication, no symptoms, there computer system is saying that there is drug interaction between these two medication. [facility] calling as FYI. * Telephone Encounter - Tariq Banerjee - 01/11/2024 11:55 AM EDT Tc from Sadie the VN at [facility] calling to inform the provider that the patient has a drug interaction between cyclobenzaprine (Flexeril) 10 MG tablet traMADol (Ultram) 50 MG tablet any questions please call Sadie at [phone] documented in this encounter Plan of Treatment Not on file documented as of this encounter Visit Diagnoses Not on filedocumented in this encounter Additional Health Concerns Assessment Noted Time PHQ-9 Depression Total Score: 8 11/03/19 24 10:36 AM EDT documented as of this encounter Care Teams Back Hanger Relationship Specialty Start Date End Date Name, MD Thaddeus [address] [place] [address] PCP - General Family Medicine 11/20/15 documented as of this encounter
--- OUTSIDE RECORDS SUMMARY | 2025-07-18 11:25 | XMS_ITS | Encounter Summary ---
Author Organization [employer] Address [address] [facility] [address] [place] [address] Care Team Providers Care Electrotype Servicer Name Role Phone Name, Thaddeus DIETRICH Primary Care Provider [phone] Reason for Visit * Reason Comments Med Refill Encounter Details Date Type Department Care Team (Late st Contact Info) Description 02/01/2024 Refill [facility] [address] [place] [address] Jess Villagran MD [address] [place] [address] Epigastric pain Social History Tobacco Use Types [...] documented as of this encounter Care Teams Electrotype Servicer Relationship Specialty Start Date End Date Name, MD Thaddeus [address] [place] [address] PCP - General Family Medicine 11/20/15 documented as of this encounter
--- OUTSIDE RECORDS SUMMARY | 2025-07-18 11:25 | XMS_ITS | Encounter Summary ---
Author Organization [employer] Address [address] [facility] [address] [place] [address] Care Team Providers Care Terminal Computer Operator Name Role Phone Name, Thaddeus DIETRICH Primary Care Provider [phone] Reason for Visit * Reason Comments Med Refill Encounter Details Date Type Department Care Team ([facility] st Contact Info) Description 08/10/2024 Refill [facility] [address] [place], [place] [phone] Name, MD Thaddeus [address] [place] [address] Social History Tobacco Use Types Packs/Day Years [...] documented as of this encounter Care Teams Terminal Computer Operator Relationship Specialty Start Date End Date Name, MD Thaddeus [address] [place] [address] PCP - General Family Medicine 11/20/15 documented as of this encounter
--- OUTSIDE RECORDS SUMMARY | 2025-07-18 11:25 | XMS_ITS | Encounter Summary ---
Author Organization [email or web address] Address [address] [facility] [address] [place] [address] Care Team Providers Care Paediatric Thoracic Physician Name Role Phone Name, Thaddeus DIETRICH Primary Care Provider [phone] Reason for Visit * Reason Onset Date Comments Appointment Request 04/05/2025 Encounter Details Date Type Department Care Team ([facility] st Contact Info) Description 04/05/2025 Telephone [facility] [address] [place], [place] [phone] Name, MD Thaddeus [address] [place] [address] Appointment Request Social History Tobacco Use Types Packs/Day Years [...] encounter Miscellaneous Notes * Telephone Encounter - Dom Guy - 04/05/2025 3:05 PM EDT Tc from pt requesting to reschedule apt scheduled on 04/09 , pt has to travel for an emergency Contact pt at [phone] (vincentian) documented in this encounter Plan of Treatment Not on file documented as of this encounter Visit Diagnoses Not on filedocumented in this encounter Additional Health Concerns Assessment Noted Time PHQ-9 Depression Total Score: 5 11/16/19 11:53 AM EDT documented as of this encounter Care Teams Paediatric Thoracic Physician Relationship Specialty Start Date End Date Name, MD Thaddeus [address] [place] [address] PCP - General Family Medicine 11/20/15 documented as of this encounter
== END 2025-07-18 15:29 | disposition home or self-care (01) ==
LOC: HO.HGI 10:04
PROVIDERS: PCP Internal Medicine Geriatric Medicine; Visit Provider Nurse Practitioner
DX: K21.9 Gastro-esophageal reflux disease without esophagitis (principal); K59.04 Chronic idiopathic constipation; K31.819 Angiodysplasia of stomach and duodenum without bleeding; K57.92 Diverticulitis of intestine, part unspecified, without perforation or abscess without bleeding
CPT/HCPCS: 99213

== ENCOUNTER → 2025-07-18 10:04 | Outpatient (BNVA) | payer OTHER, SELFPAY | PROVIDERS: PCP Internal Medicine Geriatric Medicine; Visit Provider Nurse Practitioner | DX: K21.9 Gastro-esophageal reflux disease without esophagitis (principal); K59.04 Chronic idiopathic constipation; K57.92 Diverticulitis of intestine, part unspecified, without perforation or abscess without bleeding; K31.819 Angiodysplasia of stomach and duodenum without bleeding; D64.9 Anemia, unspecified; F17.200 Nicotine dependence, unspecified, uncomplicated | CPT/HCPCS: 99212 ==